=== PATIENT | female | born 1960 | race Caucasian/White ===

== ENCOUNTER 2017-10-26 15:10 | Emergency (ER) | payer OTHER, BC ==
[~2017-10-26] VITALS: Ht 170.2 cm; Wt 73.0 kg
[~2017-10-26 15:10] MED LIST: ASPI81TA28 PO; B-COTAB18 PO; FLX5 PO; FRCT/ PO; FURO-85 PO; HPRIS5M SQ; HYDR2TAB3 PO; LDDP5 TD; METO25TA56 PO; NTRARSCL PO; NTRGSL/4 UT; OMEGCAP2 PO; OXYC5TAB PO; ZOLP5TAB PO
[2017-10-26 15:13] VITALS: TEMP 36.7; Ht 170.2 cm; Wt 73.0 kg
[2017-10-26] MEDS ORDERED: ASPIRIN 81 MG ECTAB PO STA (15:39)
[2017-10-26] MEDS ORDERED: HYDROmorphone INJ 0.5 MG/0.5 ML SYR IV STA (15:39)
--- NOTE | 2017-10-26 15:42 | EMERGENCY ROOM VISIT NOTE ---
History Report prepared by Mona: Jazmyn Mullins Under the Supervision of: Dr. Emmanuel Swenson M.D. 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 Positive SOB, dizziness, chest pain ( chronic). Negative LOC, cough, chills. She states for the past few days she has been very dizzy and SOB. She reports she was walking into her house after working in her yard when she tripped and fell on her kitchen floor. She states she fell on her left side and thinks she broke her left wrist. She took nitro 6 hours ago and one in the waiting room which alleviated her pain. She is currently taking Plavix and baby aspirin. 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 A total of ten systems were reviewed and were otherwise negative. Past Medical & Surgical Medical Problems: (1) Carotid artery plaque (2) Chest pain (3) Dyslipidemia (4) Endothelial dysfunction of coronary artery (5) GERD (gastroesophageal reflux disease) (6) Myocardial bridge (7) Pericarditis (8) TIA (transient ischemic attack) Surgical Problems: (1) History of appendectomy (2) History of bilateral breast implants (3) History of bilateral hip arthroplasty (4) History of hysterectomy (5) History of pericardiectomy (6) S/P rotator cuff repair Family History Cancer FH: diabetes mellitus FH: seizures FHx: gallbladder disease Heart disease Kidney disease Social History Smoking Status: Never Smoker Alcohol Use: occasionally Drug Use: none Marital Status: Housing Status: lives with family Occupation Status: retired Current/Historical Medications Scheduled Acetamin/Butalbital/Caffeine (Fioricet), 1 TAB PO PRN UD Aspirin (Aspirin Ec), 81 MG PO DAILY Calcium Citrate-Vitamin D (Citracal + D3 Maximum), 1 TAB PO BID Clopidogrel (Plavix), 75 MG PO DAILY Diltiazem Hcl Coated Beads (Cardizem Cd), 240 MG PO DAILY Furosemide (Lasix), 40 MG PO BID Isosorbide Mononitrate Ext Rel (Imdur Ext Rel), 60 MG PO QAM Multiple Vitamins W/ Minerals (Womens One Daily), 1 TAB PO DAILY Scheduled PRN Colchicine (Colchicine), 0.6 MG PO TID PRN for Lidocaine (Lidocaine), 1 PATCH PO DAILY PRN for PT Nitroglycerin (Nitrostat), 0.4 MG UT UD PRN for Chest Pain Ondansetron Hcl (Zofran), 4 MG PO Q8H PRN for Nausea Oxycodone Immediate Rel Tab (Roxicodone Ir), 5 MG PO Q6H PRN for Pain Allergies Coded Allergies: Ivabradine (Verified Allergy, Severe, FACE SWELLS, 10/26/17) Morphine (Verified Allergy, Intermediate, RASH, 10/26/17) Amlodipine (Verified Allergy, Unknown, muscle pain, 10/26/17) Verapamil (Verified Allergy, Unknown, muscle pain, 10/26/17) Promethazine (Verified Adverse Reaction, Intermediate, "JAW LOCKS", ) Physical Exam Vital Signs Date Time Temp Pulse Resp B/P (MAP) Pulse Ox O2 Delivery O2 Flow Rate FiO2 10/26/17 18:12 76 18 128/77 98 10/26/17 16:45 83 19 10/26/17 16:40 84 22 10/26/17 16:35 85 20 10/26/17 16:30 92 29 10/26/17 16:28 88 10/26/17 16:25 88 22 10/26/17 16:20 90 18 10/26/17 16:15 86 25 10/26/17 15:52 98 Room Air 10/26/17 15:13 36.7 104 20 131/80 98 Room Air Physical Exam GENERAL: Awake, alert, well-appearing, NAD. Mild expressive aphasia HENT: Normocephalic, atraumatic. EYES: Normal conjunctiva. Sclera non-icteric. PERRL. No anisocoria. NECK: Supple. No nuchal rigidity. FROM. RESPIRATORY: CTAB, no rhonchi, wheezing, crackles CARDIAC: RRR, no MRG ABDOMEN: Soft, NTND, BS+ MSK: No chest wall TTP, no LE edema. Midline sternotomy scar. Pain to the distal forearm, wrist and hand. NVI distally to MUR nerves. NEURO: GCS 15, CN 2-12 intact, moves all 4s on command SKIN: No rash or jaundice noted. Scattered ecchymosis on her BLE Medical Decision & Procedures ER Provider Diagnostic Interpretation: Radiology results as stated below per my review and radiologist interpretation: L WRIST MIN 3 VIEWS ROUTINE CLINICAL HISTORY: s/p FOOSH L hand, distal forearm, wrist pain COMPARISON: None FINDINGS: Carpal bones are intact. There is cortical irregularity of the lateral metaphysis of the distal left radius. A nondisplaced impacted fracture is suspected. There is moderate arthritis of the left first carpometacarpal joint. There is no distal left ulnar fracture. IMPRESSION: Probable nondisplaced impacted distal left radial fracture. Electronically signed by: Bradley Live M.D. 10/26/2017 4:16 PM CHEST ONE VIEW PORTABLE CLINICAL HISTORY: Chest pain. Fall. COMPARISON STUDY: Chest radiograph March 23, 2016. FINDINGS: There are median sternotomy wires. Cardiomediastinal silhouette is unremarkable. Mediastinal surgical clips are noted. There is no pneumothorax or pleural effusion. Lungs are clear. Pulmonary vascularity is normal. There are suspected bilateral breast implants. IMPRESSION: No acute cardiopulmonary findings. Electronically signed by: Bradley Live M.D. 10/26/2017 4:17 PM Laboratory Results 10/26/17 15:58 Red Blood Count 3.80, Mean Corpuscular Volume 93.4, Mean Corpuscular Hemoglobin 32.9, Mean Corpuscular Hemoglobin Concent 35.2, Mean Platelet Volume 9.3, Neutrophils (%) (Auto) 47.7, Lymphocytes (%) (Auto) 34.8, Monocytes (%) (Auto) 9.6, Eosinophils (%) (Auto) 6.4, Basophils (%) (Auto) 1.3, Neutrophils # (Auto) 2.23, Lymphocytes # (Auto) 1.63, Monocytes # (Auto) 0.45, Eosinophils # (Auto) 0.30, Basophils # (Auto) 0.06 10/26/17 15:58 Test 10/26/17 15:58 10/26/17 16:45 White Blood Count 4.68 K/uL (4.8-10.8) Red Blood Count 3.80 M/uL (4.2-5.4) Hemoglobin 12.5 g/dL (12.0-16.0) Hematocrit 35.5 % (37-47) Mean Corpuscular Volume 93.4 fL (80-100) Mean Corpuscular Hemoglobin 32.9 pg (25-34) Mean Corpuscular Hemoglobin Concent 35.2 g/dl (32-36) Platelet Count 274 K/uL (130-400) Mean Platelet Volume 9.3 fL (7.4-10.4) Neutrophils (%) (Auto) 47.7 % Lymphocytes (%) (Auto) 34.8 % Monocytes (%) (Auto) 9.6 % Eosinophils (%) (Auto) 6.4 % Basophils (%) (Auto) 1.3 % Neutrophils # (Auto) 2.23 K/uL (1.4-6.5) Lymphocytes # (Auto) 1.63 K/uL (1.2-3.4) Monocytes # (Auto) 0.45 K/uL (0.11-0.59) Eosinophils # (Auto) 0.30 K/uL (0-0.5) Basophils # (Auto) 0.06 K/uL (0-0.2) RDW Standard Deviation 43.4 fL (36.4-46.3) RDW Coefficient of Variation 12.7 % (11.5-14.5) Immature Granulocyte % (Auto) 0.2 % Immature Granulocyte # (Auto) 0.01 K/uL (0.00-0.02) Anion Gap 9.0 mmol/L (3-11) Est Creatinine Clear Calc Drug Dose 55.7 ml/min Estimated GFR () 66.3 Estimated GFR (Non- 57.2 BUN/Creatinine Ratio 18.4 (10-20) Calcium Level 8.9 mg/dl (8.5-10.1) Total Bilirubin 0.7 mg/dl (0.2-1) Direct Bilirubin 0.2 mg/dl (0-0.2) Aspartate Amino Transf (AST/SGOT) 33 U/L (15-37) Alanine Aminotransferase (ALT/SGPT) 54 U/L (12-78) Alkaline Phosphatase 60 U/L (45-117) Troponin I < 0.015 ng/ml (0-0.045) Pro-B-Type Natriuretic Peptide 93 pg/ml (0-900) Total Protein 8.0 gm/dl (6.4-8.2) Albumin 4.2 gm/dl (3.4-5.0) Lipase 140 U/L (73-393) Prothrombin Time 10.3 SECONDS (9.0-12.0) Prothromb Time International Ratio 1.0 (0.9-1.1) Activated Partial Thromboplast Time 26.8 SECONDS (21.0-31.0) Partial Thromboplastin Ratio 1.0 Laboratory results reviewed by me Medications Administered Medications (Trade) Dose Ordered Sig/Juve Route Start Time Stop Time Status Last Admin Dose Admin Nitroglycerin (Nitrostat Tab) 0.4 mg Q5M PRN SL 10/26/17 15:45 10/26/17 18:49 DC 10/26/17 15:53 0.4 MG Aspirin (Ecotrin Tab) 243 mg NOW STAT PO 10/26/17 15:39 10/26/17 15:42 DC 10/26/17 15:55 243 MG Hydromorphone HCl (Dilaudid Inj) 0.5 mg NOW STAT IV 10/26/17 15:39 10/26/17 15:42 DC 10/26/17 15:54 0.5 MG Ondansetron HCl (Zofran Inj) 4 mg NOW STAT IV 10/26/17 16:18 10/26/17 16:19 DC 10/26/17 16:33 4 MG Hydromorphone HCl (Dilaudid Inj) 1 mg NOW STAT IV 10/26/17 16:41 10/26/17 16:42 DC 10/26/17 16:49 1 MG Tramadol HCl (Ultram Tab) 50 mg NOW STAT PO 10/26/17 17:11 10/26/17 17:12 DC 10/26/17 17:19 50 MG Oxycodone HCl (Roxicodone Immediate Rel Tab) 5 mg NOW STAT PO 10/26/17 17:11 10/26/17 17:12 DC 10/26/17 17:18 5 MG Acetaminophen (Tylenol Tab) 1,000 mg NOW STAT PO 10/26/17 17:11 5/25/18 17:12 DC 10/26/17 17:18 1,000 MG ECG Per My Interpretation Indication: chest pain, other (fall) Rate (beats per minute): 100 Rhythm: normal sinus Findings: other (normal intervals, normal axis, no acute STS changes or TWI) ED Course 153: The patient was evaluated in room B9. A complete history and physical exam was performed. 1645: I reevaluated the patient at this time. I recommended the patient should stay in the hospital for further evaluation however she stated she wants to leave AMA. 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 Positive SOB, dizziness, chest pain ( chronic). Negative LOC, cough, chills. Nursing notes reviewed. Ancillary studies and prior records reviewed. Differential diagnosis: Etiologies such as cardiac ischemia, aortic dissection, pulmonary embolism, pneumonia, pneumothorax, musculoskeletal, infections, pericarditis, myocarditis , esophageal rupture, gastrointestinal, fracture, dislocation, neurovascular compromise, compartment syndrome, soft tissue injury, as well as others were entertained. Patient was seen and evaluated the bedside. Patient does have a fairly significant cardiac history and the patient was complaining of chest pain. Patient did have a fall today after experience of chest pain while doing housework. Patient denies any LOC. Patient does take aspirin and Plavix. Patient did take her baby aspirin and Plavix today. The patient was given an additional dose of aspirin and nitro as needed for chest pain. Patient did have blood work completed, EKG, troponin, chest x-ray as well as a left wrist film. Patient's chest x-ray was clear. EKG did not show any ischemic change and a negative troponin. Patient's other blood work is fairly unremarkable. Given the patient's concerning past medical history with associated chest pain also sounds as if it could be related to unstable angina as she has chest pains without exertion and has a significant cardiac history. The patient also of note did have a left distal radius fracture. This is fairly well approximated. A splint was applied. The patient was given additional IV and then p.o. pain medications. The patient was told that she should stay in the hospital. The patient did refuse at this time. We did discuss the risks and benefits of staying versus leaving AGAINST MEDICAL ADVICE. The patient is aware of the risks and the patient still wanted to go. The patient did sign paperwork acknowledging such the patient left AGAINST MEDICAL ADVICE. I did have the case aide talk with her prior to leaving in order to obtain follow-up appointments with her primary stage settings painter as well as the orthopedist. Medication Reconcilliation Current Medication List: was personally reviewed by me Blood Pressure Screening Patient's blood pressure: Normal blood pressure Blood pressure disposition: Did not require urgent referral Impression Primary Impression: Chest pain Additional Impressions: Fall Left radial fracture Scribe Attestation The scribe's documentation has been prepared under my direction and personally reviewed by me in its entirety. I confirm that the note above accurately reflects all work, treatment, procedures, and medical decision making performed by me. Departure Information Dispostion Home / Self-Care Prescriptions Ondansetron Hcl (ZOFRAN) 4 Mg Tab 4 MG PO Q8H Y for Nausea, #12 TAB Prov: Emmanuel Swenson M.D. 10/26/17 Oxycodone Immediate Rel Tab (ROXICODONE IR) 5 Mg Tab 5 MG PO Q6H Y for Pain, #15 TAB Prov: Emmanuel Swenson M.D. 10/26/17 Referrals Angelica Mcdowell MD (PCP) Patient Instructions ED Fx Forearm Radius Ulna No Shaychristel Sanchez, My [facility] Additional Instructions Please return to the emergency department if you have worsening or recurrent symptoms not amenable to at-home treatment. Please call for a follow-up appointment with her primary care physician. Please take your medications as prescribed. If you have other concerns and/or complaints please feel free to also call your primary care physician's office or return the ED for further evaluation, management, and treatment. You received narcotic or benzodiazepene medication while in the emergency room today. This is an addictive medication that may cause drowziness as well as constipation. Do not drive, operate heavy machinery, or drink alcohol under the influence of this medication. You may take tylenol 1000 mg every 6 hours as needed for pain/fever unless told by your physician to not take it or have liver problems. Take your medications as prescribed. If you still have discomfort you may take the narcotic medication. Please be advised that these medications are habit forming, can make you sleepy, and can cause breathing issues. Do not use if you require your full attention. Take only as prescribed. Please follow-up with your orthopedist as well as stage settings painter. You have been examined and treated today on an emergency basis only. This is not a substitute for, or an effort to provide, complete comprehensive medical care. It is impossible to recognize and treat all injuries or illnesses in a single emergency department visit. It is therefore important that you follow up closely with [facility], your PCP, and/or your specialist(s). Call as soon as possible for an appointment. Thank you for your time and consideration. I look forward to speaking with you again soon. Please don't hesitate to call us if you have any questions. Problem Qualifiers Primary Impression: Chest pain Chest pain type: unspecified Qualified Codes: R07.9 - Chest pain, unspecified Additional Impressions: Fall Encounter type: initial encounter Qualified Codes: W19.XXXA - Unspecified fall, initial encounter Left radial fracture Encounter type: initial encounter Radius location: distal Fracture type: closed Fracture morphology: unspecified fracture morphology Qualified Codes: S52.502A - Unspecified fracture of the lower end of left radius, initial encounter for closed fracture
[2017-10-26] MEDS ORDERED: NITROGLYCERIN 0.4 MG SL PER TAB CHARGE SL PRN (15:45)
[2017-10-26 15:52] VITALS: O2SAT 98
[2017-10-26 16:12] LABS: BASO % 1.3 %; BASO ABS # 0.06 K/uL (0-0.2); EOS % 6.4 %; HEMATOCRIT 35.5 % (37-47); HEMOGLOBIN 12.5 g/dL (12.0-16.0); IG# 0.01 K/uL (0.00-0.02); LYMPH % 34.8 %; LYMPH ABS # 1.63 K/uL (1.2-3.4); MEAN CELL VOLUME 93.4 fL (80-100); MEAN CORPUSCULAR HEMOGLOBIN 32.9 pg (25-34); MEAN CORPUSCULAR HGB CONC 35.2 g/dl (32-36); MEAN PLATELET VOLUME 9.3 fL (7.4-10.4); MONO % 9.6 %; MONO ABS # 0.45 K/uL (0.11-0.59); NEUT % 47.7 %; NEUT ABS # 2.23 K/uL (1.4-6.5); PLATELET COUNT 274 K/uL (130-400); RED CELL DISTRIBUTION WIDTH CV 12.7 % (11.5-14.5); RED CELL DISTRIBUTION WIDTH SD 43.4 fL (36.4-46.3); WHITE BLOOD COUNT 4.68 K/uL (4.8-10.8)
[2017-10-26] MEDS ORDERED: FRCT/ PO (16:12)
[2017-10-26] MEDS ORDERED: LIDO1PAD2 PO (16:12)
[2017-10-26] MEDS ORDERED: DILT240C57 PO (16:14)
[2017-10-26] MEDS ORDERED: ISOS60TA25 PO (16:14)
[2017-10-26] MEDS ORDERED: CLOP1TAB15 PO (16:14)
--- NOTE | 2017-10-26 16:17 | DIAGNOSTIC IMAGING REPORT ---
L WRIST MIN 3 VIEWS ROUTINE CLINICAL HISTORY: s/p FOOSH L hand, distal forearm, wrist pain COMPARISON: None FINDINGS: Carpal bones are intact. There is cortical irregularity of the lateral metaphysis of the distal left radius. A nondisplaced impacted fracture is suspected. There is moderate arthritis of the left first carpometacarpal joint. There is no distal left ulnar fracture. IMPRESSION: Probable nondisplaced impacted distal left radial fracture. Electronically signed by: Bradley iLve M.D. 10/26/2017 4:16 PM Dictated Date/Time: 10/26/2017 4:13 PM
[2017-10-26] MEDS ORDERED: ONDANSETRON INJ 2 MG/ML 2 ML VIAL IV STA (16:18)
--- NOTE | 2017-10-26 16:18 | DIAGNOSTIC IMAGING REPORT ---
CHEST ONE VIEW PORTABLE CLINICAL HISTORY: Chest pain. Fall. COMPARISON STUDY: Chest radiograph March 23, 2016. FINDINGS: There are median sternotomy wires. Cardiomediastinal silhouette is unremarkable. Mediastinal surgical clips are noted. There is no pneumothorax or pleural effusion. Lungs are clear. Pulmonary vascularity is normal. There are suspected bilateral breast implants. IMPRESSION: No acute cardiopulmonary findings. Electronically signed by: Bradley Live M.D. 10/26/2017 4:17 PM Dictated Date/Time: 10/26/2017 4:16 PM
[2017-10-26] MEDS ORDERED: COLC0.6T54 PO (16:19)
[2017-10-26] MEDS ORDERED: FRS/40 PO (16:21)
[2017-10-26] MEDS ORDERED: CALC1TAB9 PO (16:21)
[2017-10-26 16:36] LABS: ALBUMIN 4.2 gm/dl (3.4-5.0); ALKALINE PHOSPHATASE 60 U/L (45-117); ALT/SGPT 54 U/L (12-78); AST/SGOT 33 U/L (15-37); BLOOD UREA NITROGEN 20 mg/dl (7-18); CALCIUM 8.9 mg/dl (8.5-10.1); CARBON DIOXIDE 26 mmol/L (21-32); CREATININE 1.07 mg/dl (0.60-1.20); GLUCOSE 95 mg/dl (70-99); LIPASE 140 U/L (73-393); POTASSIUM 3.5 mmol/L (3.5-5.1); SODIUM 141 mmol/L (136-145)
[2017-10-26] MEDS ORDERED: HYDROmorphone INJ 1 MG/ML SYR IV STA (16:41)
[2017-10-26 17:07] LABS: PTT PATIENT 26.8 SECONDS (21.0-31.0)
[2017-10-26] MEDS ORDERED: ACETAMINOPHEN 500 MG TAB PO STA (17:11)
[2017-10-26] MEDS ORDERED: OXYCODONE HCL IR 5 MG TAB (IMMEDIATE RELEASE) PO STA (17:11)
[2017-10-26] MEDS ORDERED: TRAMADOL HCL 50 MG TAB PO STA (17:11)
[2017-10-26] MEDS ORDERED: ONDA4TAB46 PO (17:54)
[2017-10-26] MEDS ORDERED: OXYC1TAB3 PO (17:54)
[2017-10-26 18:12] VITALS: BP 128/77; PULSE 76; O2SAT 98
[2017-10-26] MEDS ORDERED: MULT-240 PO (18:31)
== END 2017-10-26 18:18 | disposition left against medical advice (07) ==
LOC: C.EDB 15:12
DX: R07.9 Chest pain, unspecified (principal); S52.502A Unspecified fracture of the lower end of left radius, initial encounter for closed fracture; S80.11XA Contusion of right lower leg, initial encounter; S80.12XA Contusion of left lower leg, initial encounter; W01.0XXA Fall on same level from slipping, tripping and stumbling without subsequent striking against object, initial encounter; Y93.01 Activity, walking, marching and hiking; Y92.000 Kitchen of unspecified non-institutional (private) residence as the place of occurrence of the external cause; R47.01 Aphasia; I25.2 Old myocardial infarction; Z79.82 Long term (current) use of aspirin; Z79.02 Long term (current) use of antithrombotics/antiplatelets; Z86.73 Personal history of transient ischemic attack (TIA), and cerebral infarction without residual deficits; Z88.8 Allergy status to other drugs, medicaments and biological substances; Z88.6 Allergy status to analgesic agent

== ENCOUNTER → 2018-01-22 | Outpatient (CLI) | payer OTHER, BC ==
[~2018-01-22] MED LIST changes: -B-COTAB18 PO; +CALC1TAB9 PO; +CLOP1TAB15 PO; +COLC0.6T54 PO; +DILT240C57 PO; -FLX5 PO; +FRS/40 PO; -FURO-85 PO; -HPRIS5M SQ; -HYDR2TAB3 PO; +ISOS60TA25 PO; -LDDP5 TD; +LIDO1PAD2 PO; -METO25TA56 PO; +MULT-240 PO; -NTRARSCL PO; -OMEGCAP2 PO; +ONDA4TAB46 PO; +OXYC-737 PO; -OXYC5TAB PO; -ZOLP5TAB PO
[2018-01-22 16:17] LABS: BASO % 0.6 %; BASO ABS # 0.04 K/uL (0-0.2); EOS % 3.7 %; EOS ABS # 0.24 K/uL (0-0.5); HEMATOCRIT 38.7 % (37-47); HEMOGLOBIN 13.3 g/dL (12.0-16.0); IG# 0.01 K/uL (0.00-0.02); LYMPH % 24.8 %; MEAN CELL VOLUME 91.7 fL (80-100); MEAN CORPUSCULAR HEMOGLOBIN 31.5 pg (25-34); MEAN CORPUSCULAR HGB CONC 34.4 g/dl (32-36); MEAN PLATELET VOLUME 9.4 fL (7.4-10.4); MONO % 9.6 %; MONO ABS # 0.62 K/uL (0.11-0.59); NEUT % 61.1 %; NEUT ABS # 3.94 K/uL (1.4-6.5); PLATELET COUNT 269 K/uL (130-400); RED CELL DISTRIBUTION WIDTH CV 12.2 % (11.5-14.5); RED CELL DISTRIBUTION WIDTH SD 41.2 fL (36.4-46.3); WHITE BLOOD COUNT 6.45 K/uL (4.8-10.8)
== END | disposition home or self-care (01) ==
LOC: C.LAB1850 15:42
PROVIDERS: ATTEND Allergy & Immunology
DX: I20.1 Angina pectoris with documented spasm (principal); D47.09 Other mast cell neoplasms of uncertain behavior; Z88.6 Allergy status to analgesic agent

== ENCOUNTER 2019-02-09 12:48 | Inpatient (IN) ==
[2019-02-09] MEDS ORDERED: ONDANSETRON INJ 2 MG/ML 2 ML VIAL IV STA (13:12)
[2019-02-09] MEDS ORDERED: NITROGLYCERIN 2% OINTMENT 30GM TUBE EXT STA (13:12)
[2019-02-09] MEDS ORDERED: HYDROmorphone INJ 0.5 MG/0.5 ML SYR IV STA ×3 (13:12→21:44)
[2019-02-09] MEDS ORDERED: DiphenhydrAMINE HCL 50 MG/ML VIAL IV STA (13:12)
[2019-02-09] MEDS ORDERED: SODIUM CHLORIDE 0.9% 500 ML IV SCH (13:15)
[2019-02-09 13:49] LABS: Basophils # (auto) 0.04 K/uL (0-0.2); Basophils % (auto) 0.7 %; Hematocrit (blood only) 40.9 % (37-47); Hemoglobin 14.5 g/dL (12.0-16.0); Immature Granulocytes # (auto) 0.01 K/uL (0.00-0.02); Immature Granulocytes % (auto) 0.2 %; Lymphocytes # (auto) 2.04 K/uL (1.2-3.4); Lymphocytes % (auto) 34.2 %; Mean Corpuscular Hgb Conc 35.5 g/dL (32-36); Mean Corpuscular Volume 92.5 fL (80-100); Mean Platelet Volume 9.4 fL (7.4-10.4); Monocytes # (auto) 0.58 K/uL (0.11-0.59); Monocytes % (auto) 9.7 %; Neutrophils # (auto) 2.99 K/uL (1.4-6.5); Neutrophils % (auto) 50.2 %; Platelet Count 290 K/uL (130-400); RDW Coefficient of Variation 11.8 % (11.5-14.5); Red Blood Count 4.42 M/uL (4.2-5.4); White Blood Count 5.96 K/uL (4.8-10.8)
[2019-02-09 13:50] LABS: Partial Thromboplastin Time 28.2 Seconds (21.0-31.0); Prothrombin Time 10.1 Seconds (9.0-12.0)
--- NOTE | 2019-02-09 13:52 | XRay Report ---
SINGLE VIEW CHEST CLINICAL HISTORY: Atypical chest pain. FINDINGS: An AP, portable, upright chest radiograph is compared to study dated 04/18/2018. The patien t is status post midline sternotomy. The heart is top normal for projection. The pulmonary vasculatur e is noncongested. The lungs and pleural spaces are clear. No pneumothorax is seen. The skeletal stru ctures are osteopenic. The bony thorax is grossly intact. IMPRESSION: No active disease in the chest. Electronically signed by: Daquan Murphy M.D. 02/09/2019 1:51 PM
[2019-02-09 13:54] LABS: Alanine Aminotransferase 26 U/L (12-78); Albumin Level 4.3 gm/dl (3.4-5.0); Aspartate Aminotransferase 20 U/L (15-37); BUN Creatinine Ratio 13.2 (10-20); Blood Urea Nitrogen 13 mg/dl (7-18); Calcium 10.6 mg/dl (8.5-10.1); Carbon Dioxide 27 mmol/L (21-32); Chloride 105 mmol/L (98-107); Creatinine Clr Calc Pharmacy 67.3 ml/min; Est GFR (African American) 72.3; Est GFR (Non-African American) 62.4; Glucose 101 mg/dl (70-99); Magnesium 2.2 mg/dl (1.8-2.4); Sodium 144 mmol/L (136-145)
[2019-02-09 13:58] LABS: Alkaline Phosphatase 72 U/L (45-117); Bilirubin,Total 0.5 mg/dl (0.2-1); Globulin 4.2 gm/dl (2.5-4.0); Total Protein 8.5 gm/dl (6.4-8.2); Troponin I < 0.015 ng/ml (0-0.045)
[2019-02-09] MEDS ORDERED: FAMOTIDINE 20MG/5ML IV PUSH IV STA (14:53)
--- NOTE | 2019-02-09 17:49 | History & Physical Report ---
Date of Service February 09, 2019 Assessment & Plan (1) Precordial chest pain: Admit to PCU on telemetry for observation Vital signs every [address] abdomen pelvis pending Rule out acute ACS, repeat troponin every 6 hours and EKG x3 TTE Consider consulting cardiology since patient have extensive cardiac history if chest pain persists or positive findings on TTE Consider stress test Stool cultures, C. difficile and fecal occult blood Urine analysis Hold DVT prophylaxis since patient reports brown and dark liquid stools until fecal occult results DVT prophylaxis Victoria and TESSA sandoval If C. difficile positive start vancomycin p.o. for 10 days. Patient was exposed recently to antibiotics. Full code Present on Admission?: Yes (2) Diarrhea: As the above Present on Admission?: Yes (3) CAD (coronary artery disease): Continue home medicine aspirin 81 mg p.o. every morning, Plavix 75 mg p.o. every morning, diltiazem 120 mg tablet p.o. every afternoon, diltiazem IR 240 mg / 360 mg p.o., Hold furosemide furosemide 20 mg p.o. every morning while patient has diarrhea and needs a gentle hydration. Lisinopril 2.5 mg tablet p.o. every afternoon, nitroglycerin 400 MCG sprays 1 spray SL q. 5 minutes as needed, Present on Admission?: Yes (4) Hiatal hernia: It was not the issue before but will check CT Present on Admission?: Yes History of Present Illness Chief Complaint: Chest pain Primary Care Provider: Tito Green MD Patient is a 58 years old female with past medical history of hypertension, myocardial infarction, stroke, history of tooth extraction, hiatal hernia, coronary artery disease, myocardial bridge, pericarditis, hyperlipidemia who presents to the emergency room with a complaint of chest pain started this morning after hinduism and did not resolve with 3 nitroglycerin. Patient said that since she had several loose bowel movements and then she had approximately 6 watery diarrhea which were brown dark in color. Patient said the prior to that she had tooth extraction and she was on amoxicillin for 5 days. And this was before she started to have diarrhea and chest pain. Patient said that she is burping a lot and she does not feel good. Patient denies fever chills, but reports hot flashes, chest pain is more epigastric and patient said sometimes goes to her left shoulder. Otherwise she denies nausea vomiting hemoptysis hematuria dysuria melena or hematochezia. Patient is on aspirin and Plavix for her stroke and coronary artery disease. Chest x-rays were done and they showed no active disease in the chest. Her white blood cell count is 5.96 her hemoglobin is 14.5 her hematocrit is 40.9 her platelet is 290. Her PT is 10.1 her INR is 1 her APTT is 28.2. Her sodium is 144, her potassium is 4, her chloride was 105, her anion gap is 12, her BUN is 13 her creatinine is 0.99 her GFR is 62.4 her glucose is 101, her lactate is pending. Her magnesium is 2.2 her ALT today is 26, her AST is 20, her alkaline phosphatase is 72, troponin 0 0.015 negative, her lipase is 102. CT of the abdomen pelvis is pending. Decision was made to admit patient to PCU telemetry to check her stool cultures for diarrhea, to rule out acute ACS. Allergies Allergy/AdvReac Type Severity Reaction Status Date / Time ivabradine Allergy SV FACE SWELLS Verified 02/09/19 13:56 prochlorperazine Allergy Severe LOCK JAW Unverified 02/09/19 13:56 [From Compazine] amlodipine Allergy Intermediate muscle pain Verified 02/09/19 13:56 morphine Allergy Intermediate RASH Verified 02/09/19 13:56 verapamil Allergy Intermediate muscle pain Verified 02/09/19 13:56 ibuprofen Allergy Mild Rash Verified 02/09/19 13:56 promethazine AdvReac Severe Jaw Locks Verified 02/09/19 13:56 Home Medications Home Medications Medication Instructions Recorded Confirmed Type aspirin [Aspir-81] 81 mg PO QAM 04/08/18 02/09/19 History calcium phosphate-vitamin D3 1 tab PO QAM 04/08/18 02/09/19 History [Citracal + D3 (calcium phos)] multivitamin 1 tab PO QAM 04/08/18 02/09/19 History nitroglycerin 1 dose SUBLINGUAL UD PRN 04/08/18 02/09/19 History pantoprazole [Protonix] 40 mg PO QAM 04/08/18 02/09/19 History vitamin [id number] acid 1 tab PO QAM 04/08/18 02/09/19 History fexofenadine [Hortensia Allergy] 180 mg PO BID 04/18/18 02/09/19 History furosemide 20 mg tablet 20 mg PO QAM PRN 06/26/18 02/09/19 History diltiazem 120 mg tablet 120 mg PO QPM tab 08/01/18 02/09/19 History diltiazem ER 240 mg capsule,24 360 mg PO .am cap 08/01/18 02/09/19 History hr,extended release docosahexanoic acid 200 mg capsule 200 mg PO DAILY cap 08/01/18 02/09/19 History isosorbide mononitrate ER 60 mg 120 mg PO BID tab 08/01/18 02/09/19 History tablet,extended release 24 hr lisinopril 2.5 mg tablet 5 mg PO QPM tab 08/01/18 02/09/19 History lactobacillus combination no.4 3 3,000 mmu cells PO DAILY 10/30/18 02/09/19 History billion cell capsule albuterol sulfate HFA 90 1 puffs INH Q6H PRN #8.5 gm 12/30/18 02/09/19 Rx mcg/actuation aerosol inhaler lidocaine 5 % topical patch 1 patch TOP DAILY #1 ea 12/30/18 02/09/19 Rx nitroglycerin 0.1 mg/hr 1 patch TD Q12 PRN #30 ea 12/30/18 02/09/19 Rx transdermal 24 hour patch nitroglycerin 400 mcg/spray 1 sprays SL Q5M PRN #12 gm 12/30/18 02/09/19 Rx translingual aerosol clopidogrel 75 mg tablet 75 mg PO QAM #90 tab 02/06/19 02/09/19 Rx ascorbic acid (vitamin C) [Vitamin 1 g PO DAILY 02/09/19 02/09/19 History C] turmeric 400 mg PO DAILY 02/09/19 02/09/19 History vitamin A 8,000 unit PO DAILY 02/09/19 02/09/19 History Past Med/Surg History Medical History Hypertension (Chronic) Myocardial Infarction (Chronic) X 2 (2015 AND 09/2017) Asymptomatic PVCs (Chronic) Migraine (Chronic) Stroke (Chronic) 02/11/2015 (EMBOLIC CAROTID STROKE) EXPRESSIVE APHASIA/RESIDUAL LEFT SIDE WEAKNESS Anemia (Chronic) Osteoarthritis (Chronic) Fibroid tumor (Resolved) Surgical History History of cardiac cath (Chronic) TOTAL 12? (LAST NOVEMBER 2017 AT [facility]) History of heart artery stent (Chronic) SEPTEMBER 2017>4 STENTS PLACED (WILL BRING CARD TO SURGERY) DRUG ELUTING History of heart surgery (Chronic) 07/2014>UNROOFING MYOCARDIAL BRIDGE OF LAD ([facility]) 3 MONTHS LATER-PERICARDIECTOMY 01/2017 BYPASS OF RCA Hx of LASIK (Chronic) History of tonsillectomy (Chronic) History of tooth extraction (Chronic) History of appendectomy (Chronic) History of colonoscopy (Chronic) History of esophagogastroduodenoscopy (EGD) (Chronic) History of total hip arthroplasty (Chronic) RT/LEFT History of shoulder surgery (Chronic) RT/LEFT History of elbow surgery (Chronic) RT ELBOW History of hysterectomy (Chronic) Family History Mother Family history of diabetes mellitus Coronary heart disease Hypertension Cardiac disorder Father Family history of diabetes mellitus Hypertension Cardiac disorder Kidney disease Myocardial infarction Sister Family history of diabetes mellitus Seizures Brother Family history of diabetes mellitus Hypertension Cardiac disorder Prostate cancer Thyroid cancer Uncle Esophageal cancer Grandmother Breast cancer Cardiac disorder Grandfather Cardiac disorder Aunt Ovarian cancer Social History Preferred Language: Egyptian Communication Ability: Effective Visual Impairment: No Limitations Hearing Ability: Normal Bond Manager Required: No Beliefs That Will Affect Care: None marital status: Current Living Situation: Spouse current occupational status: retired Feels Safe at Home: Yes Smoking Status: Never smoker Second Hand Exposure: Yes ; Hx Alcohol Use: Yes Alcohol type: beer and wine Hx Substance Use: No Review of Systems Review of Systems: All systems reviewed & are unremarkable except as noted in HPI & below Physical Exam Constitutional: WD/WN, vitals as above well developed and + thin Eyes: PERRL, conjunctivae normal, anicteric sclerae ENMT: external ear and nose normal, oropharynx normal Neck: trachea midline, no thyromegaly Respiratory: normal respiratory effort, lungs clear to auscultation Cardiovascular: Heart Sounds: normal S1, normal S2 and + murmur Palpation: + palpable S3 Vessels: + JVD Extremities: + pedal edema Gastrointestinal (Abdomen): Bowel sounds positive in all 4 quadrants, soft, mildly tender to deep palpation which exacerbated chest pain. Appears that chest pain is atypical and caused by and bloating coming from her abdomen. Musculoskeletal: no cyanosis or clubbing, extremities motor strength 5/5 Skin: no rashes, warm and dry Neurologic: patellar DTR's 2+ bilat, sensation intact Psychiatric: A+Ox3, euthymic affect Lymphatic: no cervical or axillary lymphadenopathy Results & Data Vital Signs (Past 12 Hours) Vital Signs Temp Pulse Pulse Resp BP BP Pulse Ox 02/09/19 15:48 58 L 18 125/74 94 02/09/19 14:30 73 17 121/70 94 02/09/19 12:59 37.1 C 75 19 116/78 99 Code Status & VTE Plan Code Status Full code VTE Prophylaxis Plan VTE Prophylaxis will be ordered: No Reason for no VTE drug order: Contraindicated PG Care Time/CCT Total # of Minutes Spent Total Time Spent with Patient: Total time spent is greater than 50% in coordination of care (as documented) at patient's floor/unit and/or counseling patient:
[2019-02-09] MEDS ORDERED: GI COCKTAIL ED USE PO ONE (17:53)
--- NOTE | 2019-02-09 18:14 | Emergency Department Note ---
Entered by Ngoc Kwon acting as a scribe for Daquan Alvarez MD History of Present Illness General Chief complaint: Chest Pain Stated complaint: CHEST PAIN, SOB- STRONG CARDIAC HX Time Seen by Provider: 02/09/19 13:04 Source: patient History of Present Illness Provider complaint: Chest pain Onset (ago): day(s) 3 Location: chest Radiation: other (left chest ) Pain Consistency: + other (worsening ) Maximum Pain Intensity: 9 Quality: + constant and + other (increasing ) Associated symptoms: + chest pain, + shortness of breath and + other (Positive: difficulty breathing, difficulty swalloing, dizziness ) The patient is a 58 year old female with past medical history of anemia, EGD, osteoarthritis, stroke, LASIK, who presents to the ED with complaints of worsening and increasing chest pain that started three days ago. The patient reports her hiatal hernia is worsening as well. She notes in the last hour and a half she has had worsening central chest pain that radiated to the left chest. She reports she has had two major heart attacks, a stroke, angina, expressive aphasia, three open heart surgeries, one bypass, and four cardiac stents. The patient additionally states she has a dissected right coronary artery. She notes she has a history of coronary spasms that caused her to develop a heart attack. She reports she has difficulty swallowing, increased difficulty breathing, and dizziness. Home Medications Home Medications Medication Instructions Recorded Confirmed Type aspirin [Aspir-81] 81 mg PO QAM 04/08/18 02/09/19 History calcium phosphate-vitamin D3 1 tab PO QAM 04/08/18 02/09/19 History [Citracal + D3 (calcium phos)] multivitamin 1 tab PO QAM 04/08/18 02/09/19 History nitroglycerin 1 dose SUBLINGUAL UD PRN 04/08/18 02/09/19 History pantoprazole [Protonix] 40 mg PO QAM 04/08/18 02/09/19 History vitamin [id number] acid 1 tab PO QAM 04/08/18 02/09/19 History fexofenadine [Hortensia Allergy] 180 mg PO BID 04/18/18 02/09/19 History furosemide 20 mg tablet 20 mg PO QAM PRN 06/26/18 02/09/19 History diltiazem 120 mg tablet 120 mg PO QPM tab 08/01/18 02/09/19 History diltiazem ER 240 mg capsule,24 360 mg PO .am cap 08/01/18 02/09/19 History hr,extended release docosahexanoic acid 200 mg capsule 200 mg PO DAILY cap 08/01/18 02/09/19 History isosorbide mononitrate ER 60 mg 120 mg PO BID tab 08/01/18 02/09/19 History tablet,extended release 24 hr lisinopril 2.5 mg tablet 5 mg PO QPM tab 08/01/18 02/09/19 History lactobacillus combination no.4 3 3,000 mmu cells PO DAILY 10/30/18 02/09/19 History billion cell capsule albuterol sulfate HFA 90 1 puffs INH Q6H PRN #8.5 gm 12/30/18 02/09/19 Rx mcg/actuation aerosol inhaler lidocaine 5 % topical patch 1 patch TOP DAILY #1 ea 12/30/18 02/09/19 Rx nitroglycerin 0.1 mg/hr 1 patch TD Q12 PRN #30 ea 12/30/18 02/09/19 Rx transdermal 24 hour patch nitroglycerin 400 mcg/spray 1 sprays SL Q5M PRN #12 gm 12/30/18 02/09/19 Rx translingual aerosol clopidogrel 75 mg tablet 75 mg PO QAM #90 tab 02/06/19 02/09/19 Rx ascorbic acid (vitamin C) [Vitamin 1 g PO DAILY 02/09/19 02/09/19 History C] turmeric 400 mg PO DAILY 02/09/19 02/09/19 History vitamin A 8,000 unit PO DAILY 02/09/19 02/09/19 History Allergies Allergy/AdvReac Type Severity Reaction Status Date / Time ivabradine Allergy SV FACE SWELLS Verified 02/09/19 13:56 prochlorperazine Allergy Severe LOCK JAW Unverified 02/09/19 13:56 [From Compazine] amlodipine Allergy Intermediate muscle pain Verified 02/09/19 13:56 morphine Allergy Intermediate RASH Verified 02/09/19 13:56 verapamil Allergy Intermediate muscle pain Verified 02/09/19 13:56 ibuprofen Allergy Mild Rash Verified 02/09/19 13:56 promethazine AdvReac Severe Jaw Locks Verified 02/09/19 13:56 Past Med/Surg History Medical History Hypertension (Chronic) Myocardial Infarction (Chronic) X 2 (2015 AND 09/2017) Asymptomatic PVCs (Chronic) Migraine (Chronic) Stroke (Chronic) 02/11/2015 (EMBOLIC CAROTID STROKE) EXPRESSIVE APHASIA/RESIDUAL LEFT SIDE WEAKNESS Anemia (Chronic) Osteoarthritis (Chronic) Fibroid tumor (Resolved) Surgical History History of cardiac cath (Chronic) TOTAL 12? (LAST NOVEMBER 2017 AT [facility]) History of heart artery stent (Chronic) SEPTEMBER 2017>4 STENTS PLACED (WILL BRING CARD TO SURGERY) DRUG ELUTING History of heart surgery (Chronic) 07/2014>UNROOFING MYOCARDIAL BRIDGE OF LAD ([facility]) 3 MONTHS LATER-PERICARDIECTOMY 01/2017 BYPASS OF RCA Hx of LASIK (Chronic) History of tonsillectomy (Chronic) History of tooth extraction (Chronic) History of appendectomy (Chronic) History of colonoscopy (Chronic) History of esophagogastroduodenoscopy (EGD) (Chronic) History of total hip arthroplasty (Chronic) RT/LEFT History of shoulder surgery (Chronic) RT/LEFT History of elbow surgery (Chronic) RT ELBOW History of hysterectomy (Chronic) Family History Mother Family history of diabetes mellitus Coronary heart disease Hypertension Cardiac disorder Father Family history of diabetes mellitus Hypertension Cardiac disorder Kidney disease Myocardial infarction Sister Family history of diabetes mellitus Seizures Brother Family history of diabetes mellitus Hypertension Cardiac disorder Prostate cancer Thyroid cancer Uncle Esophageal cancer Grandmother Breast cancer Cardiac disorder Grandfather Cardiac disorder Aunt Ovarian cancer Social History Preferred Language: Togolese Communication Ability: Effective Visual Impairment: No Limitations Hearing Ability: Normal Senior Accounting Associate Required: No Beliefs That Will Affect Care: None marital status: Current Living Situation: Spouse current occupational status: retired Feels Safe at Home: Yes Smoking Status: Never smoker Second Hand Exposure: Yes ; Hx Alcohol Use: Yes Alcohol type: beer and wine Hx Substance Use: No Review of Systems See HPI for pertinent positives & negatives. and A total of 10 systems reviewed and were otherwise negative Physical Exam Vital Signs Vital Signs - 24 hr 02/09/19 12:59 02/09/19 14:30 02/09/19 15:48 Temperature 37.1 C Temperature Source Oral Sepsis Recent Fever Within 48 Hours No Sepsis New/Unexplained Change in Mental Status No Sepsis Action Taken by Nursing No Action Required Pulse Rate 75 Pulse Rate [Apical] 73 58 L Pulse Rhythm Regular Pulse Rhythm [Apical] Regular Respiratory Rate 19 17 18 Respiratory Effort / Characteristics Non-Labored Spontaneous Non-Labored Spontaneous Non-Labored Spontaneous Respiratory Depth Normal Normal Normal Respiratory Pattern Regular Regular Regular Blood Pressure 116/78 Blood Pressure [Right Arm] 121/70 125/74 Blood Pressure Mean 90 Blood Pressure Mean [Right Arm] 87 91 Pulse Oximetry 99 94 94 Oxygen Delivery Method Room Air Room Air Room Air 02/09/19 18:00 Temperature Temperature Source Sepsis Recent Fever Within 48 Hours Sepsis New/Unexplained Change in Mental Status Sepsis Action Taken by Nursing Pulse Rate Pulse Rate [Apical] 75 Pulse Rhythm Pulse Rhythm [Apical] Regular Respiratory Rate 17 Respiratory Effort / Characteristics Non-Labored Spontaneous Respiratory Depth Normal Respiratory Pattern Regular Blood Pressure Blood Pressure [Right Arm] 103/78 Blood Pressure Mean Blood Pressure Mean [Right Arm] 86 Pulse Oximetry 96 Oxygen Delivery Method Room Air GENERAL: Patient is in mild distress and is somewhat anxious HEENT: No acute trauma, normocephalic atraumatic, mucous membranes moist, no nasal congestion, no scleral icterus. NECK: No stridor, no adenopathy, no meningismus, trachea is midline. LUNGS: Clear to auscultation bilaterally, no wheeze, no rhonchi, breath sounds equal. HEART: Without murmurs gallops or rubs, regular rate and rhythm. ABDOMEN: Soft, bowel sounds positive, no hernias, no peritonitis. Mildly tender in the epigastric region. CHEST: Non tender chest wall. EXTREMITIES: No cyanosis or edema, full range of motion of all the joints without pain or difficulty, no signs for acute trauma. NEUROLOGIC: Oriented x 3, no acute motor or sensory deficits, no focal weakness. SKIN: No rash, no jaundice, no diaphoresis. Course 1305: The patient was evaluated in room C6. A complete history and physical exam was performed. 1448: Upon reevaluation, the patient is resting comfortably. I discussed laboratory and radiographic results with her. The patient verbalized agreement of the treatment plan. The patient will be evaluated for further management and care. 1450: I discussed the patient's case with Dr. Virk, [facility] Hospitalist. She will evaluate the patient for further management. Administered Medications Discontinued Medications Al Hydrox/Mg Hydrox/Simethicone () 1 dose PO ONE ONE Stop: 02/09/19 17:54 Last Admin: 02/09/19 18:01 Dose: 1 dose Documented by: [id number] Diphenhydramine HCl (Benadryl) 25 mg IV NOW STA Stop: 02/09/19 13:13 Last Admin: 02/09/19 13:28 Dose: 25 mg Documented by: [id number] Famotidine (Pepcid 20mg Iv Push) 20 mg IV ONE STA Stop: 02/09/19 14:54 Last Admin: 02/09/19 14:58 Dose: 20 mg Documented by: [id number] Hydromorphone HCl (Dilaudid) 0.5 mg IV NOW STA Stop: 02/09/19 13:13 Last Admin: 02/09/19 13:27 Dose: 0.5 mg Documented by: [id number] Hydromorphone HCl (Dilaudid) 0.5 mg IV NOW STA Stop: 02/09/19 17:54 Last Admin: 02/09/19 18:01 Dose: 0.5 mg Documented by: [id number] Sodium Chloride (Nss) 500 mls @ 999 mls/hr IV .Q31M DEMETRIA Stop: 02/09/19 13:45 Last Infusion: 02/09/19 14:01 Dose: 0 mls/hr Documented by: [id number] Admin: 02/09/19 13:28 Dose: 999 mls/hr Documented by: [id number] Nitroglycerin (Nitro-Bid 2%) 1 inch EXT NOW STA Stop: 02/09/19 13:13 Last Admin: 02/09/19 13:28 Dose: 1 inch Documented by: [id number] Ondansetron HCl (Zofran) 4 mg IV NOW STA Stop: 02/09/19 13:13 Last Admin: 02/09/19 13:28 Dose: 4 mg Documented by: [id number] Medical Decision Making Differential Diagnosis Differential Diagnosis: Angina, SC, reflux, pancreatitis, biliary colic, pneumothorax, pneumonia, aortic dissection, musculoskeletal pain. Medical Records Attestation: I reviewed the patient's medical records. Laboratory Data Attestation: I reviewed the patient's lab results. Result diagrams: 02/09/19 13:19 02/09/19 13:19 Lab Results 02/09/19 02/09/19 02/09/19 Range/Units 13:19 13:19 13:19 WBC 5.96 (4.8-10.8) K/uL RBC 4.42 (4.2-5.4) M/uL Hgb 14.5 (12.0-16.0) g/dL Hct 40.9 (37-47) % MCV 92.5 (80-100) fL MCH 32.8 (25-34) pg MCHC 35.5 (32-36) g/dL RDW Std Deviation 40.0 (36.4-46.3) fL RDW Coeff of [place] 11.8 (11.5-14.5) % Plt Count 290 (130-400) K/uL MPV 9.4 (7.4-10.4) fL Immature Gran % (Auto) 0.2 % Neut % (Auto) 50.2 % Lymph % (Auto) 34.2 % [place] % (Auto) 9.7 % Eos % (Auto) 5.0 % Baso % (Auto) 0.7 % Immature Gran # (Auto) 0.01 (0.00-0.02) K/uL Neut # (Auto) 2.99 (1.4-6.5) K/uL Lymph # (Auto) 2.04 (1.2-3.4) K/uL [place] # (Auto) 0.58 (0.11-0.59) K/uL Eos # (Auto) 0.30 (0-0.5) K/uL Baso # (Auto) 0.04 (0-0.2) K/uL PT 10.1 (9.0-12.0) Seconds INR 1.0 (0.9-1.1) APTT 28.2 (21.0-31.0) Seconds PTT Ratio 1.0 Sodium 144 (136-145) mmol/L Potassium 4.0 (3.5-5.1) mmol/L Chloride 105 (98-107) mmol/L Carbon Dioxide 27 (21-32) mmol/L Anion Gap 12.0 H (3-11) BUN 13 (7-18) mg/dl Creatinine 0.99 (0.6-1.2) mg/dl Est Cr Clr Drug Dosing 67.3 ml/min Est GFR ( Amer) 72.3 Est GFR (Non-Af Amer) 62.4 BUN/Creatinine Ratio 13.2 (10-20) Glucose 101 H (70-99) mg/dl Calcium 10.6 H (8.5-10.1) mg/dl Magnesium 2.2 (1.8-2.4) mg/dl Total Bilirubin 0.5 (0.2-1) mg/dl AST 20 (15-37) U/L ALT 26 (12-78) U/L Alkaline Phosphatase 72 (45-117) U/L Troponin I < 0.015 (0-0.045) ng/ml Total Protein 8.5 H (6.4-8.2) gm/dl Albumin 4.3 (3.4-5.0) gm/dl Globulin 4.2 H (2.5-4.0) gm/dl Albumin/Globulin Ratio 1.0 (0.9-2) Lipase 102 (73-393) U/L Imaging Data Radiologist's Impression: Radiology results as stated below per my review and t he radiologist's interpretation: SINGLE VIEW CHEST CLINICAL HISTORY: Atypical chest pain. FINDINGS: An AP, portable, upright chest radiograph is compared to study dated 04/18/2018. The patient is status post midline sternotomy. The heart is top normal for projection. The pulmonary vasculature is noncongested. The lungs and pleural spaces are clear. No pneumothorax is seen. The skeletal structures are osteopenic. The bony thorax is grossly intact. IMPRESSION: No active disease in the chest. Electronically signed by: Daquan Murphy M.D. 02/09/2019 1:51 PM ECG Data Attestation: I personally reviewed and interpreted this ECG as follows: Indication: chest pain Rate (beats per minute): 67 Rhythm: normal sinus Findings: + other (Baseline artifact); no ST elevation and no acute ischemic change Comparison ECG Date: from (04/18/18) Change: no significant change Blood Pressure Blood Pressure Findings: Normal blood pressure Blood Pressure Disposition: did not require urgent referral MDM Narrative There is no leukocytosis or concerning anemia. No coagulopathy. No significant electrolyte abnormality or kidney failure. No evidence for hepatitis. No evidence for pancreatitis. EKG shows a sinus rhythm, no acute ischemia. Cardiac enzyme testing x1 is not consistent with acute cardiac injury. Chest film does not show mediastinal widening or pneumonia. There was no CHF. On exam, the patient did appear to be somewhat anxious and seemed in pain. The good n across the chest was not reproducible on palpation. The patient received IV saline, nitroglycerin paste, IV Dilaudid, IV Zofran and IV Benadryl. She eventually received a GI cocktail, IV Pepcid and a second dose of IV Dilaudid. The patient does seem to be feeling better. She still has some pain though. I do think further cardiac work-up is warranted. I am not sure if this is her hiatal hernia, if this is musculoskeletal or if the pain is cardiac in etiology. Further work-up is required. I spoke to the patient and case management. The on-call hospitalist was consulted. Impression & Plan Precordial chest pain, History of coronary artery disease, Shortness of breath Discharge Plan Visit Data *Final* Discharge Date/Time: 02/09/19 18:53 Chief Complaint: Chest Pain Stated Complaint: CHEST PAIN, SOB- STRONG CARDIAC HX ED Provider: Daquan Alvarez Discharge Problem: Precordial chest pain, History of coronary artery disease, Shortness of breath Patient Disposition: Admitted As Inpatient Discharge Instructions Interventions: ED Discharge Assessment Last Done: 02/09/19 18:53 The scribe's documentation has been prepared under my direction and personally reviewed by me in its entirety. I confirm that the note above accurately reflects all work, treatment, procedures, and medical decision making performed by me.
[2019-02-09] MEDS ORDERED: NITROGLYCERIN SL SPR 4.9 GM BTL SL PRN (19:09)
[2019-02-09] MEDS ORDERED: ALBUTEROL HFA 8 GM INHALER INH PRN (19:09)
[2019-02-09] MEDS ORDERED: NITROGLYCERIN 0.1 MG/HR PATCH TD PRN (19:09)
[2019-02-09] MEDS ORDERED: SODIUM CHLORIDE 0.9% 1000ML 1,000 ML IV SCH (19:09)
[2019-02-09] MEDS: dilTIAZem HCL 120 MG CAPCR PO SCH (20:48)
[2019-02-09 20:49] LABS: NT Pro B Type Natriuretic Pept 104 pg/ml (0-900); Troponin I < 0.015 ng/ml (0-0.045)
[2019-02-09] MEDS: LISINOPRIL 5 MG TAB PO SCH (20:49)
[2019-02-09] MEDS: FEXOFENADINE HCL 180 MG TAB PO SCH (20:49)
[2019-02-09] MEDS: ISOSORBIDE MONO EXTENDED REL 60 MG TABCR PO SCH (20:49)
[2019-02-09] MEDS: NITROGLYCERIN SL 0.4 MG/TAB TAB SL PRN (20:58)
[2019-02-09] MEDS ORDERED: ALUMINUM/MAGNESIUM SUSP 72 ML, LIDOCAINE HCL VISCOUS 2% 24 ML, BARCODE IDENTIFIER 1 EA PO PRN (21:11)
[2019-02-09] MEDS ORDERED: LAVAGE SOLN 240ML BOTTLE PO STA ×2 (21:17→21:55)
[2019-02-09] MEDS ORDERED: HYDROmorphone INJ 0.5 MG/0.5 ML SYR ONE (21:49)
[2019-02-09] MEDS: FAMOTIDINE 20 MG in SYRINGE 3 ML IV SCH (21:54)
--- NOTE | 2019-02-09 22:40 | CT Scan Report ---
CT SCAN OF THE CHEST WITHOUT IV CONTRAST CLINICAL HISTORY: Atypical chest pain. COMPARISON STUDY: Chest x-ray dated 02/09/2019. Chest CT scan dated 11/01/2017. TECHNIQUE: CT scan of the thorax was performed from the thoracic inlet to the upper abdomen. Images are reviewed in the axial, sagittal, and coronal planes. IV contrast was not administered for this ex amination as per the referring clinician. A dose lowering technique was utilized adhering to the kentrell moralez of FLA[place]. CT DOSE: 275.50 mGy.cm FINDINGS: Thyroid: Imaged portions of the thyroid gland are normal in size and attenuation. Thoracic aorta: The thoracic aorta is normal in caliber and demonstrates 4-vessel variant arch anatom y. An aberrant right subclavian artery arises as the fourth branch and courses posterior to the esoph donna. Heart: The patient is status post midline sternotomy. The heart is normal in size and without pericar dial effusion. A right coronary artery stent is in place. Lungs and pleural spaces: There is no airspace consolidation or pleural effusion. Scarring/atelectasi s is present at the lung bases. The trachea and central airways are clear. Mediastinum: There is no mediastinal lymphadenopathy. Maribel: Not well assessed without IV contrast. Axillae: There is no axillary lymphadenopathy. Upper abdomen: Partially visualized upper abdominal viscera is within normal limits. Skeletal structures: The skeletal structures are osteopenic. A compression deformity of L2 is partial ly visualized. No lytic or blastic bony lesions are seen. Soft tissues: Bilateral breast implants are in place. IMPRESSION: No active disease in the chest. Electronically signed by: Daquan Murphy M.D. 02/09/2019 10:39 PM
[2019-02-09] MEDS: ONDANSETRON INJ 2 MG/ML 2 ML VIAL IV PRN (23:24)
[2019-02-10] MEDS: ACETAMINOPHEN 325 MG TAB PO PRN (01:02)
[2019-02-10] MEDS: HYDROmorphone INJ 0.5 MG/0.5 ML SYR IM PRN ×2 (01:04→04:21)
[2019-02-10 06:46] LABS: INR 1.1 (0.9-1.1); Prothrombin Time 10.9 Seconds (9.0-12.0)
[2019-02-10 07:17] LABS: Alanine Aminotransferase 20 U/L (12-78); Albumin Level 3.2 gm/dl (3.4-5.0); Alkaline Phosphatase 51 U/L (45-117); Aspartate Aminotransferase 14 U/L (15-37); BUN Creatinine Ratio 12.5 (10-20); Bilirubin,Total 0.4 mg/dl (0.2-1); Blood Urea Nitrogen 11 mg/dl (7-18); Calcium 7.9 mg/dl (8.5-10.1); Carbon Dioxide 26 mmol/L (21-32); Chloride 108 mmol/L (98-107); Creatinine Clr Calc Pharmacy 72.4 ml/min; Est GFR (African American) 81.1; Globulin 3.1 gm/dl (2.5-4.0); Glucose 104 mg/dl (70-99); Sodium 142 mmol/L (136-145); Total Protein 6.3 gm/dl (6.4-8.2); Troponin I < 0.015 ng/ml (0-0.045)
[2019-02-10 07:23] LABS: Basophils # (auto) 0.02 K/uL (0-0.2); Basophils % (auto) 0.4 %; Eosinophils # (auto) 0.28 K/uL (0-0.5); Eosinophils % (auto) 5.8 %; Hematocrit (blood only) 32.5 % (37-47); Hemoglobin 11.3 g/dL (12.0-16.0); Lymphocytes # (auto) 1.63 K/uL (1.2-3.4); Lymphocytes % (auto) 33.6 %; Mean Corpuscular Hgb Conc 34.8 g/dL (32-36); Mean Corpuscular Volume 93.7 fL (80-100); Mean Platelet Volume 8.9 fL (7.4-10.4); Monocytes # (auto) 0.57 K/uL (0.11-0.59); Monocytes % (auto) 11.8 %; Neutrophils # (auto) 2.35 K/uL (1.4-6.5); Neutrophils % (auto) 48.4 %; Platelet Count 226 K/uL (130-400); RDW Coefficient of Variation 11.9 % (11.5-14.5); RDW Standard Deviation 40.2 fL (36.4-46.3); Red Blood Count 3.47 M/uL (4.2-5.4); White Blood Count 4.85 K/uL (4.8-10.8)
[2019-02-10] MEDS: NITROGLYCERIN SL 0.4 MG/TAB TAB SL PRN (07:50)
[2019-02-10] MEDS ORDERED: NITROGLYCERIN 2% OINTMENT 30GM TUBE ONE (08:26)
[2019-02-10] MEDS ORDERED: NON-FORMULARY MEDICATION (Turmeric 400 MG) PO SCH (09:00)
[2019-02-10] MEDS: FAMOTIDINE 20 MG in SYRINGE 3 ML IV SCH ×2 (09:00→21:52)
[2019-02-10] MEDS: NITROGLYCERIN 2% OINTMENT 30GM TUBE EXT SCH ×4 (09:26→21:44)
--- NOTE | 2019-02-10 09:43 | Gastrointestinal Consultation ---
Date of Consultation February 10, 2019 Assessment & Plan (1) Diarrhea: Resolved at present. Patient with recent antibiotic use. -If it returns, obtain stool culture, gram stain stool, & C diff study. -If patient develops abdominal pain, consider abdominal imaging study--perhaps CT abdomen/pelvis w/ po & IV contrast. Present on Admission?: Yes (2) Precordial chest pain: -Cardiology is following patient given extensive cardiac history; continue per their plan. -Continue IV Pepcid 20 mg BID. -Add IV Protonix 40 mg BID. Discussed order with pharmacy due to backorder of IV PPI therapy. -No acute GI intervention at present. Thank you for allowing us to participate in the care of this patient. If you should have any further questions, please call extension [phone] or [phone]. Present on Admission?: Yes Supervising Physician Co-Signing Physician Notes Agree with MERCY Muller as above Abd: Soft, tender midepigastric area, ND Diarrhea has resolved Check Barium swallow in AM Continue twice daily IV protonix Continue Famotidine Check CMP, Amylase and lipase with next blood draw History of Present Illness Reason for Consultation: diarrhea Attending Physician: Mahsa Bowden MD History of Present Illness Patient is a 58 yo female with a PMH of hiatal hernia, CAD with multiple stent placements and open heart surgery, HTN, migraine, anemia, Prinzmetal angina, Pericarditis, TIA, HLD, and GERD who is currently hospitalized with chest pain. GI has been consulted as the patient reported diarrhea, however she reports that this has resolved at present. In fact, no stool studies were able to be obtained as patient is not moving her bowels at present. She reports the diarrhea began on Sunday02/08/2019 and was associated with abdominal pain. Shortly after, she developed epigastric pain and chest discomfort. She has a significant cardiac history. Her H/H is 11.3/32.5. Cardiology is following the patient. She reports no family history of IBD or GI malignancy. She denies significant NSAID use. She denies contacts who have been ill with viral illnesses. She offers no further complaints. At present she has no leukocytosis or LFT abnormalities. Allergies Allergy/AdvReac Type Severity Reaction Status Date / Time ivabradine Allergy SV FACE SWELLS Verified 02/09/19 13:56 prochlorperazine Allergy Severe LOCK JAW Unverified 02/09/19 13:56 [From Compazine] amlodipine Allergy Intermediate muscle pain Verified 02/09/19 13:56 morphine Allergy Intermediate RASH Verified 02/09/19 13:56 verapamil Allergy Intermediate muscle pain Verified 02/09/19 13:56 ibuprofen Allergy Mild Rash Verified 02/09/19 13:56 promethazine AdvReac Severe Jaw Locks Verified 02/09/19 13:56 Home Medications Home Medications Medication Instructions Recorded Confirmed Type aspirin [Aspir-81] 81 mg PO QAM 04/08/18 02/09/19 History calcium phosphate-vitamin D3 1 tab PO QAM 04/08/18 02/09/19 History [Citracal + D3 (calcium phos)] multivitamin 1 tab PO QAM 04/08/18 02/09/19 History nitroglycerin 1 dose SUBLINGUAL UD PRN 04/08/18 02/09/19 History pantoprazole [Protonix] 40 mg PO QAM 04/08/18 02/09/19 History vitamin G55-xbctn acid 1 tab PO QAM 04/08/18 02/09/19 History fexofenadine [Hortensia Allergy] 180 mg PO BID 04/18/18 02/09/19 History furosemide 20 mg tablet 20 mg PO QAM PRN 06/26/18 02/09/19 History diltiazem 120 mg tablet 120 mg PO QPM tab 08/01/18 02/09/19 History diltiazem ER 240 mg capsule,24 360 mg PO .am cap 08/01/18 02/09/19 History hr,extended release docosahexanoic acid 200 mg capsule 200 mg PO DAILY cap 08/01/18 02/09/19 History isosorbide mononitrate ER 60 mg 120 mg PO BID tab 08/01/18 02/09/19 History tablet,extended release 24 hr lisinopril 2.5 mg tablet 5 mg PO QPM tab 08/01/18 02/09/19 History lactobacillus combination no.4 3 3,000 mmu cells PO DAILY 10/30/18 02/09/19 History billion cell capsule albuterol sulfate HFA 90 1 puffs INH Q6H PRN #8.5 gm 12/30/18 02/09/19 Rx mcg/actuation aerosol inhaler lidocaine 5 % topical patch 1 patch TOP DAILY #1 ea 12/30/18 02/09/19 Rx nitroglycerin 0.1 mg/hr 1 patch TD Q12 PRN #30 ea 12/30/18 02/09/19 Rx transdermal 24 hour patch nitroglycerin 400 mcg/spray 1 sprays SL Q5M PRN #12 gm 12/30/18 02/09/19 Rx translingual aerosol clopidogrel 75 mg tablet 75 mg PO QAM #90 tab 02/06/19 02/09/19 Rx ascorbic acid (vitamin C) [Vitamin 1 g PO DAILY 02/09/19 02/09/19 History C] turmeric 400 mg PO DAILY 02/09/19 02/09/19 History vitamin A 8,000 unit PO DAILY 02/09/19 02/09/19 History Patient History Medical History Hypertension (Chronic) Myocardial Infarction (Chronic) X 2 (2015 AND 09/2017) Asymptomatic PVCs (Chronic) Migraine (Chronic) Stroke (Chronic) 02/11/2015 (EMBOLIC CAROTID STROKE) EXPRESSIVE APHASIA/RESIDUAL LEFT SIDE WEAKNESS Anemia (Chronic) Osteoarthritis (Chronic) Fibroid tumor (Resolved) Surgical History History of cardiac cath (Chronic) TOTAL 12? (LAST NOVEMBER 2017 AT [facility]) History of heart artery stent (Chronic) SEPTEMBER 2017>4 STENTS PLACED (WILL BRING CARD TO SURGERY) DRUG ELUTING History of heart surgery (Chronic) 07/2014>UNROOFING MYOCARDIAL BRIDGE [facility] LAD ([facility]) 3 MONTHS LATER-PERICARDIECTOMY 01/2017 BYPASS OF RCA Hx of LASIK (Chronic) History of tonsillectomy (Chronic) History of tooth extraction (Chronic) History of appendectomy (Chronic) History of colonoscopy (Chronic) History of esophagogastroduodenoscopy (EGD) (Chronic) History of total hip arthroplasty (Chronic) RT/LEFT History of shoulder surgery (Chronic) RT/LEFT History of elbow surgery (Chronic) RT ELBOW History of hysterectomy (Chronic) Family History Mother Family history of diabetes mellitus Coronary heart disease Hypertension Cardiac disorder Father Family history of diabetes mellitus Hypertension Cardiac disorder Kidney disease Myocardial infarction Sister Family history of diabetes mellitus Seizures Brother Family history of diabetes mellitus Hypertension Cardiac disorder Prostate cancer Thyroid cancer Uncle Esophageal cancer Grandmother Breast cancer Cardiac disorder Grandfather Cardiac disorder Aunt Ovarian cancer Social History Preferred Language: Argentine Communication Ability: Effective Visual Impairment: No Limitations Hearing Ability: Normal Insulation Professional Required: No Beliefs That Will Affect Care: None marital status: Current Living Situation: Spouse current occupational status: retired Other Information That Helps Us Care for You: No Feels Safe at Home: Yes Safety Concerns: Feels Safe At This Time Smoking Status: Never smoker Second Hand Exposure: Yes ; Hx Alcohol Use: Yes Alcohol type: wine Hx Substance Use: No Review of Systems Constitutional: no fever and no chills Eyes: no acute complaints Ear, Nose, Mouth, Throat: + ear pain and + ear trauma no acute complaints Respiratory: + pain on inspiration Cardiovascular: + chest pain Gastrointestinal: + abdominal pain (epigastric abdominal pain); no heartburn, no vomiting, no coffee ground emesis, no dysphagia and no diarrhea/loose stools decreased appetite Musculoskeletal: no acute issues Integumentary: no rash Neurologic: Reports word finding issues since her reported stroke Psychiatric: no acute complaints Physical Exam Constitutional: WD/WN, vitals as above Eyes: PERRL, conjunctivae normal, anicteric sclerae ENMT: external ear and nose normal, oropharynx normal Neck: normal visual inspection Respiratory: normal respiratory effort, lungs clear to auscultation normal respiratory effort Cardiovascular: RRR, no murmur, no edema Gastrointestinal (Abdomen): normal bowel sounds, soft, nontender, no hepatosplenomegaly Musculoskeletal: no cyanosis or clubbing Skin: no rashes, warm and dry Neurologic: Motor/Sensory: no tremor Psychiatric: Orientation: alert and oriented x 3 Results & Data Vital Signs (Past 12 Hours) Vital Signs Temp Pulse Resp BP Pulse Ox 02/10/19 08:03 37.0 C 70 18 105/61 95 02/10/19 04:53 36.5 C 61 22 98/54 L 94 02/10/19 00:39 36.6 C 57 L 18 99/51 L 93 PG Care Time/CCT Total # of Minutes Spent Total Time Spent with Patient: Total time spent is greater than 50% in coordination of care (as documented) at patient's floor/unit and/or counseling patient: (1) Diarrhea Diarrhea type: unspecified type Qualified Code(s): R19.7 - Diarrhea, unspecified
[2019-02-10] MEDS: HYDROmorphone INJ 0.5 MG/0.5 ML SYR IV PRN ×4 (09:45→21:43)
[2019-02-10] MEDS: LIDOCAINE 5% 1 PATCH TD SCH (10:00)
[2019-02-10] MEDS: PANTOprazole 40 MG in SYRINGE 0 ML IV SCH ×2 (10:03→21:46)
[2019-02-10] MEDS: ASPIRIN 81 MG ECTAB PO SCH (11:51)
[2019-02-10] MEDS: CLOPIDOGREL BISULFATE 75 MG TAB PO SCH (11:51)
[2019-02-10] MEDS: ISOSORBIDE MONO EXTENDED REL 60 MG TABCR PO SCH ×2 (11:51→21:46)
[2019-02-10] MEDS: FEXOFENADINE HCL 180 MG TAB PO SCH ×2 (11:51→21:45)
[2019-02-10] MEDS: dilTIAZem HCL 180 MG CAPCR PO SCH (11:51)
[2019-02-10] MEDS: ASCORBIC ACID 500 MG TAB PO SCH (11:54)
[2019-02-10] MEDS: CALCIUM CITRATE 950 MG TAB PO SCH (12:01)
[2019-02-10] MEDS: LACTOBACILLUS ACIDOPHILUS (FLORANEX) TAB PO SCH (12:01)
[2019-02-10] MEDS: CYANOCOBALAMIN 500 MCG TABLET (VITAMIN B-12) PO SCH (12:02)
[2019-02-10] MEDS: MULTIVITAMIN TAB PO SCH (12:02)
[2019-02-10] MEDS: FOLIC ACID 400 MCG TAB PO SCH (12:02)
[2019-02-10] MEDS: ONDANSETRON INJ 2 MG/ML 2 ML VIAL IV PRN ×2 (13:43→19:40)
--- NOTE | 2019-02-10 15:16 | Cardiology Consultation ---
Date of Consultation February 10, 2019 Assessment & Plan (1) Precordial chest pain: The patient describes 2 different types of chest discomfort. Fortunately, 3 troponin I levels have been undetectable. EKGs with complaints of chest discomfort discomfort are normal. Her echocardiogram performed during complaints of chest discomfort notes normal left ventricular systolic function without wall motion abnormalities. Do not feel that a cardiac catheterization is indicated at this time. Will consider stress testing depending on her clinical course. (2) CAD (coronary artery disease): The patient does have an extensive history of coronary artery disease and numerous potential etiologies for chest discomfort (Prinzmetal's angina, cardiac syndrome X, chronic pericarditis, and her Kounis syndrome). (3) Hypertension: Adequate control on current medical regimen. (4) Dyslipidemia: The patient refuses statins. History of Present Illness Attending Physician: Mahsa Bowden MD History of Present Illness Mrs. Gay is a 58-year-old female admitted yesterday with a chest pain syndrome. This consultation is order to assist in her cardiac management. Of note, patient is well known to me from the outpatient setting. Patient claims she is in usual state of health until last when she began to notice pain from her hiatal hernia. She noted tenderness in the midepigastrium and noted a burning type sensation which has moved cephalad and now involves her throat. She claims it is difficult for her to swallow any water, food, or medications. However, yesterday following jew, the patient noticed an increase in her angina pectoris. She notes substernal chest discomfort which radiated to her left neck and left shoulder. She took 3 sublingual nitroglycerin tablets with little relief. There were no other associated symptoms such as nausea, vomiting, diaphoresis, or dyspnea. The patient becomes tearful during her description. She explains that the only medication which helps her chest discomfort as described above is intravenous Dilaudid. Several EKGs have been obtained during her complaints of chest discomfort. Fortunately, these are all normal without ST or T-wave changes. Currently, patient is resting in bed complaining of chest discomfort as described above. We have discussed the fact that she has had 3 undetectable troponin levels and completely normal EKGs. Past medical and surgical history 1. LAD unroofing for a myocardial bridge-July [address] elevation [place] - September 2017 RCA SHAMA x4, RCA dissection Normal LM 100% distal LAD with poor collateralization Normal LCx LVEF 65% 3. Complete pericardectomy-January 2015-chronic pericarditis 4. Prinzmetal's angina 5. Cardiac syndrome X 6. Chronic stable exertional angina pectoris 7. Dobutamine induced LVOT gradient (96 mmHg)-July 2014 8. Normal LV function without wall motion abnormality-September 2017 9. Chronic exertional dyspnea 10. Cerebral vascular disease 11. 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 Bilateral THR 15. Appendectomy 16. 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 Allergies Allergy/AdvReac Type Severity Reaction Status Date / Time ivabradine Allergy SV FACE SWELLS Verified 02/09/19 13:56 prochlorperazine Allergy Severe LOCK JAW Unverified 02/09/19 13:56 [From Compazine] amlodipine Allergy Intermediate muscle pain Verified 02/09/19 13:56 morphine Allergy Intermediate RASH Verified 02/09/19 13:56 verapamil Allergy Intermediate muscle pain Verified 02/09/19 13:56 ibuprofen Allergy Mild Rash Verified 02/09/19 13:56 promethazine AdvReac Severe Jaw Locks Verified 02/09/19 13:56 Home Medications Home Medications Medication Instructions Recorded Confirmed Type aspirin [Aspir-81] 81 mg PO QAM 04/08/18 02/09/19 History calcium phosphate-vitamin D3 1 tab PO QAM 04/08/18 02/09/19 History [Citracal + D3 (calcium phos)] multivitamin 1 tab PO QAM 04/08/18 02/09/19 History nitroglycerin 1 dose SUBLINGUAL UD PRN 04/08/18 02/09/19 History pantoprazole [Protonix] 40 mg PO QAM 04/08/18 02/09/19 History vitamin Q40-mwrga acid 1 tab PO QAM 04/08/18 02/09/19 History fexofenadine [Hortensia Allergy] 180 mg PO BID 04/18/18 02/09/19 History furosemide 20 mg tablet 20 mg PO QAM PRN 06/26/18 02/09/19 History diltiazem 120 mg tablet 120 mg PO QPM tab 08/01/18 02/09/19 History diltiazem ER 240 mg capsule,24 360 mg PO .am cap 08/01/18 02/09/19 History hr,extended release docosahexanoic acid 200 mg capsule 200 mg PO DAILY cap 08/01/18 02/09/19 History isosorbide mononitrate ER 60 mg 120 mg PO BID tab 08/01/18 02/09/19 History tablet,extended release 24 hr lisinopril 2.5 mg tablet 5 mg PO QPM tab 08/01/18 02/09/19 History lactobacillus combination no.4 3 3,000 mmu cells PO DAILY 10/30/18 02/09/19 History billion cell capsule albuterol sulfate HFA 90 1 puffs INH Q6H PRN #8.5 gm 12/30/18 02/09/19 Rx mcg/actuation aerosol inhaler lidocaine 5 % topical patch 1 patch TOP DAILY #1 ea 12/30/18 02/09/19 Rx nitroglycerin 0.1 mg/hr 1 patch TD Q12 PRN #30 ea 12/30/18 02/09/19 Rx transdermal 24 hour patch nitroglycerin 400 mcg/spray 1 sprays SL Q5M PRN #12 gm 12/30/18 02/09/19 Rx translingual aerosol clopidogrel 75 mg tablet 75 mg PO QAM #90 tab 02/06/19 02/09/19 Rx ascorbic acid (vitamin C) [Vitamin 1 g PO DAILY 02/09/19 02/09/19 History C] turmeric 400 mg PO DAILY 02/09/19 02/09/19 History vitamin A 8,000 unit PO DAILY 02/09/19 02/09/19 History Patient History Medical History Hypertension (Chronic) Myocardial Infarction (Chronic) X 2 (2015 AND 09/2017) Asymptomatic PVCs (Chronic) Migraine (Chronic) Stroke (Chronic) 02/11/2015 (EMBOLIC CAROTID STROKE) EXPRESSIVE APHASIA/RESIDUAL LEFT SIDE WEAKNESS Anemia (Chronic) Osteoarthritis (Chronic) Fibroid tumor (Resolved) Surgical History History of cardiac cath (Chronic) TOTAL 12? (LAST NOVEMBER 2017 AT [facility]) History of heart artery stent (Chronic) SEPTEMBER 2017>4 STENTS PLACED (WILL BRING CARD TO SURGERY) DRUG ELUTING History of heart surgery (Chronic) 07/2014>UNROOFING MYOCARDIAL BRIDGE OF LAD ([facility]) 3 MONTHS LATER-PERICARDIECTOMY 01/2017 BYPASS OF RCA Hx of LASIK (Chronic) History of tonsillectomy (Chronic) History of tooth extraction (Chronic) History of appendectomy (Chronic) History of colonoscopy (Chronic) History of esophagogastroduodenoscopy (EGD) (Chronic) History of total hip arthroplasty (Chronic) RT/LEFT History of shoulder surgery (Chronic) RT/LEFT History of elbow surgery (Chronic) RT ELBOW History of hysterectomy (Chronic) Family History Mother Family history of diabetes mellitus Coronary heart disease Hypertension Cardiac disorder Father Family history of diabetes mellitus Hypertension Cardiac disorder Kidney disease Myocardial infarction Sister Family history of diabetes mellitus Seizures Brother Family history of diabetes mellitus Hypertension Cardiac disorder Prostate cancer Thyroid cancer Uncle Esophageal cancer Grandmother Breast cancer Cardiac disorder Grandfather Cardiac disorder Aunt Ovarian cancer Social History Preferred Language: Irish Communication Ability: Effective Visual Impairment: No Limitations Hearing Ability: Normal Marketing Lead Required: No Beliefs That Will Affect Care: None marital status: Current Living Situation: Spouse current occupational status: retired Other Information That Helps Us Care for You: No Feels Safe at Home: Yes Safety Concerns: Feels Safe At This Time Smoking Status: Never smoker Second Hand Exposure: Yes ; Hx Alcohol Use: Yes Alcohol type: wine Hx Substance Use: No Physical Exam Physical Exam: In general this is a well-developed well-nourished chief white female in no acute distress. HEENT exam is negative. Neck is supple with full carotid upstrokes. There are no carotid bruits. No jugular venous distension. There is no thyromegaly. Cardiovascular exam reveals a regular rhythm with a 1/6 basal systolic ejection murmur. S1 and S2 are normal. No S3 or S4. Lungs are clear without rales, rhonchi, or wheezes. Abdomen is soft and nontender without bruits. Extremities reveal intact radial artery and posterior tibial pulses bilaterally. There is no peripheral edema. Results & Data Vital Signs (Past 12 Hours) Vital Signs Temp Pulse Pulse Resp BP Pulse Ox 02/10/19 11:34 36.9 C 60 18 108/58 L 94 02/10/19 09:00 94 H 02/10/19 08:15 76 20 105/58 L 98 02/10/19 08:03 37.0 C 70 18 105/61 95 02/10/19 08:00 72 18 123/58 L 96 02/10/19 07:50 79 18 119/70 97 02/10/19 04:53 36.5 C 61 22 98/54 L 94 Laboratory Results Three troponin I levels were undetectable less than 0.015. Diagnostic Findings EKGs note sinus rhythm without abnormalities. PG Care Time/CCT Total # of Minutes Spent Total Time Spent with Patient: Total time spent is greater than 50% in coordination of care (as documented) at patient's floor/unit and/or counseling patient:
[2019-02-10 18:12] LABS: Albumin Level 3.5 gm/dl (3.4-5.0); BUN Creatinine Ratio 10.4 (10-20); Calcium 8.6 mg/dl (8.5-10.1); Creatinine Clr Calc Pharmacy 66.5 ml/min; Est GFR (African American) 73.2; Est GFR (Non-African American) 63.1; Potassium 3.6 mmol/L (3.5-5.1)
[2019-02-10 18:14] LABS: Bilirubin,Total 0.4 mg/dl (0.2-1); Globulin 3.7 gm/dl (2.5-4.0); Total Protein 7.2 gm/dl (6.4-8.2)
--- NOTE | 2019-02-10 20:07 | Hospitalist Progress Note ---
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 She typically suffers from chronic daily angina. She was admitted with increasing severity and frequency of her typical angina. Troponins have been negative here on multiple occasions serially. There are no changes in her EKG. 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 Seen by cardiology and no further evaluation needed at this time -Continue current home medications to include diltiazem, isosorbide, aspirin, Plavix, lisinopril -Patient reports she cannot have beta-blockers due to her Kounis syndrome -Continue monitoring on telemetry-no events that are abnormal thus far (2) Epigastric pain: Presents also with 4 days of constant epigastric pain and odynophagia Has a mild anemia today which is likely hemo-dilutional from receiving copious IV fluids upon admission, is not microcytic and does not have evidence of acute GI bleeding either -She is on aspirin and Plavix but does not use NSAIDs No reports of melena or bright red blood per rectum or hematemesis -Started on IV Pepcid upon admission and seen by GI in consultation today- recommended starting IV Protonix twice daily -Plan for barium swallow tomorrow -May need EGD this admission if cardiac issues improve and is stable to undergo anesthesia (3) Diarrhea: Had 12 bouts of liquid dark brown stool Sunday prior to admission which is now resolved -No further work-up necessary (4) CAD (coronary artery disease): With complex history as above -Continue home medicine aspirin 81 mg p.o. every morning, Plavix 75 mg p.o. every morning, diltiazem 480 mg daily -Will hold furosemide 20 mg p.o. every morning as she may have been dehydrated from recent diarrhea -Continue lisinopril -She is statin intolerant (5) Hiatal hernia: Diagnosed as per patient report based on previous EGD-reports not available No large hiatal hernia seen on chest CT -Plan outlined as above (6) Hypertension: Blood pressures stable, a bit lower with Nitropaste -Follow blood pressures (7) History of stroke: As per patient report, with residual "expressive aphasia" I have no documentation or imaging of the brain for more details on this (8) DVT prophylaxis: SCDs, teds Disposition-remain on telemetry for continued chest pain and epigastric pain and further work-up Subjective Patient reports 2 different types of pain that she is having. The first pain is in the epigastric region and has been constant for the last 4 days. This pain is radiating up into her throat and is causing her pain with swallowing. She reports having dark brown watery stools 12 times this past Sunday along with crampy abdominal pain that is now resolved. She refers to this pain as her "hiatal hernia pain." She also refers to her "typical angina pain" as substernal chest pain that radiates to the left side of her neck and into her left shoulder. She states that she has this angina daily with rest and with exertion, and frequently takes nitroglycerin for it. She reports that in the last 24 hours, her angina is more intense in severity and coming more frequently which is also what brought her to the hospital. She was given 3 sublingual nitroglycerin this morning with temporary relief of the pain. Nitropaste was then placed and within less than a minute, she reported the pain was completely gone. She also reports that she has "expressive aphasia" at times and demonstrates this by stuttering with word finding in the middle of a fluent sentence. I discussed her case at length with both cardiology and gastroenterology. Telemetry shows a normal sinus rhythm with rates in the 50s to 70s, no ectopy or arrhythmias. Review of Systems Review of Systems: All systems reviewed & are unremarkable except as noted in HPI & below Physical Exam Constitutional: WD/WN, vitals as above Eyes: + anicteric sclerae ENMT: Ears: no hearing impairment and no external ear abnormality Neck: trachea midline, no thyromegaly Respiratory: normal respiratory effort, lungs clear to auscultation Cardiovascular: RRR, no murmur, no edema Gastrointestinal (Abdomen): Inspection/Auscultation: abdomen normal to inspection and normal bowel sounds; abdomen not distended Percussion/Palpation: + abdomen tender (In the epigastric region without guarding or rebound) and abdomen soft; no hepatosplenomegaly, no hernia, no abdominal mass and no pulsatile mass Musculoskeletal: Extremities: extremities normal to inspection; no cyanosis and no clubbing Skin: no rashes, warm and dry Neurologic: moves all extremities and awake; no focal motor deficits Psychiatric: Orientation: alert and oriented x 3 Eye Contact: good eye contact Affect: + anxious affect Mood: + anxious mood Results & Data Vital Signs (Past 12 Hours) Vital Signs Temp Pulse Pulse Resp BP Pulse Ox 02/10/19 19:58 36.9 C 80 18 120/69 95 02/10/19 15:36 63 02/10/19 15:35 37.1 C 63 18 99/53 L 94 02/10/19 11:34 36.9 C 60 18 108/58 L 94 02/10/19 09:00 94 H 02/10/19 08:15 76 20 105/58 L 98 Laboratory Results 02/10/19 02/10/19 02/10/19 Range/Units 17:14 13:05 06:16 WBC (4.8-10.8) K/uL RBC (4.2-5.4) M/uL Hgb (12.0-16.0) g/dL Hct (37-47) % MCV (80-100) fL MCH (25-34) pg MCHC (32-36) g/dL RDW Std Deviation (36.4-46.3) fL RDW Coeff of Shelby (11.5-14.5) % Plt Count (130-400) K/uL MPV (7.4-10.4) fL Immature Gran % (Auto) % Neut % (Auto) % Lymph % (Auto) % Scott % (Auto) % Eos % (Auto) % Baso % (Auto) % Immature Gran # (Auto) (0.00-0.02) K/uL Neut # (Auto) (1.4-6.5) K/uL Lymph # (Auto) (1.2-3.4) K/uL Scott # (Auto) (0.11-0.59) K/uL Eos # (Auto) (0-0.5) K/uL Baso # (Auto) (0-0.2) K/uL PT (9.0-12.0) Seconds INR (0.9-1.1) Sodium 142 142 (136-145) mmol/L Potassium 3.6 4.0 (3.5-5.1) mmol/L Chloride 106 108 H (98-107) mmol/L Carbon Dioxide 27 26 (21-32) mmol/L Anion Gap 9.0 8.0 (3-11) BUN 10 11 (7-18) mg/dl Creatinine 0.98 0.90 (0.6-1.2) mg/dl Est Cr Clr Drug Dosing 66.5 72.4 ml/min Est GFR ( Amer) 73.2 81.1 Est GFR (Non-Af Amer) 63.1 70.0 BUN/Creatinine Ratio 10.4 12.5 (10-20) Glucose 87 104 H (70-99) mg/dl Lactate (0.4-2.0) mmol/L Calcium 8.6 7.9 L D (8.5-10.1) mg/dl Total Bilirubin 0.4 0.4 (0.2-1) mg/dl AST 16 14 L (15-37) U/L ALT 20 20 (12-78) U/L Alkaline Phosphatase 59 51 (45-117) U/L Troponin I < 0.015 < 0.015 (0-0.045) ng/ml NT-Pro-B Natriuret Pep (0-900) pg/ml Total Protein 7.2 6.3 L D (6.4-8.2) gm/dl Albumin 3.5 3.2 L (3.4-5.0) gm/dl Globulin 3.7 3.1 (2.5-4.0) gm/dl Albumin/Globulin Ratio 1.0 1.0 (0.9-2) Amylase 55 (25-115) U/L Lipase 86 (73-393) U/L 02/10/19 02/10/19 02/09/19 Range/Units 06:16 06:16 20:10 WBC 4.85 (4.8-10.8) K/uL RBC 3.47 L (4.2-5.4) M/uL Hgb 11.3 L D (12.0-16.0) g/dL Hct 32.5 L (37-47) % MCV 93.7 (80-100) fL MCH 32.6 (25-34) pg MCHC 34.8 (32-36) g/dL RDW Std Deviation 40.2 (36.4-46.3) fL RDW Coeff of Shelby 11.9 (11.5-14.5) % Plt Count 226 (130-400) K/uL MPV 8.9 (7.4-10.4) fL Immature Gran % (Auto) 0.0 % Neut % (Auto) 48.4 % Lymph % (Auto) 33.6 % Scott % (Auto) 11.8 % Eos % (Auto) 5.8 % Baso % (Auto) 0.4 % Immature Gran # (Auto) 0.00 (0.00-0.02) K/uL Neut # (Auto) 2.35 (1.4-6.5) K/uL Lymph # (Auto) 1.63 (1.2-3.4) K/uL Scott # (Auto) 0.57 (0.11-0.59) K/uL Eos # (Auto) 0.28 (0-0.5) K/uL Baso # (Auto) 0.02 (0-0.2) K/uL PT 10.9 (9.0-12.0) Seconds INR 1.1 (0.9-1.1) Sodium (136-145) mmol/L Potassium (3.5-5.1) mmol/L Chloride (98-107) mmol/L Carbon Dioxide (21-32) mmol/L Anion Gap (3-11) BUN (7-18) mg/dl Creatinine (0.6-1.2) mg/dl Est Cr Clr Drug Dosing ml/min Est GFR ( Amer) Est GFR (Non-Af Amer) BUN/Creatinine Ratio (10-20) Glucose (70-99) mg/dl Lactate (0.4-2.0) mmol/L Calcium (8.5-10.1) mg/dl Total Bilirubin (0.2-1) mg/dl AST (15-37) U/L ALT (12-78) U/L Alkaline Phosphatase (45-117) U/L Troponin I < 0.015 (0-0.045) ng/ml NT-Pro-B Natriuret Pep 104 (0-900) pg/ml Total Protein (6.4-8.2) gm/dl Albumin (3.4-5.0) gm/dl Globulin (2.5-4.0) gm/dl Albumin/Globulin Ratio (0.9-2) Amylase (25-115) U/L Lipase (73-393) U/L 02/09/19 Range/Units 20:02 WBC (4.8-10.8) K/uL RBC (4.2-5.4) M/uL Hgb (12.0-16.0) g/dL Hct (37-47) % MCV (80-100) fL MCH (25-34) pg MCHC (32-36) g/dL RDW Std Deviation (36.4-46.3) fL RDW Coeff of Shelby (11.5-14.5) % Plt Count (130-400) K/uL MPV (7.4-10.4) fL Immature Gran % (Auto) % Neut % (Auto) % Lymph % (Auto) % Scott % (Auto) % Eos % (Auto) % Baso % (Auto) % Immature Gran # (Auto) (0.00-0.02) K/uL Neut # (Auto) (1.4-6.5) K/uL Lymph # (Auto) (1.2-3.4) K/uL Scott # (Auto) (0.11-0.59) K/uL Eos # (Auto) (0-0.5) K/uL Baso # (Auto) (0-0.2) K/uL PT (9.0-12.0) Seconds INR (0.9-1.1) Sodium (136-145) mmol/L Potassium (3.5-5.1) mmol/L Chloride (98-107) mmol/L Carbon Dioxide (21-32) mmol/L Anion Gap (3-11) BUN (7-18) mg/dl Creatinine (0.6-1.2) mg/dl Est Cr Clr Drug Dosing ml/min Est GFR ( Amer) Est GFR (Non-Af Amer) BUN/Creatinine Ratio (10-20) Glucose (70-99) mg/dl Lactate 0.7 (0.4-2.0) mmol/L Calcium (8.5-10.1) mg/dl Total Bilirubin (0.2-1) mg/dl AST (15-37) U/L ALT (12-78) U/L Alkaline Phosphatase (45-117) U/L Troponin I (0-0.045) ng/ml NT-Pro-B Natriuret Pep (0-900) pg/ml Total Protein (6.4-8.2) gm/dl Albumin (3.4-5.0) gm/dl Globulin (2.5-4.0) gm/dl Albumin/Globulin Ratio (0.9-2) Amylase (25-115) U/L Lipase (73-393) U/L PG Care Time/CCT Total # of Minutes Spent Total Time Spent with Patient: Total time spent is greater than 50% in coordination of care (as documented) at patient's floor/unit and/or counseling patient: (1) Diarrhea Diarrhea type: unspecified type Qualified Code(s): R19.7 - Diarrhea, unspecified
[2019-02-10] MEDS ORDERED: ZOLPIDEM TARTRATE 5 MG TAB PO PRN (21:00)
[2019-02-10] MEDS: dilTIAZem HCL 120 MG CAPCR PO SCH (21:45)
[2019-02-10] MEDS: LISINOPRIL 5 MG TAB PO SCH (21:49)
[2019-02-10] MEDS: ZOLPIDEM TARTRATE 5 MG TAB PO PRN (22:50)
[2019-02-11] MEDS: NITROGLYCERIN 2% OINTMENT 30GM TUBE EXT SCH ×2 (02:08→08:05)
[2019-02-11 06:01] LABS: Basophils # (auto) 0.03 K/uL (0-0.2); Basophils % (auto) 0.6 %; Eosinophils # (auto) 0.34 K/uL (0-0.5); Eosinophils % (auto) 6.2 %; Hematocrit (blood only) 32.8 % (37-47); Hemoglobin 11.3 g/dL (12.0-16.0); Immature Granulocytes # (auto) 0.01 K/uL (0.00-0.02); Immature Granulocytes % (auto) 0.2 %; Lymphocytes % (auto) 29.4 %; Mean Corpuscular Hgb Conc 34.5 g/dL (32-36); Mean Corpuscular Volume 93.7 fL (80-100); Monocytes # (auto) 0.58 K/uL (0.11-0.59); Monocytes % (auto) 10.6 %; Neutrophils # (auto) 2.89 K/uL (1.4-6.5); Platelet Count 232 K/uL (130-400); RDW Coefficient of Variation 11.5 % (11.5-14.5); White Blood Count 5.45 K/uL (4.8-10.8)
[2019-02-11 06:46] LABS: Albumin Globulin Ratio 1.1 (0.9-2); Albumin Level 3.2 gm/dl (3.4-5.0); BUN Creatinine Ratio 10.4 (10-20); Bilirubin,Total 0.6 mg/dl (0.2-1); Calcium 7.9 mg/dl (8.5-10.1); Creatinine Clr Calc Pharmacy 70.2 ml/min; Est GFR (Non-African American) 66.4; Potassium 4.3 mmol/L (3.5-5.1); Total Protein 6.2 gm/dl (6.4-8.2)
[2019-02-11] MEDS: LIDOCAINE 5% 1 PATCH TD SCH (08:05)
[2019-02-11] MEDS: PANTOprazole 40 MG in SYRINGE 0 ML IV SCH (08:06)
[2019-02-11] MEDS: HYDROmorphone INJ 0.5 MG/0.5 ML SYR IV PRN ×3 (08:13→23:06)
[2019-02-11] MEDS: ONDANSETRON INJ 2 MG/ML 2 ML VIAL IV PRN ×3 (08:13→22:39)
--- NOTE | 2019-02-11 09:33 | Gastroenterology Progress Note ---
Date of Service February 11, 2019 Assessment & Plan (1) Epigastric pain: Patient is a 58 yo female with epigastric pain, vomiting, & unremarkable pancreatic & liver enzymes. -Proceed with barium swallow at 11 AM today. Remain NPO. -Continue Pepcid IV 20 mg BID -Continue Protonix IV 40 mg BID -Further recommendations pending results of barium swallow. Consider biliary work-up if no findings otherwise. Thank you for allowing us to participate in the care of this patient. If you should have any further questions or concerns, do not hesitate to contact us. Present on Admission?: Yes Supervising Physician Co-Signing Physician Notes Agree with MERCY Muller as above Abd: Soft, tender midepigastric area, ND Reviewed Barium swallow Continue current therapy Consider EGD as outpatient Subjective Patient is a 58 yo female hospitalized with epigastric pain. Since yesterday morning, she has had worsening symptoms of epigastric pain that she describes as a sharp crushing. She is now experiencing bilious vomiting. She reports a distant history of an EGD that indicated a hiatal hernia. She denies interval changes otherwise from yesterday. An amylase, lipase, & repeat liver panel were unremarkable. She felt no improvement from the addition of IV Protonix 40 mg BID yesterday. She is scheduled for a barium swallow at 11 AM. She has been NPO. Review of Systems Constitutional: no fever and no chills Eyes: no acute issues Respiratory: no cough and no dyspnea Cardiovascular: no chest pain Gastrointestinal: + abdominal pain and + vomiting; no nausea Physical Exam Constitutional: WD/WN, vitals as above Respiratory: normal respiratory effort, lungs clear to auscultation normal respiratory effort Cardiovascular: RRR, no murmur, no edema Gastrointestinal (Abdomen): Inspection/Auscultation: normal bowel sounds Percussion/Palpation: + abdomen tender and abdomen soft Results & Data Vital Signs (Past 12 Hours) Vital Signs Temp Pulse Resp BP Pulse Ox 02/11/19 07:56 37.0 C 64 16 105/53 L 93 02/11/19 03:16 36.8 C 60 16 91/53 L 93 02/10/19 22:53 36.9 C 66 16 113/68 95 PG Care Time/CCT Total # of Minutes Spent Total Time Spent with Patient: Total time spent is greater than 50% in coordination of care (as documented) at patient's floor/unit and/or counseling patient:
--- NOTE | 2019-02-11 09:38 | Cardiology Progress Note ---
Date of Service February 11, 2019 Assessment & Plan (1) Precordial chest pain: The patient has been experiencing mid epigastric discomfort making eating and drinking difficult. She is scheduled for a barium swallow later today. Doubt a cardiac etiology as for troponins have been undetectable less than 0.015. Furthermore, an echocardiogram performed during pain yesterday was normal. EKGs have showed no acute findings. (2) CAD (coronary artery disease): The patient does have an extensive history of coronary artery disease, Prinzmetal's angina, cardiac syndrome X, chronic pericarditis, and her Kounis syndrome. (3) Hypertension: Adequate control on current medical regimen. (4) Dyslipidemia: The patient refuses statins. Subjective The patient is resting in bed complaining of epigastric discomfort radiating toward her throat. Still has difficulty eating and taking her medications. He is scheduled for a barium swallow later today. She explains that her angina pain is back to its usual baseline. Physical Exam Physical Exam: In general this is a well-developed well-nourished chief white female in no acute distress. HEENT exam is negative. Neck is supple with full carotid upstrokes. There are no carotid bruits. No JVD. There is no thyromegaly. Cardiovascular exam reveals a regular rhythm with a 1/6 basal systolic ejection murmur. S1 and S2 are normal. No S3 or S4. Lungs are clear without rales, rhonchi, or wheezes. Abdomen is soft and nontender without bruits. Extremities reveal intact radial artery and posterior tibial pulses bilaterally. There is no peripheral edema. Results & Data Vital Signs (Past 12 Hours) Vital Signs Temp Pulse Resp BP Pulse Ox 02/11/19 07:56 37.0 C 64 16 105/53 L 93 02/11/19 03:16 36.8 C 60 16 91/53 L 93 02/10/19 22:53 36.9 C 66 16 113/68 95 Laboratory Results Troponin I level this morning remains undetectable at less than 0.015. Diagnostic Findings manager labor relations is benign. PG Care Time/CCT Total # of Minutes Spent Total Time Spent with Patient: Total time spent is greater than 50% in coordination of care (as documented) at patient's floor/unit and/or counseling patient:
--- NOTE | 2019-02-11 11:24 | Fluoroscopy Report ---
FL barium swallow CLINICAL HISTORY: 58 years-old Female presenting with Chest pain. TECHNIQUE: A routine air-contrast (double contrast) barium esophagram was performed. Multiple spot im ages of the esophagus were acquired both upright and prone. COMPARISON: None. FINDINGS: The patient was able to ingest barium without difficulty. Normal esophageal mucosal pattern. No evide nce of intrinsic or extrinsic mass lesion. No aspiration observed. Limited tertiary contractions coul d suggest minimal esophageal motility. The gastroesophageal junction distended normally. Trace if any sliding-type hiatal hernia may be present. Limited gastroesophageal reflux elicited despite provocat rodney maneuvers. Fluoroscopy dosage (mGy): Not available. Fluoroscopy time: 1 minute. Number or time of high level fluoroscopy (HLF), digital spot, or digital subtraction images: 24. IMPRESSION: 1. Possible trace sliding type hiatal hernia and minimal esophageal dysmotility. 2. Gastroesophageal reflux. Electronically signed by: Fadi Allred M.D. 02/11/2019 11:23 AM
[2019-02-11] MEDS: FEXOFENADINE HCL 180 MG TAB PO SCH ×2 (11:54→22:27)
[2019-02-11] MEDS: ISOSORBIDE MONO EXTENDED REL 60 MG TABCR PO SCH ×2 (11:54→22:28)
[2019-02-11] MEDS: CLOPIDOGREL BISULFATE 75 MG TAB PO SCH (11:54)
[2019-02-11] MEDS: dilTIAZem HCL 180 MG CAPCR PO SCH (11:54)
[2019-02-11] MEDS: ASPIRIN 81 MG ECTAB PO SCH (11:54)
[2019-02-11] MEDS: LACTOBACILLUS ACIDOPHILUS (FLORANEX) TAB PO SCH (12:14)
[2019-02-11] MEDS: MULTIVITAMIN TAB PO SCH (12:14)
[2019-02-11] MEDS: FOLIC ACID 400 MCG TAB PO SCH (12:14)
[2019-02-11] MEDS: CALCIUM CITRATE 950 MG TAB PO SCH (12:14)
[2019-02-11] MEDS: ASCORBIC ACID 500 MG TAB PO SCH (12:15)
[2019-02-11] MEDS: CYANOCOBALAMIN 500 MCG TABLET (VITAMIN B-12) PO SCH (12:15)
[2019-02-11] MEDS: FAMOTIDINE 20 MG in SYRINGE 3 ML IV SCH ×2 (15:20→22:31)
[2019-02-11] MEDS ORDERED: IOVERSOL 100ml IV PRN (22:08)
[2019-02-11] MEDS: dilTIAZem HCL 120 MG CAPCR PO SCH (22:27)
--- NOTE | 2019-02-11 22:27 | CT Scan Report ---
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 COMPARISON STUDY: 04/18/2018 FINDINGS: There is dense barium present within the right colon from a barium swallow which performed earlier in the day. This would preclude an optimal CT scan. As the examination is not emergent, the s tudy was not performed at this time. The patient should be scanned following evacuation of the coloni c barium. IMPRESSION: There is dense barium contrast within the right colon secondary to a barium swallow perf ormed earlier in the day. This would preclude an optimal CT scan. The CT scan should be performed fol lowing evacuation of the colonic barium Electronically signed by: Nahun Keen M.D. 02/11/2019 10:26 PM
[2019-02-11] MEDS: LISINOPRIL 5 MG TAB PO SCH (22:32)
[2019-02-11] MEDS: PANTOprazole 40 MG TAB PO SCH (22:33)
[2019-02-11] MEDS ORDERED: PANTOprazole 40 MG TAB PO ONE (22:58)
[2019-02-12] MEDS: ZOLPIDEM TARTRATE 5 MG TAB PO PRN ×2 (00:02→22:43)
[2019-02-12] MEDS: HYDROmorphone INJ 0.5 MG/0.5 ML SYR IV PRN ×7 (02:24→21:32)
[2019-02-12] MEDS: ONDANSETRON INJ 2 MG/ML 2 ML VIAL IV PRN (04:34)
[2019-02-12] MEDS ORDERED: LACTATED RINGER'S 1,000 ML IV SCH (05:00)
--- NOTE | 2019-02-12 06:21 | Hospitalist Progress Note ---
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 She typically suffers from chronic daily angina. She was admitted with increasing severity and frequency of her typical angina and epigastric pain. Troponins have been negative here on multiple occasions serially. There are no changes in her EKG. Echocardiogram here without any wall motion abnormalities and with preserved EF Chest x-ray and chest CT without evidence of cause of chest pain Pain was finally relieved with the addition of Nitropaste 1 inch every 6 hours- pt then began declining thi smedication and it is now cd Reports her angina is back to its baseline severity and frequency. 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 Seen by cardiology and no further evaluation needed at this time -Continue current home medications to include diltiazem, isosorbide, aspirin, Plavix, lisinopril -Patient reports she cannot have beta-blockers due to her Kounis syndrome -Continue monitoring on telemetry-no events that are abnormal thus far (2) Epigastric pain: Presents also with 4 days of constant epigastric pain and odynophagia-this is ongoing Has a mild anemia today which is likely hemo-dilutional from receiving copious IV fluids upon admission, is not microcytic and does not have evidence of acute GI bleeding either -She is on aspirin and Plavix but does not use NSAIDs No reports of melena or bright red blood per rectum or hematemesis Has had some wretching here with bilious fluid coming up, continued mild nausea, continued epigastric pain Not relieved with GI cocktail, pepcid IV or PPI IV x 2 days now Barium swallow with small sliding HH, mild esophageal dysmotility, would not explain her symptoms -May need EGD this admission if cardiac issues improve and is stable to undergo anesthesia--> will discuss with GI but they have recommended outpt EGD -check CT abd/pel with IV and po contrast -continue IV dilaudid prn -continue IV Pepcid nad can convert PPI to po bid Appreciate GI consultation (3) Diarrhea: Had 12 bouts of liquid dark brown stool Sunday prior to admission which is now resolved -No further work-up necessary (4) CAD (coronary artery disease): With complex history as above -Continue home medicine aspirin 81 mg p.o. every morning, Plavix 75 mg p.o. every morning, diltiazem 480 mg daily -Will hold furosemide 20 mg p.o. every morning as she may have been dehydrated from recent diarrhea -Continue lisinopril -She is statin intolerant (5) Hiatal hernia: Diagnosed as per patient report based on previous EGD-reports not available No large hiatal hernia seen on chest CT -Plan outlined as above (6) Hypertension: Blood pressures stable -Follow blood pressures -continue diltiazem (7) History of stroke: As per patient report, with residual "expressive aphasia" I have no documentation or imaging of the brain for more details on this -continues on ASA, Plavix, and is statin intolerant (8) DVT prophylaxis: SCDs, teds Disposition-remain on telemetry for continued chest pain and epigastric pain and further work-up Subjective Continues to c/o constant epigastric pain. States her angina pain is back to her usual severity and frequency daily. Still with painful swallowing. Some nausea, bringing up bile, no hematemesis, no melena or BRBPR. Advised she is having barium swallow today. Is passing gas, no BM since her diarrhea on Sunday prior to admission. States she has eaten "nothing." RN reports pt ate broth today. Otherwise states "I think I'm headed in the right direction." Later in the evening, I spoke with pt on the phone after GI saw her and told her her barium swallow showed no evidence of a cause of her pain. She then told me she wanted to know what was next and that "something was very wrong." Stated that the GI cocktail did not help, stated that pepcid and protonix did not help except perhaps slightly and did not want me to discontinue them. Said she coulld not be discharged as she was still having pain requiring dilaudid. Advised I would order a CT scan of her abdomen/pelvis and then discuss with GI about possibility of doing an EGD. Tele with NSR, rates 50-60s Review of Systems Review of Systems: All systems reviewed & are unremarkable except as noted in HPI & below Physical Exam Constitutional: WD/WN, vitals as above Eyes: + anicteric sclerae ENMT: external ear and nose normal, oropharynx normal Ears: no hearing impairment Neck: trachea midline, no thyromegaly Respiratory: normal respiratory effort, lungs clear to auscultation Cardiovascular: RRR, no murmur, no edema Gastrointestinal (Abdomen): Inspection/Auscultation: abdomen normal to inspection and normal bowel sounds; abdomen not distended Percussion/Palpation: + abdomen tender (In the epigastric region without guarding or rebound) and abdomen soft; no hepatosplenomegaly, no hernia, no abdominal mass and no pulsatile mass Musculoskeletal: Extremities: extremities normal to inspection; no cyanosis and no clubbing Skin: no rashes, warm and dry Neurologic: moves all extremities and awake; no focal motor deficits Psychiatric: Orientation: alert and oriented x 3 Eye Contact: good eye contact Affect: + anxious affect Mood: + anxious mood Results & Data Vital Signs (Past 12 Hours) Vital Signs Temp Pulse Resp BP BP Pulse Ox Pulse Ox 02/12/19 04:00 36.9 C 63 16 115/56 L 96 02/11/19 23:24 36.7 C 76 18 124/78 95 02/11/19 20:00 96 02/11/19 19:27 36.9 C 102 H 18 166/111 H 154/110 H 96 Laboratory Results 02/11/19 02/11/19 Range/Units 08:26 05:51 Sodium 141 (136-145) mmol/L Potassium 4.3 D (3.5-5.1) mmol/L Chloride 107 (98-107) mmol/L Carbon Dioxide 28 (21-32) mmol/L Anion Gap 6.0 (3-11) BUN 10 (7-18) mg/dl Creatinine 0.94 (0.6-1.2) mg/dl Est Cr Clr Drug Dosing 70.2 ml/min Est GFR ( Amer) 77.0 Est GFR (Non-Af Amer) 66.4 BUN/Creatinine Ratio 10.4 (10-20) Glucose 93 (70-99) mg/dl Calcium 7.9 L (8.5-10.1) mg/dl Magnesium 2.0 (1.8-2.4) mg/dl Total Bilirubin 0.6 (0.2-1) mg/dl AST 8 L (15-37) U/L ALT 19 (12-78) U/L Alkaline Phosphatase 48 (45-117) U/L Troponin I < 0.015 (0-0.045) ng/ml Total Protein 6.2 L (6.4-8.2) gm/dl Albumin 3.2 L (3.4-5.0) gm/dl Globulin 3.0 (2.5-4.0) gm/dl Albumin/Globulin Ratio 1.1 (0.9-2) PG Care Time/CCT Total # of Minutes Spent Total Time Spent with Patient: Total time spent is greater than 50% in coordination of care (as documented) at patient's floor/unit and/or counseling patient: (1) Diarrhea Diarrhea type: unspecified type Qualified Code(s): R19.7 - Diarrhea, unspecified
[2019-02-12 07:11] LABS: Basophils # (auto) 0.03 K/uL (0-0.2); Basophils % (auto) 0.5 %; Eosinophils % (auto) 4.5 %; Hemoglobin 11.5 g/dL (12.0-16.0); Immature Granulocytes # (auto) 0.01 K/uL (0.00-0.02); Immature Granulocytes % (auto) 0.2 %; Lymphocytes # (auto) 1.31 K/uL (1.2-3.4); Lymphocytes % (auto) 19.8 %; Mean Corpuscular Hgb Conc 34.8 g/dL (32-36); Mean Corpuscular Volume 92.4 fL (80-100); Monocytes # (auto) 0.51 K/uL (0.11-0.59); Monocytes % (auto) 7.7 %; Neutrophils # (auto) 4.44 K/uL (1.4-6.5); Neutrophils % (auto) 67.3 %; Platelet Count 241 K/uL (130-400); RDW Coefficient of Variation 11.3 % (11.5-14.5); RDW Standard Deviation 38.3 fL (36.4-46.3); Red Blood Count 3.57 M/uL (4.2-5.4)
--- NOTE | 2019-02-12 07:16 | Family Medicine Progress Note ---
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 Plan for EGD today. Will order US RUQ to look at gallbladder since positive murphys sign and havent had this study performed with current hospital workup; epigastric pain could be referred gallbladder pain. - Her U/S returned showing 4mm gallbladder wall thickening; - Mild prominence of the common bile duct at 7.5 mm; dilation of the common bile duct; possible chronic acalculous cholecystitis; with recs for MRCP, which was ordered. Right now, differential is gallbladder pathology vs. and/or biliary tree pathology such as stone in duct vs. esophageal spasm vs. esophageal stricture vs. esophageal neoplastic process vs. stomach neoplastic process vs. esophageal ulceration from HSV or candidia. Treatment for symptomatology includes analgesic IV Dilaudid PRN. Previously tried GI cocktail, Famotidine IV (2) History of stroke: She does endorse expressive aphasia and does have some trouble with word finding. c/w ASA 81mg PO (3) Hiatal hernia: no large hiatal hernia seen on Chest CT (4) Precordial chest pain: No cardiac etiology after work up with cardiology consult. Pain was initially relieved with NTG paste 1' q6h, but patient declines further as is causing headache, this has been discontinued. Continue with home meds diltiazem, isosorbide, aspirin, lisinopril (5) Diarrhea: resolved (6) History of coronary artery disease: continue with home meds, ASA, Diltiazem 480mg, Lisinopril intolerance to statins (7) Hypertension: currently stable with home anti-HTNs (8) DVT prophylaxis: SCDs, TEDs Supervising Physician Co-Signing Physician Notes Attending attestation Pt seen and examined in concert with Dr. Ho. In agreement with the documented findings as noted in the resident documentation with any exceptions or additions as noted here. Stable complaints of aching right upper quardant abdominal pain and central pressure chest pain which has minimally improved with pH modifying interventions. US of the RUQ reviewed with patient, now awaiting MRCP for further evaluation of biliary tree anatomy. On examination, RUQ and epigastric TTP to even mild pressure with good bowel sound throughout. S1/S2 nl RRR. CTAB Epigastric/RUQ pain - concerning for underlying gallbladder disease - GI consultation - will follow up EGD as well, but based on US would agree w/ need for MRCP for further evaluation. Continue famotidine, pantoprazole, ondansetron Else see resident documentation as noted. Subjective Sherron notes that she has pain in her sternal notch area with talking which is new for her. She continues to have epigastric pain that is always present but crescendo and decrescendo pain intermittently without identifiable aggravating factors. She notes that pain she has with swallowing food or liquids is located to the center of her chest. She notes belching without identifying aggravating factors. Dilaudid does help her epigastric pain but doesnt completely resolve pain. She notes nausea with mild heaving without vomiting. Sherron endorses that she had a EGD 4 years ago to ensure cardiac pain she was having wasnt related to GI. She notes that she was told she had Barretts esophagus. She also notes history of stomach ulcers many years ago. No recent travel. She notes she did hold her Plavix one week ago, but was given Plavix past two days, she did this because supposed to have nerve block performed on thumb as outpatient. Physical Exam Constitutional: WD/WN, vitals as above Intermittent belching, one episode of heaving without vomiting. She appears in pain with onset of epigastric crescendoing pain that lasted maybe 20 seconds. Eyes: + anicteric sclerae Neck: normal visual inspection and trachea midline Respiratory: normal respiratory effort, lungs clear to auscultation Cardiovascular: Rate/Rhythm: regular rate and regular rhythm Gastrointestinal (Abdomen): Inspection/Auscultation: abdomen normal to ins pection and normal bowel sounds Percussion/Palpation: + abdomen tender (RUQ with +murphys sign; epigastric without rebound), abdomen soft and normal to percussion; no guarding, abdomen not rigid, no hernia and no ascites Musculoskeletal: Head/Neck/Chest: normocephalic and head atraumatic Skin: no rashes, warm and dry Neurologic: moves all extremities and awake Psychiatric: Orientation: alert and oriented x 3 Results & Data Vital Signs (Past 12 Hours) Vital Signs Temp Pulse Resp BP BP Pulse Ox Pulse Ox 02/12/19 04:00 36.9 C 63 16 115/56 L 96 02/11/19 23:24 36.7 C 76 18 124/78 95 02/11/19 20:00 96 02/11/19 19:27 36.9 C 102 H 18 166/111 H 154/110 H 96 PG Care Time/CCT Total # of Minutes Spent Total Time Spent with Patient: Total time spent is greater than 50% in coordination of care (as documented) at patient's floor/unit and/or counseling patient: Resident Activity Tracking Resident Involvement: Resident Care Provided Care Provided: Adult Hospital Medicine (1) Diarrhea Diarrhea type: unspecified type Qualified Code(s): R19.7 - Diarrhea, unspecified
[2019-02-12 07:48] LABS: Albumin Level 3.4 gm/dl (3.4-5.0); BUN Creatinine Ratio 10.1 (10-20); Calcium 8.4 mg/dl (8.5-10.1); Creatinine Clr Calc Pharmacy 80.5 ml/min; Est GFR (African American) 90.8; Est GFR (Non-African American) 78.3; Potassium 3.7 mmol/L (3.5-5.1)
[2019-02-12 07:51] LABS: Bilirubin Direct 0.1 mg/dl (0-0.2); Bilirubin,Total 0.5 mg/dl (0.2-1); Phosphorus 3.4 mg/dl (2.5-4.9); Total Protein 6.6 gm/dl (6.4-8.2)
--- NOTE | 2019-02-12 09:14 | History & Physical Bridge Note ---
Date of Service February 12, 2019 History & Physical Bridge Note I have examined the patient, reviewed the physical exam since yesterday and in the interval since the performance of the physical examl I have noted the following changes of clinical significance: no changes noted. Patient reports persistent epigastric pain. She has not eaten breakfast this AM. Keep NPO for EGD today for further evaluation. Continue Protonix 40 mg BID & Pepcid 20 mg BID. Supervising Physician Co-Signing Physician Notes Agree with MERCY Muller as above Abd: Soft, Tender epigastric area, ND, +BS RUQ US reviewed Proceed with EGD today Continue current therapy
[2019-02-12] MEDS: ISOSORBIDE MONO EXTENDED REL 60 MG TABCR PO SCH ×2 (10:19→20:12)
[2019-02-12] MEDS: dilTIAZem HCL 180 MG CAPCR PO SCH (10:19)
[2019-02-12] MEDS: ACETAMINOPHEN 325 MG TAB PO PRN ×2 (10:22→20:12)
[2019-02-12] MEDS: ASPIRIN 81 MG ECTAB PO SCH (10:38)
[2019-02-12] MEDS: FEXOFENADINE HCL 180 MG TAB PO SCH ×2 (10:38→20:12)
[2019-02-12] MEDS: LACTOBACILLUS ACIDOPHILUS (FLORANEX) TAB PO SCH (10:38)
[2019-02-12] MEDS: FOLIC ACID 400 MCG TAB PO SCH (10:38)
[2019-02-12] MEDS: CALCIUM CITRATE 950 MG TAB PO SCH (10:38)
[2019-02-12] MEDS: CYANOCOBALAMIN 500 MCG TABLET (VITAMIN B-12) PO SCH (10:39)
[2019-02-12] MEDS: MULTIVITAMIN TAB PO SCH (10:39)
[2019-02-12] MEDS: PANTOprazole 40 MG TAB PO SCH ×2 (10:39→20:12)
[2019-02-12] MEDS: ASCORBIC ACID 500 MG TAB PO SCH (10:39)
[2019-02-12] MEDS: CLOPIDOGREL BISULFATE 75 MG TAB PO SCH (10:39)
[2019-02-12] MEDS: FAMOTIDINE 20 MG in SYRINGE 3 ML IV SCH ×2 (11:36→20:35)
--- NOTE | 2019-02-12 12:05 | Ultrasound Report ---
US gallbladder HISTORY: Pain. Nausea. +Moreno sign on exam; epigastric pain COMPARISON: None. FINDINGS: Ultrasonic evaluation of the right upper quadrant shows evidence for moderate gallbladder wall thicke jeaneth at 4 mm. No significant pericholecystic edema. Common bile duct is mildly distended at 7.5 mm. The liver is uniform throughout. Pancreas and right kidney are unremarkable. IMPRESSION: 1. Mild gallbladder wall thickening of 4 mm. 2. Mild prominence of the common bile duct at 7.5 mm. 3. Possible chronic acalculous cholecystitis must be a consideration. Dilatation of the common bile d uct is also present. 4. MRCP is suggested as follow-up. The above report was generated using voice recognition software. It may contain grammatical, syntax or spelling errors. Electronically signed by: Kevin Beckett M.D. 02/12/2019 12:04 PM
[2019-02-12] MEDS ORDERED: PROPOFOL IV EMULSION 10 MG/ML 20 ML VIAL IV ONE (15:36)
[2019-02-12] MEDS ORDERED: LIDOCAINE HCL 2% 2 ML VIAL/AMP(20MG/ML) INFIL ONE (15:36)
--- NOTE | 2019-02-12 15:42 | Anesthesiology Consultation ---
Date of Service February 12, 2019 Assessment & Plan (1) Encounter for pre-operative examination: History Surgery Operation Date: 02/12/19 09:30 Proposed Procedures p Esophagogastroduodenoscopy Dr Gama - Joaquin Mckeon Case, DO Height/Weight Height: 5 ft 7 in Weight: 80.1 kg Allergies Allergy/AdvReac Type Severity Reaction Status Date / Time ivabradine Allergy SV FACE SWELLS Verified 02/09/19 13:56 prochlorperazine Allergy Severe LOCK JAW Unverified 02/09/19 13:56 [From Compazine] amlodipine Allergy Intermediate muscle pain Verified 02/09/19 13:56 morphine Allergy Intermediate RASH Verified 02/09/19 13:56 verapamil Allergy Intermediate muscle pain Verified 02/09/19 13:56 ibuprofen Allergy Mild Rash Verified 02/09/19 13:56 promethazine AdvReac Severe Jaw Locks Verified 02/09/19 13:56 Medications Home Medications Medication Instructions Recorded Confirmed Last Taken aspirin [Aspir-81] 81 mg PO QAM 04/08/18 02/09/19 04/18/18 calcium phosphate-vitamin D3 1 tab PO QAM 04/08/18 02/09/19 04/18/18 [Citracal + D3 (calcium phos)] multivitamin 1 tab PO QAM 04/08/18 02/09/19 04/18/18 nitroglycerin 1 dose SUBLINGUAL UD PRN 04/08/18 02/09/19 04/17/18 pantoprazole [Protonix] 40 mg PO QAM 04/08/18 02/09/19 04/18/18 vitamin G04-stapy acid 1 tab PO QAM 04/08/18 02/09/19 04/18/18 fexofenadine [Hortensia Allergy] 180 mg PO BID 04/18/18 02/09/19 04/18/18 furosemide 20 mg tablet 20 mg PO QAM PRN 06/26/18 02/09/19 Unknown diltiazem 120 mg tablet 120 mg PO QPM tab 08/01/18 02/09/19 Unknown diltiazem ER 240 mg capsule,24 360 mg PO .am cap 08/01/18 02/09/19 Unknown hr,extended release docosahexanoic acid 200 mg capsule 200 mg PO DAILY cap 08/01/18 02/09/19 Unknown isosorbide mononitrate ER 60 mg 120 mg PO BID tab 08/01/18 02/09/19 Unknown tablet,extended release 24 hr lisinopril 2.5 mg tablet 5 mg PO QPM tab 08/01/18 02/09/19 Unknown lactobacillus combination no.4 3 3,000 mmu cells PO DAILY 10/30/18 02/09/19 Unknown billion cell capsule albuterol sulfate HFA 90 1 puffs INH Q6H PRN #8.5 gm 12/30/18 02/09/19 Unknown mcg/actuation aerosol inhaler lidocaine 5 % topical patch 1 patch TOP DAILY #1 ea 12/30/18 02/09/19 Unknown nitroglycerin 0.1 mg/hr 1 patch TD Q12 PRN #30 ea 12/30/18 02/09/19 Unknown transdermal 24 hour patch nitroglycerin 400 mcg/spray 1 sprays SL Q5M PRN #12 gm 12/30/18 02/09/19 Unknown translingual aerosol clopidogrel 75 mg tablet 75 mg PO QAM #90 tab 02/06/19 02/09/19 Unknown ascorbic acid (vitamin C) [Vitamin 1 g PO DAILY 02/09/19 02/09/19 Unknown C] turmeric 400 mg PO DAILY 02/09/19 02/09/19 Unknown vitamin A 8,000 unit PO DAILY 02/09/19 02/09/19 Unknown Active Medications Generic Name Dose Route Start Last Admin Trade Name Freq PRN Reason Stop Dose Admin Acetaminophen 650 mg 02/09/19 19:09 02/12/19 10:22 Tylenol PO 03/11/19 19:08 650 mg Q4H PRN Administration Pain or Fever Ascorbic Acid 1,000 mg 02/10/19 09:00 02/12/19 10:39 Vitamin C PO 03/12/19 08:59 Not Given DAILY DEMETRIA Aspirin 81 mg 02/10/19 09:00 02/12/19 10:38 Ecotrin Ectab PO 03/12/19 08:59 Not Given QAM [facility] Calcium Citrate 1 mg 02/10/19 09:00 02/12/19 10:38 Citracal PO 03/12/19 08:59 Not Given QAM [facility] Clopidogrel Bisulfate 75 mg 02/10/19 09:00 02/12/19 10:39 Plavix PO 03/12/19 08:59 Not Given QAM [facility] Cyanocobalamin 500 mcg 02/10/19 09:00 02/12/19 10:39 Vitamin B-12 PO 03/12/19 08:59 Not Given QAM [facility] Diltiazem HCl 120 mg 02/09/19 21:00 02/11/19 22:27 Cardizem Cd PO 03/11/19 20:59 120 mg QPM DEMETRIA Administration Diltiazem HCl 360 mg 02/10/19 09:00 02/12/19 10:19 Cardizem Cd PO 03/12/19 08:59 360 mg QAM DEMETRIA Administration Fexofenadine HCl 180 mg 02/09/19 21:00 02/12/19 10:38 Hortensia PO 03/11/19 20:59 Not Given BID DEMETRIA Folic Acid 400 mcg 02/10/19 09:00 02/12/19 10:38 Folvite PO 03/12/19 08:59 Not Given QAM [facility] Hydromorphone HCl 0.5 mg 02/10/19 08:40 02/12/19 14:40 Dilaudid IV 02/23/19 21:56 0.5 mg Q3H PRN Administration Pain Famotidine 20 mg/ Syringe 5 mls @ 2.5 mls/min 02/09/19 21:15 02/12/19 11:36 IV 03/11/19 21:14 2.5 mls/min BID DEMETRIA Administration Ioversol 90 ml 02/11/19 22:08 02/11/19 22:08 Optiray 320 100ml IV 02/15/19 22:07 90 ml ONCE PRN Administration Interaction Checking Isosorbide Mononitrate 120 mg 02/09/19 21:00 02/12/19 10:19 Imdur Extended Rel PO 03/11/19 20:59 120 mg BID DEMETRIA Administration Lactobacillus Acidophilus 4 tab 02/10/19 09:00 02/12/19 10:38 Floranex PO 03/12/19 08:59 Not Given DAILY DEMETRIA Lisinopril 5 mg 02/09/19 21:00 02/11/19 22:32 Zestril PO 03/11/19 20:59 5 mg QPM DEMETRIA Administration Miscellaneous 1 ea 02/10/19 00:00 02/12/19 15:20 Order Awaiting Action N/A 03/12/19 00:00 Not Given QS DEMETRIA Miscellaneous 1 ea 02/09/19 21:00 02/11/19 22:29 Remove Nitro-Dur Patch N/A 03/11/19 20:59 Not Given DAILY@2100 DEMETRIA Miscellaneous 1 ea 02/10/19 00:00 02/12/19 15:20 Order Awaiting Action N/A 03/12/19 00:00 Not Given QS DEMETRIA Multivitamins 1 tab 02/10/19 09:00 02/12/19 10:39 Multivitamin Tab PO 03/12/19 08:59 Not Given QAM [facility]ETRIA Nitroglycerin 0.4 mg 02/09/19 19:09 02/10/19 07:50 Nitrostat SL 03/11/19 19:08 0.4 mg UD PRN Administration Chest Pain Ondansetron HCl 4 mg 02/09/19 19:09 02/12/19 04:34 Zofran IV 03/11/19 19:08 4 mg Q6H PRN Administration Nausea Pantoprazole Sodium 40 mg 02/11/19 21:00 02/12/19 10:39 Protonix PO 03/13/19 20:59 Not Given BID DEMETRIA Zolpidem Tartrate 5 mg 02/09/19 19:09 02/12/19 00:02 Ambien PO 03/11/19 19:08 5 mg HS PRN Administration Sleep NPO Date Last Intake of Fluids: 02/11/19 Date Last Intake of Solids: 02/07/19 Past Medical History Medical History Hypertension (Chronic) Myocardial Infarction (Chronic) X 2 (2015 AND 09/2017) Non ST elevation [place] - September 2017 RCA SHAMA x4, RCA dissection Normal LM 100% distal LAD with poor collateralization Normal LCx LVEF 65% Asymptomatic PVCs (Chronic) Migraine (Chronic) Stroke (Chronic) 02/11/2015 (EMBOLIC CAROTID STROKE) EXPRESSIVE APHASIA/RESIDUAL LEFT SIDE WEAKNESS Anemia (Chronic) Osteoarthritis (Chronic) Fibroid tumor (Resolved) Past Family History Family History Mother Family history of diabetes mellitus Coronary heart disease Hypertension Cardiac disorder Father Family history of diabetes mellitus Hypertension Cardiac disorder Kidney disease Myocardial infarction Sister Family history of diabetes mellitus Seizures Brother Family history of diabetes mellitus Hypertension Cardiac disorder Prostate cancer Thyroid cancer Uncle Esophageal cancer Grandmother Breast cancer Cardiac disorder Grandfather Cardiac disorder Aunt Ovarian cancer Past Surgical History Surgical History History of cardiac cath (Chronic) TOTAL 12? (LAST NOVEMBER 2017 AT [facility]) History of heart artery stent (Chronic) SEPTEMBER 2017>4 STENTS PLACED (WILL BRING CARD TO SURGERY) DRUG ELUTING History of heart surgery (Chronic) 07/2014>UNROOFING MYOCARDIAL BRIDGE OF LAD ([facility]) 3 MONTHS LATER-PERICARDIECTOMY 01/2017 BYPASS OF RCA Hx of LASIK (Chronic) History of tonsillectomy (Chronic) History of tooth extraction (Chronic) History of appendectomy (Chronic) History of colonoscopy (Chronic) History of esophagogastroduodenoscopy (EGD) (Chronic) History of total hip arthroplasty (Chronic) RT/LEFT History of shoulder surgery (Chronic) RT/LEFT History of elbow surgery (Chronic) RT ELBOW History of hysterectomy (Chronic) Social History Smoking Status: Never smoker Hx Alcohol Use: Yes Alcohol type: wine alcohol intake frequency: holidays/special occasions only Hx Substance Use: No substance use type: does not use Physical Exam Vital Signs Last Vital Signs Temp 37.2 C 02/12/19 15:28 Pulse 70 02/12/19 15:28 Resp 16 02/12/19 15:28 BP 121/73 02/12/19 15:28 Pulse Ox 94 02/12/19 11:50 Testing Laboratory Results 02/12/19 06:43 02/12/19 06:43 PT 10.9 Seconds (9.0-12.0) 02/10/19 06:16 INR 1.1 (0.9-1.1) 02/10/19 06:16 APTT 28.2 Seconds (21.0-31.0) 02/09/19 13:19 Electrocardiogram Date: 02/10/19 Normal sinus rhythm Poor R wave progression, consider anterior [place] vs. lead placement vs. LVH When compared with ECG of 09-FEB-2019 20:59, No significant change was found Confirmed by Boo Boland ([id number]) on 02/11/2019 2:03:20 PM Echocardiogram Date: 02/10/19 EF: 60-65% LV Function: normal
--- NOTE | 2019-02-12 16:15 | GI REPORT ---
Patient Name: Sherron Gay Procedure Date: 02/12/2019 3:40 PM Date of : 1960 Admit Type: Inpatient Age: 58 Gender: Female Attending MD: Joaquin Gama DO Procedure: Upper GI endoscopy Providers: Joaquin Gama DO Referring MD: Boo Fernandez Indications: Chest pain (non cardiac) Medicines: Monitored Anesthesia Care Complications: No immediate complications. Estimated Blood Loss: Estimated blood loss: none. Procedure: Pre-Anesthesia Assessment: - Prior to the procedure, a History and Physical was performed, and patient medications and allergies were reviewed. The patient's tolerance of previous anesthesia was also reviewed. The risks and benefits of the procedure and the sedation options and risks were discussed with the patient. All questions were answered, and informed consent was obtained. Prior Anticoagulants: The patient has taken no previous anticoagulant or antiplatelet agents. ASA Grade Assessment: IV - A patient with severe systemic disease that is a constant threat to life. After reviewing the risks and benefits, the patient was deemed in satisfactory condition to undergo the procedure. After obtaining informed consent, the endoscope was passed under direct vision. Throughout the procedure, the patient's blood pressure, pulse, and oxygen saturations were monitored continuously. The Endoscope was introduced through the mouth, and advanced to the second part of duodenum. The upper GI endoscopy was accomplished without difficulty. The patient tolerated the procedure well. Findings: The examined esophagus was normal. A medium-sized hiatal hernia was present. Localized mild inflammation characterized by erythema was found in the gastric antrum. Biopsies were taken with a cold forceps for histology. The examined duodenum was normal. Impression: - Normal esophagus. - Medium-sized hiatal hernia. - Gastritis. Biopsied. - Normal examined duodenum. Recommendation: - Return patient to hospital [facility] for ongoing care. - Clear liquid diet. - Continue present medications. - Await pathology results. Joaquin Gama DO 02/12/2019 4:14:58 PM This report has been signed electronically. Note Initiated On: 02/12/2019 3:40 PM Number of Addenda: 0 I attest to the content of the Intraoperative Record and orders documented therein, exceptions below {[id number]}
--- NOTE | 2019-02-12 16:54 | Anesthesiology Progress Note ---
Date of Service February 12, 2019 Anesthesia Post Procedure Vital Signs Vital Signs: Temp Pulse Pulse Resp BP BP Pulse Ox 02/12/19 16:45 67 18 117/64 97 02/12/19 16:30 71 18 112/60 96 02/12/19 16:15 37.0 C 72 16 114/57 L 94 02/12/19 15:28 37.2 C 70 16 121/73 02/12/19 14:19 72 02/12/19 11:50 37.4 C 66 16 116/59 L 94 02/12/19 08:00 68 02/12/19 07:33 37.1 C 68 16 117/59 L 95 02/12/19 04:00 36.9 C 63 16 115/56 L 96 02/11/19 23:24 36.7 C 76 18 124/78 95 02/11/19 20:00 02/11/19 19:27 36.9 C 102 H 18 166/111 H 154/110 H 96 Pulse Ox 02/12/19 16:45 02/12/19 16:30 02/12/19 16:15 02/12/19 15:28 02/12/19 14:19 02/12/19 11:50 02/12/19 08:00 02/12/19 07:33 02/12/19 04:00 02/11/19 23:24 02/11/19 20:00 96 02/11/19 19:27 Pain Intensity Chest: Pain Intensity: 8 Transfer of Care Handoff Completed per policy Notes Mental Status: alert / awake / arousable and participated in evaluation Patient Amnestic to Procedure: Yes Nausea / Vomiting: adequately controlled Pain: adequately controlled Airway Patency, RR, SpO2: stable & adequate BP & HR: stable & adequate Hydration State: stable & adequate Anesthetic Complications: no major complications apparent and Pt Satisfied with anesthetic care
[2019-02-12] MEDS: LACTATED RINGER'S 1,000 ML IV SCH ×2 (17:29→21:14)
--- NOTE | 2019-02-12 19:55 | Magnetic Resonance Report ---
MR MRCP CLINICAL HISTORY: 58 years-old Female presenting with Possible chronic acalculous cholecystitis. TECHNIQUE: Multisequence, multiplanar MR imaging of the abdomen was performed without the use of intr avenous contrast. Dedicated MRCP protocol was utilized. 3-D volumetric and/or maximum intensity proje ction (MIP) images were subsequently reconstructed for review. IV contrast: None. COMPARISON: Ultrasound performed earlier the same day and CT from 04/18/2018. FINDINGS: Localizer images: Unremarkable. Lung bases: Normal heart size. No pericardial or pleural effusion. Lung base clear. Liver: Normal morphology. Cysts suspected in the right hepatic dome. Biliary: Intrahepatic biliary trifurcation suspected. Common bile duct top normal in diameter, measur ing 6 mm. No choledocholithiasis. No intrahepatic biliary ductal dilatation. The gallbladder is physi ologically distended. No gallstones. No gallbladder wall thickening or pericholecystic fluid or infla mmatory change. Pancreas: Normal noncontrast appearance. Spleen: Normal noncontrast appearance. Adrenal glands: Normal noncontrast appearance. Kidneys and ureters: Normal noncontrast appearance. No hydronephrosis. Normal ureters. Bowel: Normal noncontrast appearance. No bowel obstruction. Peritoneal cavity: No free fluid. Lymph nodes: No gross lymphadenopathy allowing for noncontrast technique. Vasculature: Normal noncontrast appearance. Abdominal wall: Bilateral breast implants noted. Musculoskeletal: Normal. IMPRESSION: 1. No cholelithiasis or choledocholithiasis. 2. Top normal common bile duct diameter for patient age. No intrahepatic biliary dilatation. 3. No convincing evidence of cholecystitis. Electronically signed by: Fadi Allred M.D. 02/12/2019 7:54 PM
[2019-02-12] MEDS: dilTIAZem HCL 120 MG CAPCR PO SCH (20:12)
[2019-02-12] MEDS: LISINOPRIL 5 MG TAB PO SCH (20:12)
[2019-02-13] MEDS: HYDROmorphone INJ 0.5 MG/0.5 ML SYR IV PRN ×5 (00:31→12:22)
[2019-02-13] MEDS: LACTATED RINGER'S 1,000 ML IV SCH ×2 (03:35→16:59)
[2019-02-13] MEDS: FAMOTIDINE 20 MG in SYRINGE 3 ML IV SCH ×2 (09:19→20:22)
[2019-02-13] MEDS: PANTOprazole 40 MG TAB PO SCH ×2 (09:22→20:18)
[2019-02-13] MEDS: dilTIAZem HCL 180 MG CAPCR PO SCH (09:22)
[2019-02-13] MEDS: ISOSORBIDE MONO EXTENDED REL 60 MG TABCR PO SCH ×2 (09:23→20:18)
[2019-02-13] MEDS: ASPIRIN 81 MG ECTAB PO SCH (09:29)
[2019-02-13] MEDS: CYANOCOBALAMIN 500 MCG TABLET (VITAMIN B-12) PO SCH (09:29)
[2019-02-13] MEDS: FEXOFENADINE HCL 180 MG TAB PO SCH ×2 (09:29→20:18)
[2019-02-13] MEDS: LACTOBACILLUS ACIDOPHILUS (FLORANEX) TAB PO SCH (09:29)
[2019-02-13] MEDS: FOLIC ACID 400 MCG TAB PO SCH (09:29)
[2019-02-13] MEDS: CALCIUM CITRATE 950 MG TAB PO SCH (09:29)
[2019-02-13] MEDS: MULTIVITAMIN TAB PO SCH (09:29)
[2019-02-13] MEDS: ASCORBIC ACID 500 MG TAB PO SCH (09:30)
--- NOTE | 2019-02-13 10:06 | Family Medicine Progress Note ---
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 Plan for EGD today. Will order US RUQ to look at gallbladder since positive murphys sign and havent had this study performed with current hospital workup; epigastric pain could be referred gallbladder pain. - Her U/S returned showing 4mm gallbladder wall thickening; - Mild prominence of the common bile duct at 7.5 mm; dilation of the common bile duct; possible chronic acalculous cholecystitis; with recs for MRCP, which was ordered. Right now, differential is gallbladder pathology vs. and/or biliary tree pathology such as stone in duct vs. esophageal spasm vs. esophageal stricture vs. esophageal neoplastic process vs. stomach neoplastic process vs. esophageal ulceration from HSV or candidia. Treatment for symptomatology includes analgesic IV Dilaudid PRN. Previously tried GI cocktail, Famotidine IV (2) History of stroke: She does endorse expressive aphasia and does have some trouble with word finding. c/w ASA 81mg PO (3) Hiatal hernia: no large hiatal hernia seen on Chest CT (4) Precordial chest pain: No cardiac etiology after work up with cardiology consult. Pain was initially relieved with NTG paste 1' q6h, but patient declines further as is causing headache, this has been discontinued. Continue with home meds diltiazem, isosorbide, aspirin, lisinopril (5) Diarrhea: resolved (6) History of coronary artery disease: continue with home meds, ASA, Diltiazem 480mg, Lisinopril intolerance to statins (7) Hypertension: currently stable with home anti-HTNs (8) DVT prophylaxis: SCDs, TEDs Results & Data Vital Signs (Past 12 Hours) Vital Signs Temp Pulse Pulse Resp BP Pulse Ox 02/13/19 07:39 36.9 C 63 17 131/71 95 02/13/19 06:34 57 L 02/13/19 04:18 36.9 C 66 16 119/68 95 02/12/19 23:03 37 C 66 18 105/56 L 96 PG Care Time/CCT Total # of Minutes Spent Total Time Spent with Patient: Total time spent is greater than 50% in coordination of care (as documented) at patient's floor/unit and/or counseling patient: (1) Diarrhea Diarrhea type: unspecified type Qualified Code(s): R19.7 - Diarrhea, unspecified
--- NOTE | 2019-02-13 10:15 | Surgery Consultation ---
Date of Consultation February 13, 2019 Assessment & Plan (1) Abdominal pain: Ultrasound with 4mm GB wall, 7 mm CBD. Follow-up MRCP was normal. Ordered HIDA but cannot be obtained until tomorrow and patient is also requiring narcotics every few hours. Will discuss with Dr. Trevino. Supervising Physician Co-Signing Physician Notes Patient seen and examined, labs and imaging reviewed, agree with above. 58-year-old female with significant cardiac history admitted with abdominal pain. She has been seen by cardiology and this is deemed not to be related to her angina. She had an upper endoscopy which showed some mild gastritis and a small hiatal hernia but is otherwise negative. She had a right upper quadrant ultrasound that showed no stones and some possible gallbladder wall thickening at 4 mm, and was tender to palpation in the area. She had a CT scan which was otherwise fairly unremarkable. Her labs are essentially normal. We are consulted for possible cholecystitis. The patient states she has a long family history of gallbladder disease within her family. She denies any postprandial pain, but with this recent episode she states that she has been having increased pain after she eats. Pain is mostly in the epigastrium and right upper quadrant. On exam she is afebrile and in no distress. She is tender to palpation in the right upper quadrant. We discussed that this may represent cholecystitis, however we would normally recommend HIDA scan for further evaluation. However we are unable to do this until tomorrow and the patient has been in significant pain is not been able to go more than 1 hour or 2 without narcotics. After discussion with the care team and with the patient and her , they have elected to proceed with surgery. I did inform them that despite cholecystectomy this may not treat her symptoms. They are willing to accept the risk of surgery and proceed. Plan for laparoscopic cholecystectomy with possible cholangiogram The risk the procedure were discussed to include but not limited to bleeding, infection, retained stone, bile leak, damage surrounding structures, need for future or more extensive surgery, failure to treat symptoms, conversion open, an d the risk of anesthesia. Preop antibiotics Plan of care discussed the patient, all questions were answered, the patient expressed understanding agrees the plan of care as stated History of Present Illness Attending Physician: Vladimir Fernandez MD History of Present Illness 58 y/o female with epigastric pain pain for 7 days, not able to keep "anything down" since Sunday. Has cardiac history, has been seen by Dr. Whitney. She indicates an extensive family history of biliary disease and desire to have her gallbladder removed. Allergies Allergy/AdvReac Type Severity Reaction Status Date / Time ivabradine Allergy SV FACE SWELLS Verified 02/09/19 13:56 prochlorperazine Allergy Severe LOCK JAW Unverified 02/09/19 13:56 [From Compazine] amlodipine Allergy Intermediate muscle pain Verified 02/09/19 13:56 morphine Allergy Intermediate RASH Verified 02/09/19 13:56 verapamil Allergy Intermediate muscle pain Verified 02/09/19 13:56 ibuprofen Allergy Mild Rash Verified 02/09/19 13:56 promethazine AdvReac Severe Jaw Locks Verified 02/09/19 13:56 Home Medications Home Medications Medication Instructions Recorded Confirmed Type aspirin [Aspir-81] 81 mg PO QAM 04/08/18 02/09/19 History calcium phosphate-vitamin D3 1 tab PO QAM 04/08/18 02/09/19 History [Citracal + D3 (calcium phos)] multivitamin 1 tab PO QAM 04/08/18 02/09/19 History nitroglycerin 1 dose SUBLINGUAL UD PRN 04/08/18 02/09/19 History pantoprazole [Protonix] 40 mg PO QAM 04/08/18 02/09/19 History vitamin Z52-[id number] acid 1 tab PO QAM 04/08/18 02/09/19 History fexofenadine [Hortensia Allergy] 180 mg PO BID 04/18/18 02/09/19 History furosemide 20 mg tablet 20 mg PO QAM PRN 06/26/18 02/09/19 History diltiazem 120 mg tablet 120 mg PO QPM tab 08/01/18 02/09/19 History diltiazem ER 240 mg capsule,24 360 mg PO .am cap 08/01/18 02/09/19 History hr,extended release docosahexanoic acid 200 mg capsule 200 mg PO DAILY cap 08/01/18 02/09/19 History isosorbide mononitrate ER 60 mg 120 mg PO BID tab 08/01/18 02/09/19 History tablet,extended release 24 hr lisinopril 2.5 mg tablet 5 mg PO QPM tab 08/01/18 02/09/19 History lactobacillus combination no.4 3 3,000 mmu cells PO DAILY 10/30/18 02/09/19 History billion cell capsule albuterol sulfate HFA 90 1 puffs INH Q6H PRN #8.5 gm 12/30/18 02/09/19 Rx mcg/actuation aerosol inhaler lidocaine 5 % topical patch 1 patch TOP DAILY #1 ea 12/30/18 02/09/19 Rx nitroglycerin 0.1 mg/hr 1 patch TD Q12 PRN #30 ea 12/30/18 02/09/19 Rx transdermal 24 hour patch nitroglycerin 400 mcg/spray 1 sprays SL Q5M PRN #12 gm 12/30/18 02/09/19 Rx translingual aerosol clopidogrel 75 mg tablet 75 mg PO QAM #90 tab 02/06/19 02/09/19 Rx ascorbic acid (vitamin C) [Vitamin 1 g PO DAILY 02/09/19 02/09/19 History C] turmeric 400 mg PO DAILY 02/09/19 02/09/19 History vitamin A 8,000 unit PO DAILY 02/09/19 02/09/19 History Patient History Medical History Hypertension (Chronic) Myocardial Infarction (Chronic) X 2 (2015 AND 09/2017) Non ST elevation [place] - September 2017 RCA SHAMA x4, RCA dissection Normal LM 100% distal LAD with poor collateralization Normal LCx LVEF 65% Asymptomatic PVCs (Chronic) Migraine (Chronic) Stroke (Chronic) 02/11/2015 (EMBOLIC CAROTID STROKE) EXPRESSIVE APHASIA/RESIDUAL LEFT SIDE WEAKNESS Anemia (Chronic) Osteoarthritis (Chronic) Fibroid tumor (Resolved) Surgical History History of cardiac cath (Chronic) TOTAL 12? (LAST NOVEMBER 2017 AT [facility]) History of heart artery stent (Chronic) SEPTEMBER 2017>4 STENTS PLACED (WILL BRING CARD TO SURGERY) DRUG ELUTING History of heart surgery (Chronic) 07/2014>UNROOFING MYOCARDIAL BRIDGE OF LAD ([facility]) 3 MONTHS LATER-PERICARDIECTOMY 01/2017 BYPASS OF RCA Hx of LASIK (Chronic) History of tonsillectomy (Chronic) History of tooth extraction (Chronic) History of appendectomy (Chronic) History of colonoscopy (Chronic) History of esophagogastroduodenoscopy (EGD) (Chronic) History of total hip arthroplasty (Chronic) RT/LEFT History of shoulder surgery (Chronic) RT/LEFT History of elbow surgery (Chronic) RT ELBOW History of hysterectomy (Chronic) Family History Mother Family history of diabetes mellitus Coronary heart disease Hypertension Cardiac disorder Father Family history of diabetes mellitus Hypertension Cardiac disorder Kidney disease Myocardial infarction Sister Family history of diabetes mellitus Seizures Brother Family history of diabetes mellitus Hypertension Cardiac disorder Prostate cancer Thyroid cancer Uncle Esophageal cancer Grandmother Breast cancer Cardiac disorder Grandfather Cardiac disorder Aunt Ovarian cancer Social History Preferred Language: Tajik Communication Ability: Effective Visual Impairment: No Limitations Hearing Ability: Normal Jet Handler Required: No Beliefs That Will Affect Care: None marital status: Current Living Situation: Spouse current occupational status: retired Other Information That Helps Us Care for You: No Feels Safe at Home: Yes Safety Concerns: Feels Safe At This Time Smoking Status: Never smoker Second Hand Exposure: Yes ; Hx Alcohol Use: Yes Alcohol type: wine Hx Substance Use: No Review of Systems Constitutional: + anorexia; no fever and no chills Gastrointestinal: + abdominal pain, + nausea and + vomiting Physical Exam Constitutional: WD/WN, vitals as above Respiratory: normal respiratory effort and + respiratory distress Cardiovascular: Rate/Rhythm: regular rate and regular rhythm Gastrointestinal (Abdomen): Inspection/Auscultation: abdomen not distended Percussion/Palpation: + abdomen tender (to light palpation RUQ) and abdomen soft Results & Data Vital Signs (Past 12 Hours) Vital Signs Temp Pulse Pulse Resp BP Pulse Ox 02/13/19 07:39 36.9 C 63 17 131/71 95 02/13/19 06:34 57 L 02/13/19 04:18 36.9 C 66 16 119/68 95 02/12/19 23:03 37 C 66 18 105/56 L 96 Diagnostic Findings MR MRCP CLINICAL HISTORY: 58 years-old Female presenting with Possible chronic acalculous cholecystitis. TECHNIQUE: Multisequence, multiplanar MR imaging of the abdomen was performed without the use of intravenous contrast. Dedicated MRCP protocol was utilized. 3-D volumetric and/or maximum intensity projection (MIP) images were subsequently reconstructed for review. IV contrast: None. COMPARISON: Ultrasound performed earlier the same day and CT from 04/18/2018. FINDINGS: Localizer images: Unremarkable. Lung bases: Normal heart size. No pericardial or pleural effusion. Lung base clear. Liver: Normal morphology. Cysts suspected in the right hepatic dome. Biliary: Intrahepatic biliary trifurcation suspected. Common bile duct top normal in diameter, measuring 6 mm. No choledocholithiasis. No intrahepatic biliary ductal dilatation. The gallbladder is physiologically distended. No gallstones. No gallbladder wall thickening or pericholecystic fluid or inflammatory change. Pancreas: Normal noncontrast appearance. Spleen: Normal noncontrast appearance. Adrenal glands: Normal noncontrast appearance. Kidneys and ureters: Normal noncontrast appearance. No hydronephrosis. Normal ureters. Bowel: Normal noncontrast appearance. No bowel obstruction. Peritoneal cavity: No free fluid. Lymph nodes: No gross lymphadenopathy allowing for noncontrast technique. Vasculature: Normal noncontrast appearance. Abdominal wall: Bilateral breast implants noted. Musculoskeletal: Normal. IMPRESSION: 1. No cholelithiasis or choledocholithiasis. 2. Top normal common bile duct diameter for patient age. No intrahepatic biliary dilatation. 3. No convincing evidence of cholecystitis. PG Care Time/CCT Total # of Minutes Spent Total Time Spent with Patient: Total time spent is greater than 50% in coordination of care (as documented) at patient's floor/unit and/or counseling patient:
--- NOTE | 2019-02-13 12:25 | Family Medicine Progress Note ---
Date of Service February 13, 2019 Assessment & Plan (1) RUQ pain: 58-year-old female here with worsening, severe persistent right upper quadrant pain. Associated with nausea and vomiting. Initially with loose stools, which is since resolved. RUQ pain -Ultrasound of the gallbladder suggestive of cholecystitis, MRCP reveals somewhat abnormal anatomy but does not suggest acute pathology. -EGD done during this stay showed gastritis. Patient does have history of hiatal hernia. -Unable to tolerate p.o., requiring increasing doses of Dilaudid, change to 1 mg every 3 hours today with some benefit. -Consult general surgery to evaluate for cholecystectomy, appreciate recommendations. -Seen by cardiology here, cardiac comorbidities otherwise stable and medically optimized. Hiatal hernia, gastritis -Continue Protonix p.o. 40 mg twice daily -Continue Pepcid 20 mg IV twice daily FEN/GI: npo, LR at 125ml/hr DVT ppx: SCDs CODE STATUS: FULL DISPO: tele Other ongoing but stable medical problems: CAD/HTN/Kounis syndr - cont asa 81, diltiazem, lisinopril -- hold plavix perioperatively Asthma - cont PRN albuterol (2) History of coronary artery disease: (3) Hiatal hernia: (4) History of stroke: Supervising Physician Co-Signing Physician Notes Attending attestation Pt seen and examined in concert with Dr. Carr. In agreement with the documented findings as noted in the resident documentation with any exceptions or additions as noted here. Pain remains poorly controlled on previous regimen but did improve w/ 1mg dilaudid q3h. Reviewed imaging with patient - atypical US with nl MRCP with atypical anatomy not suggestive of GB disease. Pt reports FHx of GB disease, ongoing sx of GB disease including food related nausea and episodic chalky stools and would like to proceed with surgery. Dr. Trevino willing and scheduled. On examination, S1/S2 nl RRR no MCG. CTAB. Abd ND BS+ve TTP on overt palpation in epigastrium and RUQ RUQ pain - concern for GB disease clinically though not supported by imaging. Pt refuses HIDA 2/2 requirement of no pain meds x [address] Trevino for surgical intervention. Gastroenterology consultation. Gastritis w/ hiatal hernia - continue PPI and H2 therapy, carafate may be helpful as well if tolerated. h/o CAD w/ Kounis syndrome - cardiology consultation appreciated, no acute intervention or concern. Holding plavix. Continue ASA, dilt, lisinopril Else see resident documentation as noted. Subjective Patient in significant pain as of my exam this morning. Tearful at times, reiterating desire for surgical treatment of her abdominal pain which she believes is due to her gallbladder disease. Did try liquid diet overnight, did vomit afterwards. Says the pain is in her right upper quadrant. Still with no stools. Is urinating normally and without issue. Remains afebrile. Agrees to proceed with a surgical consult. Review of Systems Review of Systems: All systems reviewed & are unremarkable except as noted in HPI & below Physical Exam Physical Exam: Vitals noted and reviewed, as above GENERAL: mild distress, tearful at times. HEAD: normocephalic atraumatic ENT: sclerae normal, trachea midline RESP: normal work of breathing CV: regular rate and rhythm ABDOMEN: nondistended SKIN: no rashes or jaundice PSYCH: appropriate mood and affect Results & Data Vital Signs (Past 12 Hours) Vital Signs Temp Pulse Pulse Resp BP Pulse Ox 02/13/19 12:01 37.2 C 70 15 131/65 93 02/13/19 07:39 36.9 C 63 17 131/71 95 02/13/19 06:34 57 L 02/13/19 04:18 36.9 C 66 16 119/68 95 Medications Administered Current Inpatient Medications Acetaminophen (Tylenol) 650 mg PO Q4H PRN PRN Reason: Pain or Fever Stop: 03/11/19 19:08 Last Admin: 02/12/19 20:12 Dose: 650 mg Documented by: Albuterol (Ventolin Hfa) 1 puffs INH Q6H PRN PRN Reason: shortness of breath or wheezin Stop: 03/11/19 19:08 Ascorbic Acid (Vitamin C) 1,000 mg PO DAILY [facility] Stop: 03/12/19 08:59 Last Admin: 02/13/19 09:30 Dose: Not Given Documented by: Aspirin (Ecotrin Ectab) 81 mg PO QAM [facility] Stop: 03/12/19 08:59 Last Admin: 02/13/19 09:29 Dose: Not Given Documented by: Calcium Citrate (Citracal) 1 mg PO QAM [facility] Stop: 03/12/19 08:59 Last Admin: 02/13/19 09:29 Dose: Not Given Documented by: Clopidogrel Bisulfate (Plavix) 75 mg PO QAM [facility] Stop: 03/12/19 08:59 Last Admin: 02/12/19 10:39 Dose: Not Given Documented by: Al Hydrox/Mg Hydrox/Simethicone 72 ml/ Lidocaine HCl 24 ml/ BARCODE IDENTIFIER 1 ea 0 ml PO Q8H PRN PRN Reason: Dyspepsia Stop: 03/11/19 21:10 Cyanocobalamin (Vitamin B-12) 500 mcg PO QAM [facility] Stop: 03/12/19 08:59 Last Admin: 02/13/19 09:29 Dose: Not Given Documented by: Diltiazem HCl (Cardizem Cd) 120 mg PO QPM [facility] Stop: 03/11/19 20:59 Last Admin: 02/12/19 20:12 Dose: 120 mg Documented by: Diltiazem HCl (Cardizem Cd) 360 mg PO QAM [facility] Stop: 03/12/19 08:59 Last Admin: 02/13/19 09:22 Dose: 360 mg Documented by: Fexofenadine HCl (Hortensia) 180 mg PO BID [facility] Stop: 03/11/19 20:59 Last Admin: 02/13/19 09:29 Dose: Not Given Documented by: Folic Acid (Folvite) 400 mcg PO QAM [facility] Stop: 03/12/19 08:59 Last Admin: 02/13/19 09:29 Dose: Not Given Documented by: Hydromorphone HCl (Dilaudid) 1 mg IV Q3H PRN PRN Reason: Pain Stop: 02/23/19 21:56 Last Admin: 02/13/19 09:19 Dose: 1 mg Documented by: Famotidine 20 mg/ Syringe 5 mls @ 2.5 mls/min IV BID [facility] Stop: 03/11/19 21:14 Last Admin: 02/13/19 09:19 Dose: 2.5 mls/min Documented by: Lactated Ringer's (Lr) 1,000 mls @ 125 mls/hr IV .Q8H DEMETRIA Stop: 02/14/19 14:44 Last Infusion: 02/13/19 07:30 Dose: Infused Documented by: Ioversol (Optiray 320 100ml) 90 ml IV ONCE PRN PRN Reason: Interaction Checking Stop: 02/15/19 22:07 Last Admin: 02/11/19 22:08 Dose: 90 ml Documented by: Isosorbide Mononitrate (Imdur Extended Rel) 120 mg PO BID [facility] Stop: 03/11/19 20:59 Last Admin: 02/13/19 09:23 Dose: 120 mg Documented by: Lactobacillus Acidophilus (Floranex) 4 tab PO DAILY [facility] Stop: 03/12/19 08:59 Last Admin: 02/13/19 09:29 Dose: Not Given Documented by: Lisinopril (Zestril) 5 mg PO QPM [facility] Stop: 03/11/19 20:59 Last Admin: 02/12/19 20:12 Dose: 5 mg Documented by: Miscellaneous (Order Awaiting Action) 1 ea N/A QS [facility] Stop: 03/12/19 00:00 Last Admin: 02/13/19 07:11 Dose: Not Given Documented by: Miscellaneous (Remove Nitro-Dur Patch) 1 ea N/A DAILY@2100 [facility] Stop: 03/11/19 20:59 Last Admin: 02/12/19 20:06 Dose: Not Given Documented by: Miscellaneous (Order Awaiting Action) 1 ea N/A QS [facility] Stop: 03/12/19 00:00 Last Admin: 02/13/19 07:11 Dose: Not Given Documented by: Multivitamins (Multivitamin Tab) 1 tab PO QAM [facility] Stop: 03/12/19 08:59 Last Admin: 02/13/19 09:29 Dose: Not Given Documented by: Nitroglycerin (Nitro-Dur 0.1mg/Hr) 1 patch TD DAILY PRN PRN Reason: CAD Stop: 03/11/19 19:08 Nitroglycerin (Nitrostat) 0.4 mg SL UD PRN PRN Reason: Chest Pain Stop: 03/11/19 19:08 Last Admin: 02/10/19 07:50 Dose: 0.4 mg Documented by: Ondansetron HCl (Zofran) 4 mg IV Q6H PRN PRN Reason: Nausea Stop: 03/11/19 19:08 Last Admin: 02/12/19 04:34 Dose: 4 mg Documented by: Pantoprazole Sodium (Protonix) 40 mg PO BID [facility] Stop: 03/13/19 20:59 Last Admin: 02/13/19 09:22 Dose: 40 mg Documented by: Zolpidem Tartrate (Ambien) 5 mg PO HS PRN PRN Reason: Sleep Stop: 03/11/19 19:08 Last Admin: 02/12/19 22:43 Dose: 5 mg Documented by: PG Care Time/CCT Total # of Minutes Spent Total Time Spent with Patient: Total time spent is greater than 50% in coordination of care (as documented) at patient's floor/unit and/or counseling patient: Resident Activity Tracking Resident Involvement: Resident Care Provided Care Provided: Adult Hospital Medicine
[2019-02-13] MEDS ORDERED: PROPOFOL IV EMULSION 10 MG/ML 20 ML VIAL IV ONE (13:43)
[2019-02-13] MEDS ORDERED: ROCURONIUM BROMIDE 10 MG/ML 5 ML VIAL ONE (13:43)
[2019-02-13] MEDS ORDERED: LIDOCAINE HCL 2% 2 ML VIAL/AMP(20MG/ML) INFIL ONE (13:43)
[2019-02-13] MEDS ORDERED: MIDAZOLAM HCL 1 MG/ML 2ML VIAL ONE (13:43)
[2019-02-13] MEDS ORDERED: fentaNYL citrate 100 MCG/2 ML VIAL ONE (13:44)
[2019-02-13] MEDS ORDERED: BUPIVACAINE 0.5 % 5 MG/1 ML MPF 30ML VIAL ONE (14:25)
[2019-02-13] MEDS ORDERED: cefOXitin 2,000 MG in DEXTROSE 5% 50 ML IV STA (14:28)
[2019-02-13] MEDS ORDERED: ONDANSETRON INJ 2 MG/ML 2 ML VIAL IV PRN (15:14)
[2019-02-13] MEDS ORDERED: ATROPINE SULFATE 0.1 MG/ML 10ML SYR IV PRN (15:14)
[2019-02-13] MEDS ORDERED: MEPERIDINE HCL 25 MG/ML CARP IV PRN (15:14)
[2019-02-13] MEDS ORDERED: LABETALOL HCL IV 5 MG/ML 20ML IV PRN (15:14)
[2019-02-13] MEDS ORDERED: PHENYLEPHRINE 100MCG/ML 5ML SYR IV PRN (15:14)
[2019-02-13] MEDS ORDERED: ePHEDrine sulfate 50 MG/ML AMP IV PRN (15:14)
[2019-02-13] MEDS ORDERED: ONDANSETRON INJ 2 MG/ML 2 ML VIAL ONE (15:17)
[2019-02-13] MEDS ORDERED: GLYCOPYRROLATE 0.2 MG/ML VIAL ONE (15:17)
[2019-02-13] MEDS ORDERED: SUCCINYLCHOLINE CHLORIDE 20 MG/ML 10 ML VIAL ONE (15:17)
[2019-02-13] MEDS ORDERED: NEOSTIGMINE METHYLSULFATE 5 MG/5 ML SYR ONE (15:17)
[2019-02-13] MEDS ORDERED: DEXAMETHASONE SOD INJ 4 MG/ML VIAL ONE (15:17)
[2019-02-13] MEDS ORDERED: ePHEDrine sulfate 50 MG/ML SYR ONE (15:17)
--- NOTE | 2019-02-13 15:42 | Operative Report ---
Post Operative Report Pre & Post Diagnosis Operation Date: 02/13/19 08:35 Pre-Op Diagnosis: Cholecystitis Post-Op Diagnosis: Chronic cholecystitis Procedure Operation Date: 02/13/19 08:35 Actual Procedures p Laparoscopic Cholecystectomy (Not Applicable) - Jose Trevino DO, HECTOR Surgeon Jose Trevino DO, HECTOR Labor Economics Professor Sherrell Monreal Estimated Blood Loss 0 Findings Consistent with Post-Op Diagnosis Mild chronic cholecystitis. Critical view of safety obtained, cystic duct and artery doubly clipped and divided. Specimens Gallbladder Anesthesia Type General Complications none Disposition Accompanied Patient To Recovery: No Disposition: Recovery Room Indications 58-year-old female with significant right upper quadrant pain and ultrasound with no stones but thickened gallbladder wall and sonographic Moreno sign indicating cholecystitis. Plan for laparoscopic cholecystectomy with possible cholangiogram. The risks of the procedure were discussed, all questions were answered, and the patient agreed to proceed with surgery as planned. Description of Procedure The patient was properly identified, consented, and taken to the operating room where she was placed in the supine position. General endotracheal anesthesia was induced. SCDs and a safety belt were placed. Preoperative antibiotics were administered. The patient's abdomen was prepped and draped in the standard sterile fashion. A surgical timeout was performed and all parties were in agreement that this was the correct patient and procedure to be performed and we continued as planned. An incision was made superior and to the left of the umbilicus overlying the rectus muscle and the Veress needle was inserted. Saline drop test confirmed entry into the peritoneum. The abdomen was insufflated with carbon dioxide which the patient tolerated without incident. The abdomen was then entered using the Optiview technique and a 5 mm trocar. The laparoscope was inserted and no damage from initial trocar or Veress needle placement was noted, no gross abnormalities were noted within the 4 quadrants of the abdomen. An 11 mm port was placed in the subxiphoid position and two 5 mm ports were then placed in the right subcostal position. The patient was placed in reverse Trendelenburg position and rotated towards the left. The gallbladder was mildly inflamed and there is some omental adhesions to the gallbladder were taken down with blunt dissection. The dome of the gallbladder was retracted towards the left upper quadrant and the infundibulum was retracted toward the right lower quadrant revealing Calot's triangle. Peritoneal attachments were taken down with electrocautery and blunt dissection. The cystic duct and artery were circumferentially dissected. A window of safety was obtained showing the cystic duct entering the gallbladder with no aberrant structures noted. The cystic duct and artery were doubly clipped and divided. The gallbladder was then lifted off the gallbladder fossa with electrocautery. The gallbladder was placed in an Endo Catch bag and removed through the subxyphoid port site. The right upper quadrant was irrigated and hemostasis was found to be good. 5 mm trochars were removed under direct visualization and the abdomen was allowed to collapse. The subxyphoid port site fascia was closed with 0 Vicryl suture using the Live-Micki closure device. The wound was irrigated, and the skin of all ports was closed with 4-0 Monocryl subcuticular sutures. Dermabond was placed over the wounds. The patient was extubated in the operating room and taken to the PACU where she recovered without apparent incident. All sponge, instrument and needle counts were correct at the conclusion of the procedure. The patient tolerated the procedure well. The physician's assistant manager bilingual was present and scrubbed for the entirety of the case and was essential in positioning the patient, prepping and draping, retraction and exposure, driving the laparoscope, removal of the gallbladder, closure the incisions, and placement of the dressings. I attest to the content of the Intraoperative Record and any orders documented therein. Any exceptions are noted below.
[2019-02-13] MEDS: fentaNYL citrate 100 MCG/2 ML VIAL IV PRN ×2 (16:20→16:25)
--- NOTE | 2019-02-13 16:33 | Anesthesiology Progress Note ---
Date of Service February 13, 2019 Anesthesia Post Procedure Vital Signs Vital Signs: Temp Pulse Pulse Resp BP BP Pulse Ox 02/13/19 16:25 63 13 114/66 96 02/13/19 16:15 59 L 15 98/47 L 97 02/13/19 16:05 66 15 116/63 97 02/13/19 15:57 36.4 C L 75 20 126/62 98 02/13/19 14:12 36.9 C 70 16 123/67 94 02/13/19 12:01 37.2 C 70 15 131/65 93 02/13/19 07:39 36.9 C 63 17 131/71 95 02/13/19 06:34 57 L 02/13/19 04:18 36.9 C 66 16 119/68 95 02/12/19 23:03 37 C 66 18 105/56 L 96 02/12/19 20:08 36.7 C 66 16 129/69 97 02/12/19 17:32 36.6 C 66 18 124/69 95 02/12/19 16:45 67 18 117/64 97 Pain Intensity Chest: Pain Intensity: 3 Transfer of Care Handoff Completed per policy Notes Mental Status: alert / awake / arousable Patient Amnestic to Procedure: Yes Nausea / Vomiting: adequately controlled Pain: adequately controlled Airway Patency, RR, SpO2: stable & adequate BP & HR: stable & adequate Hydration State: stable & adequate Anesthetic Complications: no major complications apparent and Pt Satisfied with anesthetic care Notes: The patient is awake and comfortable. Her vital signs are stable.
[2019-02-13] MEDS ORDERED: HYDROmorphone INJ 1 MG/ML SYRINGE IV PRN (16:59)
[2019-02-13] MEDS: dilTIAZem HCL 120 MG CAPCR PO SCH (20:17)
[2019-02-13] MEDS: LISINOPRIL 5 MG TAB PO SCH (20:18)
[2019-02-13] MEDS: ACETAMINOPHEN 325 MG TAB PO PRN (20:31)
[2019-02-13] MEDS: ZOLPIDEM TARTRATE 5 MG TAB PO PRN (22:27)
[2019-02-14] MEDS: LACTATED RINGER'S 1,000 ML IV SCH ×2 (01:03→08:20)
[2019-02-14] MEDS: ACETAMINOPHEN 325 MG TAB PO PRN (03:25)
[2019-02-14 06:26] LABS: Basophils # (auto) 0.01 K/uL (0-0.2); Basophils % (auto) 0.1 %; Hematocrit (blood only) 29.9 % (37-47); Hemoglobin 10.5 g/dL (12.0-16.0); Immature Granulocytes # (auto) 0.01 K/uL (0.00-0.02); Immature Granulocytes % (auto) 0.1 %; Lymphocytes % (auto) 8.2 %; Mean Corpuscular Hgb Conc 35.1 g/dL (32-36); Mean Corpuscular Volume 90.9 fL (80-100); Monocytes # (auto) 0.26 K/uL (0.11-0.59); Monocytes % (auto) 3.6 %; Neutrophils # (auto) 6.43 K/uL (1.4-6.5); Platelet Count 225 K/uL (130-400); RDW Coefficient of Variation 11.4 % (11.5-14.5); RDW Standard Deviation 37.6 fL (36.4-46.3); Red Blood Count 3.29 M/uL (4.2-5.4); White Blood Count 7.31 K/uL (4.8-10.8)
[2019-02-14 06:52] LABS: BUN Creatinine Ratio 7.4 (10-20); Calcium 8.4 mg/dl (8.5-10.1); Creatinine Clr Calc Pharmacy 85.7 ml/min; Est GFR (Non-African American) 84.5
--- NOTE | 2019-02-14 07:57 | Anesthesiology Progress Note ---
Date of Service February 14, 2019 Anesthesia Post Procedure Vital Signs Vital Signs: Temp Pulse Pulse Resp BP BP Pulse Ox 02/14/19 03:00 36.6 C 84 16 103/59 L 95 02/13/19 23:27 36.9 C 74 18 110/64 92 02/13/19 19:57 37.0 C 67 16 123/69 96 02/13/19 18:18 68 02/13/19 17:36 36.6 C 75 15 132/73 97 02/13/19 16:50 36.4 C L 66 14 116/59 L 97 02/13/19 16:45 36.3 C L 61 16 114/54 L 96 02/13/19 16:35 62 12 119/63 97 02/13/19 16:25 63 13 114/66 96 02/13/19 16:15 59 L 15 98/47 L 97 02/13/19 16:05 66 15 116/63 97 02/13/19 15:57 36.4 C L 75 20 126/62 98 02/13/19 14:12 36.9 C 70 16 123/67 94 02/13/19 12:01 37.2 C 70 15 131/65 93 Pain Intensity Chest: Pain Intensity: 3 Abdomen: Pain Intensity: 4 Notes Mental Status: alert / awake / arousable and participated in evaluation Nausea / Vomiting: adequately controlled Pain: adequately controlled Airway Patency, RR, SpO2: stable & adequate BP & HR: stable & adequate Hydration State: stable & adequate
--- NOTE | 2019-02-14 08:14 | Surgery Progress Note ---
Date of Service February 14, 2019 Assessment & Plan (1) S/P laparoscopic cholecystectomy: POD#1 laparoscopic cholecystectomy Patient progressing well, AM labs unremarkable and VSS Okay to advance diet as tolerates Encourage ambulation and activity Supervising Physician Co-Signing Physician Notes Patient seen and examined, agree with above. POD #1 laparoscopic cholecystectomy. Her symptoms are completely resolved. Minimal pain, tolerating diet, would like to be discharged. DC to home, follow-up in 2 weeks in general surgery clinic, wound care instructions and activity restrictions reviewed, return precautions given, call with questions or concerns. Subjective Patient awake and alert. States she feels so much better than yesterday, "like night and day". Her pain is well controlled and very minimal. She is tolerating a clear liquid diet without nausea. Wishes to get out of bed and ambulate today. Physical Exam Physical Exam: awake/alert Constitutional: well developed and well nourished; no acute distress Respiratory: normal respiratory effort Gastrointestinal (Abdomen): Inspection/Auscultation: + abdominal surgical incision (c/d/i with dermabond overtop. mild sharon-incisional ecchymosis); abdomen not distended Percussion/Palpation: + abdomen tender (very minimally to palpation sharon-incisionally) and abdomen soft Results & Data Vital Signs (Past 12 Hours) Vital Signs Temp Pulse Resp BP Pulse Ox 02/14/19 08:03 36.7 C 79 19 124/72 95 02/14/19 03:00 36.6 C 84 16 103/59 L 95 02/13/19 23:27 36.9 C 74 18 110/64 92 PG Care Time/CCT Total # of Minutes Spent Total Time Spent with Patient: Total time spent is greater than 50% in coordination of care (as documented) at patient's floor/unit and/or counseling patient:
[2019-02-14] MEDS ORDERED: OXYCODONE/ACETAMINOPHEN 5mg/325mg TAB PO PRN ×2 (08:17)
[2019-02-14] MEDS: ASPIRIN 81 MG ECTAB PO SCH (08:22)
[2019-02-14] MEDS: CALCIUM CITRATE 950 MG TAB PO SCH (08:22)
[2019-02-14] MEDS: FOLIC ACID 400 MCG TAB PO SCH (08:22)
[2019-02-14] MEDS: dilTIAZem HCL 180 MG CAPCR PO SCH (08:22)
[2019-02-14] MEDS: CYANOCOBALAMIN 500 MCG TABLET (VITAMIN B-12) PO SCH (08:23)
[2019-02-14] MEDS: ASCORBIC ACID 500 MG TAB PO SCH (08:23)
[2019-02-14] MEDS: PANTOprazole 40 MG TAB PO SCH ×2 (08:23→20:10)
[2019-02-14] MEDS: LACTOBACILLUS ACIDOPHILUS (FLORANEX) TAB PO SCH (08:23)
[2019-02-14] MEDS: ISOSORBIDE MONO EXTENDED REL 60 MG TABCR PO SCH ×2 (08:24→20:09)
[2019-02-14] MEDS: FEXOFENADINE HCL 180 MG TAB PO SCH ×2 (08:24→20:08)
[2019-02-14] MEDS: MULTIVITAMIN TAB PO SCH (08:24)
[2019-02-14] MEDS: FAMOTIDINE 20 MG in SYRINGE 3 ML IV SCH ×2 (08:31→20:06)
--- NOTE | 2019-02-14 14:56 | Family Medicine Progress Note ---
Date of Service February 14, 2019 Assessment & Plan (1) S/P laparoscopic cholecystectomy: 58-year-old female here with worsening, severe persistent right upper quadrant pain. Associated with nausea and vomiting. Initially with loose stools, which has since resolved. Taken for lap raghu / RUQ pain Day 1 post op lap Raghu Recovering well, diet advanced Still having some abdominal pain after diet advanced for lunch does not feel safe to return home. Hiatal hernia, gastritis -Continue Protonix p.o. 40 mg twice daily -Continue Pepcid 20 mg IV twice daily History of CAD Stable, cardiology evaluated patient while inpatient and does not believe any active cardiac disease Negative troponins x3 No current chest pain or dyspnea Will continue to evaluate Continuing ASA 81 HTN Continuing home lisinopril and diltiazem History of CVA May resume home plavix FEN/GI: Full heart healthy IV fluids stopped DVT ppx: SCDs CODE STATUS: FULL DISPO: tele (2) RUQ pain: (3) History of stroke: (4) Hiatal hernia: (5) History of coronary artery disease: (6) Shortness of breath: Supervising Physician Co-Signing Physician Notes I saw the patient with the resident physician and confirmed shukla portion of the history and physical exam. POD #1 laparoscopic cholecystectomy. Earlier this morning, the patient's symptoms were completely resolved. However later in the day with ambulation and advancement of her diet she had increased pain and did not feel ready to return home. Afebrile Vital signs look good Lab work shows a mild anemia; but blood cell count is normal. Anticipate discharge in a.m. Subjective Sherron [place] is continuing to have abdominal pain, she tried to ambulate on her own today but has been having discomfort and is now back to bed. She describes the pain being located in her right upper quadrant and worse with ambulation. Eating well diet progressed to low fiber Review of Systems Review of Systems: All systems reviewed & are unremarkable except as noted in HPI & below Physical Exam Constitutional: well developed and well nourished; no acute distress Eyes: PERRL, conjunctivae normal, anicteric sclerae Respiratory: normal respiratory effort, lungs clear to auscultation Cardiovascular: RRR, no murmur, no edema Chest (Breasts): Additional Comments: Large thoracotomy scar at midline Gastrointestinal (Abdomen): Inspection/Auscultation: abdomen normal to inspection; abdomen not distended Percussion/Palpation: abdomen soft; abdomen nontender Skin: no rashes, warm and dry (lap incision wounds dry and clean) Results & Data Vital Signs (Past 12 Hours) Vital Signs Temp Pulse Pulse Resp BP Pulse Ox 02/14/19 13:29 36.8 C 62 19 100/64 96 02/14/19 11:25 36.8 C 62 19 100/64 96 02/14/19 08:03 36.7 C 79 19 124/72 95 02/14/19 08:00 58 L 02/14/19 03:00 36.6 C 84 16 103/59 L 95 PG Care Time/CCT Total # of Minutes Spent Total Time Spent with Patient: Total time spent is greater than 50% in coordination of care (as documented) at patient's floor/unit and/or counseling patient: Resident Activity Tracking Resident Involvement: Resident Care Provided Care Provided: Adult Hospital Medicine
[2019-02-14] MEDS: dilTIAZem HCL 120 MG CAPCR PO SCH (20:07)
[2019-02-14] MEDS: LISINOPRIL 5 MG TAB PO SCH (20:07)
[2019-02-14] MEDS: ZOLPIDEM TARTRATE 5 MG TAB PO PRN (21:19)
[2019-02-15] MEDS: CALCIUM CITRATE 950 MG TAB PO SCH (08:03)
[2019-02-15] MEDS: FEXOFENADINE HCL 180 MG TAB PO SCH (08:03)
[2019-02-15] MEDS: FOLIC ACID 400 MCG TAB PO SCH (08:03)
[2019-02-15] MEDS: FAMOTIDINE 20 MG in SYRINGE 3 ML IV SCH (08:03)
[2019-02-15] MEDS: ASCORBIC ACID 500 MG TAB PO SCH (08:04)
[2019-02-15] MEDS: ASPIRIN 81 MG ECTAB PO SCH (08:04)
[2019-02-15] MEDS: dilTIAZem HCL 180 MG CAPCR PO SCH (08:04)
[2019-02-15] MEDS: PANTOprazole 40 MG TAB PO SCH (08:04)
[2019-02-15] MEDS: MULTIVITAMIN TAB PO SCH (08:05)
[2019-02-15] MEDS: CYANOCOBALAMIN 500 MCG TABLET (VITAMIN B-12) PO SCH (08:05)
[2019-02-15] MEDS: ISOSORBIDE MONO EXTENDED REL 60 MG TABCR PO SCH (08:05)
[2019-02-15] MEDS: LACTOBACILLUS ACIDOPHILUS (FLORANEX) TAB PO SCH (08:05)
[2019-02-15] MEDS ORDERED: FUROSEMIDE 40 MG TAB PO ONE (08:30)
[2019-02-15] MEDS: CLOPIDOGREL BISULFATE 75 MG TAB PO SCH (09:56)
--- NOTE | 2019-02-15 14:45 | Discharge Summary ---
Date of Service February 15, 2019 Admission HPI Per Admitting Provider Patient is a 58 years old female with past medical history of hypertension, myocardial infarction, stroke, history of tooth extraction, hiatal hernia, coronary artery disease, myocardial bridge, pericarditis, hyperlipidemia who presents to the emergency room with a complaint of chest pain started this morning after jewish and did not resolve with 3 nitroglycerin. Patient said that since she had several loose bowel movements and then she had approximately 6 watery diarrhea which were brown dark in color. Patient said the prior to that she had tooth extraction and she was on amoxicillin for 5 days. And this was before she started to have diarrhea and chest pain. Patient said that she is burping a lot and she does not feel good. Patient denies fever chills, but reports hot flashes, chest pain is more epigastric and patient said sometimes goes to her left shoulder. Otherwise she denies nausea vomiting hemoptysis hematuria dysuria melena or hematochezia. Patient is on aspirin and Plavix for her stroke and coronary artery disease. Chest x-rays were done and they showed no active disease in the chest. Her white blood cell count is 5.96 her hemoglobin is 14.5 her hematocrit is 40.9 her platelet is 290. Her PT is 10.1 her INR is 1 her APTT is 28.2.Her sodium is 144, her potassium is 4, her chloride was 105, her anion gap is 12, her BUN is 13 her creatinine is 0.99 her GFR is 62.4 her glucose is 101, her lactate is pending. Her magnesium is 2.2 her ALT today is 26, her AST is 20, her alkaline phosphatase is 72, troponin 0 0.015 negative, her lipase is 102. CT of the abdomen pelvis is pending. Decision was made to admit patient to PCU telemetry to check her stool cultures for diarrhea, to rule out acute ACS. Admission Exam Per Admitting Provider Constitutional: WD/WN, vitals as above Eyes: + anicteric sclerae ENMT: external ear and nose normal, oropharynx normal Ears: no hearing impairment Neck: trachea midline, no thyromegaly Respiratory: normal respiratory effort, lungs clear to auscultation Cardiovascular: RRR, no murmur, no edema Gastrointestinal (Abdomen): Inspection/Auscultation: abdomen normal to inspection and normal bowel sounds; abdomen not distended Percussion/Palpation: + abdomen tender (In the epigastric region without guarding or rebound) and abdomen soft; no hepatosplenomegaly, no hernia, no abdominal mass and no pulsatile mass Musculoskeletal: Extremities: extremities normal to inspection; no cyanosis and no clubbing Skin: no rashes, warm and dry Neurologic: moves all extremities and awake; no focal motor deficits Psychiatric: Orientation: alert and oriented x 3 Eye Contact: good eye contact Affect: + anxious affect Mood: + anxious mood Results & Data Principal Diagnosis Cholecystitis s/p cholecystectomy Discharge Exam Constitutional WD/WN, vitals as above Eyes PERRL, conjunctivae normal, anicteric sclerae ENMT external ear and nose normal, oropharynx normal Neck trachea midline, no thyromegaly Respiratory normal respiratory effort, lungs clear to auscultation Cardiovascular RRR, no murmur, no edema Gastrointestinal (Abdomen) normal bowel sounds, soft, nontender, no hepatosplenomegaly (lap incision wounds dry and clean) Musculoskeletal no cyanosis or clubbing, extremities motor strength 5/5 Skin no rashes, warm and dry Neurologic PERRL, EOMI, accommodation nl, no face palsy, no dysarthria Psychiatric A+Ox3, euthymic affect Discharge Data Allergies Allergy/AdvReac Type Severity Reaction Status Date / Time ivabradine Allergy SV FACE SWELLS Verified 02/09/19 13:56 prochlorperazine Allergy Severe LOCK JAW Unverified 02/09/19 13:56 [From Compazine] amlodipine Allergy Intermediate muscle pain Verified 02/09/19 13:56 morphine Allergy Intermediate RASH Verified 02/09/19 13:56 verapamil Allergy Intermediate muscle pain Verified 02/09/19 13:56 ibuprofen Allergy Mild Rash Verified 02/09/19 13:56 promethazine AdvReac Severe Jaw Locks Verified 02/09/19 13:56 Consultations 02/09/19 14:53 ED Decision to Admit Stat 02/09/19 21:54 Consult Gastroenterology Routine 02/10/19 07:55 Consult Cardiology Routine 02/13/19 08:53 Consult General Surgery Routine Procedures Performed Operation Date: 02/12/19 09:30 Actual Procedures p EGD Biopsy Cytology(Not Applicable) - Joaquin Gama DO Operation Date: 02/13/19 08:35 Actual Procedures p Laparoscopic Cholecystectomy (Not Applicable) - Jose Trevino DO, FACS Ordered Studies 02/09/19 22:27 CT chest wo con Stat 02/11/19 11:00 FL barium swallow Routine 02/11/19 19:27 CT 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 Routine 02/12/19 09:53 US gallbladder Routine 02/12/19 13:34 MR MRCP Routine [facility] [place] [phone] Ultrasound Report Patient: LILY VELIZ Date: 02/10/19 MR#: [id number]: [id number] Acct ID:[id number]: Date: [address] Zip: [place] [address] Age: 58Location: 2E Sex: F Room/Bed: [facility] Att Phy: Boo Fernandez, MDDiagnosis: CHEST PAIN, DIARRHEA Ana Phy: Tito Green, III, MDService Date: 02/12/19 Fam Phy: Mark Ho DOInterpreting Phy: Kevin Beckett MD Admit Phy: Karen Virk MD Ordering Phy: Mark Ho DO cc: ~ US gallbladder HISTORY: Pain. Nausea. +Moreno sign on exam; epigastric pain COMPARISON: None. FINDINGS: Ultrasonic evaluation of the right upper quadrant shows evidence for moderate gallbladder wall thickening at 4 mm. No significant pericholecystic edema. Common bile duct is mildly distended at 7.5 mm. The liver is uniform throughout. Pancreas and right kidney are unremarkable. IMPRESSION: 1. Mild gallbladder wall thickening of 4 mm. 2. Mild prominence of the common bile duct at 7.5 mm. 3. Possible chronic acalculous cholecystitis must be a consideration. Dilatation of the common bile duct is also present. 4. MRCP is suggested as follow-up. [facility] [place] [phone] Magnetic Resonance Report Patient: LILY VELIZ Date: 02/10/19 MR#: [id number]: [id number] Acct ID:[id number]: Date: [address] Zip: [place] [address] Age: 58Location: 2E Sex: F Room/Bed: [facility] Att Phy: Boo FernandezDanny, MDDiagnosis: CHEST PAIN, DIARRHEA Ana Phy: NormaTito, III, MDService Date: 02/12/19 Fam Phy: Mark Ho DOInterpreting Phy: Fadi Allred MD Admit Phy: Karen Virk MD Ordering Phy: Mark Ho DO cc: ~ MR MRCP CLINICAL HISTORY: 58 years-old Female presenting with Possible chronic acalculous cholecystitis. TECHNIQUE: Multisequence, multiplanar MR imaging of the abdomen was performed without the use of intravenous contrast. Dedicated MRCP protocol was utilized. 3-D volumetric and/or maximum intensity projection (MIP) images were subsequently reconstructed for review. IV contrast: None. COMPARISON: Ultrasound performed earlier the same day and CT from 04/18/2018. FINDINGS: Localizer images: Unremarkable. Lung bases: Normal heart size. No pericardial or pleural effusion. Lung base clear. Liver: Normal morphology. Cysts suspected in the right hepatic dome. Biliary: Intrahepatic biliary trifurcation suspected. Common bile duct top normal in diameter, measuring 6 mm. No choledocholithiasis. No intrahepatic biliary ductal dilatation. The gallbladder is physiologically distended. No gallstones. No gallbladder wall thickening or pericholecystic fluid or infla mmatory change. Pancreas: Normal noncontrast appearance. Spleen: Normal noncontrast appearance. Adrenal glands: Normal noncontrast appearance. Kidneys and ureters: Normal noncontrast appearance. No hydronephrosis. Normal ureters. Bowel: Normal noncontrast appearance. No bowel obstruction. Peritoneal cavity: No free fluid. Lymph nodes: No gross lymphadenopathy allowing for noncontrast technique. Vasculature: Normal noncontrast appearance. Abdominal wall: Bilateral breast implants noted. Musculoskeletal: Normal. IMPRESSION: 1. No cholelithiasis or choledocholithiasis. 2. Top normal common bile duct diameter for patient age. No intrahepatic biliary dilatation. 3. No convincing evidence of cholecystitis. The above report was generated using voice recognition software. It may contain grammatical, syntax or spelling errors. Electronically signed by: Kevin Beckett M.D. 02/12/2019 12:04 PM Dictated: 02/12/19 120 Transcribed: 02/12/19 1202 Hospital Course (1) S/P laparoscopic cholecystectomy: 58-year-old female here with worsening, severe persistent right upper quadrant pain. Associated with nausea and vomiting. Initially with loose stools, which has since resolved. Patient received ultrasound of gallbladder was suggested cholecystitis, but MRCP did not reveal acute pathology. Noneth eless, the patient was evaluated for surgery and decision for cholecystectomy was made. The patient tolerated the procedure well and had resolution of nausea and vomiting following surgery. She had some mild tenderness at the site of the incisions, but the patient says that her right upper quadrant pain had significantly improved. EGD was also completed. It showed gastritis and the patient was continued with a PPI. She was tolerating food at the time of discharge RUQ pain, status post cholecystectomy -Ultrasound of the gallbladder suggestive of cholecystitis, MRCP reveals somewhat abnormal anatomy but does not suggest acute pathology -EGD done during this stay showed gastritis. Patient does have history of hiatal hernia. Hiatal hernia, gastritis -Continue Protonix p.o. 40 mg twice daily History of CAD Stable, cardiology evaluated patient while inpatient and does not believe any active cardiac disease Negative troponins x3 Continuing ASA 81 HTN Continue lisinopril, diltiazem, Lasix History of CVA Continue Plavix (2) RUQ pain: (3) History of stroke: (4) Hiatal hernia: (5) History of coronary artery disease: (6) Shortness of breath: Total Time Total Time Spent Total Time Spent (In Minutes): Greater than 30 minutes Total Time Includes: Examination of the Patient, Discharge Planning, Medication Reconciliation and Communication With Other Providers Discharge Plan Discharge Items Patient Disposition: Home - Self-Care Reason For Visit: CHEST PAIN, DIARRHEA Discharge Diagnosis: laparoscopic cholecystectomy Activity: Per Instructions section Lifting: No more than 10 pounds Bathing Comment: you may shower Exercise/Sports: Wait until after follow-up appointment Exercise Comment: light activity for 3 weeks Driving/Machine Use: do not drive while taking narcotics for pain Non-emergency contact: Primary Care Provider Call non-emergency contact if: you have any medication questions, your symptoms worsen, your pain is not controlled, you have a fever, your temperature is above 101.5, your wound has increased redness, your wound has increased drainage and your wound pain has increased Follow-up/Referrals: Tito Green III, MD [Primary Care Provider] - 02/24/19 1:45 pm (Please, follow up with Dr. Green on SundayFebruary 24 at 1:45 pm. *If you need to change this appointment, call the office at [phone].) Jose Trevino DO, HECTOR [Physician] - 02/24/19 11:30 am (Please, follow up at [facility] General Surgery Office with Dr. Trevino on SundayFebruary 24 at 11:30 pm. *The office is located at [address] [place] [address] in [place]. *If you need to change this appointment, call the office at [phone].) Diet: Low Fat Addtl Attending Provider Instructions: You have had a procedure known as a laparoscopic cholecystectomy. A laparoscopic cholecystectomy is a procedure to remove your gallbladder. People who have this procedure usually recover more quickly and have less pain than with open gallbladder surgery (called open cholecystectomy). We recommend a low-fat diet, avoiding fried food in particular, for the first month after surgery. You can live a full and healthy life without your gallbladder. This includes eating the foods and doing the things you enjoyed before your gallbladder problems started. Home care Recommendations for home care include the following: Ask someone to drive you to your appointments for the next [address] you are no longer taking pain medicine and are able to step on the brake pedal without hesitation. Wash the skin around your incision daily with mild soap and water. It's OK to shower the day after your surgery. Eat your regular diet. It is stevens to stay away from rich, greasy, or spicy food for a few days. Remember, it takes at least 1 week for you to get most of your strength and energy back. Make an office visit to talk to your healthcare provider if the following symptoms dont go away within a week after your surgery: Fatigue Pain around the incision Diarrhea or constipation Loss of appetite When to call your healthcare provider Call your healthcare provider immediately if you have any of the following: Yellowing of your eyes or skin (jaundice) Chills Fever of 100.4F (38.0C) or higher, or as directed by your healthcare provider Redness, swelling, increasing pain, pus, or a foul smell at the incision site Dark or rust-colored urine Stool that is collins-colored or light in color instead of brown Increasing belly pain Rectal bleeding Leg swelling or shortness of breath I recommend making an appointment to see your primary care provider in the next week for routine follow up from your hospital admission. It has been our pleasure to take care of you here at [facility] and we wish you all the best moving forward. Sincerely, Barrett Cerrato MD Pending Studies at Discharge: No Stand-Alone Forms: Call Back Authorization, [facility] Medications and DC Order Prescriptions: New oxycodone-acetaminophen [Percocet] 5-325 mg tablet 1 - 2 tab PO .every 4-6 hours PRN (Reason: pain, for initial therapy) Qty: 15 RF: 0 Continued Algal [place]-3 DHA 200 mg capsule 200 mg PO DAILY RF: 0 diltiazem HCl [Cardizem] 120 mg tablet 120 mg PO QPM RF: 0 Probiotic 3 billion cell capsule 3,000 mmu cells PO DAILY RF: 0 clopidogrel [Plavix] 75 mg tablet 75 mg PO QAM Qty: 90 RF: 1 lidocaine 5 % adhesive patch,medicated 1 patch TOP DAILY Qty: 1 RF: 0 nitroglycerin 0.1 mg/hr patch 24 hour 1 patch TD Q12 PRN (Reason: CAD) Qty: 30 RF: 3 nitroglycerin 400 mcg/spray aerosol,spray 1 sprays SL Q5M PRN (Reason: chest pain) Qty: 12 RF: 0 albuterol sulfate [Proventil HFA] 90 mcg/actuation HFA aerosol inhaler 1 puffs INH Q6H PRN (Reason: shortness of breath or wheezing) Qty: 8.5 RF: 3 fexofenadine [Hortensia Allergy] 180 mg Tablet 180 mg PO BID RF: 0 multivitamin Tablet 1 tab PO QAM RF: 0 aspirin [Aspir-81] 81 mg Tablet,Delayed Release (Dr/Ec) 81 mg PO QAM RF: 0 pantoprazole [Protonix] 40 mg Tablet,Delayed Release (Dr/Ec) 40 mg PO QAM RF: 0 nitroglycerin 0.4 mg Tablet, Sublingual 1 dose Sublingual UD PRN (Reason: Chest Pain) RF: 0 vitamin [id number] acid 500-400 mcg Tablet 1 tab PO QAM RF: 0 calcium phosphate-vitamin D3 [Citracal + D3 (calcium phos)] 250 mg calcium- 500 unit Tablet,Chewable 1 tab PO QAM RF: 0 furosemide [Lasix] 20 mg tablet 20 mg PO QAM PRN (Reason: Edema) RF: 0 diltiazem HCl 240 mg capsule,extended release 24 hr 360 mg PO .am RF: 0 isosorbide mononitrate 60 mg tablet extended release 24 hr 120 mg PO BID RF: 0 lisinopril 2.5 mg tablet 5 mg PO QPM RF: 0 ascorbic acid (vitamin C) [Vitamin C] 1,000 mg Tablet 1 g PO DAILY RF: 0 vitamin A 8,000 unit Capsule 8,000 unit PO DAILY RF: 0 turmeric 400 mg Capsule 400 mg PO DAILY RF: 0 Discharge Orders: Discharge Order (Routine); Ordered 02/15/19 Ordered By: Mayito Carr Admission Data Admit Date/Time: 02/10/19 17:43 Attending Provider: Rai Solares Admit Provider: Karen Virk Primary Care Provider: Tito Green III Other Providers: Karen Virk ; Jose Trevino ; Tevin Whitney ; Joaquin Gama Other Interventions: Discharge Summary Assessment (RN) Last Done: 02/15/19 11:38 DC Date/Time DO NOT enter until pt leaves facility: 02/15/19 12:29 Supervising Physician Co-Signing Physician Notes I saw the patient with the resident physician and confirmed shukla portion of the history and physical exam. POD #2 laparoscopic cholecystectomy. The patient is tolerated a full diet without recurrence of the discomfort she had yesterday. Overall she is pleased in that her upper abdominal pain has completely resolved, when compared to the pain she had upon admission, subsequent to the cholecystectomy. She remains afebrile. Follow up with general surgery as scheduled and primary care provider. Resident Activity Tracking Resident Involvement: Resident Care Provided Care Provided: Adult Hospital Medicine
== END 2019-02-15 12:29 | disposition home or self-care (01) | DRG 418 ==
LOC: 2E 12:48 → ED 12:48 → SUATTDRO 18:12 → 2E 18:53 → SUATTDRO 02-10 17:43
DX: E78.5 Hyperlipidemia, unspecified; I10 Essential (primary) hypertension; I25.10 Atherosclerotic heart disease of native coronary artery without angina pectoris; Z79.02 Long term (current) use of antithrombotics/antiplatelets; G43.909 Migraine, unspecified, not intractable, without status migrainosus; K81.1 Chronic cholecystitis; I25.2 Old myocardial infarction; K44.9 Diaphragmatic hernia without obstruction or gangrene; I69.354 Hemiplegia and hemiparesis following cerebral infarction affecting left non-dominant side; Z95.5 Presence of coronary angioplasty implant and graft; Z82.49 Family history of ischemic heart disease and other diseases of the circulatory system; Z83.3 Family history of diabetes mellitus; Z79.82 Long term (current) use of aspirin; K29.70 Gastritis, unspecified, without bleeding

== ENCOUNTER 2019-12-13 13:56 | Inpatient (IN) ==
[2019-12-13 14:16] LABS: Basophils # (auto) 0.04 K/uL (0-0.2); Basophils % (auto) 0.5 %; Eosinophils # (auto) 0.33 K/uL (0-0.5); Eosinophils % (auto) 4.2 %; Hematocrit (blood only) 39.1 % (37-47); Hemoglobin 13.7 g/dL (12.0-16.0); Immature Granulocytes # (auto) 0.01 K/uL (0.00-0.02); Immature Granulocytes % (auto) 0.1 %; Lymphocytes # (auto) 2.02 K/uL (1.2-3.4); Lymphocytes % (auto) 25.6 %; Mean Corpuscular Hemoglobin 32.5 pg (25-34); Mean Corpuscular Volume 92.7 fL (80-100); Mean Platelet Volume 9.2 fL (7.4-10.4); Monocytes % (auto) 7.6 %; Neutrophils # (auto) 4.88 K/uL (1.4-6.5); Platelet Count 331 K/uL (130-400); RDW Coefficient of Variation 12.2 % (11.5-14.5); RDW Standard Deviation 41.2 fL (36.4-46.3); Red Blood Count 4.22 M/uL (4.2-5.4); White Blood Count 7.88 K/uL (4.8-10.8)
--- NOTE | 2019-12-13 14:19 | Emergency Department Note ---
Impression & Plan Chest pain, CAD (coronary artery disease) ED Provider Note NAME: LILY VELIZ AGE: 59 SEX: F : 1960 ARRIVES VIA: Ambulance INFORMANT: Patient ED PROVIDER(S): Anil Renee DO CHIEF COMPLAINT: Chest pain HPI: Patient is a 59-year-old female who presents the ER for precordial chest pain. She describes it as a heaviness which started last night. Has been off and on but fairly consistent since 12 PM today. Associated with shortness of breath. Left arm pain and left jaw pain present with the pain. Pain is an 8 out of 10. She did take several nitro with improvement of the pain but now the pain has reoccurred. She took full dose aspirin. Denies any nausea vomiting or diarrhea. No dysuria urgency or frequency. History of TIA, pericarditis, CABG x1 along with 4 previous stents, and a chronically occluded distal LAD. ROS: See above HPI for pertinent positives & negatives. A total of 10 systems reviewed and were otherwise negative. PAST MEDICAL HISTORY:See Below PAST SURGICAL HISTORY:See Below FAMILY HISTORY:See Below SOCIAL HISTORY:See Below HOME MEDICATIONS:See Below ALLERGIES:See Below VITALS:See Below PHYSICAL EXAMINATION: GENERAL: Sitting up in bed, alert, moderate distress, slightly ill-appearing EYE EXAM: normal conjunctiva. OROPHARYNX: no exudate, no erythema, lips, buccal mucosa, and tongue normal and mucous membranes are moist NECK: supple, no nuchal rigidity, no adenopathy, non-tender LUNGS: Clear to auscultation. Normal chest wall mechanics HEART: no murmurs, S1 normal and S2 normal ABDOMEN: abdomen soft, non-tender, normo-active bowel sounds, no masses, no rebound or guarding. BACK: Back is symmetrical on inspection and there is no deformity, no midline tenderness, no CVA tenderness. SKIN: no rashes and no bruising UPPER EXTREMITIES: upper extremities are grossly normal. LOWER EXTREMITIES: No pitting edema. Calves are equal bilateral NEURO EXAM: Normal sensorium, cranial nerves II-XII grossly intact, normal speech, no gross weakness of arms, no gross weakness of legs. MEDICAL DECISION MAKING: Patient is a 59-year-old female that presents the ER with extensive past medical history including CABG, pericarditis, and TN with 4 stents who is complaining of chest pain with jaw pain and arm pain and shortness of breath notes that this feels like her previous TN. IV was established blood work was obtained. Labs show no significant leukocytosis or anemia. INR was unremarkable. BMP with mild hypokalemia. LFTs bilirubin and troponin was negative. Lipase was unre markable. She has no abdominal pain. Chest x-ray without any focal infiltrate. She was given aspirin and nitro prior to arrival. Pain waxed and waned while here. She was given nitro with no improvement. Following this she did note that she has had darker stools and has been following up with GI and had a recent scope which showed gastritis. She denies any vomiting blood, bright red blood per rectum, coughing up blood, peeing blood previous brain bleeds, recent trauma, recent surgery. After discussion with Dr. Diggs rectal was performed and was negative. He recommended medical management with nitro and heparin if possible. Discussed with Dr. Day he was agreeable and recommended heparin. Patient was given heparin bolus and I gave a lower dose to make sure that there is no new GI bleed. Patient was also placed on nitro drip. She did have improvement of her symptoms after the fentanyl. Triage Nursing notes reviewed. Prior medical records reviewed Vital Signs: reviewed and remarkable for no significant abnormalities Differential diagnosis: Differential diagnoses includes but is not limited to acute coronary syndrome, myocardial infarction, pericarditis, pulmonary embolus, aortic dissection, pneumonia, pneumothorax, musculoskeletal, shingles, esophageal. ER treatment provided: See below Diagnostics interpreted by me: ECG: Sinus rhythm rate 84 Left axis No PVCs Normal QTC Cardiac Monitoring: An order was placed for continuous cardiac monitoring. The monitor shows a rate of 88 with sinus rhythm. Laboratory studies: As stated above and show below. Imaging studies: Portable AP upright 1 view of the chest was unremarkable. Consultation(s): Discussed with Dr. Manuel Day who is agreeable to admitting. Discussed with Dr. Doug Diggs who recommended medical management ED COURSE: Procedures: none Critical Care: I have personally spent 32 minutes of critical care time in the direct management of this patient. This includes bedside care, interpretation of diagnostic studies, and testing, discussion with consultants, patient, and family members, and other required patient management activities. This 32 minutes is in excess of all separately billable procedures. 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 Beliefs That Will Affect Care: None marital status: Current Living Situation: Spouse current occupational status: retired Feels Safe at Home: Yes Smoking Status: Never smoker Second Hand Exposure: No ; Hx Alcohol Use: Yes Alcohol type: other Hx Substance Use: No Allergies Allergies Allergy/AdvReac Type Severity Reaction Status Date / Time ivabradine Allergy SV FACE SWELLS Verified 12/13/19 14:45 prochlorperazine Allergy Severe LOCK JAW Verified 12/13/19 14:45 [From Compazine] amlodipine Allergy Intermediate muscle pain Verified 12/13/19 14:45 morphine Allergy Intermediate RASH Verified 12/13/19 14:45 verapamil Allergy Intermediate muscle pain Verified 12/13/19 14:45 ibuprofen Allergy Mild Rash Verified 12/13/19 14:45 Home Meds Home Medications Medication Instructions Recorded Confirmed aspirin [Aspir-81] 81 mg PO QAM 04/08/18 12/13/19 calcium phosphate-vitamin D3 1 tab PO QAM 04/08/18 12/13/19 [Citracal-D3 Gummies] multivitamin 1 tab PO QAM 04/08/18 12/13/19 nitroglycerin 1 dose SUBLINGUAL UD PRN 04/08/18 12/13/19 vitamin S58-[id number] acid 1 tab PO QAM 04/08/18 12/13/19 fexofenadine [Hortensia Allergy] 180 mg PO BID 04/18/18 12/13/19 lisinopril 5 mg tablet 5 mg PO HS 02/26/19 12/13/19 furosemide 40 mg tablet 40 mg PO DAILY PRN 02/27/19 12/13/19 isosorbide mononitrate 60 mg 60 mg PO BID tab 02/27/19 12/13/19 tablet,extended release 24 hr diltiazem HCl 240 mg PO QAM 03/27/19 12/13/19 lidocaine 1 patch TOP DAILY PRN 03/27/19 12/13/19 sennosides-docusate sodium [Colace 1 tabcap PO QAM 12/13/19 12/13/19 2-In-1] Previous Rx's Medication Instructions Recorded nitroglycerin 400 mcg/spray 1 sprays SL Q5M PRN #12 gm 12/30/18 translingual aerosol estradiol 10 mcg vaginal tablet 10 mcg PV .COMPLEX 365 Days #8 tab 03/10/19 nitroglycerin 0.2 mg/hr 1 patch TD DAILY PRN #30 ea 04/21/19 transdermal 24 hour patch clopidogrel 75 mg tablet 75 mg PO QAM #90 tab 07/31/19 diltiazem HCl 120 mg 120 mg PO BID #60 cap 11/27/19 capsule,extended release 24 hr famotidine 20 mg tablet 20 mg PO .qhs #30 tab 12/12/19 pantoprazole 40 mg tablet,delayed 40 mg PO BID 30 Days #60 tab 12/12/19 release Results & Data (ED) Vital Signs Vital Signs - 24 hr 12/13/19 14:12 12/13/19 14:20 12/13/19 14:30 Temperature 36.6 C Temperature Source Oral Pulse Rate 85 80 82 Pulse Rate from SpO2 Sensor 79 83 Pulse Rhythm Regular Pulse Strength Normal Respiratory Rate 22 14 23 Respiratory Effort / Characteristics Non-Labored Spontaneous Respiratory Depth Normal Respiratory Pattern Regular Blood Pressure 133/81 128/76 115/79 Blood Pressure Mean 98 92 91 Pulse Oximetry 99 98 97 Oxygen Delivery Method Room Air Room Air Room Air Sepsis Recent Fever Within 48 Hours No Sepsis Action Taken by Nursing No Action Required 12/13/19 14:45 12/13/19 15:00 12/13/19 15:15 Temperature Temperature Source Pulse Rate 73 75 69 Pulse Rate from SpO2 Sensor 74 75 71 Pulse Rhythm Pulse Strength Respiratory Rate 17 16 19 Respiratory Effort / Characteristics Respiratory Depth Respiratory Pattern Blood Pressure 125/81 139/73 129/71 Blood Pressure Mean 99 96 80 Pulse Oximetry 99 99 99 Oxygen Delivery Method Sepsis Recent Fever Within 48 Hours Sepsis Action Taken by Nursing 12/13/19 15:30 12/13/19 15:45 12/13/19 16:00 Temperature Temperature Source Pulse Rate 76 68 69 Pulse Rate from SpO2 Sensor 79 67 68 Pulse Rhythm Pulse Strength Respiratory Rate 22 18 15 Respiratory Effort / Characteristics Respiratory Depth Respiratory Pattern Blood Pressure 128/86 119/69 103/71 Blood Pressure Mean 99 88 78 Pulse Oximetry 99 99 100 Oxygen Delivery Method Sepsis Recent Fever Within 48 Hours Sepsis Action Taken by Nursing 12/13/19 16:15 12/13/19 16:30 12/13/19 16:45 Temperature Temperature Source Pulse Rate 64 62 64 Pulse Rate from SpO2 Sensor 65 62 66 Pulse Rhythm Pulse Strength Respiratory Rate 19 18 18 Respiratory Effort / Characteristics Respiratory Depth Respiratory Pattern Blood Pressure 115/69 128/65 119/70 Blood Pressure Mean 90 89 77 Pulse Oximetry 100 100 99 Oxygen Delivery Method Sepsis Recent Fever Within 48 Hours Sepsis Action Taken by Nursing Laboratory Data Result diagrams: 12/13/19 14:10 12/13/19 14:10 Lab Results 12/13/19 12/13/19 12/13/19 Range/Units 14:10 14:10 14:10 WBC 7.88 (4.8-10.8) K/uL RBC 4.22 (4.2-5.4) M/uL Hgb 13.7 (12.0-16.0) g/dL Hct 39.1 (37-47) % MCV 92.7 (80-100) fL MCH 32.5 (25-34) pg MCHC 35.0 (32-36) g/dL RDW Std Deviation 41.2 (36.4-46.3) fL RDW Coeff of [place] 12.2 (11.5-14.5) % Plt Count 331 (130-400) K/uL MPV 9.2 (7.4-10.4) fL Immature Gran % (Auto) 0.1 % Neut % (Auto) 62.0 % Lymph % (Auto) 25.6 % [place] % (Auto) 7.6 % Eos % (Auto) 4.2 % Baso % (Auto) 0.5 % Neut # (Auto) 4.88 (1.4-6.5) K/uL Lymph # (Auto) 2.02 (1.2-3.4) K/uL [place] # (Auto) 0.60 H (0.11-0.59) K/uL Eos # (Auto) 0.33 (0-0.5) K/uL Baso # (Auto) 0.04 (0-0.2) K/uL Immature Gran # (Auto) 0.01 (0.00-0.02) K/uL PT 9.8 (9.0-12.0) Seconds INR 0.9 (0.9-1.1) APTT 27.5 (21.0-31.0) Seconds PTT Ratio 1.0 Sodium 139 (136-145) mmol/L Potassium 3.4 L (3.5-5.1) mmol/L Chloride 106 (98-107) mmol/L Carbon Dioxide 25 (21-32) mmol/L Anion Gap 8.0 (3-11) BUN 21 H (7-18) mg/dl Creatinine 1.15 (0.6-1.2) mg/dl Est Cr Clr Drug Dosing 59.8 ml/min Est GFR ( Amer) 59.9 Est GFR (Non-Af Amer) 51.7 BUN/Creatinine Ratio 17.8 (10-20) Glucose 96 (70-99) mg/dl Calcium 9.2 (8.5-10.1) mg/dl Total Bilirubin 0.5 (0.2-1) mg/dl AST 20 (15-37) U/L ALT 25 (12-78) U/L Alkaline Phosphatase 72 (45-117) U/L Troponin I < 0.015 (0-0.045) ng/ml Total Protein 8.3 H (6.4-8.2) gm/dl Albumin 4.3 (3.4-5.0) gm/dl Globulin 4.0 (2.5-4.0) gm/dl Albumin/Globulin Ratio 1.1 (0.9-2) Lipase 107 (73-393) U/L Administered Medications Heparin Sodium/Dextrose (Heparin Sodium/Dextrose) 25,000 units in 500 mls @ 17 mls/hr IV .[facility]H [facility]; Protocol Stop: 01/12/20 15:29 Last Admin: 12/13/19 15:53 Dose: 850 units/hr, 17 mls/hr Documented by: [id number] Cosigned by: [id number] Nitroglycerin (Nitrostat) 0.4 mg SL PRN PRN PRN Reason: Allergic Reaction Stop: 01/12/20 14:12 Last Admin: 12/13/19 14:30 Dose: 0.4 mg Documented by: [id number] Admin: 12/13/19 14:20 Dose: 0.4 mg Documented by: [id number] Discontinued Medications Fentanyl Citrate (Fentanyl Citrate) 50 mcg IV NOW STA Stop: 12/13/19 14:48 Last Admin: 12/13/19 15:27 Dose: 50 mcg Documented by: [id number] Heparin Sodium (Porcine) (Heparin Sodium (Porcine)) Confirm Administered Dose 5,000 units .ROUTE .[facility] Stop: 12/13/19 15:51 Last Admin: 12/13/19 15:54 Dose: 2,000 units Documented by: [id number] Cosigned by: [id number] Heparin Sodium/Dextrose () 1 ea IV NOW STA; Protocol Stop: 12/13/19 15:22 Last Admin: 12/13/19 15:54 Dose: Not Given Documented by: [id number] Discharge Plan Visit Data Chief Complaint: Chest Pain Stated Complaint: CP ED Provider: Anil Renee Discharge Problem: Chest pain, CAD (coronary artery disease) Forms Stand Alone Forms: [facility] blinkbox Prescriptions Prescriptions: No Action nitroglycerin 0.2 mg/hr patch 24 hour 1 patch TD DAILY PRN (Reason: Angina) Qty: 30 RF: 11 clopidogrel [Plavix] 75 mg tablet 75 mg PO QAM Qty: 90 RF: 3 nitroglycerin 400 mcg/spray aerosol,spray 1 sprays SL Q5M PRN (Reason: chest pain) Qty: 12 RF: 0 diltiazem HCl 120 mg capsule,extended release 24hr 120 mg PO BID Qty: 60 RF: 2 lisinopril 5 mg tablet 5 mg PO HS RF: 0 estradiol [Yuvafem] 10 mcg tablet 10 mcg PV .COMPLEX 365 Days Qty: 8 RF: 12 famotidine 20 mg tablet 20 mg PO .qhs Qty: 30 RF: 2 pantoprazole [Protonix] 40 mg tablet,delayed release (DR/EC) 40 mg PO BID 30 Days Qty: 60 RF: 2 furosemide 40 mg tablet 40 mg PO DAILY PRN (Reason: Edema) RF: 0 fexofenadine [Hortensia Allergy] 180 mg Tablet 180 mg PO BID RF: 0 sennosides-docusate sodium [Colace 2-In-1] 8.6-50 mg tablet 1 tabcap PO QAM RF: 0 multivitamin Tablet 1 tab PO QAM RF: 0 aspirin [Aspir-81] 81 mg Tablet,Delayed Release (Dr/Ec) 81 mg PO QAM RF: 0 nitroglycerin 0.4 mg Tablet, Sublingual 1 dose Sublingual UD PRN (Reason: Chest Pain) RF: 0 vitamin J35-easgg acid 500-400 mcg Tablet 1 tab PO QAM RF: 0 calcium phosphate-vitamin D3 [Citracal-D3 Gummies] 250 mg calcium- 500 unit Tablet,Chewable 1 tab PO QAM RF: 0 isosorbide mononitrate 60 mg tablet extended release 24 hr 60 mg PO BID RF: 0 diltiazem HCl 240 mg capsule,extended release 24 hr 240 mg PO QAM RF: 0 lidocaine 5 % adhesive patch,medicated 1 patch TOP DAILY PRN (Reason: Pain) RF: 0 Discharge Problem: Chest pain Qualifiers: Chest pain type: unspecified Qualified Code(s): R07.9 - Chest pain, unspecified CAD (coronary artery disease) Qualifiers: Coronary Disease-Associated Artery/Lesion type: unspecified vessel or lesion type [place] vs. transplanted heart: unspecified whether [place] or transplanted heart Associated angina: angina presence unspecified Qualified Code(s): I25.10 - Atherosclerotic heart disease of [place] coronary artery without angina pectoris
[2019-12-13] MEDS: NITROGLYCERIN SL 0.4 MG/TAB TAB SL PRN ×2 (14:20→14:30)
[2019-12-13 14:27] LABS: INR 0.9 (0.9-1.1); Partial Thromboplastin Time 27.5 Seconds (21.0-31.0); Prothrombin Time 9.8 Seconds (9.0-12.0)
[2019-12-13 14:34] LABS: Alanine Aminotransferase 25 U/L (12-78); Albumin Level 4.3 gm/dl (3.4-5.0); Aspartate Aminotransferase 20 U/L (15-37); BUN Creatinine Ratio 17.8 (10-20); Blood Urea Nitrogen 21 mg/dl (7-18); Calcium 9.2 mg/dl (8.5-10.1); Carbon Dioxide 25 mmol/L (21-32); Chloride 106 mmol/L (98-107); Creatinine Clr Calc Pharmacy 59.8 ml/min; Est GFR (African American) 59.9; Est GFR (Non-African American) 51.7; Glucose 96 mg/dl (70-99); Lipase 107 U/L (73-393); Potassium 3.4 mmol/L (3.5-5.1); Sodium 139 mmol/L (136-145)
--- NOTE | 2019-12-13 14:36 | XRay Report ---
SINGLE VIEW CHEST CLINICAL HISTORY: Atypical chest pain. FINDINGS: An AP, portable, upright chest radiograph is compared to chest x-ray and chest CT dated 02/09. The patient is status post midline sternotomy. The cardiomediastinal silhouette is unremarkabl e. The lungs and pleural spaces are clear. No pneumothorax is seen. The skeletal structures are osteo penic. The bony thorax is grossly intact. IMPRESSION: No active disease in the chest. ACT 112: Negative or not required by law. Electronically signed by: Daquan Murphy M.D. 12/13/2019 2:34 PM
[2019-12-13 14:39] LABS: Albumin Globulin Ratio 1.1 (0.9-2); Alkaline Phosphatase 72 U/L (45-117); Bilirubin,Total 0.5 mg/dl (0.2-1); Total Protein 8.3 gm/dl (6.4-8.2); Troponin I < 0.015 ng/ml (0-0.045)
[2019-12-13] MEDS ORDERED: fentaNYL citrate 100 MCG/2 ML VIAL IV STA (14:47)
[2019-12-13] MEDS ORDERED: Heparin IV Low Dose WITH Bolus IV STA (15:21)
[2019-12-13] MEDS ORDERED: STAT IV Infusion **Titration per Protocol STA (15:22)
[2019-12-13] MEDS ORDERED: ICU PROTOCOL FOR HYPERGLYCEMIA PRN (15:46)
[2019-12-13] MEDS ORDERED: HEPARIN SOD 5,000 UNIT/0.5 ML VIAL ONE (15:50)
[2019-12-13] MEDS ORDERED: LIDOCAINE 5% 1 PATCH TD PRN (15:52)
[2019-12-13] MEDS ORDERED: FUROSEMIDE 40 MG TAB PO PRN (15:52)
[2019-12-13] MEDS: HEPARIN SODIUM/DEXTROSE 25,000 UNITS/500 ML BAG IV SCH (15:53)
[2019-12-13] MEDS ORDERED: FAMOTIDINE 20 MG in SYRINGE 3 ML IV SCH (16:00)
[2019-12-13] MEDS ORDERED: ESTRADIOL 10 MCG PV SCH (16:00)
[2019-12-13] MEDS: NITROGLYCERIN/D5W 100MCG/ML 250 ML IV SCH (17:38)
[2019-12-13] MEDS: fentaNYL citrate 100 MCG/2 ML VIAL IV PRN (17:56)
--- NOTE | 2019-12-13 18:40 | History & Physical Report ---
Date of Service December 13, 2019 Assessment & Plan (1) Unstable angina: Unstable angina/CAD/hypertension/history of MT/history of coronary artery dissection/stented coronary arteries x4- Patient will be admitted to the ICU on heparin drip and nitroglycerin drip. Follow serial troponins And monitor for arrhythmias. Order complete echocardiogram. Fentanyl 50 mcg IV every 3 hours PRN moderate pain. Acetaminophen 650 mg p.o. every 6 hours PRN mild pain or temperature. Continue aspirin 81 mg every morning, clopidogrel 70 mg every morning, diltiazem 240 mg every morning and 120 mg p.o. twice daily. Hold isosorbide mononitrate 60 mg p.o. twice daily and nitroglycerin sublingual as needed. Hold Nitroglycerin transdermal 24-hour patch. consults cardiology Dr. Diggs. Consult leaf blender Dr. Austin Present on Admission?: Yes (2) GERD (gastroesophageal reflux disease): continue Protonix 40 mg p.o. twice daily Present on Admission?: Yes (3) CAD (coronary artery disease): See above Present on Admission?: Yes (4) Myocardial Infarction: See above Present on Admission?: Yes (5) Hypertension: See above Present on Admission?: Yes (6) Admitted to intensive care unit: See above Present on Admission?: Yes Admission and Anticipated Discharge Date Admission Date: December 13, 2019 History of Present Illness Chief Complaint: The patient presents to the emergency department with recurrence of precordial chest pain with radiation to left side of neck and left arm, reminiscent of previous heart attacks. Primary Care Provider: Tito Green MD The patient is a 59-year-old female with a past medical history including GERD, status post CABG x1, history of pericardiectomy, CAD, dyslipidemia, myocardial bridge, pericarditis, TIA, endothelial dysfunction of coronary artery, carotid artery plaque, Prinzmetal's angina, mast cell disorder, coronary artery dissection, complex regional pain syndrome, cardiac syndrome X, hypertension and history of MT and stroke. The patient reports that she developed recurrent precordial chest pain, that began as a heaviness last evening, has been on and off since that time but has not gone away completely. She does have some shortness of breath associated, and does note radiation of pain to left arm and left jaw. She reports that this pain is similar to her previous heart attacks. She does has a significant history of having 4 previous coronary artery stents, a chronically occluded distal LAD.. Allergies Allergy/AdvReac Type Severity Reaction Status Date / Time ivabradine Allergy SV FACE SWELLS Verified 12/13/19 14:45 prochlorperazine Allergy Severe LOCK JAW Verified 12/13/19 14:45 [From Compazine] amlodipine Allergy Intermediate muscle pain Verified 12/13/19 14:45 morphine Allergy Intermediate RASH Verified 12/13/19 14:45 verapamil Allergy Intermediate muscle pain Verified 12/13/19 14:45 ibuprofen Allergy Mild Rash Verified 12/13/19 14:45 Home Medications Home Medications Medication Instructions Recorded Confirmed Type aspirin [Aspir-81] 81 mg PO QAM 04/08/18 12/13/19 History calcium phosphate-vitamin D3 1 tab PO QAM 04/08/18 12/13/19 History [Citracal-D3 Gummies] multivitamin 1 tab PO QAM 04/08/18 12/13/19 History nitroglycerin 1 dose SUBLINGUAL UD PRN 04/08/18 12/13/19 History vitamin A36-[id number] acid 1 tab PO QAM 04/08/18 12/13/19 History fexofenadine [Hortensia Allergy] 180 mg PO BID 04/18/18 12/13/19 History nitroglycerin 400 mcg/spray 1 sprays SL Q5M PRN #12 gm 12/30/18 12/13/19 Rx translingual aerosol lisinopril 5 mg tablet 5 mg PO HS 02/26/19 12/13/19 History furosemide 40 mg tablet 40 mg PO DAILY PRN 02/27/19 12/13/19 History isosorbide mononitrate 60 mg 60 mg PO BID tab 02/27/19 12/13/19 History tablet,extended release 24 hr estradiol 10 mcg vaginal tablet 10 mcg PV .COMPLEX 365 Days #8 tab 03/10/19 12/13/19 Rx diltiazem HCl 240 mg PO QAM 03/27/19 12/13/19 History lidocaine 1 patch TOP DAILY PRN 03/27/19 12/13/19 History nitroglycerin 0.2 mg/hr 1 patch TD DAILY PRN #30 ea 04/21/19 12/13/19 Rx transdermal 24 hour patch clopidogrel 75 mg tablet 75 mg PO QAM #90 tab 07/31/19 12/13/19 Rx diltiazem HCl 120 mg 120 mg PO BID #60 cap 11/27/19 12/13/19 Rx capsule,extended release 24 hr famotidine 20 mg tablet 20 mg PO .qhs #30 tab 12/12/19 12/13/19 Rx pantoprazole 40 mg tablet,delayed 40 mg PO BID 30 Days #60 tab 12/12/19 12/13/19 Rx release sennosides-docusate sodium [Colace 1 tabcap PO QAM 12/13/19 12/13/19 History 2-In-1] Past Med/Surg History Social History Preferred Language: Occitan Communication Ability: Effective Visual Impairment: No Limitations Hearing Ability: Normal Supervisor Print Line Required: No Beliefs That Will Affect Care: None marital status: Current Living Situation: Spouse current occupational status: retired Feels Safe at Home: Yes Smoking Status: Never smoker Second Hand Exposure: No ; Hx Alcohol Use: Yes Alcohol type: other Hx Substance Use: No Review of Systems Review of Systems: The patient denies palpitations, cough, lower extremity swelling, sore throat, fevers, chills, sweats, weight change, fatigue, nausea, vomiting, diarrhea , constipation, abdominal pain, pelvic pain, blood in urine or stool, dysuria, urinary frequency or urgency, lightheadedness, dizziness, headache, memory loss, loss of consciousness, rash, abnormal bruising or bleeding, imbalance, focal or generalized weakness, numbness or tingling in legs, generalized arthralgias or myalgias, back or neck pain, or night sweats. The review of systems is otherwise negative other than for that already noted above, and at least 10 systems have been reviewed. Physical Exam Physical Exam: The patient is awake, alert and oriented 3, well developed and well nourished, normocephalic and atraumatic, lying in bed and in moderate acute distress. HEENT--PERRL, EOMI, mucous membranes and oropharynx normal. Neck--supple. No JVD. No bruits. Thyroid normal, trachea midline, no adenopathy. Heart--normal S1 and S2. No murmurs, rubs or gallops. Lungs--clear bilaterally, no respiratory distress, no accessory muscle use. Abdomen--normal bowel sounds and soft. Nontender. Nondistended. Extremities--no cyanosis or clubbing. No edema. Dermatologic--normal skin turgor, normal color, no abnormal lymph nodes, no rash. Neurologic--cranial nerves II through XII grossly intact. Rheumatologic--normal range of motion. Psychiatric--normal affect. Results & Data Results & Data ([facility]) Vital Signs (Past 12 Hours) Vital Signs Temp Pulse Resp BP Pulse Ox 12/13/19 16:45 64 18 119/70 99 12/13/19 16:30 62 18 128/65 100 12/13/19 16:15 64 19 115/69 100 12/13/19 16:00 69 15 103/71 100 12/13/19 15:45 68 18 119/69 99 12/13/19 15:30 76 22 128/86 99 12/13/19 15:15 69 19 129/71 99 12/13/19 15:00 75 16 139/73 99 12/13/19 14:45 73 17 125/81 99 12/13/19 14:30 82 23 115/79 97 12/13/19 14:20 80 14 128/76 98 12/13/19 14:12 97.9 F 85 22 133/81 99 Laboratory Results Laboratory Results WBC 7.88 K/uL (4.8-10.8) 12/13/19 14:10 RBC 4.22 M/uL (4.2-5.4) 12/13/19 14:10 Hgb 13.7 g/dL (12.0-16.0) 12/13/19 14:10 Hct 39.1 % (37-47) 12/13/19 14:10 MCV 92.7 fL (80-100) 12/13/19 14:10 MCH 32.5 pg (25-34) 12/13/19 14:10 MCHC 35.0 g/dL (32-36) 12/13/19 14:10 RDW Std Deviation 41.2 fL (36.4-46.3) 12/13/19 14:10 RDW Coeff of [place] 12.2 % (11.5-14.5) 12/13/19 14:10 Plt Count 331 K/uL (130-400) 12/13/19 14:10 MPV 9.2 fL (7.4-10.4) 12/13/19 14:10 Immature Gran % (Auto) 0.1 % 12/13/19 14:10 Neut % (Auto) 62.0 % 12/13/19 14:10 Lymph % (Auto) 25.6 % 12/13/19 14:10 [place] % (Auto) 7.6 % 12/13/19 14:10 Eos % (Auto) 4.2 % 12/13/19 14:10 Baso % (Auto) 0.5 % 12/13/19 14:10 Neut # (Auto) 4.88 K/uL (1.4-6.5) 12/13/19 14:10 Lymph # (Auto) 2.02 K/uL (1.2-3.4) 12/13/19 14:10 [place] # (Auto) 0.60 K/uL (0.11-0.59) H 12/13/19 14:10 Eos # (Auto) 0.33 K/uL (0-0.5) 12/13/19 14:10 Baso # (Auto) 0.04 K/uL (0-0.2) 12/13/19 14:10 Immature Gran # (Auto) 0.01 K/uL (0.00-0.02) 12/13/19 14:10 PT 9.8 Seconds (9.0-12.0) 12/13/19 14:10 INR 0.9 (0.9-1.1) 12/13/19 14:10 APTT 27.5 Seconds (21.0-31.0) 12/13/19 14:10 PTT Ratio 1.0 12/13/19 14:10 Sodium 139 mmol/L (136-145) 12/13/19 14:10 Potassium 3.4 mmol/L (3.5-5.1) L 12/13/19 14:10 Chloride 106 mmol/L (98-107) 12/13/19 14:10 Carbon Dioxide 25 mmol/L (21-32) 12/13/19 14:10 Anion Gap 8.0 (3-11) 12/13/19 14:10 BUN 21 mg/dl (7-18) H 12/13/19 14:10 Creatinine 1.15 mg/dl (0.6-1.2) 12/13/19 14:10 Est Cr Clr Drug Dosing 59.8 ml/min 12/13/19 14:10 Est GFR ( Amer) 59.9 12/13/19 14:10 Est GFR (Non-Af Amer) 51.7 12/13/19 14:10 BUN/Creatinine Ratio 17.8 (10-20) 12/13/19 14:10 Glucose 96 mg/dl (70-99) 12/13/19 14:10 Calcium 9.2 mg/dl (8.5-10.1) 12/13/19 14:10 Total Bilirubin 0.5 mg/dl (0.2-1) 12/13/19 14:10 AST 20 U/L (15-37) 12/13/19 14:10 ALT 25 U/L (12-78) 12/13/19 14:10 Alkaline Phosphatase 72 U/L (45-117) 12/13/19 14:10 Troponin I < 0.015 ng/ml (0-0.045) 12/13/19 14:10 Total Protein 8.3 gm/dl (6.4-8.2) H 12/13/19 14:10 Albumin 4.3 gm/dl (3.4-5.0) 12/13/19 14:10 Globulin 4.0 gm/dl (2.5-4.0) 12/13/19 14:10 Albumin/Globulin Ratio 1.1 (0.9-2) 12/13/19 14:10 Lipase 107 U/L (73-393) 12/13/19 14:10 Diagnostic Findings [place], [place] [phone] XRay Report Patient: LILY VELIZ Date: 12/13/19 MR#: [id number]: [address] Acct ID:[id number]: Date: 1960[facility] Zip: [place] [address] Age: 59Location: ED Sex: F Room/Bed: Att Phy:Diagnosis: CP Ana Phy: Tito Green, III, MDService Date: 12/13/19 Fam Phy:Interpreting Phy: Daquan Murphy MD Admit Phy: Ordering Phy: Renee, Anil M., DO cc: ~ SINGLE VIEW CHEST CLINICAL HISTORY: Atypical chest pain. FINDINGS: An AP, portable, upright chest radiograph is compared to chest x-ray and chest CT dated 02/09/2019. The patient is status post midline sternotomy. The cardiomediastinal silhouette is unremarkable. The lungs and pleural spaces are clear. No pneumothorax is seen. The skeletal structures are osteopenic. The bony thorax is grossly intact. IMPRESSION: No active disease in the chest. ACT 112: Negative or not required by law. Electronically signed by: Daquan Murphy M.D. 12/13/2019 2:34 PM Dictated: 12/13/19 1434 Transcribed: 12/13/19 1434 Code Status & VTE Plan Code Status Full code VTE Prophylaxis Plan VTE Prophylaxis will be ordered: Yes Critical Care Time Critical Care Time: Yes Total Critical Care Time: 45 Total critical care time was 45 minutes PG Care Time/CCT Total # of Minutes Spent Total Time Spent with Patient: Total time spent is greater than 50% in coordination of care (as documented) at patient's floor/unit and/or counseling patient: Critical Care Time: Yes Total Critical Care Time: 45 Coding Level of Care Code 49284 Initial Inpt Care Lvl 3 Diagnoses Unstable angina I20.0 GERD (gastroesophageal reflux disease) K21.9 CAD (coronary artery disease) I25.10 Associated angina: angina presence unspecified Coronary Disease-Associated Artery/Lesion type: unspecified vessel or lesion type [place] vs. transplanted heart: unspecified whether [place] or transplanted heart Myocardial Infarction I21.9 Hypertension I10 Admitted to intensive care unit Z78.9 Additional Codes Critical Care Time - Critical Care Time: Yes ([id number]) Time Spent (min) 45 (1) CAD (coronary artery disease) Associated angina: angina presence unspecified Coronary Disease-Associated Artery/Lesion type: unspecified vessel or lesion type [place] vs. transplanted heart: unspecified whether [place] or transplanted heart Qualified Code(s): I25.10 - Atherosclerotic heart disease of [place] coronary artery without angina pectoris
[2019-12-13] MEDS ORDERED: FEXOFENADINE HCL 180 MG TAB PO SCH (21:00)
[2019-12-13] MEDS: PANTOprazole 40 MG TAB PO SCH (21:01)
[2019-12-13] MEDS: FAMOTIDINE 20 MG TAB PO SCH (21:02)
[2019-12-13] MEDS: ACETAMINOPHEN 325 MG TAB PO PRN (21:11)
[2019-12-13] MEDS: dilTIAZem HCL 120 MG CAPCR PO SCH (21:13)
--- NOTE | 2019-12-13 21:17 | Critical Care Consultation ---
Date of Consultation December 13, 2019 Assessment & Plan (1) Admitted to intensive care unit: Impression: 59-year-old female with extensive cardiac history presents to the ICU for unstable angina, requiring heparin infusion and titratable nitro drip Neuro - Headacheassociated with nitro drip, patient states is currently tolerable - acetaminophen as needed History of CVApatient with mild residual of expressive aphasia -Neurological exam at baseline, monitor -Continue aspirin Plavix Cardiac - Unstable angina/CADpatient with significant cardiac history as listed in HPI, now presenting with chest pain with radiation to left neck and left arm at rest 8 out of 10 -Echo from February 2019, EF of 60 to 65%; will repeat exam in a.m. -Troponin negative, EKG unremarkable and consistent with prior studies -We will recheck troponin in a.m. -Continue heparin and nitro drips for now -Cardiology consulted, will follow up recommendations -Continue ASA, Plavix, diltiazem -Maximize electrolytes -Strict I's and O's and daily weights -Daily EKGs -Continuous monitor on telemetry Respiratory - Hypoxic respiratory insufficiencycurrently requiring 4 L nasal cannula -Chest x-ray: No active disease in chest -Continue Lasix for diuresis as needed -Monitor on continuous pulse ox GI - Heart healthy diet GERDcontinue PPI RENAL/LYTES - Creatinine stable, monitor with routine BMPs Monitor electrolytes and replete as indicated - Strict I's and O's ENDO - No history diabetes or thyroid disease, currently euglycemic -ICU hyperglycemic protocol HEME - H&H stable, monitor routine CBCs ID - No indication for infectious process at this time LINES/IV ACCESS - Peripheral IVs DVT PROPHYLAXIS - SCDs, heparin drip I have personally spent 40 minutes of critical care time in the direct management of this patient. This is a life/limb threatening event. This includes time spent evaluating patient, direct bedside care, chart review, placing orders, interpretation of diagnostic studies, discussion with consultants, patient, and family members, as well as other required patient management activities. This time is exclusive of all separately billable procedures, and teaching time and separate from and in addition to any other critical care service time. Thank you for allowing us to participate in the care of this patient. Please refer to my attending physician's documentation for any further recommendations. (2) Unstable angina: (3) GERD (gastroesophageal reflux disease): (4) S/P CABG x 1: (5) History of pericardiectomy: (6) CAD (coronary artery disease): (7) Dyslipidemia: (8) History of stroke: Supervising Physician Co-Signing Physician Notes I was advised of this patient via telephone by the hospitalist team. Urgent/nonemergent evaluation by Addie GREWAL acceptable after discussion with hospitalist. History of Present Illness Attending Physician: Manuel Valenzuela MD History of Present Illness 59-year-old female with significant cardiac medical history including multiple MIs, PCI x4 with chronically occluded distal LAD, CABG x1, recurrent pericarditis and history of pericardiectomy, CAD, dyslipidemia, coronary artery dissection, myocardial bridge, Prinzmetal's angina. Other past medical history includes GERD, CVA, mast cell disorder, HTN. She presented to the emergency department earlier today with complaints of precordial chest pain with radiation to the left side of neck and arm. She describes the pain as equivalent to her prior ID. Patient's initial chest pain was 8 out of 10. Her initial troponin was negative and no significant changes on her EKG, however patient states that and prior MIs her troponin levels have not elevated until the next day. Given patient's significant cardiac history, she was started on heparin drip and nitro drip. She was then transferred to the ICU for management of titratable nitro drip. On arrival to the ICU patient states that her chest pain has improved from earlier and now rates as 6 out of 10. She no longer has radiation of pain to the left neck and left arm. She is hemodynamically stable and appears comfortable on exam. She reports a mild headache since the nitro drip started. She denies dizziness, syncope, shortness of breath, palpitations, nausea or vomiting, or abdominal pain. She denies recent weight gain or foot swelling. Denies recent illness, fevers, or respiratory disease. Patient to remain in ICU for further management at this time. Allergies Allergy/AdvReac Type Severity Reaction Status Date / Time ivabradine Allergy SV FACE SWELLS Verified 12/13/19 14:45 prochlorperazine Allergy Severe LOCK JAW Verified 12/13/19 14:45 [From Compazine] amlodipine Allergy Intermediate muscle pain Verified 12/13/19 14:45 morphine Allergy Intermediate RASH Verified 12/13/19 14:45 verapamil Allergy Intermediate muscle pain Verified 12/13/19 14:45 ibuprofen Allergy Mild Rash Verified 12/13/19 14:45 Home Medications Home Medications Medication Instructions Recorded Confirmed Type aspirin [Aspir-81] 81 mg PO QAM 04/08/18 12/13/19 History calcium phosphate-vitamin D3 1 tab PO QAM 04/08/18 12/13/19 History [Citracal-D3 Gummies] multivitamin 1 tab PO QAM 04/08/18 12/13/19 History nitroglycerin 1 dose SUBLINGUAL UD PRN 04/08/18 12/13/19 History vitamin X65-xhiwt acid 1 tab PO QAM 04/08/18 12/13/19 History fexofenadine [Hortensia Allergy] 180 mg PO BID 04/18/18 12/13/19 History nitroglycerin 400 mcg/spray 1 sprays SL Q5M PRN #12 gm 12/30/18 12/13/19 Rx translingual aerosol lisinopril 5 mg tablet 5 mg PO HS 02/26/19 12/13/19 History furosemide 40 mg tablet 40 mg PO DAILY PRN 02/27/19 12/13/19 History isosorbide mononitrate 60 mg 60 mg PO BID tab 02/27/19 12/13/19 History tablet,extended release 24 hr estradiol 10 mcg vaginal tablet 10 mcg PV .COMPLEX 365 Days #8 tab 03/10/19 12/13/19 Rx diltiazem HCl 240 mg PO QAM 03/27/19 12/13/19 History lidocaine 1 patch TOP DAILY PRN 03/27/19 12/13/19 History nitroglycerin 0.2 mg/hr 1 patch TD DAILY PRN #30 ea 04/21/19 12/13/19 Rx transdermal 24 hour patch clopidogrel 75 mg tablet 75 mg PO QAM #90 tab 07/31/19 12/13/19 Rx diltiazem HCl 120 mg 120 mg PO BID #60 cap 11/27/19 12/13/19 Rx capsule,extended release 24 hr famotidine 20 mg tablet 20 mg PO .qhs #30 tab 12/12/19 12/13/19 Rx pantoprazole 40 mg tablet,delayed 40 mg PO BID 30 Days #60 tab 12/12/19 12/13/19 Rx release sennosides-docusate sodium [Colace 1 tabcap PO QAM 12/13/19 12/13/19 History 2-In-1] Patient History Social History Preferred Language: Greenlandic Communication Ability: Effective Visual Impairment: No Limitations Hearing Ability: Normal 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 Beliefs That Will Affect Care: None marital status: Current Living Situation: Spouse current occupational status: retired Other Information That Helps Us Care for You: No Feels Safe at Home: Yes Safety Concerns: Feels Safe At This Time Smoking Status: Never smoker Second Hand Exposure: No ; Hx Alcohol Use: Yes Alcohol type: hard liquor Hx Substance Use: No Review of Systems Review of Systems: All systems reviewed & are unremarkable except as noted in HPI & below Physical Exam Constitutional: cooperative and comfortable Eyes: PERRL, conjunctivae normal, anicteric sclerae ENMT: external ear and nose normal, oropharynx normal Neck: trachea midline, no thyromegaly Respiratory: normal respiratory effort, lungs clear to auscultation Cardiovascular: RRR, no murmur, no edema Heart Sounds: normal S1 and normal S2 Vessels: no JVD Extremities: normal capillary refill Gastrointestinal (Abdomen): normal bowel sounds, soft, nontender, no hepatosplenomegaly Skin: no rashes, warm and dry Neurologic: PERRL, EOMI, accommodation nl, no face palsy, no dysarthria Psychiatric: A+Ox3, euthymic affect Results & Data Results & Data ([facility]) Vital Signs (Past 12 Hours) Vital Signs Temp Pulse Pulse Resp BP BP Pulse Ox 12/13/19 18:44 36.9 C 65 17 93/67 L 96 12/13/19 18:39 62 15 119/69 96 12/13/19 18:34 66 13 88/78 L 97 12/13/19 18:29 65 13 108/67 97 12/13/19 18:24 66 9 L 113/69 97 12/13/19 18:19 67 19 115/76 97 12/13/19 18:14 63 14 116/71 97 12/13/19 18:09 66 25 H 115/79 97 12/13/19 18:04 36.9 C 65 15 114/70 95 12/13/19 17:59 67 13 115/70 96 12/13/19 17:53 65 21 116/70 97 12/13/19 17:49 36.9 C 61 19 121/71 99 12/13/19 17:00 36.9 C 63 18 127/76 98 12/13/19 16:45 64 18 119/70 99 12/13/19 16:30 62 18 128/65 100 12/13/19 16:15 64 19 115/69 100 12/13/19 16:00 69 15 103/71 100 12/13/19 15:45 68 18 119/69 99 12/13/19 15:30 76 22 128/86 99 12/13/19 15:15 69 19 129/71 99 12/13/19 15:00 75 16 139/73 99 12/13/19 14:45 73 17 125/81 99 12/13/19 14:30 82 23 115/79 97 12/13/19 14:20 80 14 128/76 98 12/13/19 14:12 36.6 C 85 22 133/81 99 Coding Level of Care Code Critical Care 1st 30-74 mins Diagnoses Admitted to intensive care unit Z78.9 Unstable angina I20.0 GERD (gastroesophageal reflux disease) K21.9 S/P CABG x 1 Z95.1 History of pericardiectomy Z98.890 CAD (coronary artery disease) I25.10 Associated angina: angina presence unspecified Coronary Disease-Associated Artery/Lesion type: unspecified vessel or lesion type [place] vs. transplanted heart: unspecified whether [place] or transplanted heart Dyslipidemia E78.5 History of stroke Z86.73 (1) CAD (coronary artery disease) Associated angina: angina presence unspecified Coronary Disease-Associated Artery/Lesion type: unspecified vessel or lesion type [place] vs. transplanted heart: unspecified whether [place] or transplanted heart Qualified Code(s): I25.10 - Atherosclerotic heart disease of [place] coronary artery without angina pectoris
[2019-12-13 22:06] LABS: Partial Thromboplastin Ratio 1.6; Partial Thromboplastin Time 43.8 Seconds (21.0-31.0)
[2019-12-13] MEDS ORDERED: HEPARIN IV BOLUS 3,000 UNITS in SYRINGE 0 ML IV ONE (23:15)
[2019-12-14] MEDS: ACETAMINOPHEN 325 MG TAB PO PRN (01:46)
[2019-12-14 04:25] LABS: Basophils # (auto) 0.04 K/uL (0-0.2); Basophils % (auto) 0.6 %; Eosinophils # (auto) 0.29 K/uL (0-0.5); Eosinophils % (auto) 4.5 %; Hematocrit (blood only) 35.7 % (37-47); Hemoglobin 12.2 g/dL (12.0-16.0); Immature Granulocytes # (auto) 0.01 K/uL (0.00-0.02); Immature Granulocytes % (auto) 0.2 %; Lymphocytes # (auto) 2.33 K/uL (1.2-3.4); Lymphocytes % (auto) 35.8 %; Mean Corpuscular Hemoglobin 32.2 pg (25-34); Mean Corpuscular Hgb Conc 34.2 g/dL (32-36); Mean Corpuscular Volume 94.2 fL (80-100); Monocytes # (auto) 0.57 K/uL (0.11-0.59); Monocytes % (auto) 8.8 %; Neutrophils # (auto) 3.27 K/uL (1.4-6.5); Neutrophils % (auto) 50.1 %; Platelet Count 299 K/uL (130-400); RDW Coefficient of Variation 12.1 % (11.5-14.5); RDW Standard Deviation 40.9 fL (36.4-46.3); Red Blood Count 3.79 M/uL (4.2-5.4); White Blood Count 6.51 K/uL (4.8-10.8)
[2019-12-14 04:47] LABS: Alanine Aminotransferase 42 U/L (12-78); Albumin Level 3.2 gm/dl (3.4-5.0); Aspartate Aminotransferase 44 U/L (15-37); BUN Creatinine Ratio 15.6 (10-20); Bilirubin Direct 0.1 mg/dl (0-0.2); Blood Urea Nitrogen 16 mg/dl (7-18); Calcium 8.1 mg/dl (8.5-10.1); Carbon Dioxide 29 mmol/L (21-32); Chloride 108 mmol/L (98-107); Creatinine Clr Calc Pharmacy 64.1 ml/min; Est GFR (African American) 70.9; Est GFR (Non-African American) 61.2; Glucose 102 mg/dl (70-99); Magnesium 2.2 mg/dl (1.8-2.4); Partial Thromboplastin Ratio 2.6; Potassium 3.9 mmol/L (3.5-5.1); Prothrombin Time 10.8 Seconds (9.0-12.0); Sodium 142 mmol/L (136-145)
[2019-12-14 04:54] LABS: Partial Thromboplastin Time 72.6 Seconds (21.0-31.0)
[2019-12-14 04:55] LABS: Alkaline Phosphatase 64 U/L (45-117); Bilirubin,Total 0.7 mg/dl (0.2-1); Total Protein 6.6 gm/dl (6.4-8.2); Troponin I < 0.015 ng/ml (0-0.045)
[2019-12-14] MEDS: fentaNYL citrate 100 MCG/2 ML VIAL IV PRN ×6 (06:02→21:22)
[2019-12-14] MEDS ORDERED: ONDANSETRON INJ 2 MG/ML 2 ML VIAL ONE (06:06)
[2019-12-14] MEDS ORDERED: ONDANSETRON INJ 2 MG/ML 2 ML VIAL IV ONE (06:21)
[2019-12-14] MEDS: POTASSIUM CHLORIDE 20 MEQ TABCR PO ONE ×2 (06:42→06:46)
[2019-12-14] MEDS: FEXOFENADINE HCL 180 MG TAB PO SCH (08:23)
[2019-12-14] MEDS: CALCIUM 600MG + VIT D 400 IU TAB PO SCH (08:23)
[2019-12-14] MEDS: dilTIAZem HCL 120 MG CAPCR PO SCH ×2 (08:27→21:12)
[2019-12-14] MEDS: ASPIRIN 81 MG ECTAB PO SCH (08:28)
[2019-12-14] MEDS: dilTIAZem HCL 240 MG CAPCR PO SCH (08:28)
[2019-12-14] MEDS: MULTIVITAMIN TAB PO SCH (08:28)
[2019-12-14] MEDS: CLOPIDOGREL BISULFATE 75 MG TAB PO SCH (08:28)
[2019-12-14] MEDS: PANTOprazole 40 MG TAB PO SCH ×2 (08:29→21:12)
[2019-12-14] MEDS: DOCUSATE SODIUM/SENNA 50/8.6MG TAB PO SCH (08:29)
[2019-12-14] MEDS: VITAMIN B COMPLEX TAB PO SCH (08:29)
[2019-12-14] MEDS ORDERED: NON-FORMULARY MEDICATION (Diltiazem Hcl 240 MG) PO SCH (09:00)
--- NOTE | 2019-12-14 10:51 | Hospitalist Progress Note ---
Date of Service December 14, 2019 Assessment & Plan (1) Unstable angina: Unstable angina/CAD/hypertension/history of CT/history of coronary artery dissection/stented coronary arteries x4- Patient will be admitted to the ICU on heparin drip and nitroglycerin drip. Trop neg x2 EKG neg for acute x4 ECHO pending CBC, PRP, Mg, phose WNL CXR neg for acute Continue aspirin 81 mg every morning, clopidogrel 70 mg every morning, diltiazem 240 mg every morning and 120 mg p.o. twice daily. Hold isosorbide mononitrate 60 mg p.o. twice daily and nitroglycerin sublingual as needed. Hold Nitroglycerin transdermal 24-hour patch. consults cardiology Dr. Diggs. Consult seafood preparer Dr. Austin Possibly related to PUD vs esophageal spasm? EGD last week as noted in HPI GI cocktail trial with pain (2) GERD (gastroesophageal reflux disease): continue Protonix 40 mg p.o. twice daily (3) CAD (coronary artery disease): See above (4) Myocardial Infarction: See above (5) Hypertension: See above (6) Admitted to intensive care unit: See above Admission and Anticipated Discharge Date Admission Date: December 13, 2019 Subjective Pt states she does not have chest pain at present, but it has continued to come and go "and when it comes, it is killer". She states that it feels similar to when she had her CT. It is not the baseline chest pain she used to have prior to being dx with a beta ti allergy. She gets SOB with this. She has been having difficulty swallowing. Mild nausea, but no emesis. Pt denies fever, abd pain, c/d, LE pain. Pt states she has had a slight amount of LE swelling the last few days and that she has been taking PRN lasix for this with improvement. Better today. Pt tells me that she had an EGD last week. She was dx with esophagitis, silent reflux, a small ulcer, and hiatal hernia. Review of Systems Review of Systems: Pertinent positives and negatives reviewed in HPI--all others negative Physical Exam Constitutional: WD/WN, vitals as above Eyes: normal visual anderson by confrontation and + anicteric sclerae Neck: normal visual inspection and trachea midline Respiratory: normal respiratory effort, lungs clear to auscultation Cardiovascular: Rate/Rhythm: regular rate and regular rhythm Gastrointestinal (Abdomen): Inspection/Auscultation: abdomen not distended Percussion/Palpation: abdomen soft; abdomen nontender Musculoskeletal: Head/Neck/Chest: normocephalic and head atraumatic trace LE edema, peripheral pulses intact Skin: no rashes, warm and dry Neurologic: awake; not confused Speech / Cognition: normal speech Psychiatric: A+Ox3, euthymic affect Results & Data Results & Data ([facility]) Vital Signs (Past 12 Hours) Vital Signs Temp Pulse Resp BP Pulse Ox 12/14/19 08:34 36.7 C 12/14/19 08:30 68 13 93 12/14/19 08:26 74 12 129/69 93 12/14/19 08:11 66 19 122/64 99 12/14/19 07:41 71 14 103/49 L 98 12/14/19 07:26 64 15 118/68 98 12/14/19 07:11 74 19 123/67 97 12/14/19 07:00 59 L 15 98 12/14/19 06:11 61 12 116/72 97 12/14/19 05:56 36.9 C 68 14 137/73 98 12/14/19 05:41 78 19 122/79 97 12/14/19 05:25 59 L 16 117/75 98 12/14/19 05:10 55 L 13 107/64 98 12/14/19 04:55 57 L 14 124/66 98 12/14/19 04:40 52 L 14 111/66 98 12/14/19 04:25 53 L 15 108/70 96 12/14/19 04:10 57 L 15 105/71 12/14/19 03:56 36.8 C 47 L 16 100/67 98 12/14/19 03:40 53 L 14 105/65 96 12/14/19 03:25 53 L 14 106/62 96 12/14/19 03:10 50 L 14 105/66 97 12/14/19 02:55 54 L 12 95/63 L 98 12/14/19 02:40 56 L 14 101/64 97 12/14/19 02:25 59 L 14 110/74 99 12/14/19 02:10 52 L 14 104/61 98 12/14/19 01:55 36.8 C 52 L 15 102/65 98 12/14/19 01:40 54 L 14 95/58 L 98 12/14/19 01:25 60 16 76/53 L 98 12/14/19 01:10 57 L 14 102/59 L 98 12/14/19 00:55 58 L 15 107/63 98 12/14/19 00:40 54 L 14 99/59 L 98 12/14/19 00:25 57 L 15 108/66 97 12/14/19 00:10 63 15 104/64 98 12/13/19 23:55 58 L 16 101/59 L 98 12/13/19 23:40 56 L 15 97/60 L 97 12/13/19 23:25 55 L 15 105/66 97 12/13/19 23:10 54 L 15 103/64 97 12/13/19 22:55 54 L 16 96/61 L 97 PG Care Time/CCT Total # of Minutes Spent Total Time Spent with Patient: Total time spent is greater than 50% in coordination of care (as documented) at patient's floor/unit and/or counseling patient: Coding Level of Care Code 73735 Subseq Hosp Care Lvl 3 Diagnoses Unstable angina I20.0 GERD (gastroesophageal reflux disease) K21.9 CAD (coronary artery disease) I25.10 Associated angina: angina presence unspecified Coronary Disease-Associated Artery/Lesion type: unspecified vessel or lesion type [place] vs. transplanted heart: unspecified whether [place] or transplanted heart Myocardial Infarction I21.9 Hypertension I10 Admitted to intensive care unit Z78.9 (1) CAD (coronary artery disease) Associated angina: angina presence unspecified Coronary Disease-Associated Artery/Lesion type: unspecified vessel or lesion type [place] vs. transplanted heart: unspecified whether [place] or transplanted heart Qualified Code(s): I25.10 - Atherosclerotic heart disease of [place] coronary artery without angina pectoris
[2019-12-14 11:38] LABS: Partial Thromboplastin Ratio 1.8
[2019-12-14 11:39] LABS: Partial Thromboplastin Time 48.9 Seconds (21.0-31.0)
[2019-12-14] MEDS: ALUMINUM/MAGNESIUM SUSP 72 ML, LIDOCAINE HCL VISCOUS 2% 24 ML, BARCODE IDENTIFIER 1 EA PO PRN (11:48)
--- NOTE | 2019-12-14 12:31 | Electrocardiogram Report ---
Test Reason : Blood Pressure : / mmHG Vent. Rate : 084 BPM Atrial Rate : 084 BPM P-R Int : 156 ms QRS Dur : 084 ms QT Int : 394 ms P-R-T Axes : 040 -28 032 degrees QTc Int : 465 ms Normal sinus rhythm Possible Left atrial enlargement Poor R wave progression, consider anterior IL vs. lead placement vs. LVH When compared with ECG of 10-FEB-2019 07:41, No significant change was found Confirmed by Reid Calle ([id number]) on 12/14/2019 12:31:02 PM Referred By: Confirmed By:Reid Calle
--- NOTE | 2019-12-14 12:34 | Electrocardiogram Report ---
Test Reason : Blood Pressure : / mmHG Vent. Rate : 069 BPM Atrial Rate : 069 BPM P-R Int : 168 ms QRS Dur : 080 ms QT Int : 420 ms P-R-T Axes : 023 -24 020 degrees QTc Int : 450 ms Normal sinus rhythm Minimal voltage criteria for LVH, may be normal variant Poor R wave progression, consider anterior HI vs. lead placement vs. LVH When compared with ECG of 13-DEC-2019 14:07, (unconfirmed) No significant change was found Confirmed by Reid Calle ([id number]) on 12/14/2019 12:34:21 PM Referred By: REFERRED SELF Confirmed By:Reid Calle
--- NOTE | 2019-12-14 12:35 | Electrocardiogram Report ---
Test Reason : Blood Pressure : / mmHG Vent. Rate : 075 BPM Atrial Rate : 075 BPM P-R Int : 158 ms QRS Dur : 084 ms QT Int : 414 ms P-R-T Axes : 021 -27 025 degrees QTc Int : 462 ms Normal sinus rhythm Possible Left atrial enlargement Left ventricular hypertrophy Poor R wave progression, consider anterior [place] vs. lead placement vs. LVH Abnormal ECG When compared with ECG of 13-DEC-2019 14:51, (unconfirmed) No significant change was found Confirmed by Reid Calle ([id number]) on 12/14/2019 12:35:39 PM Referred By: REFERRED SELF Confirmed By:Reid Calle
[2019-12-14] MEDS ORDERED: ONDANSETRON INJ 2 MG/ML 2 ML VIAL IV PRN (13:23)
--- NOTE | 2019-12-14 14:49 | Critical Care Progress Note ---
Date of Service December 14, 2019 Assessment & Plan (1) Admitted to intensive care unit: Impression: 59-year-old female with extensive cardiac history presents to the ICU for unstable angina, requiring heparin infusion and titratable nitro drip Neuro - Headacheassociated with nitro drip, patient states is currently tolerable - acetaminophen as needed History of CVApatient with mild residual of expressive aphasia -Neurological exam at baseline, monitor -Continue aspirin Plavix Cardiac - Unstable angina/CADpatient with significant cardiac history as listed in HPI, now presenting with chest pain with radiation to left neck and left arm at rest 8 out of 10 -Echo from February 2019, EF of 60 to 65%; will repeat exam in a.m. -Troponin negative, EKG unremarkable and consistent with prior studies -We will recheck troponin in a.m. -Discontinue nitro drip after 24 hours -Continue heparin -Cardiology consulted, will follow up recommendations -Continue ASA, Plavix, diltiazem -Maximize electrolytes -Strict I's and O's and daily weights -Daily EKGs -Continuous monitor on telemetry Respiratory - Hypoxic respiratory insufficiencycurrently requiring 4 L nasal cannula -Chest x-ray: No active disease in chest -Continue Lasix for diuresis as needed -Monitor on continuous pulse ox GI - Heart healthy diet GERDcontinue PPI RENAL/LYTES - Creatinine stable, monitor with routine BMPs Monitor electrolytes and replete as indicated - Strict I's and O's ENDO - No history diabetes or thyroid disease, currently euglycemic -ICU hyperglycemic protocol HEME - H&H stable, monitor routine CBCs ID - No indication for infectious process at this time LINES/IV ACCESS - Peripheral IVs DVT PROPHYLAXIS - SCDs, heparin drip If patient remains off nitro drip for 2 to 3 hours she would be stable for transfer to telemetry/PCU. (2) Unstable angina: (3) GERD (gastroesophageal reflux disease): (4) S/P CABG x 1: (5) History of pericardiectomy: (6) CAD (coronary artery disease): (7) Dyslipidemia: (8) History of stroke: Admission and Anticipated Discharge Date Admission Date: December 13, 2019 Subjective Patient reports the initial pain occurred on November 19 and has had several episodes most recently 1 yesterday which prompted her to come to the emergency room and 1 at 6 AM today. There has been no elevation in her troponins at this time and her EKG remains unremarkable. She does have a concerning history for cardiac pathology as well as esophageal pathology at this time we will continue the current treatment plan awaiting formal cardiology recommendations. Review of Systems Review of Systems: Chest pain with radiation into the left arm and left neck similar to prior heart attacks, the pain is not characteristics of her anginal pains. Physical Exam Physical Exam: General: Alert. nontoxic. Skin: Warm, dry, Head: Atraumatic Ears, nose, mouth and throat: airway patent Cardiovascular: Normal peripheral perfusion Respiratory: no respiratory distress Gastrointestinal: Non distended Musculoskeletal: No deformity Results & Data Results & Data ([facility]) Vital Signs (Past 12 Hours) Vital Signs Temp Pulse Resp BP Pulse Ox 12/14/19 13:56 63 16 115/71 98 12/14/19 13:41 58 L 16 123/71 99 12/14/19 13:26 56 L 17 114/67 99 12/14/19 13:11 54 L 15 110/66 99 12/14/19 12:56 55 L 15 109/69 99 12/14/19 12:41 36.7 C 60 14 110/69 98 12/14/19 12:30 63 13 98 12/14/19 12:26 71 18 123/79 98 12/14/19 12:11 70 20 120/77 96 12/14/19 12:00 71 20 95 12/14/19 11:56 68 14 114/78 96 12/14/19 11:41 55 L 15 112/68 94 12/14/19 11:30 55 L 15 94 12/14/19 11:26 56 L 14 116/70 94 12/14/19 11:11 67 17 111/73 93 12/14/19 11:00 57 L 15 96 12/14/19 10:56 60 13 107/71 95 12/14/19 10:41 72 15 116/66 97 12/14/19 10:30 56 L 15 93 12/14/19 10:26 64 14 104/68 93 12/14/19 10:11 63 13 106/61 93 12/14/19 10:00 61 13 91 12/14/19 09:56 62 13 102/62 92 12/14/19 09:41 63 14 103/61 91 12/14/19 09:30 63 21 92 12/14/19 09:26 63 14 104/58 L 92 12/14/19 09:11 69 16 108/67 93 12/14/19 09:00 77 16 93 12/14/19 08:56 80 19 118/69 95 12/14/19 08:41 71 14 118/70 93 12/14/19 08:34 36.7 C 12/14/19 08:30 68 13 93 12/14/19 08:26 74 12 129/69 93 12/14/19 08:11 66 19 122/64 99 12/14/19 07:41 71 14 103/49 L 98 12/14/19 07:26 64 15 118/68 98 12/14/19 07:11 74 19 123/67 97 12/14/19 07:00 59 L 15 98 12/14/19 06:11 61 12 116/72 97 12/14/19 05:56 36.9 C 68 14 137/73 98 12/14/19 05:41 78 19 122/79 97 12/14/19 05:25 59 L 16 117/75 98 12/14/19 05:10 55 L 13 107/64 98 12/14/19 04:55 57 L 14 124/66 98 12/14/19 04:40 52 L 14 111/66 98 12/14/19 04:25 53 L 15 108/70 96 12/14/19 04:10 57 L 15 105/71 12/14/19 03:56 36.8 C 47 L 16 100/67 98 12/14/19 03:40 53 L 14 105/65 96 12/14/19 03:25 53 L 14 106/62 96 12/14/19 03:10 50 L 14 105/66 97 12/14/19 02:55 54 L 12 95/63 L 98 Laboratory Results 12/14/19 12/14/19 12/14/19 Range/Units 10:56 04:06 04:06 WBC (4.8-10.8) K/uL RBC (4.2-5.4) M/uL Hgb (12.0-16.0) g/dL Hct (37-47) % MCV (80-100) fL MCH (25-34) pg MCHC (32-36) g/dL RDW Std Deviation (36.4-46.3) fL RDW Coeff of [place] (11.5-14.5) % Plt Count (130-400) K/uL MPV (7.4-10.4) fL Immature Gran % (Auto) % Neut % (Auto) % Lymph % (Auto) % Haines % (Auto) % Eos % (Auto) % Baso % (Auto) % Neut # (Auto) (1.4-6.5) K/uL Lymph # (Auto) (1.2-3.4) K/uL Haines # (Auto) (0.11-0.59) K/uL Eos # (Auto) (0-0.5) K/uL Baso # (Auto) (0-0.2) K/uL Immature Gran # (Auto) (0.00-0.02) K/uL PT (9.0-12.0) Seconds INR (0.9-1.1) APTT 48.9 H* (21.0-31.0) Seconds PTT Ratio 1.8 Sodium 142 (136-145) mmol/L Potassium 3.9 (3.5-5.1) mmol/L Chloride 108 H (98-107) mmol/L Carbon Dioxide 29 (21-32) mmol/L Anion Gap 5.0 (3-11) BUN 16 (7-18) mg/dl Creatinine 1.00 (0.6-1.2) mg/dl Est Cr Clr Drug Dosing 64.1 ml/min Est GFR ( Amer) 70.9 Est GFR (Non-Af Amer) 61.2 BUN/Creatinine Ratio 15.6 (10-20) Glucose 102 H (70-99) mg/dl POC Glucose (70-99) mg/dl Calcium 8.1 L (8.5-10.1) mg/dl Phosphorus 4.0 (2.5-4.9) mg/dl Magnesium 2.2 (1.8-2.4) mg/dl Total Bilirubin 0.7 (0.2-1) mg/dl Direct Bilirubin 0.1 (0-0.2) mg/dl AST 44 H (15-37) U/L ALT 42 (12-78) U/L Alkaline Phosphatase 64 (45-117) U/L Troponin I < 0.015 (0-0.045) ng/ml Total Protein 6.6 D (6.4-8.2) gm/dl Albumin 3.2 L (3.4-5.0) gm/dl Nasal Screen MRSA (PCR) (Negative) Digoxin 0.1 L (0.8-2.0) ng/ml 12/14/19 12/14/19 12/13/19 Range/Units 04:06 04:06 21:49 WBC 6.51 (4.8-10.8) K/uL RBC 3.79 L (4.2-5.4) M/uL Hgb 12.2 (12.0-16.0) g/dL Hct 35.7 L (37-47) % MCV 94.2 (80-100) fL MCH 32.2 (25-34) pg MCHC 34.2 (32-36) g/dL RDW Std Deviation 40.9 (36.4-46.3) fL RDW Coeff of [place] 12.1 (11.5-14.5) % Plt Count 299 (130-400) K/uL MPV 9.0 (7.4-10.4) fL Immature Gran % (Auto) 0.2 % Neut % (Auto) 50.1 % Lymph % (Auto) 35.8 % Haines % (Auto) 8.8 % Eos % (Auto) 4.5 % Baso % (Auto) 0.6 % Neut # (Auto) 3.27 (1.4-6.5) K/uL Lymph # (Auto) 2.33 (1.2-3.4) K/uL Haines # (Auto) 0.57 (0.11-0.59) K/uL Eos # (Auto) 0.29 (0-0.5) K/uL Baso # (Auto) 0.04 (0-0.2) K/uL Immature Gran # (Auto) 0.01 (0.00-0.02) K/uL PT 10.8 (9.0-12.0) Seconds INR 1.0 (0.9-1.1) APTT 72.6 H* 43.8 H (21.0-31.0) Seconds PTT Ratio 2.6 1.6 Sodium (136-145) mmol/L Potassium (3.5-5.1) mmol/L Chloride (98-107) mmol/L Carbon Dioxide (21-32) mmol/L Anion Gap (3-11) BUN (7-18) mg/dl Creatinine (0.6-1.2) mg/dl Est Cr Clr Drug Dosing ml/min Est GFR ( Amer) Est GFR (Non-Af Amer) BUN/Creatinine Ratio (10-20) Glucose (70-99) mg/dl POC Glucose (70-99) mg/dl Calcium (8.5-10.1) mg/dl Phosphorus (2.5-4.9) mg/dl Magnesium (1.8-2.4) mg/dl Total Bilirubin (0.2-1) mg/dl Direct Bilirubin (0-0.2) mg/dl AST (15-37) U/L ALT (12-78) U/L Alkaline Phosphatase (45-117) U/L Troponin I (0-0.045) ng/ml Total Protein (6.4-8.2) gm/dl Albumin (3.4-5.0) gm/dl Nasal Screen MRSA (PCR) (Negative) Digoxin (0.8-2.0) ng/ml 12/13/19 12/13/19 Range/Units 19:01 17:37 WBC (4.8-10.8) K/uL RBC (4.2-5.4) M/uL Hgb (12.0-16.0) g/dL Hct (37-47) % MCV (80-100) fL MCH (25-34) pg MCHC (32-36) g/dL RDW Std Deviation (36.4-46.3) fL RDW Coeff of [place] (11.5-14.5) % Plt Count (130-400) K/uL MPV (7.4-10.4) fL Immature Gran % (Auto) % Neut % (Auto) % Lymph % (Auto) % [place]aines % (Auto) % Eos % (Auto) % Baso % (Auto) % Neut # (Auto) (1.4-6.5) K/uL Lymph # (Auto) (1.2-3.4) K/uL [place]aines # (Auto) (0.11-0.59) K/uL Eos # (Auto) (0-0.5) K/uL Baso # (Auto) (0-0.2) K/uL Immature Gran # (Auto) (0.00-0.02) K/uL PT (9.0-12.0) Seconds INR (0.9-1.1) APTT (21.0-31.0) Seconds PTT Ratio Sodium (136-145) mmol/L Potassium (3.5-5.1) mmol/L Chloride (98-107) mmol/L Carbon Dioxide (21-32) mmol/L Anion Gap (3-11) BUN (7-18) mg/dl Creatinine (0.6-1.2) mg/dl Est Cr Clr Drug Dosing ml/min Est GFR ( Amer) Est GFR (Non-Af Amer) BUN/Creatinine Ratio (10-20) Glucose (70-99) mg/dl POC Glucose 102 H (70-99) mg/dl Calcium (8.5-10.1) mg/dl Phosphorus (2.5-4.9) mg/dl Magnesium (1.8-2.4) mg/dl Total Bilirubin (0.2-1) mg/dl Direct Bilirubin (0-0.2) mg/dl AST (15-37) U/L ALT (12-78) U/L Alkaline Phosphatase (45-117) U/L Troponin I (0-0.045) ng/ml Total Protein (6.4-8.2) gm/dl Albumin (3.4-5.0) gm/dl Nasal Screen MRSA (PCR) Negative (Negative) Digoxin (0.8-2.0) ng/ml Coding Level of Care Code 14014 Subseq Hosp Care Lvl 3 Diagnoses Admitted to intensive care unit Z78.9 Unstable angina I20.0 GERD (gastroesophageal reflux disease) K21.9 S/P CABG x 1 Z95.1 History of pericardiectomy Z98.890 CAD (coronary artery disease) I25.10 Associated angina: angina presence unspecified Coronary Disease-Associated Artery/Lesion type: unspecified vessel or lesion type [place] vs. transplanted heart: unspecified whether [place] or transplanted heart Dyslipidemia E78.5 History of stroke Z86.73 (1) CAD (coronary artery disease) Associated angina: angina presence unspecified Coronary Disease-Associated Artery/Lesion type: unspecified vessel or lesion type [place] vs. transplanted heart: unspecified whether [place] or transplanted heart Qualified Code(s): I25.10 - Atherosclerotic heart disease of [place] coronary artery without angina pectoris
[2019-12-14] MEDS ORDERED: Nursing to Pharmacy Communication SCH (17:45)
[2019-12-14] MEDS: ONDANSETRON INJ 2 MG/ML 2 ML VIAL IV PRN (18:08)
[2019-12-14] MEDS: HEPARIN SODIUM/DEXTROSE 25,000 UNITS/500 ML BAG IV SCH (18:10)
[2019-12-14] MEDS: NITROGLYCERIN/D5W 100MCG/ML 250 ML IV SCH (18:59)
[2019-12-14] MEDS: FAMOTIDINE 20 MG TAB PO SCH (21:12)
[2019-12-15] MEDS: fentaNYL citrate 100 MCG/2 ML VIAL IV PRN ×4 (04:02→13:42)
[2019-12-15 04:42] LABS: Basophils # (auto) 0.03 K/uL (0-0.2); Basophils % (auto) 0.6 %; Eosinophils % (auto) 5.7 %; Hematocrit (blood only) 39.5 % (37-47); Hemoglobin 13.7 g/dL (12.0-16.0); Lymphocytes % (auto) 24.6 %; Mean Corpuscular Hemoglobin 32.7 pg (25-34); Mean Corpuscular Hgb Conc 34.7 g/dL (32-36); Mean Corpuscular Volume 94.3 fL (80-100); Mean Platelet Volume 9.2 fL (7.4-10.4); Monocytes # (auto) 0.53 K/uL (0.11-0.59); Neutrophils # (auto) 3.12 K/uL (1.4-6.5); Neutrophils % (auto) 59.1 %; Platelet Count 267 K/uL (130-400); RDW Coefficient of Variation 11.9 % (11.5-14.5); RDW Standard Deviation 40.6 fL (36.4-46.3); Red Blood Count 4.19 M/uL (4.2-5.4); White Blood Count 5.28 K/uL (4.8-10.8)
[2019-12-15 05:01] LABS: Partial Thromboplastin Ratio 1.7; Prothrombin Time 10.7 Seconds (9.0-12.0)
[2019-12-15 06:03] LABS: Albumin Level 3.4 gm/dl (3.4-5.0); BUN Creatinine Ratio 15.1 (10-20); Bilirubin Direct 0.2 mg/dl (0-0.2); Bilirubin,Total 0.7 mg/dl (0.2-1); Calcium 8.4 mg/dl (8.5-10.1); Creatinine Clr Calc Pharmacy 68.2 ml/min; Est GFR (African American) 76.4; Est GFR (Non-African American) 65.9; Magnesium 2.2 mg/dl (1.8-2.4); Phosphorus 4.1 mg/dl (2.5-4.9); Potassium 4.2 mmol/L (3.5-5.1)
[2019-12-15] MEDS: ONDANSETRON INJ 2 MG/ML 2 ML VIAL IV PRN ×2 (07:20→17:03)
[2019-12-15] MEDS: CALCIUM 600MG + VIT D 400 IU TAB PO SCH (08:34)
[2019-12-15] MEDS: FEXOFENADINE HCL 180 MG TAB PO SCH (08:34)
[2019-12-15] MEDS: dilTIAZem HCL 120 MG CAPCR PO SCH ×2 (08:34→21:57)
[2019-12-15] MEDS: PANTOprazole 40 MG TAB PO SCH ×2 (08:35→22:05)
[2019-12-15] MEDS: CLOPIDOGREL BISULFATE 75 MG TAB PO SCH (08:35)
[2019-12-15] MEDS: DOCUSATE SODIUM/SENNA 50/8.6MG TAB PO SCH ×2 (08:35→17:57)
[2019-12-15] MEDS: VITAMIN B COMPLEX TAB PO SCH (08:35)
[2019-12-15] MEDS: dilTIAZem HCL 240 MG CAPCR PO SCH (08:35)
[2019-12-15] MEDS: ASPIRIN 81 MG ECTAB PO SCH (08:35)
[2019-12-15] MEDS: MULTIVITAMIN TAB PO SCH (08:35)
--- NOTE | 2019-12-15 09:03 | Critical Care Progress Note ---
Date of Service December 15, 2019 Assessment & Plan (1) Admitted to intensive care unit: Impression: 59-year-old female with extensive cardiac history admitted with chest pain which she feels is consistent with pericarditis. She has had this before. Her troponins and echocardiogram were unrevealing. EKG was not assistant controller with pericardial disease. She also has uncontrolled reflux. Nitrogly cerin has been off since yesterday with no change in her current symptoms. Recommendations: 1. Chest pain: Possible pericarditis. We will give her dose of tramadol for decision regarding colchicine to cardiology. The patient can downgrade from the ICU to the telemetry floor at this point time. 2. Esophageal reflux: She is on PPI and H2 ti. We will add Carafate to her regimen to see if a coating agent offers her some clinical benefit. 3. Possible pericarditis: Management per cardiology. Off NTG and heparin. Ok to transfer to telemetry. 4. Abnormal LFT: Continue to trend. Management per gastroenterology. She had previously been seen by GI and had had an MR cholangiogram performed last year demonstrating no evidence of stones but a mildly thickened gallbladder wall. Right upper quadrant ultrasound has been ordered and is currently pending. It is possible that her chest discomfort could be associated to cholestatic disease The patient appears stable to transfer out of the intensive care unit to the floor on telemetry. We will sign off when she leaves the ICU (2) Unstable angina: (3) Chest pain: (4) GERD (gastroesophageal reflux disease): Admission and Anticipated Discharge Date Admission Date: December 13, 2019 Subjective Patient seen and examined. EMR reviewed. Discussed with Dr. Austin. Discussed on multidisciplinary rounds and with ICU staff. The patient reports that she is having continued chest pain. She reports this is exactly like her prior episodes of pericarditis and responded favorably to colchicine in the past. She is also having some esophageal issues. She reports some mild dysphasia. Review of Systems Review of Systems: All systems reviewed & are unremarkable except as noted in HPI & below Physical Exam Constitutional: WD/WN, vitals as above Neck: trachea midline, no thyromegaly Respiratory: normal respiratory effort, lungs clear to auscultation Cardiovascular: RRR, no murmur, no edema Gastrointestinal (Abdomen): normal bowel sounds, soft, nontender, no hepatosplenomegaly Musculoskeletal: Extremities: extremities normal to inspection Skin: no rashes, warm and dry Neurologic: Nonfocal exam Lymphatic: no cervical lymphadenopathy Results & Data Results & Data ([facility]) Vital Signs (Past 12 Hours) Vital Signs Temp Pulse Resp BP Pulse Ox 12/15/19 08:00 52 L 12/15/19 07:15 36.6 C 12/15/19 07:00 57 L 15 115/56 L 99 12/15/19 05:57 36.5 C 52 L 15 113/65 99 12/15/19 04:57 36.5 C 53 L 12 119/66 99 12/15/19 03:57 53 L 14 115/68 99 12/15/19 02:57 36.5 C 48 L 13 123/60 100 12/15/19 01:57 36.5 C 50 L 13 111/60 98 12/15/19 00:57 36.5 C 63 17 111/65 100 12/15/19 00:00 57 L 12/14/19 23:57 36.7 C 61 16 106/61 99 12/14/19 22:57 37 C 53 L 15 107/63 99 12/14/19 21:57 36.7 C 52 L 18 125/64 99 12/14/19 21:22 60 14 138/75 99 Laboratory Results 12/15/19 04:23 12/15/19 04:23 Diagnostic Findings No new imaging Coding Level of Care Code 32551 Subseq Hosp Care Lvl 3 Diagnoses Admitted to intensive care unit Z78.9 Unstable angina I20.0 Chest pain R07.9 Chest pain type: unspecified GERD (gastroesophageal reflux disease) K21.9 (1) Chest pain Chest pain type: unspecified Qualified Code(s): R07.9 - Chest pain, unspecified
--- NOTE | 2019-12-15 10:06 | Gastrointestinal Consultation ---
Date of Consultation December 15, 2019 Assessment & Plan (1) Chest pain: Patient with pericarditis, but feels there is something GI going on. -Obtain upper GI study -Continue PPI BID -US to exclude abnormalities -Proceed with cardiology recs Present on Admission?: Yes (2) GERD (gastroesophageal reflux disease): -Continue BID PPI therapy -Recent EGD was unremarkable with exception of small hiatal hernia & gastritis Present on Admission?: Yes (3) Constipation: -Encourage po hydration--64 oz water daily -Miralax 17 gm BID Present on Admission?: Yes (4) Elevated liver enzymes: -Trend LFTs -Obtain liver/RUQ US Present on Admission?: No Supervising Physician Co-Signing Physician Notes Agree with MERCY Muller as above Abd: Soft, NT, ND, +BS Continue current therapy Add Carafate 1 g PO QID AC and HS for 10 days RUQ US and UGI Series were normal History of Present Illness Reason for Consultation: Epigastric pain Attending Physician: Mahsa Bowden MD History of Present Illness Patient is a 59 yo female admitted with epigastric/chest pain. GI has been consulted for this reason. She was seen in our outpatient clinic for this issue on 12/12/19 after having an EGD on 12/02/19 that was unremarkable with the exception of a small hiatal hernia & gastritis. At her follow-up with Dr. Allen on 12/11, she was advised to seek cardiac opinion due to concerns surrounding her persistent symptoms despite lack of GI findings. The patient has been seen by cardiology today and was diagnosed with a possible pericarditis. She notes that she has had pericarditis before and feels that she has extra symptoms in addition to the pericarditis. She reports esophageal spasming. She is s/p cholecystectomy. She has not had abdominal imaging since being admitted to the hospital. She has findings of elevated liver enzymes with an AST of 695, ALT 647, and alk phos of 148. Bilirubin is within normal limits. She reports constipation. She has tried Fiber senna, and Miralax for a couple days without success. She reports a bowel obstruction earlier in 2019 and notes her bowels have not moved the same since that time. Allergies Allergy/AdvReac Type Severity Reaction Status Date / Time ivabradine Allergy SV FACE SWELLS Verified 12/13/19 14:45 prochlorperazine Allergy Severe LOCK JAW Verified 12/13/19 14:45 [From Compazine] amlodipine Allergy Intermediate muscle pain Verified 12/13/19 14:45 morphine Allergy Intermediate RASH Verified 12/13/19 14:45 verapamil Allergy Intermediate muscle pain Verified 12/13/19 14:45 ibuprofen Allergy Mild Rash Verified 12/13/19 14:45 Home Medications Home Medications Medication Instructions Recorded Confirmed Type aspirin [Aspir-81] 81 mg PO QAM 04/08/18 12/13/19 History calcium phosphate-vitamin D3 1 tab PO QAM 04/08/18 12/13/19 History [Citracal-D3 Gummies] multivitamin 1 tab PO QAM 04/08/18 12/13/19 History nitroglycerin 1 dose SUBLINGUAL UD PRN 04/08/18 12/13/19 History vitamin O90-tyyrf acid 1 tab PO QAM 04/08/18 12/13/19 History fexofenadine [Hortensia Allergy] 180 mg PO BID 04/18/18 12/13/19 History nitroglycerin 400 mcg/spray 1 sprays SL Q5M PRN #12 gm 12/30/18 12/13/19 Rx translingual aerosol lisinopril 5 mg tablet 5 mg PO HS 02/26/19 12/13/19 History furosemide 40 mg tablet 40 mg PO DAILY PRN 02/27/19 12/13/19 History isosorbide mononitrate 60 mg 60 mg PO BID tab 02/27/19 12/13/19 History tablet,extended release 24 hr estradiol 10 mcg vaginal tablet 10 mcg PV .COMPLEX 365 Days #8 tab 03/10/19 12/13/19 Rx diltiazem HCl 240 mg PO QAM 03/27/19 12/13/19 History lidocaine 1 patch TOP DAILY PRN 03/27/19 12/13/19 History nitroglycerin 0.2 mg/hr 1 patch TD DAILY PRN #30 ea 04/21/19 12/13/19 Rx transdermal 24 hour patch clopidogrel 75 mg tablet 75 mg PO QAM #90 tab 07/31/19 12/13/19 Rx diltiazem HCl 120 mg 120 mg PO BID #60 cap 11/27/19 12/13/19 Rx capsule,extended release 24 hr famotidine 20 mg tablet 20 mg PO .qhs #30 tab 12/12/19 12/13/19 Rx pantoprazole 40 mg tablet,delayed 40 mg PO BID 30 Days #60 tab 12/12/19 12/13/19 Rx release sennosides-docusate sodium [Colace 1 tabcap PO QAM 12/13/19 12/13/19 History 2-In-1] Patient History Social History Preferred Language: Swedish Communication Ability: Effective Visual Impairment: No Limitations Hearing Ability: Normal Electro Mechanic Required: No Beliefs That Will Affect Care: None marital status: Current Living Situation: Spouse current occupational status: retired Other Information That Helps Us Care for You: No Feels Safe at Home: Yes Safety Concerns: Feels Safe At This Time Smoking Status: Never smoker Second Hand Exposure: No ; Hx Alcohol Use: Yes Alcohol type: hard liquor Hx Substance Use: No Review of Systems Constitutional: no fever and no chills Eyes: no problem reported Respiratory: + cough; no dyspnea Cardiovascular: + chest pain Gastrointestinal: + abdominal pain and + constipation; no heartburn and no dysphagia Musculoskeletal: no problem reported Integumentary: no rash Psychiatric: no problem reported Physical Exam Constitutional: WD/WN, vitals as above Eyes: PERRL, conjunctivae normal, anicteric sclerae Neck: normal visual inspection Respiratory: normal respiratory effort, lungs clear to auscultation Cardiovascular: RRR, no murmur, no edema Gastrointestinal (Abdomen): Inspection/Auscultation: abdomen normal to inspection and normal bowel sounds Percussion/Palpation: + abdomen tender Musculoskeletal: Head/Neck/Chest: normocephalic Skin: no rashes, warm and dry Neurologic: Speech / Cognition: normal speech Psychiatric: Orientation: alert and oriented x 3 Results & Data ([facility]) Vital Signs (Past 12 Hours) Vital Signs Temp Pulse Resp BP Pulse Ox 12/15/19 09:00 57 L 12 116/51 L 100 12/15/19 08:00 52 L 12/15/19 07:15 36.6 C 12/15/19 07:00 57 L 15 115/56 L 99 12/15/19 05:57 36.5 C 52 L 15 113/65 99 12/15/19 04:57 36.5 C 53 L 12 119/66 99 12/15/19 03:57 53 L 14 115/68 99 12/15/19 02:57 36.5 C 48 L 13 123/60 100 12/15/19 01:57 36.5 C 50 L 13 111/60 98 12/15/19 00:57 36.5 C 63 17 111/65 100 12/15/19 00:00 57 L 12/14/19 23:57 36.7 C 61 16 106/61 99 12/14/19 22:57 37 C 53 L 15 107/63 99 PG Care Time/CCT Total # of Minutes Spent Total Time Spent with Patient: Total time spent is greater than 50% in coordination of care (as documented) at patient's floor/unit and/or counseling patient: Coding Level of Care Code 15792 Inpt Consult Level 4 Diagnoses Chest pain R07.9 Chest pain type: unspecified GERD (gastroesophageal reflux disease) K21.9 Constipation K59.00 Elevated liver enzymes R74.8 (1) Chest pain Chest pain type: unspecified Qualified Code(s): R07.9 - Chest pain, unspecified
[2019-12-15] MEDS ORDERED: NITROGLYCERIN SL 0.4 MG/TAB TAB SL PRN (10:55)
[2019-12-15] MEDS: COLCHICINE 0.6 MG TAB PO SCH ×2 (12:26→22:07)
[2019-12-15] MEDS: ISOSORBIDE MONO EXTENDED REL 60 MG TABCR PO SCH ×2 (12:26→22:01)
[2019-12-15] MEDS: SUCRALFATE 1 GM/10 ML UDC PO SCH ×3 (12:26→21:56)
[2019-12-15] MEDS: POLYETHYLENE (MIRALAX) 17 GM PACK PO SCH ×2 (12:44→22:04)
--- NOTE | 2019-12-15 13:03 | Cardiology Consultation ---
Date of Consultation December 15, 2019 Assessment & Plan (1) Chest pain: -her history is not consistent with ischemic coronary disease. -EKGs, echocardiogram, and troponin I levels unremarkable. -she explains that this is exactly like her prior episodes of pericarditis. -positional nature of her discomfort is noted. -would undertake a trial of colchicine and a nonsteroidal agent. -would discontinue intravenous heparin. (2) CAD (coronary artery disease): -extensive history as described above. -continue diltiazem, clopidogrel, and aspirin. (3) Hypertension: -adequate control on current regimen. (4) Dyslipidemia: -she refuses statin therapy. History of Present Illness Attending Physician: Mahsa Bowden MD History of Present Illness Mrs. Gay is a 59-year-old female admitted on December 12 with a chest pain syndrome. This consultation was ordered to assist in her cardiac management. Of note, the patient is well known to me from the inpatient and outpatient settings. Patient continues in a usual state of health until Sunday at approximately 12:30 p.m.. She noticed a substernal chest discomfort that radiated to her left shoulder and left upper arm. The discomfort was constant and sometimes as high as an 8 to 9/10 on a pain scale. There were no other associated symptoms such as shortness of breath, nausea, vomiting, or diaphoresis. She was admitted to the hospital with the presumptive diagnosis of unstable angina pectoris was placed on intravenous nitroglycerin and heparin. The patient's discomfort has persisted since that time. She now notices a positional nature of her discomfort. It improves if she sits up and leans forward, it becomes worse if she lies supine. She feels that this may represent another bout of pericarditis. The patient does have a complex cardiac history as outlined below. Fortunately, troponin I level has been undetectable. Her echocardiogram notes normal systolic function without wall motion abnormalities. Her EKG is unremarkable. The patient did have an upper endoscopy performed on December 01 which noted a small hiatal hernia, evidence of reflux esophagitis, and evidence of gastritis. Past medical and surgical history 1. LAD unroofing for a myocardial bridge-July [address] elevation NM - September 2017 RCA SHAMA x4, RCA dissection Normal LM 100% distal LAD with poor collateralization Normal LCx LVEF 65% 3. Complete pericardectomy-January 2015-chronic pericarditis 4. Prinzmetal's angina 5. Cardiac syndrome X 6. Chronic stable exertional angina pectoris 7. Dobutamine induced LVOT gradient (96 mmHg)-July 2014 8. Normal LV function without wall motion abnormality-February 2019 9. Chronic exertional dyspnea 10. Cerebral vascular disease 11. 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 Bilateral THR 15. Appendectomy 16. Hysterectomy 17. Hiatal hernia 18. GERD 19. 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 Allergies Allergy/AdvReac Type Severity Reaction Status Date / Time ivabradine Allergy SV FACE SWELLS Verified 12/13/19 14:45 prochlorperazine Allergy Severe LOCK JAW Verified 12/13/19 14:45 [From Compazine] amlodipine Allergy Intermediate muscle pain Verified 12/13/19 14:45 morphine Allergy Intermediate RASH Verified 12/13/19 14:45 verapamil Allergy Intermediate muscle pain Verified 12/13/19 14:45 ibuprofen Allergy Mild Rash Verified 12/13/19 14:45 Home Medications Home Medications Medication Instructions Recorded Confirmed Type aspirin [Aspir-81] 81 mg PO QAM 04/08/18 12/13/19 History calcium phosphate-vitamin D3 1 tab PO QAM 04/08/18 12/13/19 History [Citracal-D3 Gummies] multivitamin 1 tab PO QAM 04/08/18 12/13/19 History nitroglycerin 1 dose SUBLINGUAL UD PRN 04/08/18 12/13/19 History vitamin Q28-hceqq acid 1 tab PO QAM 04/08/18 12/13/19 History fexofenadine [Hortensia Allergy] 180 mg PO BID 04/18/18 12/13/19 History nitroglycerin 400 mcg/spray 1 sprays SL Q5M PRN #12 gm 12/30/18 12/13/19 Rx translingual aerosol lisinopril 5 mg tablet 5 mg PO HS 02/26/19 12/13/19 History furosemide 40 mg tablet 40 mg PO DAILY PRN 02/27/19 12/13/19 History isosorbide mononitrate 60 mg 60 mg PO BID tab 02/27/19 12/13/19 History tablet,extended release 24 hr estradiol 10 mcg vaginal tablet 10 mcg PV .COMPLEX 365 Days #8 tab 03/10/19 12/13/19 Rx diltiazem HCl 240 mg PO QAM 03/27/19 12/13/19 History lidocaine 1 patch TOP DAILY PRN 03/27/19 12/13/19 History nitroglycerin 0.2 mg/hr 1 patch TD DAILY PRN #30 ea 04/21/19 12/13/19 Rx transdermal 24 hour patch clopidogrel 75 mg tablet 75 mg PO QAM #90 tab 07/31/19 12/13/19 Rx diltiazem HCl 120 mg 120 mg PO BID #60 cap 11/27/19 12/13/19 Rx capsule,extended release 24 hr famotidine 20 mg tablet 20 mg PO .qhs #30 tab 12/12/19 12/13/19 Rx pantoprazole 40 mg tablet,delayed 40 mg PO BID 30 Days #60 tab 12/12/19 12/13/19 Rx release sennosides-docusate sodium [Colace 1 tabcap PO QAM 12/13/19 12/13/19 History 2-In-1] Patient History Social History Preferred Language: Pashto Communication Ability: Effective Visual Impairment: No Limitations Hearing Ability: Normal Theatrical Trouper Required: No Beliefs That Will Affect Care: None marital status: Current Living Situation: Spouse current occupational status: retired Other Information That Helps Us Care for You: No Feels Safe at Home: Yes Safety Concerns: Feels Safe At This Time Smoking Status: Never smoker Second Hand Exposure: No ; Hx Alcohol Use: Yes Alcohol type: hard liquor Hx Substance Use: No Physical Exam Physical Exam: In general this is a well-developed well-nourished white female in no acute distress. HEENT exam is negative. Neck is supple with full carotid upstrokes. There are no carotid bruits. No jugular venous distension. There is no thyromegaly. Cardiovascular exam reveals a regular rhythm with a 1/6 basal systolic ejection murmur. S1 and S2 are normal. No S3 or S4. Lungs are clear without rales, rhonchi, or wheezes. Abdomen is soft and nontender without bruits. Extremities reveal intact radial artery and posterior tibial pulses bilaterally. There is no peripheral edema. Results & Data ([facility]) Vital Signs (Past 12 Hours) Vital Signs Temp Pulse Pulse Resp BP BP Pulse Ox 12/15/19 12:03 36.8 C 89 16 139/67 94 12/15/19 09:57 58 L 13 120/62 100 12/15/19 09:00 57 L 12 116/51 L 100 12/15/19 08:00 52 L 12/15/19 07:15 36.6 C 12/15/19 07:00 57 L 15 115/56 L 99 12/15/19 05:57 36.5 C 52 L 15 113/65 99 12/15/19 04:57 36.5 C 53 L 12 119/66 99 12/15/19 03:57 53 L 14 115/68 99 12/15/19 02:57 36.5 C 48 L 13 123/60 100 12/15/19 01:57 36.5 C 50 L 13 111/60 98 12/15/19 00:57 36.5 C 63 17 111/65 100 Laboratory Results [facility] notes hemoglobin 13.7, crit 39.5, white count 5.28, platelet count of [id number]. Electrolytes noticed sodium 142, potassium 4.2, chloride 107, bicarb 31, BUN 14, creatinine 0.94, magnesium of 2.2. Three troponin I levels are undetectable less than 0.015. AST is elevated 695 with an ALT of 647. Diagnostic Findings EKG notes normal sinus rhythm and poor R-wave progression across the anterior precordium. No change compared to prior tracings. lunchroom monitor is benign. Chest x-ray shows no acute disease. Echocardiogram notes normal left ventricular systolic function without wall motion abnormalities. Estimated left ejection fraction 60-65%. There is mild LVH. PG Care Time/CCT Total # of Minutes Spent Total Time Spent with Patient: Total time spent is greater than 50% in coordination of care (as documented) at patient's floor/unit and/or counseling patient: Coding Level of Care Code 99694 Inpt Consult Level 4 Diagnoses Chest pain R07.9 Chest pain type: unspecified CAD (coronary artery disease) I25.10 Associated angina: angina presence unspecified Coronary Disease-Associated Artery/Lesion type: unspecified vessel or lesion type [place] vs. transplanted heart: unspecified whether [place] or transplanted heart Hypertension I10 Dyslipidemia E78.5 (1) Chest pain Chest pain type: unspecified Qualified Code(s): R07.9 - Chest pain, unspecified (2) CAD (coronary artery disease) Associated angina: angina presence unspecified Coronary Disease-Associated Artery/Lesion type: unspecified vessel or lesion type [place] vs. transplanted heart: unspecified whether [place] or transplanted heart Qualified Code(s): I25.10 - Atherosclerotic heart disease of [place] coronary artery without angina pectoris
--- NOTE | 2019-12-15 14:22 | Electrocardiogram Report ---
Test Reason : Blood Pressure : / mmHG Vent. Rate : 065 BPM Atrial Rate : 065 BPM P-R Int : 158 ms QRS Dur : 088 ms QT Int : 428 ms P-R-T Axes : 054 -23 028 degrees QTc Int : 445 ms Normal sinus rhythm Possible Anterior infarct , age undetermined Abnormal ECG When compared with ECG of 14-DEC-2019 05:57, No significant change was found Confirmed by Boo Boland ([id number]) on 12/15/2019 2:21:35 PM Referred By: REFERRED SELF Confirmed By:Deejay Boland
--- NOTE | 2019-12-15 14:57 | Ultrasound Report ---
US liver CLINICAL HISTORY: elevated LFTs,epigastric abdominal pain COMPARISON STUDY: No previous studies for comparison. FINDINGS: Prior cholecystectomy. Common bile duct measuring 9 mm most likely a post operative basis. Liver is uniform. Pancreas and right kidney are unremarkable. IMPRESSION: No acute process post cholecystectomy. ACT 112: Negative or not required by law. The above report was generated using voice recognition software. It may contain grammatical, syntax or spelling errors. Electronically signed by: Kevin Beckett M.D. 12/15/2019 2:56 PM
--- NOTE | 2019-12-15 15:08 | Fluoroscopy Report ---
[place] GI series CLINICAL HISTORY: epigastric pain COMPARISON STUDY: None FLUOROSCOPY TIME: 1.2 minutes. NUMBER OF FLUOROSCOPIC IMAGES: 23 FINDINGS: No esophageal masses are visualized. No gastric masses are visualized. There is no gastric outlet obstruction. There is a tiny hiatal hernia. The duodenal bulb is not optimally demonstrated bu t there are no definite bulb abnormalities. Ligament of Treitz is located in the normal anatomical po sition. IMPRESSION: No significant abnormalities identified. ACT 112: Negative or not required by law. Electronically signed by: Nahun Keen M.D. 12/15/2019 3:06 PM
--- NOTE | 2019-12-15 16:55 | Hospitalist Progress Note ---
Date of Service December 15, 2019 Assessment & Plan (1) Chest pain: Presented with constant CP, improves with sitting up, similar subjectively to previous episodes of pericarditis. ECG without changes, troponin serially negative, ECHO normal, CXR normal Not improved with nitro gtt--> nitro gtt dcd Improved with Fentanyl--> dc Fentanyl and switch to IV Dilaudid at pt's request for longer acting pain relief This is NOT unstable angina--> dc heparin gtt, appreciate Cardiology consultation Could be atypical pericarditis despite h/o pericardectomy GI consult appreciated--> checked UGI and was normal, no repeat EGD needed as just had this 2 weeks ago -start empiric trial of colchicine 0.6mg po bid -cannot tolerate NSAIDs due to recent gastritis and h/o allergy to NSAIDs -continue IV dilaudid prn pain -check ESR -restart home Imdur, continue home diltiazem high dose (480 mg total daily) -observe for improvement (2) Elevated liver enzymes: AST, ALT now in the 600s, Alk pos slightly elevated Liver US ordered today and normal, s/p cholecystectomy Could be shock liver from nitro gtt? Does not seem related to viral infection but possible. No fevers but with fatigue -check Hepatitis panel -follow LFTs in AM (3) Abdominal pain: Epigastric region, with initially normal LFTs and lipase, now with significantly elevated LFTs as above Abdomen is soft, nonsurgical -Liver US normal as above -check lipase, follow LFTs -UGI normal -check KUB -work on constipation with bowel regimen-added Miralax bid, add senna/docusate daily (4) Odynophagia: Ongoing for weeks Had EGD 2 weeks ago without significant esophageal findings UGI normal -could be from acid reflux -Consult GI appreciated -added Carafate qid -continue PPI bid and Pepcid hs -consult Speech (5) Fatigue: -vague, no fevers -check TSH, Lyme, COVID ab Had COVID testing 3 weeks ago that was negative (6) GERD (gastroesophageal reflux disease): continue Protonix 40 mg p.o. twice daily and Pepcid 20 mg p.o. at bedtime (7) CAD (coronary artery disease): With a history of multiple stents and RCA dissection in the past Stable, serial troponins negative -Continue aspirin, Plavix, isosorbide She is intolerant to beta-blockers and statins (8) Hypertension: Blood pressure stable -Continue home diltiazem, Imdur (9) DVT prophylaxis: Heparin drip discontinued Disposition-continued stay but transferred from ICU to PCU today Admission and Anticipated Discharge Date Admission Date: December 13, 2019 Subjective Pt reports having chest pain through to the back that is constant for days and relieved with Fentanyl that is identical to her previous episodes of pericarditis. She also describes epigastric abd pain for several days, coming and going. Also with painful swallowing and profound fatigue for several weeks. No new joint pains.No fevers. She thinks that she had COVID when she was in [place] in August with fevers, bronchitis and felt unwell for 3 weeks. She had negative COVID testing here about 3 weeks ago. She is having significant constipation since a hospitalization for a SBO in [place] in September. SHe has had to use her fingers pushing in her vagina to get her stool to come out in hard balls since that time. SHe tried taking Miralax and senna x 2 days last week with no results. Last BM was around or Sunday. I discussed her case with Cardiology and with GI Review of Systems Review of Systems: All systems reviewed & are unremarkable except as noted in HPI & below Physical Exam Constitutional: WD/WN, vitals as above Eyes: + anicteric sclerae ENMT: external ear and nose normal, oropharynx normal Neck: trachea midline, no thyromegaly Respiratory: normal respiratory effort, lungs clear to auscultation Cardiovascular: RRR, no murmur, no edema Chest (Breasts): Chest: + abnormal inspection of chest (mid-sternal scar) Gastrointestinal (Abdomen): Inspection/Auscultation: normal bowel sounds; + abdomen abnormal to inspection (multiple laparoscopy scars) and abdomen not distended Percussion/Palpation: + abdomen tender (+TTP epigastric region w/o guarding or rebound) and abdomen soft; no guarding and abdomen not rigid Musculoskeletal: Extremities: extremities normal to inspection; no cyanosis and no clubbing Skin: no rashes, warm and dry Neurologic: moves all extremities and awake; no focal motor deficits Psychiatric: A+Ox3, euthymic affect Lymphatic: no lymphedema Results & Data Results & Data ([facility]) Vital Signs (Past 12 Hours) Vital Signs Temp Pulse Pulse Resp BP BP Pulse Ox 07/13/20 15:48 37.4 C 77 18 110/72 94 12/15/19 15:35 90 12/15/19 12:03 36.8 C 89 16 139/67 94 12/15/19 09:57 58 L 13 120/62 100 12/15/19 09:00 57 L 12 116/51 L 100 12/15/19 08:00 52 L 12/15/19 07:15 36.6 C 12/15/19 07:00 57 L 15 115/56 L 99 12/15/19 05:57 36.5 C 52 L 15 113/65 99 12/15/19 04:57 36.5 C 53 L 12 119/66 99 Laboratory Results 12/15/19 12/15/19 12/15/19 Range/Units 16:56 16:56 16:56 WBC (4.8-10.8) K/uL RBC (4.2-5.4) M/uL Hgb (12.0-16.0) g/dL Hct (37-47) % MCV (80-100) fL MCH (25-34) pg MCHC (32-36) g/dL RDW Std Deviation (36.4-46.3) fL RDW Coeff of [place] (11.5-14.5) % Plt Count (130-400) K/uL MPV (7.4-10.4) fL Immature Gran % (Auto) % Neut % (Auto) % Lymph % (Auto) % [place] % (Auto) % Eos % (Auto) % Baso % (Auto) % Neut # (Auto) (1.4-6.5) K/uL Lymph # (Auto) (1.2-3.4) K/uL [place] # (Auto) (0.11-0.59) K/uL Eos # (Auto) (0-0.5) K/uL Baso # (Auto) (0-0.2) K/uL Immature Gran # (Auto) (0.00-0.02) K/uL PT (9.0-12.0) Seconds INR (0.9-1.1) APTT (21.0-31.0) Seconds PTT Ratio Sodium (136-145) mmol/L Potassium (3.5-5.1) mmol/L Chloride (98-107) mmol/L Carbon Dioxide (21-32) mmol/L Anion Gap (3-11) BUN (7-18) mg/dl Creatinine (0.6-1.2) mg/dl Est Cr Clr Drug Dosing ml/min Est GFR ( Amer) Est GFR (Non-Af Amer) BUN/Creatinine Ratio (10-20) Glucose (70-99) mg/dl Calcium (8.5-10.1) mg/dl Phosphorus (2.5-4.9) mg/dl Magnesium (1.8-2.4) mg/dl Total Bilirubin (0.2-1) mg/dl Direct Bilirubin (0-0.2) mg/dl AST (15-37) U/L ALT (12-78) U/L Alkaline Phosphatase (45-117) U/L Troponin I (0-0.045) ng/ml Total Protein (6.4-8.2) gm/dl Albumin (3.4-5.0) gm/dl Lipase TSH Lyme Disease IgG Ab Pending Lyme Disease IgM Ab Pending Hepatitis A IgM Ab Pending Hep Bs Antigen Hep B Core IgM Ab Pending Hepatitis C Antibody SARS Serology Pending 12/15/19 12/15/19 12/15/19 Range/Units 16:56 16:56 04:23 WBC (4.8-10.8) K/uL RBC (4.2-5.4) M/uL Hgb (12.0-16.0) g/dL Hct (37-47) % MCV (80-100) fL MCH (25-34) pg MCHC (32-36) g/dL RDW Std Deviation (36.4-46.3) fL RDW Coeff of [place] (11.5-14.5) % Plt Count (130-400) K/uL MPV (7.4-10.4) fL Immature Gran % (Auto) % Neut % (Auto) % Lymph % (Auto) % [place] % (Auto) % Eos % (Auto) % Baso % (Auto) % Neut # (Auto) (1.4-6.5) K/uL Lymph # (Auto) (1.2-3.4) K/uL [place] # (Auto) (0.11-0.59) K/uL Eos # (Auto) (0-0.5) K/uL Baso # (Auto) (0-0.2) K/uL Immature Gran # (Auto) (0.00-0.02) K/uL PT (9.0-12.0) Seconds INR (0.9-1.1) APTT (21.0-31.0) Seconds PTT Ratio Sodium (136-145) mmol/L Potassium (3.5-5.1) mmol/L Chloride (98-107) mmol/L Carbon Dioxide (21-32) mmol/L Anion Gap (3-11) BUN (7-18) mg/dl Creatinine (0.6-1.2) mg/dl Est Cr Clr Drug Dosing ml/min Est GFR ( Amer) Est GFR (Non-Af Amer) BUN/Creatinine Ratio (10-20) Glucose (70-99) mg/dl Calcium (8.5-10.1) mg/dl Phosphorus (2.5-4.9) mg/dl Magnesium (1.8-2.4) mg/dl Total Bilirubin Pending (0.2-1) mg/dl Direct Bilirubin Pending (0-0.2) mg/dl AST Pending (15-37) U/L ALT Pending (12-78) U/L Alkaline Phosphatase Pending (45-117) U/L Troponin I < 0.015 (0-0.045) ng/ml Total Protein Pending (6.4-8.2) gm/dl Albumin Pending (3.4-5.0) gm/dl Lipase Pending TSH Pending Lyme Disease IgG Ab Lyme Disease IgM Ab Hepatitis A IgM Ab Hep Bs Antigen Pending Hep B Core IgM Ab Hepatitis C Antibody Pending SARS Serology 12/15/19 12/15/19 12/15/19 Range/Units 04:23 04:23 04:23 WBC 5.28 (4.8-10.8) K/uL RBC 4.19 L (4.2-5.4) M/uL Hgb 13.7 (12.0-16.0) g/dL Hct 39.5 (37-47) % MCV 94.3 (80-100) fL MCH 32.7 (25-34) pg MCHC 34.7 (32-36) g/dL RDW Std Deviation 40.6 (36.4-46.3) fL RDW Coeff of [place] 11.9 (11.5-14.5) % Plt Count 267 (130-400) K/uL MPV 9.2 (7.4-10.4) fL Immature Gran % (Auto) 0.0 % Neut % (Auto) 59.1 % Lymph % (Auto) 24.6 % [place] % (Auto) 10.0 % Eos % (Auto) 5.7 % Baso % (Auto) 0.6 % Neut # (Auto) 3.12 (1.4-6.5) K/uL Lymph # (Auto) 1.30 (1.2-3.4) K/uL [place] # (Auto) 0.53 (0.11-0.59) K/uL Eos # (Auto) 0.30 (0-0.5) K/uL Baso # (Auto) 0.03 (0-0.2) K/uL Immature Gran # (Auto) 0.00 (0.00-0.02) K/uL PT 10.7 (9.0-12.0) Seconds INR 1.0 (0.9-1.1) APTT 48.0 H* (21.0-31.0) Seconds PTT Ratio 1.7 Sodium 142 (136-145) mmol/L Potassium 4.2 (3.5-5.1) mmol/L Chloride 107 (98-107) mmol/L Carbon Dioxide 31 (21-32) mmol/L Anion Gap 4.0 (3-11) BUN 14 (7-18) mg/dl Creatinine 0.94 (0.6-1.2) mg/dl Est Cr Clr Drug Dosing 68.2 ml/min Est GFR ( Amer) 76.4 Est GFR (Non-Af Amer) 65.9 BUN/Creatinine Ratio 15.1 (10-20) Glucose 91 (70-99) mg/dl Calcium 8.4 L (8.5-10.1) mg/dl Phosphorus 4.1 (2.5-4.9) mg/dl Magnesium 2.2 (1.8-2.4) mg/dl Total Bilirubin 0.7 (0.2-1) mg/dl Direct Bilirubin 0.2 D (0-0.2) mg/dl AST 695 H (15-37) U/L ALT 647 H (12-78) U/L Alkaline Phosphatase 148 H D (45-117) U/L Troponin I (0-0.045) ng/ml Total Protein 7.0 (6.4-8.2) gm/dl Albumin 3.4 (3.4-5.0) gm/dl Lipase TSH Lyme Disease IgG Ab Lyme Disease IgM Ab Hepatitis A IgM Ab Hep Bs Antigen Hep B Core IgM Ab Hepatitis C Antibody SARS Serology Diagnostic Findings Liver US: FINDINGS: Prior cholecystectomy. Common bile duct measuring 9 mm most likely a post operative basis. Liver is uniform. Pancreas and right kidney are unremarkable. IMPRESSION: No acute process post cholecystectomy. [place] GI series CLINICAL HISTORY: epigastric pain COMPARISON STUDY: None FLUOROSCOPY TIME: 1.2 minutes. NUMBER OF FLUOROSCOPIC IMAGES: 23 FINDINGS: No esophageal masses are visualized. No gastric masses are visualized. There is no gastric outlet obstruction. There is a tiny hiatal hernia. The duodenal bulb is not optimally demonstrated but there are no definite bulb abnormalities. Ligament of [place] is located in the normal anatomical position. IMPRESSION: No significant abnormalities identified. PG Care Time/CCT Total # of Minutes Spent Total Time Spent with Patient: Total time spent is greater than 50% in coordination of care (as documented) at patient's floor/unit and/or counseling patient: Coding Level of Care Code 62258 Subseq Hosp Care Lvl 3 Diagnoses Chest pain R07.9 Chest pain type: unspecified Elevated liver enzymes R74.8 Abdominal pain R10.9 Odynophagia R13.10 Fatigue R53.83 GERD (gastroesophageal reflux disease) K21.9 CAD (coronary artery disease) I25.10 Associated angina: angina presence unspecified Coronary Disease-Associated Artery/Lesion type: unspecified vessel or lesion type [place] vs. transplanted heart: unspecified whether [place] or transplanted heart Hypertension I10 DVT prophylaxis Z29.9 (1) CAD (coronary artery disease) Associated angina: angina presence unspecified Coronary Disease-Associated Artery/Lesion type: unspecified vessel or lesion type [place] vs. transplanted heart: unspecified whether [place] or transplanted heart Qualified Code(s): I25.10 - Atherosclerotic heart disease of [place] coronary artery without angina pectoris (2) Chest pain Chest pain type: unspecified Qualified Code(s): R07.9 - Chest pain, unspecified
[2019-12-15] MEDS ORDERED: SUCRALFATE 1 GM/10 ML UDC PO SCH (17:00)
[2019-12-15] MEDS: HYDROmorphone INJ 0.5 MG/0.5 ML SYR IV PRN ×2 (17:04→21:56)
[2019-12-15 17:53] LABS: Albumin Level 3.6 gm/dl (3.4-5.0); Bilirubin Direct 0.2 mg/dl (0-0.2); Bilirubin,Total 0.7 mg/dl (0.2-1); Thyroid Stimulating Hormone 1.84 uIu/ml (0.300-4.500); Total Protein 7.4 gm/dl (6.4-8.2)
[2019-12-15 18:02] LABS: Hepatitis B Surface Antigen Neg (Neg)
[2019-12-15 18:19] LABS: Lyme Ab IgG w/WB Rflx Negative (Negative); Lyme Ab IgM w/WB Rflx Negative (Negative)
[2019-12-15 18:31] LABS: Hepatitis C IgG 13Yrs+Old_Rflx Neg (Neg)
--- NOTE | 2019-12-15 18:58 | XRay Report ---
KUB CLINICAL HISTORY: Generalized abdominal pain. FINDINGS: 2 AP supine abdominal radiographs are compared to study dated 03/17/2016. 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 Th ere is a nonobstructed abdominal bowel gas pattern. Residual barium is present within the stomach, sm all bowel, end of the colon. No evidence of intraperitoneal free air is seen on the supine images. Th e presence of abdominal calcifications cannot be assessed. A phlebolith is noted in the pelvis. The b [place] structures appear intact. Bilateral hip arthroplasties are in place. IMPRESSION: 1. No bowel obstruction. 2. Residual barium is seen in the stomach, small bowel, and throughout the colon from today's upper G I series. Electronically signed by: Daquan Murphy M.D. 12/15/2019 6:56 PM
[2019-12-15] MEDS: ZOLPIDEM TARTRATE 5 MG TAB PO PRN (21:56)
[2019-12-15] MEDS: FAMOTIDINE 20 MG TAB PO SCH (22:04)
[2019-12-16] MEDS: HYDROmorphone INJ 0.5 MG/0.5 ML SYR IV PRN ×5 (05:43→21:59)
[2019-12-16] MEDS: ONDANSETRON INJ 2 MG/ML 2 ML VIAL IV PRN ×2 (05:59→17:33)
[2019-12-16 06:09] LABS: Basophils # (auto) 0.03 K/uL (0-0.2); Basophils % (auto) 0.5 %; Eosinophils % (auto) 6.7 %; Hematocrit (blood only) 36.1 % (37-47); Hemoglobin 12.3 g/dL (12.0-16.0); Immature Granulocytes # (auto) 0.01 K/uL (0.00-0.02); Immature Granulocytes % (auto) 0.2 %; Lymphocytes # (auto) 1.42 K/uL (1.2-3.4); Lymphocytes % (auto) 23.7 %; Mean Corpuscular Hemoglobin 31.9 pg (25-34); Mean Corpuscular Hgb Conc 34.1 g/dL (32-36); Mean Corpuscular Volume 93.5 fL (80-100); Mean Platelet Volume 9.1 fL (7.4-10.4); Monocytes # (auto) 0.62 K/uL (0.11-0.59); Monocytes % (auto) 10.4 %; Neutrophils # (auto) 3.51 K/uL (1.4-6.5); Neutrophils % (auto) 58.5 %; Platelet Count 280 K/uL (130-400); RDW Coefficient of Variation 11.7 % (11.5-14.5); RDW Standard Deviation 39.5 fL (36.4-46.3); Red Blood Count 3.86 M/uL (4.2-5.4); White Blood Count 5.99 K/uL (4.8-10.8)
[2019-12-16 06:18] LABS: Prothrombin Time 10.9 Seconds (9.0-12.0)
[2019-12-16 06:53] LABS: Albumin Level 3.2 gm/dl (3.4-5.0); BUN Creatinine Ratio 15.5 (10-20); Bilirubin Direct 0.1 mg/dl (0-0.2); Calcium 8.4 mg/dl (8.5-10.1); Creatinine Clr Calc Pharmacy 74.3 ml/min; Est GFR (African American) 83.9; Est GFR (Non-African American) 72.4; Potassium 3.9 mmol/L (3.5-5.1)
[2019-12-16 06:56] LABS: Bilirubin,Total 0.8 mg/dl (0.2-1); Total Protein 6.7 gm/dl (6.4-8.2)
--- NOTE | 2019-12-16 09:56 | Cardiology Progress Note ---
Date of Service December 16, 2019 Assessment & Plan (1) Chest pain: -possible pericarditis. -improving with colchicine. -not currently on a nonsteroidal agent. (2) CAD (coronary artery disease): -extensive history as described. -continue diltiazem, isosorbide mononitrate, clopidogrel, and aspirin. (3) Hypertension: -adequate control on current regimen. (4) Dyslipidemia: -she refuses statin therapy. Admission and Anticipated Discharge Date Admission Date: December 13, 2019 Subjective The patient is resting comfortably in bed. Her left-sided chest discomfort is improving. Still notes a positional nature to her discomfort. Physical Exam Physical Exam: In general this is a well-developed well-nourished white female in no acute distress. HEENT exam is negative. Neck is supple with full carotid upstrokes. There are no carotid bruits. No jugular venous distension. There is no thyromegaly. Cardiovascular exam reveals a regular rhythm with a 1/6 basal systolic ejection murmur. S1 and S2 are normal. No S3 or S4. No rubs. Lungs are clear without rales, rhonchi, or wheezes. Abdomen is soft and nontender without bruits. Extremities reveal intact radial artery and posterior tibial pulses bilaterally. There is no peripheral edema. 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 PG Care Time/CCT Total # of Minutes Spent Total Time Spent with Patient: Total time spent is greater than 50% in coordination of care (as documented) at patient's floor/unit and/or counseling patient: Coding Level of Care Code 35527 Subseq Hosp Care Lvl 3 Diagnoses Chest pain R07.9 Chest pain type: unspecified CAD (coronary artery disease) I25.10 Associated angina: angina presence unspecified Coronary Disease-Associated Artery/Lesion type: unspecified vessel or lesion type [place] vs. transplanted heart: unspecified whether [place] or transplanted heart Hypertension I10 Dyslipidemia E78.5 (1) Chest pain Chest pain type: unspecified Qualified Code(s): R07.9 - Chest pain, unspecified (2) CAD (coronary artery disease) Associated angina: angina presence unspecified Coronary Disease-Associated Artery/Lesion type: unspecified vessel or lesion type [place] vs. transplanted heart: unspecified whether [place] or transplanted heart Qualified Code(s): I25.10 - Atherosclerotic heart disease of [place] coronary artery without angina pectoris
[2019-12-16] MEDS: dilTIAZem HCL 240 MG CAPCR PO SCH (10:27)
[2019-12-16] MEDS: ISOSORBIDE MONO EXTENDED REL 60 MG TABCR PO SCH ×2 (10:27→22:03)
[2019-12-16] MEDS: FEXOFENADINE HCL 180 MG TAB PO SCH (10:27)
[2019-12-16] MEDS: VITAMIN B COMPLEX TAB PO SCH (10:27)
[2019-12-16] MEDS: ASPIRIN 81 MG ECTAB PO SCH (10:28)
[2019-12-16] MEDS: CALCIUM 600MG + VIT D 400 IU TAB PO SCH (10:28)
[2019-12-16] MEDS: FAMOTIDINE 20 MG TAB PO SCH ×2 (10:28→22:04)
[2019-12-16] MEDS: CLOPIDOGREL BISULFATE 75 MG TAB PO SCH (10:28)
[2019-12-16] MEDS: dilTIAZem HCL 120 MG CAPCR PO SCH ×2 (10:28→22:05)
[2019-12-16] MEDS: MULTIVITAMIN TAB PO SCH (10:28)
[2019-12-16] MEDS: DOCUSATE SODIUM/SENNA 50/8.6MG TAB PO SCH ×2 (10:28→10:30)
[2019-12-16] MEDS: SUCRALFATE 1 GM/10 ML UDC PO SCH ×4 (10:29→21:59)
[2019-12-16] MEDS: PANTOprazole 40 MG TAB PO SCH ×2 (10:29→22:03)
[2019-12-16] MEDS: COLCHICINE 0.6 MG TAB PO SCH ×2 (10:29→22:02)
[2019-12-16] MEDS: POLYETHYLENE (MIRALAX) 17 GM PACK PO SCH ×2 (10:30→22:11)
[2019-12-16] MEDS: ALUMINUM/MAGNESIUM SUSP 72 ML, LIDOCAINE HCL VISCOUS 2% 24 ML, BARCODE IDENTIFIER 1 EA PO PRN (10:39)
--- NOTE | 2019-12-16 15:05 | Hospitalist Progress Note ---
Date of Service December 16, 2019 Assessment & Plan (1) Chest pain: Presented with constant CP, improves with sitting up, similar subjectively to previous episodes of pericarditis. ECG without changes, troponin serially negative, ECHO normal, CXR normal, ESR normal at 15 Not improved with nitro gtt--> nitro gtt dcd Improved with IV opioids only including fentanyl and Dilaudid--> she does not want the Dilaudid discontinued at this time despite feeling lightheaded with standing and having soft blood pressures This is NOT unstable angina--> dc heparin gtt, appreciate Cardiology consultation Could be atypical pericarditis despite h/o pericardectomy GI consult appreciated--> checked UGI and was normal, no repeat EGD needed as just had this 2 weeks ago Nonetheless, patient reports the chest pain is improved today. Of note, she has a long history of chronic daily chest pain. -Continue empiric trial of colchicine 0.6mg po bid -cannot tolerate NSAIDs due to recent gastritis and h/o allergy to NSAIDs -continue IV dilaudid prn pain -Continue home Imdur, continue home diltiazem high dose (480 mg total daily) -observe for improvement (2) Elevated liver enzymes: AST, ALT climbed into the 600s, Alk pos slightly elevated on hospital day #2 for unclear reason Liver US normal, s/p cholecystectomy Could be shock liver from nitro gtt? Reaction to a medication? LFTs are now significantly improved with no intervention Acute hepatitis panel checked-hepatitis B and C are negative, hepatitis A is pending -follow LFTs in AM (3) Abdominal pain: Epigastric region, with initially normal LFTs and lipase, now with significantly elevated LFTs as above, but lipase remains normal Abdomen is soft, nonsurgical, and tenderness is out of proportion to exam KUB normal, upper GI normal Very recent EGD with mild gastritis Lactate checked today and was negative CT angiogram of the chest and abdomen was ordered-CT angiogram of the chest for dissection was negative. CT angiogram of the abdomen/pelvis was unable to be completed as she still had barium from her upper GI series visible which would hide the vessels. However, the visualized portions of the abdominal organs appeared normal. -Perhaps could be vasospasm-restart nitroglycerin patch that she uses at home as needed and see if this helps -Continue to work on constipation with bowel regimen-added Miralax bid, add senna/docusate daily Of note, review of my notes from her hospitalization reveals almost identical symptoms in 02/2019-during that hospitalization, she had her gallbladder removed and had complete resolution of her symptoms. She no longer has a gallbladder at this time. Unclear etiology but many things have been ruled out. Observe for improvement (4) Odynophagia: Ongoing for weeks, with similar complaints in the past upon review Had EGD 2 weeks ago without significant esophageal findings UGI normal Not much improvement with PPI, H2 ti, and Magic swizzle or Carafate -could be from acid reflux, versus globus sensation due to anxiety -Consult GI appreciated-signed off -Continue Carafate qid, Magic swizzle as needed -continue PPI bid and Pepcid hs -consult Speech-patient declined evaluation -May be related to anxiety (5) Fatigue: -vague, no fevers TSH, Lyme negative I do not suspect she has an acute COVID infection, but she thinks that she had COVID in 08/2019 in [place]-checking COVID ab Furthermore, had COVID testing 3 weeks ago that was negative Consider depression as a cause of fatigue (6) GERD (gastroesophageal reflux disease): continue Protonix 40 mg p.o. twice daily and Pepcid 20 mg p.o. at bedtime (7) CAD (coronary artery disease): With a history of multiple stents and RCA dissection in the past Stable, serial troponins and ECGs negative -Continue aspirin, Plavix, isosorbide She is intolerant to beta-blockers and statins (8) Hypertension: Blood pressure stable -Continue home diltiazem, Imdur (9) DVT prophylaxis: Heparin drip discontinued Disposition-continued stay for ongoing abdominal pain Admission and Anticipated Discharge Date Admission Date: December 13, 2019 Subjective Patient continues to request Dilaudid for the chest pain, but reports that her "pericarditis pain" is improving. She does insist though that "something is very wrong" and points to the epigastric region where she has been having constant abdominal pain. She is also reporting occasional blurry vision and felt lightheaded when she got up to go the bathroom, but denies that it has anything to do with frequent use of IV Dilaudid. Still has not had a bowel movement. Does not feel like eating and continues to complain of painful swallowing in her throat that is not relieved with the viscous lidocaine/Magic mouthwash or Carafate. She is extremely anxious and her affect, but denies that anxiety is playing any role in her symptoms. She does not want me to discontinue the Dilaudid at this time, and wants to make sure that she has Ambien as needed for sleep. She is also feeling nauseated and requesting something for nausea. Telemetry with normal sinus rhythm with rates in the 60s to 70s. I went back to see her a second time after further testing with CT of the head and chest to review her results that were normal as well as a normal lactate. At that time, she was agreeable to a retrial of her nitroglycerin patch which helps with her vasospasm. Review of Systems Review of Systems: All systems reviewed & are unremarkable except as noted in HPI & below Physical Exam Constitutional: WD/WN, vitals as above Eyes: PERRL, conjunctivae normal, anicteric sclerae + anicteric sclerae and EOM intact bilaterally ENMT: external ear and nose normal, oropharynx normal Neck: trachea midline, no thyromegaly Respiratory: normal respiratory effort, lungs clear to auscultation Cardiovascular: RRR, no murmur, no edema Chest (Breasts): Chest: + abnormal inspection of chest (mid-sternal scar) Gastrointestinal (Abdomen): normal bowel sounds, soft, nontender, no hepatosplenomegaly Inspection/Auscultation: normal bowel sounds; + abdomen abnormal to inspection (multiple laparoscopy scars) and abdomen not distended Percussion/Palpation: + abdomen tender (+TTP epigastric region w/o guarding or rebound, tenderness out of proportion to exam) and abdomen soft; no guarding and abdomen not rigid Musculoskeletal: Extremities: extremities normal to inspection; no cyanosis and no clubbing Skin: no rashes, warm and dry Neurologic: CN's II-XI intact bilaterally (No visual field deficits grossly), moves all extremities and awake; no focal motor deficits Psychiatric: Orientation: alert, oriented x 3 and cooperative Eye Contact: good eye contact Affect: + anxious affect Thought Content: + preoccupation Lymphatic: no lymphedema Results & Data Results & Data ([facility]) Vital Signs (Past 12 Hours) Vital Signs Temp Pulse Pulse Resp BP BP Pulse Ox 12/16/19 13:16 36.8 C 70 18 120/75 95 12/16/19 12:03 37.0 C 68 19 127/81 94 12/16/19 08:00 59 L 12/16/19 07:53 36.6 C 71 16 109/64 94 12/16/19 04:42 36.6 C 72 18 95/60 L 92 Laboratory Results 12/16/19 12/16/19 12/16/19 Range/Units 15:10 05:24 05:24 WBC (4.8-10.8) K/uL RBC (4.2-5.4) M/uL Hgb (12.0-16.0) g/dL Hct (37-47) % MCV (80-100) fL MCH (25-34) pg MCHC (32-36) g/dL RDW Std Deviation (36.4-46.3) fL RDW Coeff of [place] (11.5-14.5) % Plt Count (130-400) K/uL MPV (7.4-10.4) fL Immature Gran % (Auto) % Neut % (Auto) % Lymph % (Auto) % [place] % (Auto) % Eos % (Auto) % Baso % (Auto) % Neut # (Auto) (1.4-6.5) K/uL Lymph # (Auto) (1.2-3.4) K/uL [place] # (Auto) (0.11-0.59) K/uL Eos # (Auto) (0-0.5) K/uL Baso # (Auto) (0-0.2) K/uL Immature Gran # (Auto) (0.00-0.02) K/uL PT 10.9 (9.0-12.0) Seconds INR 1.0 (0.9-1.1) Sodium 141 (136-145) mmol/L Potassium 3.9 (3.5-5.1) mmol/L Chloride 106 (98-107) mmol/L Carbon Dioxide 28 (21-32) mmol/L Anion Gap 7.0 (3-11) BUN 13 (7-18) mg/dl Creatinine 0.87 (0.6-1.2) mg/dl Est Cr Clr Drug Dosing 74.3 ml/min Est GFR ( Amer) 83.9 Est GFR (Non-Af Amer) 72.4 BUN/Creatinine Ratio 15.5 (10-20) Glucose 83 (70-99) mg/dl Lactate 0.6 (0.4-2.0) mmol/L Calcium 8.4 L (8.5-10.1) mg/dl Magnesium 2.0 (1.8-2.4) mg/dl Total Bilirubin 0.8 (0.2-1) mg/dl Direct Bilirubin 0.1 (0-0.2) mg/dl AST 220 H (15-37) U/L ALT 418 H (12-78) U/L Alkaline Phosphatase 134 H (45-117) U/L Total Protein 6.7 (6.4-8.2) gm/dl Albumin 3.2 L (3.4-5.0) gm/dl SARS Serology SARS-CoV-2 IgG & IgM Ab 12/16/19 12/15/19 12/15/19 Range/Units 05:24 16:56 16:56 WBC 5.99 (4.8-10.8) K/uL RBC 3.86 L (4.2-5.4) M/uL Hgb 12.3 (12.0-16.0) g/dL Hct 36.1 L (37-47) % MCV 93.5 (80-100) fL MCH 31.9 (25-34) pg MCHC 34.1 (32-36) g/dL RDW Std Deviation 39.5 (36.4-46.3) fL RDW Coeff of [place] 11.7 (11.5-14.5) % Plt Count 280 (130-400) K/uL MPV 9.1 (7.4-10.4) fL Immature Gran % (Auto) 0.2 % Neut % (Auto) 58.5 % Lymph % (Auto) 23.7 % [place] % (Auto) 10.4 % Eos % (Auto) 6.7 % Baso % (Auto) 0.5 % Neut # (Auto) 3.51 (1.4-6.5) K/uL Lymph # (Auto) 1.42 (1.2-3.4) K/uL [place] # (Auto) 0.62 H (0.11-0.59) K/uL Eos # (Auto) 0.40 (0-0.5) K/uL Baso # (Auto) 0.03 (0-0.2) K/uL Immature Gran # (Auto) 0.01 (0.00-0.02) K/uL PT (9.0-12.0) Seconds INR (0.9-1.1) Sodium (136-145) mmol/L Potassium (3.5-5.1) mmol/L Chloride (98-107) mmol/L Carbon Dioxide (21-32) mmol/L Anion Gap (3-11) BUN (7-18) mg/dl Creatinine (0.6-1.2) mg/dl Est Cr Clr Drug Dosing ml/min Est GFR ( Amer) Est GFR (Non-Af Amer) BUN/Creatinine Ratio (10-20) Glucose (70-99) mg/dl Lactate (0.4-2.0) mmol/L Calcium (8.5-10.1) mg/dl Magnesium (1.8-2.4) mg/dl Total Bilirubin (0.2-1) mg/dl Direct Bilirubin (0-0.2) mg/dl AST (15-37) U/L ALT (12-78) U/L Alkaline Phosphatase (45-117) U/L Total Protein (6.4-8.2) gm/dl Albumin (3.4-5.0) gm/dl SARS Serology Cancelled SARS-CoV-2 IgG & IgM Ab Pending PG Care Time/CCT Total # of Minutes Spent Total Time Spent with Patient: Total time spent is greater than 50% in coordination of care (as documented) at patient's floor/unit and/or counseling patient: Coding Level of Care Code 97571 Subseq Hosp Care Lvl 3 Diagnoses Chest pain R07.9 Chest pain type: unspecified Elevated liver enzymes R74.8 Abdominal pain R10.9 Odynophagia R13.10 Fatigue R53.83 GERD (gastroesophageal reflux disease) K21.9 CAD (coronary artery disease) I25.10 Associated angina: angina presence unspecified Coronary Disease-Associated Artery/Lesion type: unspecified vessel or lesion type [place] vs. transplanted heart: unspecified whether [place] or transplanted heart Hypertension I10 DVT prophylaxis Z29.9 (1) CAD (coronary artery disease) Associated angina: angina presence unspecified Coronary Disease-Associated Artery/Lesion type: unspecified vessel or lesion type [place] vs. transplanted heart: unspecified whether [place] or transplanted heart Qualified Code(s): I25.10 - Atherosclerotic heart disease of [place] coronary artery without angina pectoris (2) Chest pain Chest pain type: unspecified Qualified Code(s): R07.9 - Chest pain, unspecified
[2019-12-16] MEDS ORDERED: OPTIRAY 320 125ml IV PRN (15:53)
--- NOTE | 2019-12-16 16:01 | CT Scan Report ---
CT SCAN OF THE BRAIN WITHOUT IV CONTRAST CLINICAL HISTORY: Blurry vision. COMPARISON STUDY: CT of the brain dated 03/16/2016. TECHNIQUE: Unenhanced axial CT scan of the brain is performed from the vertex to the skull base. A d ose lowering technique was utilized adhering to the principles of ALARA. FINDINGS: Brain parenchyma: The brain parenchyma is normal in appearance. There is no hemorrhage, mass effect, or evidence of acute territorial ischemia by CT criteria. Leyva-white matter differentiation is preser burke. No extra-axial fluid collection is seen. Ventricles, sulci, cisterns: Normal in configuration. Intracranial vasculature: The visualized intracranial vasculature at the skull base is normal in appe arance. Calvarium: Unremarkable. Sinuses and mastoids: The visualized paranasal sinuses are clear. The mastoid air cells are well pneu matized. Orbits: The bony orbits are grossly intact. IMPRESSION: There is no hemorrhage, mass effect, or evidence of acute territorial ischemia by CT isaias mullen. ACT 112: Negative or not required by law. Electronically signed by: Daquan Murphy M.D. 12/16/2019 4:00 PM
--- NOTE | 2019-12-16 16:13 | CT Scan Report ---
CHEST CTA for AORTIC DISSECTION CT DOSE: HISTORY: Atypical chest pain TECHNIQUE: Multiaxial CT images of the chest were performed both before and after the intravenous adm inistration of contrast to evaluate the aorta. Maximal intensity projection images were also obtained . A dose lowering technique was utilized adhering to the principles of ALARA. COMPARISON STUDY: Chest CT 02/09/2019. FINDINGS: Noncontrast imaging through the chest shows no evidence for an intracranial hematoma within the thoracic aorta. The thoracic aorta is normal and course and caliber with no evidence for dissect ion. Incidental note is made of an aberrant right subclavian artery. No fractures within the visualiz ed osseous structures. Poststernotomy changes. No pneumothorax. The central airways are patent. There are few bibasilar linear densities consistent with subsegmental atelectasis. Otherwise, the lungs ar e clear. Dense barium contrast within the colon. Prior cholecystectomy. The visualized liver, spleen, and adrenal glands are unremarkable. Bilateral breast implants are noted. No mediastinal or hilar ly mphadenopathy. The heart is normal in size. Normal caliber esophagus. IMPRESSION: 1. No evidence for an aortic dissection. 2. No acute process within the chest. ACT 112: Negative or not required by law. Electronically signed by: Noé Vargas M.D. 12/16/2019 4:12 PM
[2019-12-16] MEDS: NITROGLYCERIN 0.2 MG/HR PATCH TD SCH (18:27)
[2019-12-16] MEDS: ZOLPIDEM TARTRATE 5 MG TAB PO PRN (22:03)
[2019-12-17] MEDS: HYDROmorphone INJ 0.5 MG/0.5 ML SYR IV PRN ×2 (07:10→12:03)
[2019-12-17] MEDS: ONDANSETRON INJ 2 MG/ML 2 ML VIAL IV PRN (07:17)
[2019-12-17 07:27] LABS: CoV2 Total Antibody Negative (Negative)
[2019-12-17] MEDS: MULTIVITAMIN TAB PO SCH (08:50)
[2019-12-17] MEDS: DOCUSATE SODIUM/SENNA 50/8.6MG TAB PO SCH ×2 (08:50→08:51)
[2019-12-17] MEDS: PANTOprazole 40 MG TAB PO SCH (08:50)
[2019-12-17] MEDS: SUCRALFATE 1 GM/10 ML UDC PO SCH ×2 (08:50→13:38)
[2019-12-17] MEDS: COLCHICINE 0.6 MG TAB PO SCH (08:50)
[2019-12-17] MEDS: CALCIUM 600MG + VIT D 400 IU TAB PO SCH (08:50)
[2019-12-17] MEDS: dilTIAZem HCL 240 MG CAPCR PO SCH (08:50)
[2019-12-17] MEDS: ASPIRIN 81 MG ECTAB PO SCH (08:50)
[2019-12-17] MEDS: dilTIAZem HCL 120 MG CAPCR PO SCH (08:50)
[2019-12-17] MEDS: FEXOFENADINE HCL 180 MG TAB PO SCH (08:50)
[2019-12-17] MEDS: VITAMIN B COMPLEX TAB PO SCH (08:50)
[2019-12-17] MEDS: CLOPIDOGREL BISULFATE 75 MG TAB PO SCH (08:50)
[2019-12-17] MEDS: NITROGLYCERIN 0.2 MG/HR PATCH TD SCH (08:50)
[2019-12-17] MEDS: ISOSORBIDE MONO EXTENDED REL 60 MG TABCR PO SCH (08:50)
[2019-12-17] MEDS: POLYETHYLENE (MIRALAX) 17 GM PACK PO SCH (08:51)
[2019-12-17] MEDS: ALUMINUM/MAGNESIUM SUSP 72 ML, LIDOCAINE HCL VISCOUS 2% 24 ML, BARCODE IDENTIFIER 1 EA PO PRN (08:53)
[2019-12-17 09:40] LABS: Basophils # (auto) 0.02 K/uL (0-0.2); Basophils % (auto) 0.3 %; Eosinophils # (auto) 0.56 K/uL (0-0.5); Eosinophils % (auto) 9.3 %; Hematocrit (blood only) 37.8 % (37-47); Immature Granulocytes # (auto) 0.01 K/uL (0.00-0.02); Immature Granulocytes % (auto) 0.2 %; Lymphocytes % (auto) 23.3 %; Mean Corpuscular Hemoglobin 34.1 pg (25-34); Monocytes # (auto) 0.43 K/uL (0.11-0.59); Monocytes % (auto) 7.1 %; Neutrophils % (auto) 59.8 %; Platelet Count 280 K/uL (130-400); RDW Coefficient of Variation 11.6 % (11.5-14.5); RDW Standard Deviation 39.4 fL (36.4-46.3); Red Blood Count 4.11 M/uL (4.2-5.4); White Blood Count 6.02 K/uL (4.8-10.8)
[2019-12-17 10:30] LABS: Albumin Level 3.8 gm/dl (3.4-5.0); Bilirubin Direct 0.1 mg/dl (0-0.2); Calcium 9.2 mg/dl (8.5-10.1); Creatinine Clr Calc Pharmacy 70.6 ml/min; Est GFR (African American) 79.5; Est GFR (Non-African American) 68.6; Magnesium 2.1 mg/dl (1.8-2.4); Potassium 4.2 mmol/L (3.5-5.1)
[2019-12-17 10:39] LABS: Bilirubin,Total 0.6 mg/dl (0.2-1); Phosphorus 3.5 mg/dl (2.5-4.9); Total Protein 7.5 gm/dl (6.4-8.2)
[2019-12-17 12:04] LABS: Hepatitis A Antibody IgM NON-REACTIVE (NON-REACTIVE); Hepatitis B Core Antibody IgM NON-REACTIVE (NON-REACTIVE)
[2019-12-17] MEDS ORDERED: bisacodyL 10 MG SUPP PR STA (14:37)
[2019-12-17] MEDS ORDERED: SOD PHOSPHATE/SOD BIPHOSPHATE ENEMA 132 ML BTL PR PRN (14:37)
--- NOTE | 2019-12-17 14:41 | Hospitalist Progress Note ---
Date of Service December 17, 2019 Assessment & Plan (1) Chest pain: Presented with constant CP, improves with sitting up, similar subjectively to previous episodes of pericarditis. ECG without changes, troponin serially negative, ECHO normal, CXR normal, ESR normal at 15 Not improved with nitro gtt--> nitro gtt dcd Improved with IV opioids only including fentanyl and Dilaudid--> she does not want the Dilaudid discontinued at this time despite feeling lightheaded with standing and having soft blood pressures This is NOT unstable angina--> dc heparin gtt, appreciate Cardiology consultation Could be atypical pericarditis despite h/o pericardectomy GI consult appreciated--> checked UGI and was normal, no repeat EGD needed as just had this 2 weeks ago Nonetheless, patient reports the chest pain is improved today. Of note, she has a long history of chronic daily chest pain. -Continue empiric trial of colchicine 0.6mg po bid -cannot tolerate NSAIDs due to recent gastritis and h/o allergy to NSAIDs -continue IV dilaudid prn pain -Continue home Imdur, continue home diltiazem high dose (480 mg total daily) -observe for improvement (2) Elevated liver enzymes: AST, ALT climbed into the 600s, Alk pos slightly elevated on hospital day #2 for unclear reason Liver US normal, s/p cholecystectomy Could be shock liver from nitro gtt? Reaction to a medication? LFTs are now significantly improved with no intervention Acute hepatitis panel checked-hepatitis B and C are negative, hepatitis A is pending -follow LFTs in AM (3) Abdominal pain: Epigastric region, with initially normal LFTs and lipase, now with significantly elevated LFTs as above, but lipase remains normal Abdomen is soft, nonsurgical, and tenderness is out of proportion to exam KUB normal, upper GI normal Very recent EGD with mild gastritis Lactate checked today and was negative CT angiogram of the chest and abdomen was ordered-CT angiogram of the chest for dissection was negative. CT angiogram of the abdomen/pelvis was unable to be completed as she still had barium from her upper GI series visible which would hide the vessels. However, the visualized portions of the abdominal organs appeared normal. -Perhaps could be vasospasm-restart nitroglycerin patch that she uses at home as needed and see if this helps -Continue to work on constipation with bowel regimen-added Miralax bid, add senna/docusate daily Of note, review of my notes from her hospitalization reveals almost identical symptoms in 02/2019-during that hospitalization, she had her gallbladder removed and had complete resolution of her symptoms. She no longer has a gallbladder at this time. Unclear etiology but many things have been ruled out. Observe for improvement (4) Odynophagia: Ongoing for weeks, with similar complaints in the past upon review Had EGD 2 weeks ago without significant esophageal findings UGI normal Not much improvement with PPI, H2 ti, and Magic swizzle or Carafate -could be from acid reflux, versus globus sensation due to anxiety -Consult GI appreciated-signed off -Continue Carafate qid, Magic swizzle as needed -continue PPI bid and Pepcid hs -consult Speech-patient declined evaluation -May be related to anxiety (5) Fatigue: -vague, no fevers TSH, Lyme negative I do not suspect she has an acute COVID infection, but she thinks that she had COVID in 08/2019 in [place]-checking COVID ab Furthermore, had COVID testing 3 weeks ago that was negative Consider depression as a cause of fatigue (6) GERD (gastroesophageal reflux disease): continue Protonix 40 mg p.o. twice daily and Pepcid 20 mg p.o. at bedtime (7) CAD (coronary artery disease): With a history of multiple stents and RCA dissection in the past Stable, serial troponins and ECGs negative -Continue aspirin, Plavix, isosorbide She is intolerant to beta-blockers and statins (8) Hypertension: Blood pressure stable -Continue home diltiazem, Imdur (9) DVT prophylaxis: Heparin drip discontinued Disposition-continued stay for ongoing abdominal pain Admission and Anticipated Discharge Date Admission Date: December 13, 2019 Physical Exam Constitutional: WD/WN, vitals as above Eyes: PERRL, conjunctivae normal, anicteric sclerae + anicteric sclerae and EOM intact bilaterally ENMT: external ear and nose normal, oropharynx normal Neck: trachea midline, no thyromegaly Respiratory: normal respiratory effort, lungs clear to auscultation Cardiovascular: RRR, no murmur, no edema Chest (Breasts): Chest: + abnormal inspection of chest (mid-sternal scar) Gastrointestinal (Abdomen): normal bowel sounds, soft, nontender, no hepatosplenomegaly Inspection/Auscultation: normal bowel sounds; + abdomen abnormal to inspection (multiple laparoscopy scars) and abdomen not distended Percussion/Palpation: + abdomen tender (+TTP epigastric region w/o guarding or rebound, tenderness out of proportion to exam) and abdomen soft; no guarding and abdomen not rigid Musculoskeletal: Extremities: extremities normal to inspection; no cyanosis and no clubbing Skin: no rashes, warm and dry Neurologic: CN's II-XI intact bilaterally (No visual field deficits grossly), moves all extremities and awake; no focal motor deficits Psychiatric: A+Ox3, euthymic affect Orientation: alert, oriented x 3 and cooperative Eye Contact: good eye contact Affect: + anxious affect Thought Content: + preoccupation Lymphatic: no lymphedema Results & Data Results & Data ([facility]) Vital Signs (Past 12 Hours) Vital Signs Temp Pulse Pulse Resp BP Pulse Ox 12/17/19 11:47 36.8 C 74 18 114/63 98 12/17/19 08:00 60 12/17/19 07:49 37.0 C 66 18 110/56 L 96 12/17/19 04:00 36.7 C 60 18 105/64 94 PG Care Time/CCT Total # of Minutes Spent Total Time Spent with Patient: Total time spent is greater than 50% in coordination of care (as documented) at patient's floor/unit and/or counseling patient: Coding Diagnoses Chest pain R07.9 Chest pain type: unspecified Elevated liver enzymes R74.8 Abdominal pain R10.9 Odynophagia R13.10 Fatigue R53.83 GERD (gastroesophageal reflux disease) K21.9 CAD (coronary artery disease) I25.10 Associated angina: angina presence unspecified Coronary Disease-Associated Artery/Lesion type: unspecified vessel or lesion type [place] vs. transplanted heart: unspecified whether [place] or transplanted heart Hypertension I10 DVT prophylaxis Z29.9 (1) Chest pain Chest pain type: unspecified Qualified Code(s): R07.9 - Chest pain, unspecified (2) CAD (coronary artery disease) Associated angina: angina presence unspecified Coronary Disease-Associated Artery/Lesion type: unspecified vessel or lesion type [place] vs. transplanted heart: unspecified whether [place] or transplanted heart Qualified Code(s): I25.10 - Atherosclerotic heart disease of [place] coronary artery without angina pectoris
[2019-12-17] MEDS ORDERED: DOCUSATE SODIUM/SENNA 50/8.6MG TAB PO ONE (14:45)
--- NOTE | 2019-12-17 16:00 | Gastroenterology Progress Note ---
Date of Service December 17, 2019 Assessment & Plan (1) Chest pain: (2) GERD (gastroesophageal reflux disease): (3) Odynophagia: (4) Constipation: -Continue Protonix 40 mg by mouth twice daily -Continue Carafate 1g PO QID -Continue Famotidine 20 mg by mouth at bedtime -Consider outpatient ENT evaluation -Consider Psychiatry evaluation, as chest pain may be anxiety -Increase Miralax to 17g in 8 oz glass of water four times daily temporarily, until she has a BM, then decrease to twice daily thereafter -Recommend Metamucil 1 Tablespoonful in 8 oz glass of water daily -Consider Relistor 12 mg SQ x 1 for OIC Discussed case in detail with Dr. Bowden Admission and Anticipated Discharge Date Admission Date: December 13, 2019 Subjective I had the pleasure of seeing Sherron Gay at her bedside today. She had several complaints including odynophagia, chest pain and constipation. She has recently undergone an EGD and had an UGI series on this hospitalization. The EGD performed by Dr. Allen on 12/02/2019 and was noted to have gastritis with shallow ulcerations of the gastric antrum, a small hiatal hernia and biopsies of the esophagus consistent with reflux. She was seen by Dr. Allen in the office on 12/11 at which time he increased her PPI therapy to twice daily and placed her on H2RA therapy at bedtime. Her upper GI series performed within the past few d ays was normal. She also states that she has had worsening constipation since September of this year, and again this was addressed by Dr. Allen at her outpatient appointment. I did inform her that narcotic analgesics, which she has been receiving here, could also be worsening her symptoms. She states that she has failed treatment with Miralax and metamucil in the past. She currently states she is not able to eat at this time due to her pain. She did undergo an CTA of the chest yesterday, without significant findings. She did inquire about ENT, and I informed her that I would discuss this with her hospitalist, Dr. Bowden. She denied any further complaints. Review of Systems Review of Systems: All systems reviewed & are unremarkable except as noted in HPI & below Physical Exam Constitutional: WD/WN, vitals as above Eyes: + anicteric sclerae Respiratory: normal respiratory effort; no respiratory distress and no labored breathing Results & Data Results & Data ([place]) Vital Signs (Past 12 Hours) Vital Signs Temp Pulse Pulse Resp BP Pulse Ox 12/17/19 15:43 70 12/17/19 15:41 36.9 C 63 18 109/66 96 12/17/19 11:47 36.8 C 74 18 114/63 98 12/17/19 08:00 60 12/17/19 07:49 37.0 C 66 18 110/56 L 96 12/17/19 04:00 36.7 C 60 18 105/64 94 PG Care Time/CCT Total # of Minutes Spent Total Time Spent with Patient: Total time spent is greater than 50% in coordination of care (as documented) at patient's floor/unit and/or counseling patient: Coding Level of Care Code 27286 Subseq Hosp Care Lvl 2 Diagnoses Chest pain R07.9 GERD (gastroesophageal reflux disease) K21.9 Odynophagia R13.10 Constipation K59.00
--- NOTE | 2019-12-17 16:22 | Discharge Summary ---
Date of Service December 17, 2019 Admission HPI Per Admitting Provider The patient is a 59-year-old female with a past medical history including GERD, status post CABG x1, history of pericardiectomy, CAD, dyslipidemia, myocardial bridge, pericarditis, TIA, endothelial dysfunction of coronary artery, carotid artery plaque, Prinzmetal's angina, mast cell disorder, coronary artery dissection, complex regional pain syndrome, cardiac syndrome X, hypertension and history of PA and stroke. The patient reports that she developed recurrent precordial chest pain, that began as a heaviness last evening, has been on and off since that time but has not gone away completely. She does have some shortness of breath associated, and does note radiation of pain to left arm and left jaw. She reports that this pain is similar to her previous heart attacks. She does has a significant history of having 4 previous coronary artery stents, a chronically occluded distal LAD.. Principal Diagnosis Chest pain-suspected pericarditis Epigastric abdominal pain Elevated LFTs Discharge Exam Constitutional: WD/WN, vitals as above Eyes: PERRL, conjunctivae normal, anicteric sclerae + anicteric sclerae and EOM intact bilaterally ENMT: external ear and nose normal, oropharynx normal Neck: trachea midline, no thyromegaly Respiratory: normal respiratory effort, lungs clear to auscultation Cardiovascular: RRR, no murmur, no edema Chest (Breasts): Chest: + abnormal inspection of chest (mid-sternal scar) Gastrointestinal (Abdomen): normal bowel sounds, soft, nontender, no hepatosplenomegaly Inspection/Auscultation: normal bowel sounds; + abdomen abnormal to inspection (multiple laparoscopy scars) and abdomen not distended Percussion/Palpation: + abdomen tender (+TTP epigastric region w/o guarding or rebound, tenderness out of proportion to exam) and abdomen soft; no guarding and abdomen not rigid Musculoskeletal: Extremities: extremities normal to inspection; no cyanosis and no clubbing Skin: no rashes, warm and dry Neurologic: moves all extremities and awake; no focal motor deficits Psychiatric: Orientation: alert, oriented x 3 and cooperative Eye Contact: good eye contact Affect: + anxious affect Thought Content: + preoccupation Lymphatic: no lymphedema Discharge Data Allergies Allergy/AdvReac Type Severity Reaction Status Date / Time ivabradine Allergy SV FACE SWELLS Verified 12/13/19 14:45 prochlorperazine Allergy Severe LOCK JAW Verified 12/13/19 14:45 [From Compazine] amlodipine Allergy Intermediate muscle pain Verified 12/13/19 14:45 morphine Allergy Intermediate RASH Verified 12/13/19 14:45 verapamil Allergy Intermediate muscle pain Verified 12/13/19 14:45 ibuprofen Allergy Mild Rash Verified 12/13/19 14:45 Consultations 12/13/19 14:44 ED Decision to Admit Stat 12/13/19 15:46 Consult Case Management - Discharge Planning Routine Consult Landscape Painter Routine 12/14/19 17:46 Consult Cardiology Routine 12/15/19 08:59 Consult Gastroenterology Routine Ordered Studies 12/15/19 09:52 FL GI series Routine 12/15/19 13:30 US liver Urgent 12/16/19 15:04 CT head/brain wo con Stat 12/16/19 15:10 CT angio chest dissec wo/w con Urgent [facility] Hospital Course (1) Chest pain: Presented with constant CP, improves with sitting up, similar subjectively to previous episodes of pericarditis. ECG without changes, troponin serially negative, ECHO normal, CXR normal, ESR normal at 15 Not improved with nitro gtt--> nitro gtt dcd Improved with IV opioids only including fentanyl and Dilaudid--> she was taking the Dilaudid frequently until the day of discharge when I recommended that she stop taking it because of her constipation issues. This is NOT unstable angina--> dc heparin gtt, appreciate Cardiology consultation Could be atypical pericarditis despite h/o pericardectomy GI consult appreciated--> checked UGI and was normal, no repeat EGD needed as just had this [address] angiogram chest for dissection was normal Nonetheless, patient reports the chest pain is improved today. Of note, she has a long history of chronic daily chest pain. -Continue empiric trial of colchicine 0.6mg po bid x2 weeks -cannot tolerate NSAIDs due to recent gastritis and h/o allergy to NSAIDs -Discontinued opioids before discharge -Continue home Imdur, continue home diltiazem high dose (480 mg total daily) (2) Elevated liver enzymes: AST, ALT climbed into the 600s, Alk pos slightly elevated on hospital day #2 for unclear reason Liver US normal, s/p cholecystectomy Could be shock liver from nitro gtt? Reaction to a medication? LFTs are now significantly improved with no intervention. Acute hepatitis panel negative for hepatitis A, B, or C -follow LFTs as an outpatient in 1 week to ensure that they return completely to normal-can be ordered by PCP (3) Abdominal pain: Epigastric region, with initially normal LFTs and lipase, then with significantly elevated LFTs as above, but lipase remains normal Abdomen is soft, nonsurgical, and tenderness is out of proportion to exam KUB normal, upper GI normal Very recent EGD with mild gastritis Lactate normal CT angiogram of the chest and abdomen was ordered-CT angiogram of the chest for dissection was negative. CT angiogram of the abdomen/pelvis was unable to be completed as she still had barium from her upper GI series visible which would hide the vessels. However, the visualized portions of the abdominal organs appeared normal. -Perhaps could be vasospasm-restarted nitroglycerin patch that she uses at home and made no difference -Could be IBS-C with intestinal spasm-consider trial hyoscyamine as an outpatient -Continue to work on constipation with bowel regimen-continue MiraLAX 4 times a day until starts having bowel movements and then reduce to twice daily; continue senna/docusate 2 tablets daily, add fiber to the diet, and can use OTC enemas as needed-stressed importance of getting her bowels moving which might help her epigastric abdominal pain is no other source was found Is likely functional abdominal pain Of note, review of my notes from her hospitalization reveals almost identical symptoms in 02/2019-during that hospitalization, she had her gallbladder removed and had complete resolution of her symptoms. She no longer has a gallbladder at this time. Unclear etiology but many things have been ruled out. Observe for improvement as an outpatient Appreciate GI consultation-has no further inpatient recommendations (4) Odynophagia: Ongoing for weeks, with similar complaints in the past upon review Had EGD 2 weeks prior to admission without significant esophageal findings UGI normal Not much improvement with PPI, H2 ti, and Magic swizzle or Carafate -could be from acid reflux, versus globus sensation due to anxiety -Does not seem to be related to acid reflux as she has had no improvement with twice daily PPI, H2 ti, Carafate, or Magic swizzle -Consult GI appreciated -continue PPI bid and Pepcid hs upon discharge -consult Speech-patient declined evaluation -May be related to anxiety-recommend psychiatric evaluation as an outpatient or can be addressed by PCP (5) Fatigue: -vague, no fevers TSH, Lyme negative I do not suspect she has an acute COVID infection, but she thinks that she had COVID in 08/2019 in [place]-checked COVID ab which was negative Furthermore, had COVID testing 3 weeks ago that was negative Consider depression as a cause of fatigue (6) GERD (gastroesophageal reflux disease): continue Protonix 40 mg p.o. twice daily and Pepcid 20 mg p.o. at bedtime (7) CAD (coronary artery disease): With a history of multiple stents and RCA dissection in the past Stable, serial troponins and ECGs negative -Continue aspirin, Plavix, isosorbide She is intolerant to beta-blockers and statins (8) Hypertension: Blood pressure stable -Continue home diltiazem, Imdur (9) DVT prophylaxis: Heparin drip discontinued after 24 hours Disposition-patient felt well enough to go home, stable for discharge Total Time Total Time Spent Total Time Spent (In Minutes): Greater than 30 minutes Total Time Includes: Examination of the Patient, Discharge Planning, Medication Reconciliation and Communication With Other Providers (GI, cardiology) Discharge Plan Discharge Items Patient Disposition: Home - Self-Care Reason For Visit: UNSTABLE ANGINA Discharge Diagnosis: Pericarditis, Abdominal pain Condition on Discharge: Fair Activity: Resume your previous activity Non-emergency contact: Primary Care Provider and It Communications Manager Call non-emergency contact if: you have any medication questions, your symptoms worsen and your pain is not controlled Follow-up/Referrals: Tito Green III, MD [Primary Care Provider] - (Please follow up within 1-2 weeks. ) Diet: Heart Healthy Addtl Attending Provider Instructions: Please continue to work on your bowel regimen with Miralax, senna/docusate, fiber, and you can also use OTC enemas. Take a 2 week course of colchicine for your pericarditis. Pending Studies at Discharge: No Stand-Alone Forms: [facility] Medications and DC Order Prescriptions: New polyethylene glycol 3350 [Miralax] 17 gram Powder In Packet 17 g PO QID Qty: 30 RF: 0 colchicine [Colcrys] 0.6 mg Tablet 0.6 mg PO BID 11 Days Qty: 22 RF: 0 Continued nitroglycerin 0.2 mg/hr patch 24 hour 1 patch TD DAILY PRN (Reason: Angina) Qty: 30 RF: 11 clopidogrel [Plavix] 75 mg tablet 75 mg PO QAM Qty: 90 RF: 3 nitroglycerin 400 mcg/spray aerosol,spray 1 sprays SL Q5M PRN (Reason: chest pain) Qty: 12 RF: 0 diltiazem HCl 120 mg capsule,extended release 24hr 120 mg PO BID Qty: 60 RF: 2 lisinopril 5 mg tablet 5 mg PO HS RF: 0 estradiol [Yuvafem] 10 mcg tablet 10 mcg PV .COMPLEX 365 Days Qty: 8 RF: 12 famotidine 20 mg tablet 20 mg PO .qhs Qty: 30 RF: 2 pantoprazole [Protonix] 40 mg tablet,delayed release (DR/EC) 40 mg PO BID 30 Days Qty: 60 RF: 2 furosemide 40 mg tablet 40 mg PO DAILY PRN (Reason: Edema) RF: 0 fexofenadine [Hortensia Allergy] 180 mg Tablet 180 mg PO BID RF: 0 multivitamin Tablet 1 tab PO QAM RF: 0 aspirin [Aspir-81] 81 mg Tablet,Delayed Release (Dr/Ec) 81 mg PO QAM RF: 0 nitroglycerin 0.4 mg Tablet, Sublingual 1 dose Sublingual UD PRN (Reason: Chest Pain) RF: 0 vitamin M91-jphqt acid 500-400 mcg Tablet 1 tab PO QAM RF: 0 calcium phosphate-vitamin D3 [Citracal-D3 Gummies] 250 mg calcium- 500 unit Tablet,Chewable 1 tab PO QAM RF: 0 isosorbide mononitrate 60 mg tablet extended release 24 hr 60 mg PO BID RF: 0 diltiazem HCl 240 mg capsule,extended release 24 hr 240 mg PO QAM RF: 0 Changed sennosides-docusate sodium [Colace 2-In-1] 8.6-50 mg tablet 2 tabcap PO QAM Qty: 0 RF: 0 No Action lidocaine 5 % adhesive patch,medicated 1 patch TOP DAILY PRN (Reason: Pain) Qty: 15 RF: 0 Discharge Orders: Discharge Order (Routine); Ordered 12/17/19 Ordered By: Mahsa Bowden Admission Data Admit Date/Time: 12/13/19 15:46 Attending Provider: Mahsa Bowden Admit Provider: Manuel Valenzuela Primary Care Provider: Tito Green III Other Providers: Manuel Valenzuela ; Vish Austin ; Tevin Whitney ; Mookie Allen Other Interventions: Discharge Summary Assessment (RN) Last Done: 12/17/19 16:02 DC Date/Time DO NOT enter until pt leaves facility: 12/17/19 16:33 Coding Level of Care Code D/C Day Management >30 mins Diagnoses Chest pain R07.9 Chest pain type: unspecified Elevated liver enzymes R74.8 Abdominal pain R10.9 Odynophagia R13.10 Fatigue R53.83 GERD (gastroesophageal reflux disease) K21.9 CAD (coronary artery disease) I25.10 Associated angina: angina presence unspecified Coronary Disease-Associated Artery/Lesion type: unspecified vessel or lesion type [place] vs. transplanted heart: unspecified whether [place] or transplanted heart Hypertension I10 DVT prophylaxis Z29.9
--- NOTE | 2019-12-17 16:27 | Cardiology Progress Note ---
Date of Service December 17, 2019 Assessment & Plan (1) Chest pain: -possible pericarditis. -improving with colchicine. (2) CAD (coronary artery disease): -extensive history. -continue diltiazem, isosorbide mononitrate, clopidogrel, and aspirin. (3) Hypertension: -adequate control on current regimen. (4) Dyslipidemia: -she refuses statin therapy. Admission and Anticipated Discharge Date Admission Date: December 13, 2019 Subjective The patient becomes tearful during our interview claiming that something is very wrong. Her chest discomfort is improving. Physical Exam Physical Exam: In general this is a well-developed well-nourished white female in no acute distress. HEENT exam is negative. Neck is supple with full carotid upstrokes. There are no carotid bruits. No jugular venous distension. There is no thyromegaly. Cardiovascular exam reveals a regular rhythm with a 1/6 basal systolic ejection murmur. S1 and S2 are normal. No S3 or S4. No rubs. Lungs are clear without rales, rhonchi, or wheezes. Abdomen is soft and nontender without bruits. Extremities reveal intact radial artery and posterior tibial pulses bilaterally. There is no peripheral edema. Results & Data ([facility]) Vital Signs (Past 12 Hours) Vital Signs Temp Pulse Pulse Pulse Resp BP BP 12/17/19 16:02 36.9 C 52 L 63 18 109/66 95/60 L 12/17/19 15:43 70 12/17/19 15:41 36.9 C 63 18 109/66 12/17/19 11:47 36.8 C 74 18 114/63 12/17/19 08:00 60 12/17/19 07:49 37.0 C 66 18 110/56 L Pulse Ox 12/17/19 16:02 96 12/17/19 15:43 12/17/19 15:41 96 12/17/19 11:47 98 12/17/19 08:00 12/17/19 07:49 96 Diagnostic Findings nuclear monitoring technician is benign. PG Care Time/CCT Total # of Minutes Spent Total Time Spent with Patient: Total time spent is greater than 50% in coordination of care (as documented) at patient's floor/unit and/or counseling patient: Coding Level of Care Code 46349 Subseq Hosp Care Lvl 3 Diagnoses Chest pain R07.9 Chest pain type: unspecified CAD (coronary artery disease) I25.10 Associated angina: angina presence unspecified Coronary Disease-Associated Artery/Lesion type: unspecified vessel or lesion type [place] vs. transplanted heart: unspecified whether [place] or transplanted heart Hypertension I10 Dyslipidemia E78.5 (1) Chest pain Chest pain type: unspecified Qualified Code(s): R07.9 - Chest pain, unspecified (2) CAD (coronary artery disease) Associated angina: angina presence unspecified Coronary Disease-Associated Artery/Lesion type: unspecified vessel or lesion type [place] vs. transplanted heart: unspecified whether [place] or transplanted heart Qualified Code(s): I25.10 - Atherosclerotic heart disease of [place] coronary artery without angina pectoris
[2019-12-17] MEDS ORDERED: POLYETHYLENE (MIRALAX) 17 GM PACK PO SCH (17:00)
[2019-12-18] MEDS ORDERED: DOCUSATE SODIUM/SENNA 50/8.6MG TAB PO SCH (09:00)
== END 2019-12-17 16:33 | disposition home or self-care (01) | DRG 316 ==
LOC: ED 13:56 → SUATTDRO 15:46 → 1E 15:46 → 2S 12-15 10:48

== ENCOUNTER 2022-02-22 12:19 | Inpatient (IN) ==
[2022-02-22 13:20] LABS: Basophils # (auto) 0.07 K/uL (0-0.2); Eosinophils # (auto) 0.23 K/uL (0-0.50); Eosinophils % (auto) 3.3 %; Hematocrit (blood only) 41.9 % (34.1-44.9); Hemoglobin 14.4 g/dl (12.0-16.0); Immature Granulocytes # (auto) 0.01 K/uL (0.00-0.02); Immature Granulocytes % (auto) 0.1 %; Lymphocytes # (auto) 1.87 K/uL (1.2-3.4); Lymphocytes % (auto) 26.5 %; Mean Corpuscular Hemoglobin 31.9 pg (25.0-34.0); Mean Corpuscular Hgb Conc 34.4 g/dL (32.0-36.0); Mean Corpuscular Volume 92.9 fL (80.0-100.0); Mean Platelet Volume 9.4 fL (9.4-12.3); Monocytes % (auto) 7.1 %; Neutrophils # (auto) 4.38 K/uL (1.4-6.5); Platelet Count 343 K/uL (130-400); RDW Coefficient of Variation 12.1 % (11.5-14.5); RDW Standard Deviation 41.3 fL (36.4-46.3); Red Blood Count 4.51 M/uL (3.93-5.22); White Blood Count 7.06 K/ul (4.8-10.8)
[2022-02-22] MEDS ORDERED: PANTOPRAZOLE BOLUS/DRIP 1 EACH IV STA (13:52)
[2022-02-22] MEDS ORDERED: PANTOprazole 80 MG in DEXTROSE 5% 100 ML IV ONE (13:52)
--- NOTE | 2022-02-22 14:17 | Emergency Department Note ---
History of Present Illness General Chief complaint: Abdominal Pain Stated complaint: gi Time Seen by Provider: 02/22/22 13:26 Source: patient Mode of arrival: ambulatory Limitations: no limitations History of Present Illness Provider complaint: Abdominal pain, hematemesis, black stools Maximum Pain Intensity: 6 This is a 62-year-old female presents emergency department due to concern for ab dominal pain, blood when she vomited, and hard black stools. Patient states she has a long history of severe GERD and does take Dexilant. She states she did undergo EGD several years ago and did have an ulcer found at that time. She states she does not use any aspirin however does take Plavix due to history of [place] and stenting. She does not use other anticoagulation. She does not use any NSAIDs. She states her GERD symptoms have been worsening over the last 2 weeks, even making it difficult to try and lay down at night to sleep. She states she developed this pain in her epigastric/lower chest area that has been constant, and also worsens when she attempts to lie flat. She states in the last 2 to 3 days she has been unable to eat or drink due to significant accompanying nausea and worsening pain. She denies fevers or chills. She states when she vomited 2 days ago she did notice some bright red blood in the emesis, and states it was a small amount. She denies noting any clots. She states in recent days her stools have been small pellets that have been black and dry. She denies any other abdominal pain, states she does feel bloated and has frequent eructation. Denies any other recent illness, injury, or change in medications. She states she has recently had increased fatigue and lightheadedness. Home Medications Medication Instructions Recorded Confirmed Type multivitamin 1 tab PO QAM 04/08/18 02/22/22 History nitroglycerin 0.2 mg/hr 1 patch transdermal DAILY PRN 03/12/20 02/22/22 Rx transdermal 24 hour patch Angina #90 ea nitroglycerin 0.4 mg sublingual 0.4 mg sublingual UD PRN Chest 03/12/20 02/22/22 Rx tablet Pain #25 tabs nitroglycerin 400 mcg/spray 1 spray sublingual Q5M PRN chest 03/12/20 02/22/22 Rx translingual aerosol pain #12 grams estradiol 10 mcg vaginal tablet 10 mcg vaginal 2XWK 06/17/21 02/22/22 History (Yuvafem) evolocumab 140 mg/mL subcutaneous 140 mg subcut Q14D 06/17/21 02/22/22 History pen injector (Quang Jain) calcium carbonate 500 mg calcium 500 mg PO BID 07/11/21 02/22/22 History (1,250 mg) tablet phenazopyridine 200 mg tablet 200 mg PO TID PRN pain 3 days #9 07/20/21 02/22/22 Rx tabs bisoprolol fumarate 5 mg tablet 5 mg PO PM #90 tabs 09/23/21 02/22/22 Rx furosemide 40 mg tablet 40 mg PO BID #180 tabs 01/02/22 02/22/22 Rx clopidogrel 75 mg tablet (Plavix) 75 mg PO QAM 01/20/22 02/22/22 History cholecalciferol (vitamin D3) 50 50 mcg PO DAILY 01/23/22 02/22/22 History mcg (2,000 unit) capsule dexlansoprazole 30 mg 30 mg PO QAM 02/22/22 02/22/22 History capsule,biphase delayed release famotidine 40 mg tablet 40 mg PO DAILY #30 tabs 02/22/22 02/22/22 Rx ondansetron 4 mg disintegrating 4 mg PO Q8H PRN nausea and 02/22/22 02/22/22 Rx tablet vomiting #30 tabs Allergies Allergy/AdvReac Type Severity Reaction Status Date / Time ivabradine Allergy SV FACE SWELLS Verified 02/23/22 10:32 prochlorperazine Allergy Severe LOCK JAW Verified 02/23/22 10:32 [From Compazine] amlodipine Allergy Intermediate muscle pain Verified 02/23/22 10:32 verapamil Allergy Intermediate muscle pain Verified 02/23/22 10:32 levofloxacin [From Levaquin] AdvReac Severe Pain in Verified 02/23/22 10:32 Feet(muscles and ligaments) ranolazine AdvReac Mild Verified 02/23/22 10:32 Past Med/Surg History Medical History Asymptomatic PVCs CAD (coronary artery disease) S/p 1 vessel CABG (SVG to RCA) and stents to RCA; most recent cath per cardio note 09/30/18= occluded distal LAD and patent RCA stents (unchanged from 10/2017) Cardiac syndrome X Carotid artery plaque CMC arthritis, thumb, degenerative Dyslipidemia Family history of breast cancer Family history of ovarian cancer Fibroid tumor GERD (gastroesophageal reflux disease) Hiatal hernia History of stroke Hypertension 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 (LAST SEPTEMBER 2018) History of colonoscopy History of elbow surgery RT ELBOW History of esophagogastroduodenoscopy (EGD) History of heart artery stent SEPTEMBER 2017>4 STENTS PLACED (WILL BRING CARD TO SURGERY) DRUG ELUTING History of heart surgery 07/2014>UNROOFING MYOCARDIAL BRIDGE OF LAD ([facility]) 3 MONTHS LATER-PERICARDIECTOMY 01/2017 BYPASS OF RCA History of hysterectomy History of laparoscopic cholecystectomy 02/13/2019 History of pericardiectomy 11/2014 History of shoulder surgery RT/LEFT History of tonsillectomy History of tooth extraction Hx of LASIK S/P CABG x 1 S/P rotator cuff repair "bilat" Family History Mother Family history of diabetes mellitus Coronary heart disease Cardiac disorder Hypertension Father Family history of diabetes mellitus Cardiac disorder Kidney disease Myocardial infarction Hypertension Sister Family history of diabetes mellitus Seizures Brother Prostate cancer Thyroid cancer Family history of diabetes mellitus Cardiac disorder Hypertension Lymphoma Non-Hodgkin's Uncle Esophageal cancer Grandmother Cardiac disorder Breast cancer Grandfather Cardiac disorder Aunt Ovarian cancer Daughter Lymphoma Leyva-zone Other No family history of adverse response to anesthesia Denies family history of Colorectal cancer Social History Smoking Status: Never smoker Second Hand Exposure: No; Hx Alcohol Use: Yes Alcohol type: hard liquor Hx Substance Use: No Preferred Language: Haitian Communication Ability: Effective Visual Impairment: No Limitations Hearing Ability: Normal Commercial Credit Specialist Required: No Beliefs That Will Affect Care: Confucianism marital status: Current Living Situation: Alone Current Living Situation Comment: home with current occupational status: employed Other Information That Helps Us Care for You: No Feels Safe at Home: Yes Safety Concerns: Feels Safe At This Time Childhood Exposure to Second-Hand Smoke: Yes caffeine: Yes Dental Care, Regularly: Yes Physical Activity Frequency: 5-6 Times per Week Seatbelt Use: always Sunscreen Use: Yes Assistive Devices: Walker Review of Systems A total of 10 systems reviewed and were otherwise negative All systems reviewed & are unremarkable except as noted in HPI & below Physical Exam Vital Signs Vital Signs - 24 hr 02/22/22 12:34 02/22/22 16:06 02/22/22 18:21 Temperature 36.8 C Temperature Source Oral Pulse Rate 71 Pulse Rate [Apical] 65 69 Pulse Rhythm [Apical] Regular Regular Respiratory Rate 18 16 18 Respiratory Effort / Characteristics Non-Labored Spontaneous Respiratory Depth Normal Blood Pressure 119/74 Blood Pressure Mean 89 Blood Pressure Position Semi-fowlers Pulse Oximetry 97 99 95 Oxygen Delivery Method Room Air Room Air Sepsis Recent Fever Within 48 Hours No Sepsis New/Unexplained Change in Mental Status No Sepsis Action Taken by Nursing No Action Required GENERAL: alert, uncomfortable appearing, well nourished, no distress, non-toxic EYE EXAM: normal conjunctiva, PERRL and EOM's grossly intact OROPHARYNX: no exudate, no erythema, lips, buccal mucosa, and tongue normal and mucous membranes are moist NECK: supple, no nuchal rigidity, no adenopathy, non-tender LUNGS: Clear to auscultation. Normal chest wall mechanics, no w/r/r HEART: no murmurs, S1 normal and S2 normal ABDOMEN: abdomen soft, non-tender, normo-active bowel sounds, no masses, no rebound or guarding. BACK: Back is symmetrical on inspection and there is no deformity, no midline tenderness, no CVA tenderness. SKIN: no rashes and no bruising UPPER EXTREMITIES: upper extremities are grossly normal. FROM, nml pulses b/l. LOWER EXTREMITIES: No pitting edema. FROM, nml pulses b/l. NEURO EXAM: Normal sensorium, cranial nerves II-XII grossly intact, normal speech, no gross weakness of arms, no gross weakness of legs. Gross sensation intact. Course Course 1749: Patient updated on results at bedside. Patient states she is still having pain and frequent eructation. Rectal exam performed at bedside with Roxy CAO nurse eeo officer. 2 small hemorrhoids noted, no active bleeding, no evidence of thrombosis, no evidence of anal fissure, AMY performed, no stool in vault, mucus trace positive on guaiac testing. Administered Medications Bisoprolol Fumarate (Bisoprolol Fumarate 5 Mg Tab) 5 mg PO PM DEMETRIA Stop: 03/25/22 01:44 Last Admin: 02/23/22 02:57 Dose: Not Given Documented By: [place] Pantoprazole Sodium 40 mg/ (Dextrose) 100 mls @ 20 mls/hr IV Q5H DEMETRIA Stop: 03/24/22 14:14 Last Admin: 02/23/22 08:14 Dose: 8 mg/hr, 20 mls/hr Documented By: [id number] Infusion: 02/23/22 07:57 Dose: 8 mg/hr, 20 mls/hr Documented By: [id number] Admin: 02/23/22 02:57 Dose: 8 mg/hr, 20 mls/hr Documented By: Infusion: 02/23/22 01:40 Dose: 8 mg/hr, 20 mls/hr Documented By: SKILLED NURSING Admin: 02/22/22 20:40 Dose: 8 mg/hr, 20 mls/hr Documented By: Infusion: 02/22/22 19:30 Dose: 8 mg/hr, 20 mls/hr Documented By: Admin: 02/22/22 14:30 Dose: 8 mg/hr, 20 mls/hr Documented By: MARISABEL Famotidine 20 mg/ Syringe 5 mls @ 2.5 mls/min IV QAM DEMETRIA Stop: 03/25/22 08:59 Last Admin: 02/23/22 08:14 Dose: 2.5 mls/min Documented By: [id number] Lactated Ringer's (Lr) 1,000 mls @ 80 mls/hr IV .[id number] DEMETRIA Stop: 03/25/22 09:29 Last Admin: 02/23/22 10:10 Dose: 80 mls/hr Documented By: [id number] Ondansetron HCl (Ondansetron Inj 2 Mg/Ml 2 Ml Vial) 4 mg IV Q4H PRN PRN Reason: Nausea Stop: 03/25/22 01:28 Last Admin: 02/23/22 06:40 Dose: 4 mg Documented By: AZ Discontinued Medications Al Hydrox/Mg Hydrox/Simethicone (Aluminum/Magnesium/Simeth (Maalox Max) 30 Ml Udc) 30 ml PO NOW STA Stop: 02/22/22 20:32 Last Admin: 02/22/22 20:52 Dose: 30 ml Documented By: LEEROY Pantoprazole Sodium (Protonix Bolus/Drip) 0 mls @ 1 mls/hr IV ONE STA Stop: 02/22/22 13:53 Last Admin: 02/22/22 17:50 Dose: Not Given Documented By: LEEROY Pantoprazole Sodium 80 mg/ (Dextrose) 120 mls @ 400 mls/hr IV NOW ONE Stop: 02/22/22 14:09 Last Infusion: 02/22/22 14:51 Dose: 0 mls/hr Documented By: Admin: 02/22/22 14:23 Dose: 400 mls/hr Documented By: MARISABEL Acetaminophen (Ofirmev) 1,000 mg in 100 mls @ 400 mls/hr IV NOW STA Stop: 02/22/22 16:11 Last Infusion: 02/22/22 16:34 Dose: 0 mls/hr Documented By: Admin: 02/22/22 16:05 Dose: 400 mls/hr Documented By: LEEROY Famotidine 20 mg/ Syringe 5 mls @ 2.5 mls/min IV NOW STA Stop: 02/22/22 20:31 Last Admin: 02/22/22 20:52 Dose: 2.5 mls/min Documented By: LEEROY Lactated Ringer's (Lr) 2,000 mls @ 80 mls/hr IV .Q24H DEMETRIA Stop: 03/25/22 01:28 Last Admin: 02/23/22 07:23 Dose: Not Given Documented By: [id number] Potassium Chloride (K Reese / Wtr) 10 meq in 100 mls @ 100 mls/hr IV Q1H DEMETRIA Stop: 02/23/22 03:44 Last Admin: 09/22/22 07:23 Dose: Not Given Documented By: [id number] Infusion: 02/23/22 07:23 Dose: 0 mls/hr Documented By: [id number] Admin: 02/23/22 02:56 Dose: 100 mls/hr Documented By: AZ Lactated Ringer's (Lr) 1,000 mls @ 80 mls/hr IV .[id number] DEMETRIA Stop: 02/24/22 02:59 Last Infusion: 02/23/22 09:34 Dose: 0 mls/hr Documented By: [id number] Admin: 02/23/22 02:56 Dose: 80 mls/hr Documented By: AZ Ioversol (Optiray 300 100ml) 95 ml IV ONCE ONE Stop: 02/22/22 15:58 Last Admin: 02/22/22 15:58 Dose: 95 ml Documented By: YAMIL Ondansetron HCl (Ondansetron Inj 2 Mg/Ml 2 Ml Vial) 4 mg IV NOW STA Stop: 02/22/22 16:10 Last Admin: 02/22/22 16:17 Dose: 4 mg Documented By: LEEROY Critical Care Time Critical Care Time: Yes Total Critical Care Time: 35 Critical care of 35 min performed to assess and manage high likelihood of life- threatening GI bleed, involving labs and imaging performed with assessment to evaluate GI bleed diagnosis with frequent reassessment. This time includes bedside time, treatment discussions with patient/family/consultants, documentat ion time and excludes procedure time. Medical Decision Making Differential Diagnosis Differential diagnosis includes etiologies such as diverticulosis, AVM, coagulopathy, colitis, inflammatory bowel disease, malignancy, Mallika-Olmos tear, esophagitis, peptic ulcer disease, variceal bleed, gastritis, epistaxis, fissure, hemorrhoids, as well as others were entertained. Medical Records Attestation: I reviewed the patient's medical records. Home Medications Current Medication List: was personally reviewed by me Laboratory Data Attestation: I reviewed the patient's lab results. Result diagrams: 02/23/22 08:28 02/23/22 08:28 Lab Results 02/22/22 02/22/22 02/22/22 Range/Units 12:40 12:40 12:40 WBC 7.06 (4.8-10.8) K/ul RBC 4.51 (3.93-5.22) M/uL Hgb 14.4 (12.0-16.0) g/dl Hct 41.9 (34.1-44.9) % MCV 92.9 (80.0-100.0) fL MCH 31.9 (25.0-34.0) pg MCHC 34.4 (32.0-36.0) g/dL RDW Std Deviation 41.3 (36.4-46.3) fL RDW Coeff of [place] 12.1 (11.5-14.5) % Plt Count 343 (130-400) K/uL MPV 9.4 (9.4-12.3) fL Immature Gran % (Auto) 0.1 % Neut % (Auto) 62.0 % Lymph % (Auto) 26.5 % [place] % (Auto) 7.1 % Eos % (Auto) 3.3 % Baso % (Auto) 1.0 % Neut # (Auto) 4.38 (1.4-6.5) K/uL Lymph # (Auto) 1.87 (1.2-3.4) K/uL [place] # (Auto) 0.50 (0.24-0.82) K/uL Eos # (Auto) 0.23 (0-0.50) K/uL Baso # (Auto) 0.07 (0-0.2) K/uL Immature Gran # (Auto) 0.01 (0.00-0.02) K/uL PT INR Sodium Cancelled Potassium Cancelled Chloride Cancelled Carbon Dioxide Cancelled Anion Gap Cancelled BUN Cancelled Creatinine Cancelled Est Cr Clr Drug Dosing Cancelled Est GFR ( Amer) Cancelled Est GFR (Non-Af Amer) Cancelled BUN/Creatinine Ratio Cancelled Glucose Cancelled Lactate (0.4-2.0) mmol/L Calcium Cancelled Magnesium Total Bilirubin Cancelled AST Cancelled ALT Cancelled Alkaline Phosphatase Cancelled Troponin I High Sens Total Protein Cancelled Albumin Cancelled Globulin Cancelled Albumin/Globulin Ratio Cancelled Lipase Cancelled Blood Type Cancelled Antibody Screen Cancelled 02/22/22 02/22/22 02/22/22 Range/Units 12:40 12:40 14:12 WBC (4.8-10.8) K/ul RBC (3.93-5.22) M/uL Hgb (12.0-16.0) g/dl Hct (34.1-44.9) % MCV (80.0-100.0) fL MCH (25.0-34.0) pg MCHC (32.0-36.0) g/dL RDW Std Deviation (36.4-46.3) fL RDW Coeff of [place] (11.5-14.5) % Plt Count (130-400) K/uL MPV (9.4-12.3) fL Immature Gran % (Auto) % Neut % (Auto) % Lymph % (Auto) % [place] % (Auto) % Eos % (Auto) % Baso % (Auto) % Neut # (Auto) (1.4-6.5) K/uL Lymph # (Auto) (1.2-3.4) K/uL [place] # (Auto) (0.24-0.82) K/uL Eos # (Auto) (0-0.50) K/uL Baso # (Auto) (0-0.2) K/uL Immature Gran # (Auto) (0.00-0.02) K/uL PT Cancelled INR Cancelled Sodium Potassium Chloride Carbon Dioxide Anion Gap BUN Creatinine Est Cr Clr Drug Dosing Est GFR ( Amer) Est GFR (Non-Af Amer) BUN/Creatinine Ratio Glucose Lactate 1.0 (0.4-2.0) mmol/L Calcium Magnesium Cancelled Total Bilirubin AST ALT Alkaline Phosphatase Troponin I High Sens Cancelled Total Protein Albumin Globulin Albumin/Globulin Ratio Lipase Blood Type Antibody Screen 02/22/22 02/22/22 02/22/22 Range/Units 14:12 14:12 14:12 WBC (4.8-10.8) K/ul RBC (3.93-5.22) M/uL Hgb (12.0-16.0) g/dl Hct (34.1-44.9) % MCV (80.0-100.0) fL MCH (25.0-34.0) pg MCHC (32.0-36.0) g/dL RDW Std Deviation (36.4-46.3) fL RDW Coeff of [place] (11.5-14.5) % Plt Count (130-400) K/uL MPV (9.4-12.3) fL Immature Gran % (Auto) % Neut % (Auto) % Lymph % (Auto) % [place] % (Auto) % Eos % (Auto) % Baso % (Auto) % Neut # (Auto) (1.4-6.5) K/uL Lymph # (Auto) (1.2-3.4) K/uL [place] # (Auto) (0.24-0.82) K/uL Eos # (Auto) (0-0.50) K/uL Baso # (Auto) (0-0.2) K/uL Immature Gran # (Auto) (0.00-0.02) K/uL PT 10.1 INR 0.9 Sodium 141 Potassium 3.4 L Chloride 101 Carbon Dioxide 27 Anion Gap 13 H BUN 22 Creatinine 0.97 Est Cr Clr Drug Dosing 63.9 Est GFR ( Amer) 72.0 Est GFR (Non-Af Amer) 62.2 BUN/Creatinine Ratio 22.7 H Glucose 96 Lactate (0.4-2.0) mmol/L Calcium 9.8 Magnesium 2.0 Total Bilirubin 0.7 AST 27 ALT 18 Alkaline Phosphatase 73 Troponin I High Sens 3.0 Total Protein 8.4 H Albumin 5.0 Globulin 3.4 Albumin/Globulin Ratio 1.5 Lipase 18 Blood Type O Positive Antibody Screen NEGATIVE Imaging Data Radiologist's Impression: Abdomen/Pelvis CT 02/22/22 13:52 CT abd pelvis IV con only CLINICAL HISTORY: gi bleed, upper abd pain TECHNIQUE: Helical axial images of the abdomen and pelvis were obtained and displayed. Automated dose lowering techniques and/or adjustment according to patient size were utilized for this exam. This exam was performed with intravenous contrast. CT DOSE: 496.13 mGy.cm COMPARISON: Comparison is made to CT abdomen pelvis 07/11/2021 FINDINGS: Lower chest: Partial visualization of an implanted pacemaker. Breast implants are noted. Liver: Unremarkable. No focal lesions are seen. Gallbladder and biliary tree: Patient is status post cholecystectomy. Physiologic prominence of the biliary ducts is noted. Pancreas: Unremarkable, no focal lesions. Spleen: Unremarkable. Adrenals: Unremarkable. Kidneys and ureters: Unremarkable. Bladder: Limited evaluation due to underdistention and streak artifact. Reproductive organs: Unremarkable where visualized, evaluation is limited by streak artifact. Bowel: Patient is status post appendectomy. The stomach wall is mildly prominent likely due to underdistention, similar in appearance to prior exam. Lymph nodes Retroperitoneal: Unremarkable. Pelvic: Unremarkable. Mesenteric: Unremarkable. Peritoneum: Normal. Vessels: Atherosclerotic calcifications are seen. Abdominal wall: Soft tissue stranding is seen in the anterior abdominal soft tissues which may represent contusion. Bones: Degenerative changes in the visualized spine. Compression deformity of the L2 vertebral body is unchanged from prior exam. Bilateral total hip arthropl asties are seen. IMPRESSION: 1. No acute abnormalities to explain GI bleed. 2. Status post cholecystomy with physiologic prominence of the biliary ducts. ACT 112: Negative or not required by law. Electronically signed by: Storm Smith M.D. 02/22/2022 4:09 PM ECG Data Attestation: I personally reviewed and interpreted this ECG as follows: Indication: + abdominal pain Rate (beats per minute): 71 Rhythm: + normal sinus ECG Intervals/blocks: + Normal QRS and + Normal QT ECG [place]: + Normal ECG ST segments: + Nonspecific ST abnormalities MDM Narrative An order was placed for continuous cardiac monitoring. The monitor shows a rate of _72__ with _normal sinus_ rhythm. This is a 62-year-old female who presents with 3 weeks of worsening epigastric pain, hematemesis, as well as melena. Patient does have prior history of PUD and does take Dexilant daily. Patient uncomfortable appearing on physical exam with epigastric pain. She was afebrile and hemodynamically stable. Labs drawn and sent, IV fluids and PPI bolus and drip ordered. Rectal exam performed however no stool in the rectal vault, mucus was trace positive. CT of the abdomen pelvis for additional pathology was unremarkable. Case discussed with hospitalist for additional evaluation and management due to significant history and worsening symptoms despite use of Dexilant as an outpatient. Patient does take Plavix daily, no other antiplatelet or anticoagulation therapy per her report. Impression & Plan Abdominal pain, GI bleed Discharge Plan Visit Data Chief Complaint: Abdominal Pain Stated Complaint: gi ED Provider: Kiki Lopez Discharge Problem: Abdominal pain, GI bleed Patient Disposition: Admitted As Inpatient Discharge Instructions Interventions: ED Discharge Assessment Last Done: 02/22/22 21:30
[2022-02-22] MEDS: PANTOprazole 40 MG in DEXTROSE 5% 100 ML IV SCH ×2 (14:30→20:40)
[2022-02-22 14:34] LABS: INR 0.9 (0.9-1.1); Prothrombin Time 10.1 Seconds (9.0-12.0)
[2022-02-22 14:51] LABS: Albumin Globulin Ratio 1.5 (0.9-2); BUN Creatinine Ratio 22.7 (10-20); Bilirubin,Total 0.7 mg/dl (0.2-1.0); Calcium 9.8 mg/dl (8.5-10.1); Creatinine Clr Calc Pharmacy 63.9 ml/min; Est GFR (Non-African American) 62.2 ml/min; Globulin 3.4 gm/dl (2.5-4.0); Potassium 3.4 mmol/L (3.5-5.1); Total Protein 8.4 gm/dl (6.0-8.3)
[2022-02-22] MEDS ORDERED: OPTIRAY 300 100mL IV ONE (15:57)
[2022-02-22] MEDS ORDERED: ACETAMINOPHEN 1,000 MG/100 ML VIAL IV STA (15:57)
--- NOTE | 2022-02-22 16:04 | Electrocardiogram Report ---
Test Reason : Blood Pressure : / mmHG Vent. Rate : 071 BPM Atrial Rate : 071 BPM P-R Int : 148 ms QRS Dur : 084 ms QT Int : 412 ms P-R-T Axes : 032 -26 036 degrees QTc Int : 447 ms Normal sinus rhythm Possible Left atrial enlargement Cannot rule out Anterior infarct , age undetermined Abnormal ECG When compared with ECG of 17-JUN-2021 11:03, No significant change was found Confirmed by Osiel Webb ([id number]) on 02/22/2022 4:04:07 PM Referred By: REFERRED SELF Confirmed By:Osiel Webb
[2022-02-22] MEDS ORDERED: ONDANSETRON INJ 2 MG/ML 2 ML VIAL IV STA (16:09)
--- NOTE | 2022-02-22 16:10 | CT Scan Report ---
CT abd pelvis IV con only CLINICAL HISTORY: gi bleed, upper abd pain TECHNIQUE: Helical axial images of the abdomen and pelvis were obtained and displayed. Automated dose lowering techniques and/or adjustment according to patient size were utilized for this exam. This e xam was performed with intravenous contrast. CT DOSE: 496.13 mGy.cm COMPARISON: Comparison is made to CT abdomen pelvis 07/11/2021 FINDINGS: Lower chest: Partial visualization of an implanted pacemaker. Breast implants are noted. Liver: Unremarkable. No focal lesions are seen. Gallbladder and biliary tree: Patient is status post cholecystectomy. Physiologic prominence of the b iliary ducts is noted. Pancreas: Unremarkable, no focal lesions. Spleen: Unremarkable. Adrenals: Unremarkable. Kidneys and ureters: Unremarkable. Bladder: Limited evaluation due to underdistention and streak artifact. Reproductive organs: Unremarkable where visualized, evaluation is limited by streak artifact. Bowel: Patient is status post appendectomy. The stomach wall is mildly prominent likely due to underd istention, similar in appearance to prior exam. Lymph nodes Retroperitoneal: Unremarkable. Pelvic: Unremarkable. Mesenteric: Unremarkable. Peritoneum: Normal. Vessels: Atherosclerotic calcifications are seen. Abdominal wall: Soft tissue stranding is seen in the anterior abdominal soft tissues which may repres ent contusion. Bones: Degenerative changes in the visualized spine. Compression deformity of the L2 vertebral body i s unchanged from prior exam. Bilateral total hip arthroplasties are seen. IMPRESSION: 1. No acute abnormalities to explain GI bleed. 2. Status post cholecystomy with physiologic prominence of the biliary ducts. ACT 112: Negative or not required by law. Electronically signed by: Storm Smith M.D. 02/22/2022 4:09 PM
--- NOTE | 2022-02-22 18:25 | History & Physical Report ---
Date of Service February 22, 2022 Assessment & Plan (1) Hematemesis: Plan: Hematemesis in the setting of PUD - history of GERD; most recent EGD 2018 showed shallow gastric ulcers with gastritis and hiatal hernia - home regimen for GERD includes famotidine and dexlansoprazole - Continue Protonix drip, famotidine 20 IV QAM, Maalox prn for heartburn - Clear liquids, NPO after midnight - will start LR at 80mls/hr for a total of 2L - Will consult GI - Tylenol 1000mg IV q8 prn for epigastric pain; pt states that she does not want any opioid mediations Dysphagia - pt states that she was been having trouble swallowing food/pills for the past week - concern for esophageal stricture or worsening of hiatal hernia - Will consult GI GI Bleed - + heme occult in ED - Hemodynamically stable - Continue to trend Nausea and Vomiting - Zofran 4mg IV q4 prn for nausea CAD - On Plavix as home medication after 4 stents; will hold for now prior to procedure - Continue bisoprolol SSS - s/p pacemaker - continue to monitor on telemetry Hypokalemia - K= 3.4, Mg=2 - Will replete with 20meq IV and check again in morning VTE: SCDs Fluids: LR at 80mls/hr Dispo: admit to med tele (2) Abdominal pain: (3) GI bleed: (4) Nausea and vomiting: (5) SSS (sick sinus syndrome): (6) GERD (gastroesophageal reflux disease): (7) CAD (coronary artery disease): (8) Dysphagia: History of Present Illness Chief Complaint: hematemesis, PUD Primary Care Provider: Esperanza Live MD 62 year old female with a past medical history of CAD s/p failed CABG x1 to RCA, BOW MA[employer]ER [employer]ODUCTION PCI x4 with RCA dissection, GERD, Kounis syndrome, stroke, sick sinus syndrome presents with 3 weeks of worsening GERD symptoms. She has had GERD for a number of years, takes Dexilant. Had an EGD a few years ago that showed an ulcer and gastritis. She has been having epigastric pain that has become constant, worse with laying down. She has been sleeping in a recliner. Has also been having belching and has had a persistent dry cough that is worse at night. She has also been having trouble swallowing pills/food for the past week. Over the past 2 weeks she has had 5-6 episodes of emesis. Noticed 1 occasion of hematemesis with streaking of bright red blood. Stools over past couple of days have been small, pellet like and black. Takes Plavix due to history of DC and stenting, no other anticoagulation.Denies NSAID use. ED Course significant for CBC within normal limits, hemoglobin=14.4. CT of abdomen showed no acute abnormalities to explain GI bleed. EKG without any significant changes from prior. + heme occult Allergies Allergy/AdvReac Type Severity Reaction Status Date / Time ivabradine Allergy SV FACE SWELLS Verified 02/22/22 11:00 prochlorperazine Allergy Severe LOCK JAW Verified 02/22/22 11:00 [From Compazine] amlodipine Allergy Intermediate muscle pain Verified 02/22/22 11:00 verapamil Allergy Intermediate muscle pain Verified 02/22/22 11:00 levofloxacin [From Levaquin] AdvReac Severe Pain in Verified 02/22/22 11:00 Feet(muscles and ligaments) ranolazine AdvReac Mild Verified 02/22/22 11:00 Home Medications Medication Instructions Recorded Confirmed Type multivitamin 1 tab PO QAM 04/08/18 02/22/22 History nitroglycerin 0.2 mg/hr 1 patch transdermal DAILY PRN 03/12/20 02/22/22 Rx transdermal 24 hour patch Angina #90 ea nitroglycerin 0.4 mg sublingual 0.4 mg sublingual UD PRN Chest 03/12/20 02/22/22 Rx tablet Pain #25 tabs nitroglycerin 400 mcg/spray 1 spray sublingual Q5M PRN chest 03/12/20 02/22/22 Rx translingual aerosol pain #12 grams estradiol 10 mcg vaginal tablet 10 mcg vaginal 2XWK 06/17/21 02/22/22 History (Yuvafem) evolocumab 140 mg/mL subcutaneous 140 mg subcut Q14D 06/17/21 02/22/22 History pen injector (Quang Jain) calcium carbonate 500 mg calcium 500 mg PO BID 07/11/21 02/22/22 History (1,250 mg) tablet phenazopyridine 200 mg tablet 200 mg PO TID PRN pain 3 days #9 02/16/22 09/21/22 Rx tabs bisoprolol fumarate 5 mg tablet 5 mg PO PM #90 tabs 09/23/21 02/22/22 Rx furosemide 40 mg tablet 40 mg PO BID #180 tabs 01/02/22 02/22/22 Rx clopidogrel 75 mg tablet (Plavix) 75 mg PO QAM 01/20/22 02/22/22 History cholecalciferol (vitamin D3) 50 50 mcg PO DAILY 01/23/22 02/22/22 History mcg (2,000 unit) capsule dexlansoprazole 30 mg 30 mg PO QAM 02/22/22 02/22/22 History capsule,biphase delayed release famotidine 40 mg tablet 40 mg PO DAILY #30 tabs 02/22/22 02/22/22 Rx ondansetron 4 mg disintegrating 4 mg PO Q8H PRN nausea and 02/22/22 02/22/22 Rx tablet vomiting #30 tabs Past Med/Surg History Medical History Asymptomatic PVCs CAD (coronary artery disease) S/p 1 vessel CABG (SVG to RCA) and stents to RCA; most recent cath per cardio note 09/30/18= occluded distal LAD and patent RCA stents (unchanged from 10/2017) Cardiac syndrome X Carotid artery plaque CMC arthritis, thumb, degenerative Dyslipidemia Family history of breast cancer Family history of ovarian cancer Fibroid tumor GERD (gastroesophageal reflux disease) Hiatal hernia History of stroke Hypertension 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 (LAST SEPTEMBER 2018) History of colonoscopy History of elbow surgery RT ELBOW History of esophagogastroduodenoscopy (EGD) History of heart artery stent SEPTEMBER 2017>4 STENTS PLACED (WILL BRING CARD TO SURGERY) DRUG ELUTING History of heart surgery 07/2014>UNROOFING MYOCARDIAL BRIDGE OF LAD ([facility]) 3 MONTHS LATER-PERICARDIECTOMY 01/2017 BYPASS OF RCA History of hysterectomy History of laparoscopic cholecystectomy 02/13/2019 History of pericardiectomy 11/2014 History of shoulder surgery RT/LEFT History of tonsillectomy History of tooth extraction Hx of LASIK S/P CABG x 1 S/P rotator cuff repair "bilat" Family History Mother Family history of diabetes mellitus Coronary heart disease Cardiac disorder Hypertension Father Family history of diabetes mellitus Cardiac disorder Kidney disease Myocardial infarction Hypertension Sister Family history of diabetes mellitus Seizures Brother Prostate cancer Thyroid cancer Family history of diabetes mellitus Cardiac disorder Hypertension Lymphoma Non-Hodgkin's Uncle Esophageal cancer Grandmother Cardiac disorder Breast cancer Grandfather Cardiac disorder Aunt Ovarian cancer Daughter Lymphoma Leyva-zone Other No family history of adverse response to anesthesia Denies family history of Colorectal cancer Social History Smoking Status: Never smoker Second Hand Exposure: No; Hx Alcohol Use: Yes Alcohol type: hard liquor Hx Substance Use: No Preferred Language: Divehi Communication Ability: Effective Visual Impairment: No Limitations Hearing Ability: Normal 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 Beliefs That Will Affect Care: Rastafarian marital status: Current Living Situation: Alone Current Living Situation Comment: home with current occupational status: employed Other Information That Helps Us Care for You: No Feels Safe at Home: Yes Safety Concerns: Feels Safe At This Time Childhood Exposure to Second-Hand Smoke: Yes caffeine: Yes Dental Care, Regularly: Yes Physical Activity Frequency: 5-6 Times per Week Seatbelt Use: always Sunscreen Use: Yes Assistive Devices: Walker Review of Systems Constitutional: + fatigue; no fever and no chills Respiratory: + cough; no dyspnea and no hemoptysis Cardiovascular: no chest pain, no dyspnea at rest and no edema Gastrointestinal: + abdominal pain, + belching, + bloating, + heartburn, + nausea, + vomiting, + hematemesis and + change in stools Neurologic: no dizziness and no headache(s) Physical Exam Physical Exam: Constitutional: well-appearing, no acute distress HEENT: NCAT, no conjunctival injection CV: regular rhythm, no murmur appreciated, extremities well-perfused, no LE edema Resp: CTABL, no wheezes/rales/rhonchi appreciated, no increased work of breathing GI: soft, nondistended, BS normoactive, epigastric tenderness without rebound or guarding MSK: no gross deformities appreciated Skin: warm, dry, no rash appreciated Neuro: alert, oriented, no focal neurologic deficit appreciated Results & Data Results & Data ([facility]) Vital Signs (Past 12 Hours) Vital Signs Temp Pulse Pulse Resp BP Pulse Ox O2 Del Method 02/22/22 16:06 65 16 99 Room Air 02/22/22 12:34 36.8 C 71 18 119/74 97 Room Air Code Status & VTE Plan Code Status Full Code VTE Prophylaxis Plan VTE Prophylaxis will be ordered: Yes Supervising Physician Co-Signing Physician Notes I personally saw and examined the patient. I verified all shukla points and agree with resident physician Dr Esme Brice with the following exceptions and/or additions: 62 year old female admission for hematemesis, dysphagia and epigastric pain. FOB +ve in ER. Hemoglobin normal but given she is already taking Dexilant and famotidine with worsening symptoms and ability to take oral intake this would warrant observation and an EGD. No significant abnormality on CT A/P. O/E HS1+2, no murmurs, Chest CTAB, Abdo - epigastric pain without guarding or rebound tenderness A/P Gastritis/hematemesis/dysphagia - while on Dexilant and famotidine. Probably induced by recent stress. IV pantoprazole drip, IV famotidine, Maalox now and PRN. NPO after midnight for GI to consider EGD tomorrow. Resident Activity Tracking Resident Involvement: Resident Care Provided Care Provided: Adult Hospital Medicine (1) CAD (coronary artery disease) Associated angina: angina presence unspecified Coronary Disease-Associated Artery/Lesion type: unspecified vessel or lesion type [place] vs. transplanted heart: unspecified whether [place] or transplanted heart Qualified Code(s): I25.10 - Atherosclerotic heart disease of [place] coronary artery without angina pectoris
[2022-02-22] MEDS ORDERED: FAMOTIDINE 20 MG in SYRINGE 3 ML IV STA (20:30)
[2022-02-22] MEDS ORDERED: ALUMINUM/MAGNESIUM/SIMETH (MAALOX MAX) 30 ML UDC PO STA (20:31)
[2022-02-23] MEDS ORDERED: ALUMINUM/MAGNESIUM/SIMETH (MAALOX MAX) 30 ML UDC PO PRN (01:29)
[2022-02-23] MEDS ORDERED: ACETAMINOPHEN 1,000 MG/100 ML VIAL IV PRN (01:29)
[2022-02-23] MEDS ORDERED: LACTATED RINGER'S 2,000 ML IV SCH (01:29)
[2022-02-23] MEDS ORDERED: LACTATED RINGER'S 1,000 ML IV SCH (02:00)
[2022-02-23] MEDS: POTASSIUM CHLORIDE / WTR 10 MEQ/100 ML PLCT IV SCH ×2 (02:56→07:23)
[2022-02-23] MEDS: BISOPROLOL FUMARATE 5 MG TAB PO SCH ×2 (02:57→21:09)
[2022-02-23] MEDS: PANTOprazole 40 MG in DEXTROSE 5% 100 ML IV SCH ×4 (02:57→18:42)
[2022-02-23] MEDS: ONDANSETRON INJ 2 MG/ML 2 ML VIAL IV PRN ×2 (06:40→13:58)
--- NOTE | 2022-02-23 07:05 | Billing Data ---
Date of Service February 22, 2022 Coding Level of Care Code INT OBSERVATION CARE 50M LVL 2
[2022-02-23] MEDS: FAMOTIDINE 20 MG in SYRINGE 3 ML IV SCH (08:14)
[2022-02-23 09:11] LABS: Basophils # (auto) 0.06 K/uL (0-0.2); Eosinophils # (auto) 0.33 K/uL (0-0.50); Eosinophils % (auto) 5.8 %; Hematocrit (blood only) 38.3 % (34.1-44.9); Hemoglobin 13.5 g/dl (12.0-16.0); Lymphocytes # (auto) 1.64 K/uL (1.2-3.4); Lymphocytes % (auto) 28.7 %; Mean Corpuscular Hemoglobin 32.5 pg (25.0-34.0); Mean Corpuscular Hgb Conc 35.2 g/dL (32.0-36.0); Mean Corpuscular Volume 92.3 fL (80.0-100.0); Mean Platelet Volume 9.3 fL (9.4-12.3); Monocytes # (auto) 0.54 K/uL (0.24-0.82); Monocytes % (auto) 9.4 %; Neutrophils # (auto) 3.15 K/uL (1.4-6.5); Neutrophils % (auto) 55.1 %; Platelet Count 292 K/uL (130-400); RDW Standard Deviation 40.7 fL (36.4-46.3); Red Blood Count 4.15 M/uL (3.93-5.22); White Blood Count 5.72 K/ul (4.8-10.8)
--- NOTE | 2022-02-23 09:21 | Gastrointestinal Consultation ---
Date of Consultation February 23, 2022 Assessment & Plan (1) Hematemesis: (2) Abdominal pain: (3) Dysphagia: (4) Constipation: Plan Discussed case with Dr. Allen, who advised on plan. - do not suspect GI bleeding given constipation and normal hgb. - patient would like to have EGD done today to further evaluate her symptoms. will add on for today. - continue protonix drip at this time. - continue pepcid 20mg IV daily. - start miralax 17gm daily for constipation. Supervising Physician Co-Signing Physician Notes I personally evaluated the patient and agree with the findings as documented by Melvin Hernández PAC Exam: Constitutional: WD/WN, vitals as above General: EOM intact bilaterally Neck: normal visual inspection Respiratory: normal respiratory effort, lungs clear to auscultation Cardiovascular: RRR, no murmur, no edema Gastrointestinal: abdomennormal to inspection, nondistended, soft, nontender, no hepatosplenomegaly Musculoskeletal: no cyanosis, head normal to inspection Skin: no rashes, warm and dry Neurologic: moves all extremities Psychiatric: A and O x3, euthymic affect Proceed with EGD. risks/benefits and procedure discussed with patient, who agrees to proceed History of Present Illness Reason for Consultation: Dr. Jahaira Brice Requesting Physician: hematemesis in setting of PUD Attending Physician: Deb Quintana MD History of Present Illness Patient is a 62 year old female with a past medical history of CAD s/p failed CABG x1 to RCA, RETINAL SURGEON PCI x4 with RCA dissection, GERD, Kounis syndrome, stroke, sick sinus syndrome presented to ED with 3 weeks of worsening GERD symptoms. lots of belching and epigastric pain over the past 3 weeks. rated 10/10. feeling reflux symptoms despite dexilant 30mg once daily as outpatient. Also with complaints of worsening dysphagia. sternal in nature. She admits to having had about 5 to 6 episodes of emesis over this time. She did have one episode where she had streaks of bright red blood in the emesis. she admits she has not been able to eat much due to how she feels. denies any nsaid use. she has been NPO. she tells me she has been holding plavix for the past 5 days. She also has been having hard, black stools. admits to skipping 4-5 days between bowel movements. Has been having ongoing constipation issues but has not been eating well. no brbpr. rest of gi ros unremarkable. EGD 11/2019 small hiatal hernia, gastirits with ulcerations. COLO 2019 fair prep, external hemorrhoids, and internal hemorrhoids. Allergies Allergy/AdvReac Type Severity Reaction Status Date / Time ivabradine Allergy SV FACE SWELLS Verified 02/22/22 11:00 prochlorperazine Allergy Severe LOCK JAW Verified 02/22/22 11:00 [From Compazine] amlodipine Allergy Intermediate muscle pain Verified 02/22/22 11:00 verapamil Allergy Intermediate muscle pain Verified 02/22/22 11:00 levofloxacin [From Levaquin] AdvReac Severe Pain in Verified 02/22/22 11:00 Feet(muscles and ligaments) ranolazine AdvReac Mild Verified 02/22/22 11:00 Home Medications Medication Instructions Recorded Confirmed Type multivitamin 1 tab PO QAM 04/08/18 02/22/22 History nitroglycerin 0.2 mg/hr 1 patch transdermal DAILY PRN 03/12/20 02/22/22 Rx transdermal 24 hour patch Angina #90 ea nitroglycerin 0.4 mg sublingual 0.4 mg sublingual UD PRN Chest 03/12/20 02/22/22 Rx tablet Pain #25 tabs nitroglycerin 400 mcg/spray 1 spray sublingual Q5M PRN chest 03/12/20 02/22/22 Rx translingual aerosol pain #12 grams estradiol 10 mcg vaginal tablet 10 mcg vaginal 2XWK 06/17/21 02/22/22 History (Yuvafem) evolocumab 140 mg/mL subcutaneous 140 mg subcut Q14D 06/17/21 02/22/22 History pen injector (Quang Jain) calcium carbonate 500 mg calcium 500 mg PO BID 07/11/21 02/22/22 History (1,250 mg) tablet phenazopyridine 200 mg tablet 200 mg PO TID PRN pain 3 days #9 07/20/21 02/22/22 Rx tabs bisoprolol fumarate 5 mg tablet 5 mg PO PM #90 tabs 09/23/21 02/22/22 Rx furosemide 40 mg tablet 40 mg PO BID #180 tabs 01/02/22 02/22/22 Rx clopidogrel 75 mg tablet (Plavix) 75 mg PO QAM 01/20/22 02/22/22 History cholecalciferol (vitamin D3) 50 50 mcg PO DAILY 01/23/22 02/22/22 History mcg (2,000 unit) capsule dexlansoprazole 30 mg 30 mg PO QAM 02/22/22 02/22/22 History capsule,biphase delayed release famotidine 40 mg tablet 40 mg PO DAILY #30 tabs 02/22/22 02/22/22 Rx ondansetron 4 mg disintegrating 4 mg PO Q8H PRN nausea and 02/22/22 02/22/22 Rx tablet vomiting #30 tabs Patient History Medical History Asymptomatic PVCs CAD (coronary artery disease) S/p 1 vessel CABG (SVG to RCA) and stents to RCA; most recent cath per cardio note 09/30/18= occluded distal LAD and patent RCA stents (unchanged from 10/2017) Cardiac syndrome X Carotid artery plaque CMC arthritis, thumb, degenerative Dyslipidemia Family history of breast cancer Family history of ovarian cancer Fibroid tumor GERD (gastroesophageal reflux disease) Hiatal hernia History of stroke Hypertension 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 (LAST SEPTEMBER 2018) History of colonoscopy History of elbow surgery RT ELBOW History of esophagogastroduodenoscopy (EGD) History of heart artery stent SEPTEMBER 2017>4 STENTS PLACED (WILL BRING CARD TO SURGERY) DRUG ELUTING History of heart surgery 07/2014>UNROOFING MYOCARDIAL BRIDGE OF LAD ([facility]) 3 MONTHS LATER-PERICARDIECTOMY 01/2017 BYPASS OF RCA History of hysterectomy History of laparoscopic cholecystectomy 02/13/2019 History of pericardiectomy 11/2014 History of shoulder surgery RT/LEFT History of tonsillectomy History of tooth extraction Hx of LASIK S/P CABG x 1 S/P rotator cuff repair "bilat" Family History Mother Family history of diabetes mellitus Coronary heart disease Cardiac disorder Hypertension Father Family history of diabetes mellitus Cardiac disorder Kidney disease Myocardial infarction Hypertension Sister Family history of diabetes mellitus Seizures Brother Prostate cancer Thyroid cancer Family history of diabetes mellitus Cardiac disorder Hypertension Lymphoma Non-Hodgkin's Uncle Esophageal cancer Grandmother Cardiac disorder Breast cancer Grandfather Cardiac disorder Aunt Ovarian cancer Daughter Lymphoma Leyva-zone Other No family history of adverse response to anesthesia Denies family history of Colorectal cancer Social History Smoking Status: Never smoker Second Hand Exposure: No; Hx Alcohol Use: Yes Alcohol type: hard liquor Hx Substance Use: No Preferred Language: Japanese Communication Ability: Effective Visual Impairment: No Limitations Hearing Ability: Normal 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 Beliefs That Will Affect Care: Adventism marital status: Current Living Situation: Alone Current Living Situation Comment: home with current occupational status: employed Other Information That Helps Us Care for You: No Feels Safe at Home: Yes Safety Concerns: Feels Safe At This Time Childhood Exposure to Second-Hand Smoke: Yes caffeine: Yes Dental Care, Regularly: Yes Physical Activity Frequency: 5-6 Times per Week Seatbelt Use: always Sunscreen Use: Yes Assistive Devices: Walker Review of Systems Review of Systems: All systems reviewed & are unremarkable except as noted in HPI & below Physical Exam Constitutional: WD/WN, vitals as above Respiratory: normal respiratory effort, lungs clear to auscultation Cardiovascular: RRR, no murmur, no edema Gastrointestinal (Abdomen): normal bowel sounds. soft. moderate epigastric tenderness. no guarding. Skin: no rashes, warm and dry Psychiatric: Orientation: alert and oriented x 3 Affect: euthymic affect Results & Data ([facility]) Vital Signs (Past 12 Hours) Vital Signs Temp Pulse Pulse Resp BP BP Pulse Ox 02/23/22 08:08 36.7 C 70 16 128/84 96 02/23/22 04:06 36.8 C 61 18 118/75 95 02/22/22 22:30 36.4 C L 61 18 113/78 96 O2 Del Method 02/23/22 08:08 Room Air 02/23/22 04:06 Room Air 02/22/22 22:30 Room Air PG Care Time/CCT Total # of Minutes Spent Total Time Spent with Patient: Total time spent is greater than 50% in coordination of care (as documented) at patient's floor/unit and/or counseling patient: Coding Level of Care Code 81536 Inpt Consult Level 4 Diagnoses Hematemesis K92.0 Abdominal pain R10.9 Dysphagia R13.10 Constipation K59.00
[2022-02-23 09:32] LABS: Albumin Globulin Ratio 1.5 (0.9-2); Albumin Level 4.3 gm/dl (3.4-5.0); BUN Creatinine Ratio 17.4 (10-20); Calcium 9.1 mg/dl (8.5-10.1); Creatinine Clr Calc Pharmacy 53.9 ml/min; Est GFR (African American) 58.6 ml/min; Est GFR (Non-African American) 50.6 ml/min; Globulin 2.8 gm/dl (2.5-4.0); Magnesium 2.2 mg/dl (1.7-2.4); Phosphorus 3.9 mg/dl (2.5-4.9); Potassium 3.5 mmol/L (3.5-5.1); Total Protein 7.1 gm/dl (6.0-8.3)
[2022-02-23] MEDS: LACTATED RINGER'S 1,000 ML IV SCH ×2 (10:10→21:10)
--- NOTE | 2022-02-23 10:58 | Anesthesiology Consultation ---
Date of Service February 23, 2022 Assessment & Plan Chart Review Chart Review: Acceptable Risk for Surgery ASA ASA3 Proposed Anesthesia Anesthesia Type: MAC Risk / Benefits Reviewed With: PT / POA / Parent / Guardian, Accepts Plan and Informed Consent Obtained History Surgery Operation Date: 02/23/22 16:15 Proposed Procedures p Esophagogastroduodenoscopy Dr. Tiffany Allen MD Height/Weight Height: 5 ft 7 in Weight: 78.2 kg Allergies Allergy/AdvReac Type Severity Reaction Status Date / Time ivabradine Allergy SV FACE SWELLS Verified 02/23/22 10:32 prochlorperazine Allergy Severe LOCK JAW Verified 02/23/22 10:32 [From Compazine] amlodipine Allergy Intermediate muscle pain Verified 02/23/22 10:32 verapamil Allergy Intermediate muscle pain Verified 02/23/22 10:32 levofloxacin [From Levaquin] AdvReac Severe Pain in Verified 02/23/22 10:32 Feet(muscles and ligaments) ranolazine AdvReac Mild Verified 02/23/22 10:32 Medications Home Medications Medication Instructions Recorded Confirmed Last Taken multivitamin 1 tab PO QAM 04/08/18 02/22/22 07/11/21 nitroglycerin 0.2 mg/hr 1 patch transdermal DAILY PRN 03/12/20 02/22/22 Unknown transdermal 24 hour patch Angina #90 ea nitroglycerin 0.4 mg sublingual 0.4 mg sublingual UD PRN Chest 03/12/20 02/22/22 Unknown tablet Pain #25 tabs nitroglycerin 400 mcg/spray 1 spray sublingual Q5M PRN chest 03/12/20 02/22/22 Unknown translingual aerosol pain #12 grams estradiol 10 mcg vaginal tablet 10 mcg vaginal 2XWK 06/17/21 02/22/22 07/10/21 (Yuvafem) evolocumab 140 mg/mL subcutaneous 140 mg subcut Q14D 06/17/21 02/22/22 07/05/21 pen injector (Quang Jain) calcium carbonate 500 mg calcium 500 mg PO BID 07/11/21 02/22/22 07/11/21 08:00 (1,250 mg) tablet phenazopyridine 200 mg tablet 200 mg PO TID PRN pain 3 days #9 07/20/21 02/22/22 Unknown tabs bisoprolol fumarate 5 mg tablet 5 mg PO PM #90 tabs 09/23/21 02/22/22 Unknown furosemide 40 mg tablet 40 mg PO BID #180 tabs 01/02/22 02/22/22 Unknown clopidogrel 75 mg tablet (Plavix) 75 mg PO QAM 01/20/22 02/22/22 Unknown cholecalciferol (vitamin D3) 50 50 mcg PO DAILY 01/23/22 02/22/22 Unknown mcg (2,000 unit) capsule dexlansoprazole 30 mg 30 mg PO QAM 02/22/22 02/22/22 Unknown capsule,biphase delayed release famotidine 40 mg tablet 40 mg PO DAILY #30 tabs 02/22/22 02/22/22 Unknown ondansetron 4 mg disintegrating 4 mg PO Q8H PRN nausea and 02/22/22 02/22/22 Unknown tablet vomiting #30 tabs Active Medications Generic Name Dose Route Start Last Admin Trade Name Freq PRN Reason Stop Dose Admin Bisoprolol Fumarate 5 mg 02/23/22 01:45 02/23/22 02:57 Bisoprolol Fumarate 5 Mg Tab PO 03/25/22 01:44 Not Given PM DEMETRIA Pantoprazole Sodium 40 mg/ 100 mls @ 20 mls/hr 02/22/22 14:15 02/23/22 08:14 Dextrose IV 03/24/22 14:14 8 mg/hr Q5H DEMETRIA 20 mls/hr Administration 8 MG/HR Famotidine 20 mg/ Syringe 5 mls @ 2.5 mls/min 02/23/22 09:00 02/23/22 08:14 IV 03/25/22 08:59 2.5 mls/min QAM DEMETRIA Administration Lactated Ringer's 1,000 mls @ 80 mls/hr 02/23/22 09:30 02/23/22 10:10 Lr IV 03/25/22 09:29 80 mls/hr .[id number] DEMETRIA Administration Ondansetron HCl 4 mg 02/23/22 01:29 02/23/22 06:40 Ondansetron Inj 2 Mg/Ml 2 Ml Vial IV 03/25/22 01:28 4 mg Q4H PRN Administration Nausea NPO Date Last Intake of Fluids: 02/20/22 Time Last Intake of Fluids: 20:00 Date Last Intake of Solids: 02/20/22 Time Last Intake of Solids: 20:00 Past Medical History Medical History Asymptomatic PVCs CAD (coronary artery disease) S/p 1 vessel CABG (SVG to RCA) and stents to RCA; most recent cath per cardio note 09/30/18= occluded distal LAD and patent RCA stents (unchanged from 10/2017) Cardiac syndrome X Carotid artery plaque CMC arthritis, thumb, degenerative Dyslipidemia Family history of breast cancer Family history of ovarian cancer Fibroid tumor GERD (gastroesophageal reflux disease) Hiatal hernia History of stroke Hypertension 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) "s/p unroofing of LAD 07/2014" Myocardial Infarction (~2015) X 2 (2015 AND 09/2017) Non ST elevation [place] - September 2017 RCA SHAMA x4, RCA dissection Normal LM 100% distal LAD with poor collateralization Normal LCx LVEF 65% Osteoarthritis Pericarditis (~11/2014) "s/p Pericardectomy 11/2014 " Prinzmetal angina SSS (sick sinus syndrome) s/p pacemaker 2020 Vaginal atrophy Exercise / Class Metabolic Activity II 4-5 Yardwork/Stairs/Walk up hill Past Family History Family History Mother Family history of diabetes mellitus Coronary heart disease Cardiac disorder Hypertension Father Family history of diabetes mellitus Cardiac disorder Kidney disease Myocardial infarction Hypertension Sister Family history of diabetes mellitus Seizures Brother Prostate cancer Thyroid cancer Family history of diabetes mellitus Cardiac disorder Hypertension Lymphoma Non-Hodgkin's Uncle Esophageal cancer Grandmother Cardiac disorder Breast cancer Grandfather Cardiac disorder Aunt Ovarian cancer Daughter Lymphoma Leyva-zone Other No family history of adverse response to anesthesia Denies family history of Colorectal cancer Past Surgical History Surgical History History of appendectomy History of bilateral breast implants (2014) History of bilateral hip arthroplasty R completed 05/2012 and L completed 07/2012 History of cardiac cath TOTAL 12? (LAST SEPTEMBER 2018) History of colonoscopy History of elbow surgery RT ELBOW History of esophagogastroduodenoscopy (EGD) History of heart artery stent SEPTEMBER 2017>4 STENTS PLACED (WILL BRING CARD TO SURGERY) DRUG ELUTING History of heart surgery 07/2014>UNROOFING MYOCARDIAL BRIDGE OF LAD ([facility]) 3 MONTHS LATER-PERICARDIECTOMY 01/2017 BYPASS OF RCA History of hysterectomy History of laparoscopic cholecystectomy 02/13/2019 History of pericardiectomy 11/2014 History of shoulder surgery RT/LEFT History of tonsillectomy History of tooth extraction Hx of LASIK S/P CABG x 1 S/P rotator cuff repair "bilat" History of PONV No Hx of PONV and No Hx of Motion Sickness Social History Smoking Status: Never smoker Hx Alcohol Use: Yes Alcohol type: hard liquor alcohol intake frequency: holidays/special occasions only Hx Substance Use: No substance use type: does not use Review of Systems Constitutional: as per Subjective / HPI Eyes: as per Subjective / HPI Ear, Nose, Mouth, Throat: as per Subjective / HPI Respiratory: as per Subjective / HPI Cardiovascular: as per Subjective / HPI Additional Comments: Hx of SSS requiring pacemaker Gastrointestinal: + abdominal pain, + belching and + bloating Genitourinary (Female): as per Subjective / HPI Musculoskeletal: as per Subjective / HPI Integumentary: as per Subjective / HPI Neurologic: as per Subjective / HPI Psychiatric: as per Subjective / HPI Endocrine: as per Subjective / HPI Hematologic / Lymphatic: as per Subjective / HPI Allergy / Immunological: as per Subjective / HPI Physical Exam Vital Signs Last Vital Signs Temp 36.4 C L 02/23/22 10:34 Pulse 80 02/23/22 10:34 Resp 18 02/23/22 10:34 BP 115/77 02/23/22 10:34 Pulse Ox 98 02/23/22 10:34 O2 Del Method 02/23/22 10:34 Constitutional noticeably belching ENMT Mouth: no TMJ abnormality (Had "lockjaw" as an adverse reaction to med) Thyromental Distance: > or= 3.5 Finger Breadths Mallampati Class: II Neck normal visual inspection Respiratory normal respiratory effort Cardiovascular Rate/Rhythm: regular rate and regular rhythm Chest (Breasts) Chest: + pacemaker Musculoskeletal Spine: normal cervical ROM Neurologic moves all extremities Psychiatric Orientation: alert and oriented x 3 Testing Laboratory Results 02/23/22 08:28 02/23/22 08:28 PT 10.1 Seconds (9.0-12.0) 02/22/22 14:12 INR 0.9 (0.9-1.1) 02/22/22 14:12 Blood Type O Positive 02/22/22 14:12 Antibody Screen NEGATIVE 02/22/22 14:12
[2022-02-23] MEDS ORDERED: LIDOCAINE 2% MPF LOCAL 5 ML VIAL INFIL ONE (11:17)
[2022-02-23] MEDS ORDERED: PROPOFOL IV EMULSION 10 MG/ML 20 ML VIAL IV ONE (11:17)
[2022-02-23] MEDS ORDERED: ONDANSETRON INJ 2 MG/ML 2 ML VIAL ONE (11:21)
--- NOTE | 2022-02-23 11:27 | GI REPORT ---
Patient Name: Sherron Gay Procedure Date: 02/23/2022 10:50 AM Date of : 1960 Admit Type: Inpatient Age: 62 Gender: Female Attending MD: Mookie Allen MD Procedure: Upper GI endoscopy Providers: Mookie Allen MD Referring MD: Referred Self Indications: Dysphagia, Hematemesis Medicines: Monitored Anesthesia Care Complications: No immediate complications. Estimated blood loss: None. Estimated Blood Loss: Estimated blood loss: none. Procedure: Pre-Anesthesia Assessment: - Prior Anticoagulants: The patient has taken no previous anticoagulant or antiplatelet agents. - ASA Grade Assessment: II - A patient with mild systemic disease. After obtaining informed consent, the endoscope was passed under direct vision. Throughout the procedure, the patient's blood pressure, pulse, and oxygen saturations were monitored continuously. The Endoscope was introduced through the mouth, and advanced to the second part of duodenum. The upper GI endoscopy was accomplished without difficulty. The patient tolerated the procedure well. Findings: No endoscopic abnormality was evident in the esophagus to explain the patient's complaint of dysphagia. It was decided, however, to proceed with dilation of the entire esophagus. A guidewire was placed and the scope was withdrawn. Dilation was performed with a Savary dilator with no resistance at 48 Fr. The dilation site was examined following endoscope reinsertion and showed no change. Biopsies were taken with a cold forceps for histology. Estimated blood loss: none. Diffuse mild inflammation characterized by erythema was found in the stomach. Biopsies were taken with a cold forceps for Helicobacter pylori testing. Estimated blood loss: none. The duodenal bulb and second portion of the duodenum were normal. no evidence of ulcers, blood, masses throughout entire exam Impression: - No endoscopic esophageal abnormality to explain patient's dysphagia. Esophagus dilated. Dilated. Biopsied. - Gastritis. Biopsied. - Normal duodenal bulb and second portion of the duodenum. Recommendation: - Discharge patient to home (with escort). - Resume previous diet today. - Await pathology results. Mookie Allen MD 02/23/2022 11:26:36 AM This report has been signed electronically. Note Initiated On: 02/23/2022 10:50 AM Number of Addenda: 0 I attest to the content of the Intraoperative Record and orders documented therein, exceptions below {[id number]}
[2022-02-23] MEDS ORDERED: ALUMINUM/MAGNESIUM/SIMETH (MAALOX MAX) 30 ML UDC PO STA (13:34)
[2022-02-23] MEDS ORDERED: SUCRALFATE 1 GM/10 ML UDC PO ONE (15:11)
[2022-02-23] MEDS: SENNA 8.6 MG TAB PO SCH (15:24)
--- NOTE | 2022-02-23 15:44 | Medical Student Progress Note ---
Date of Service February 23, 2022 Assessment & Plan (1) Abdominal pain: Plan: Sherron Gay is a 62 year old female patient with a significant past medical history of GERD s/p cholecystectomy and appendectomy who presented to the ED yesterday for a chief concern of abdominal pain, blood in vomit, and black, dry, pellet stools. Differentials that were considered include peptic ulcer flare, GERD flare, worsening of hiatal hernia, esophageal stricture, esophagitis, gastritis, diverticulosis, IBS, and IBD. EGD scan obtained today assists in confirming a diagnosis of gastritis. Gastritis Continue Protonix drip. Administer GI cocktail q6h. Continue bowel rest. Await H. Pylori results for further management. Nausea Consult pharmacy for a different nausea medication, Zofran 4mg IV prn is not providing the patient any relief. Constipation Start patient on Senna 17.2mg qAM. FEN: NPO Code: Full Code DVT Prophylaxis: SCDs Dispo: PCU for monitoring of symptoms. Admission and Anticipated Discharge Date Admission Date: February 22, 2022 Subjective Sherron Gay is a 62 year old female patient with a significant past medical history of GERD s/p cholecystectomy and appendectomy who presented to the ED yesterday for a chief concern of abdominal pain, blood in vomit, and black, dry, pellet stools. The patient states her GERD has been getting progressively worse over the past 2 weeks. She takes Dexilant and Famotidine for her GERD symptoms. The patient reports the pain is in the center of her abdomen below her sternum. She describes the pain as stabbing and radiates up her esophagus. The patient denies radiating pain to her back or shoulder. The patient reports the pain is worse when laying down. The patient reports having an episode of vomiting on Sunday where she noticed streaks of bright red blood. The patient has not had another episode of vomiting since. She states she has been experiencing intermittent pellet stools that are black and dry intermittently over the last 2 weeks. The patient states she has not passed a bowel movement since arriving to the hospital. The patient also reports difficulty swallowing food or pills which has been getting worse over the last 4 days. The patient has not eaten since Sunday due to nausea and decreased appetite. The patient states she has been more fatigued and is experiencing SOB and dizziness. The patient denies fever, chills, recent illness, injury, or change in medications. The patient denies change in urinary habits. The patient reports she does not take aspirin. The patient takes Plavix for her history of CA and cardiac stents. The patient denies NSAID use. The patient adheres to a vegetarian diet. 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 The patient had an EGD in 2019 which revealed shallow gastric ulcers and gastric hiatal hernia. A positive fecal occult blood test was obtained in the ED yesterday. The patient has a significant family history of esophageal cancer in her Uncle. Today the patient reports her pain has increased from 6 to 9/10. She reports she is belching more and feels as if she has overeaten a large meal despite having not eaten in the last 4 days. Review of Systems Constitutional: No fever, no chills, +fatigue. Respiratory: +SOB, no cough, no wheezing. Cardiovascular: Additional Comments: No chest pain, no palpitations. Gastrointestinal: +abdominal pain, +nausea, no vomiting, +constipation, no diarrhea. Physical Exam Constitutional: Alert and oriented, in visible discomfort. Respiratory: Lungs clear to auscultation. Breath sounds equal on both sides. No rhonchi, rales, or wheezes. Cardiovascular: Regular rate and rhythm. No murmurs, rubs, or gallops. Gastrointestinal (Abdomen): Normal bowel sounds. Abdomen soft and nondistended. Tenderness to palpation in epigastric region. No rebound. No hepatosplenomegaly. Results & Data ([facility]) Vital Signs (Past 12 Hours) Vital Signs Temp Pulse Pulse Resp BP Pulse Ox O2 Del Method 02/23/22 12:24 36.9 C 68 15 121/75 96 Room Air 02/23/22 11:50 75 16 123/79 97 Room Air 02/23/22 11:35 73 16 122/85 96 Room Air 02/23/22 07:30 68 02/23/22 11:20 83 16 120/68 97 Room Air 02/23/22 10:34 36.4 C L 80 18 115/77 98 Room Air 02/23/22 07:30 Room Air 02/23/22 08:08 36.7 C 70 16 128/84 96 Room Air 02/23/22 04:06 36.8 C 61 18 118/75 95 Room Air Laboratory Results Cardiac Enzymes 02/23/22 Range/Units 08:28 AST 23 (13-39) U/L CBC 02/23/22 Range/Units 08:28 WBC 5.72 (4.8-10.8) K/ul RBC 4.15 (3.93-5.22) M/uL Hgb 13.5 (12.0-16.0) g/dl Hct 38.3 (34.1-44.9) % Plt Count 292 (130-400) K/uL Neut # (Auto) 3.15 (1.4-6.5) K/uL Lymph # (Auto) 1.64 (1.2-3.4) K/uL [place] # (Auto) 0.54 (0.24-0.82) K/uL Eos # (Auto) 0.33 (0-0.50) K/uL Baso # (Auto) 0.06 (0-0.2) K/uL Comprehensive Metabolic Panel 02/23/22 Range/Units 08:28 Sodium 140 (136-145) mmol/L Potassium 3.5 (3.5-5.1) mmol/L Chloride 102 (98-107) mmol/L Carbon Dioxide 29 (21-32) mmol/L BUN 20 (6-23) mg/dl Creatinine 1.15 (0.6-1.2) mg/dl Glucose 108 H (70-99(Fasting)) mg/dl Calcium 9.1 (8.5-10.1) mg/dl AST 23 (13-39) U/L ALT 17 (7-52) U/L Alkaline Phosphatase 60 (34-104) U/L Total Protein 7.1 (6.0-8.3) gm/dl Albumin 4.3 (3.4-5.0) gm/dl Intake and Output 02/23/22 02/23/22 02/23/22 06:59 14:59 22:59 Intake Total 100 / 620 830.667 / 830.667 Balance 100 / 620 830.667 / 830.667 Intake: IV 100 / 620 830.667 / 830.667 Lactated Ringer's 1,000 ml @ 80 530.667 / 530.667 mls/hr IV .[id number] [facility] Rx#: [id number] PANTOprazole 40 mg In Dextrose 100 / 200 200 / 200 5% 100 ml @ 8 MG/HR 20 mls/hr IV Q5H [facility] Rx#:[id number] Potassium Chloride / Wtr 10 meq 100 / 100 In 100 ml @ 100 mls/hr IV Q1H DEMETRI[facility] Rx#:[id number] Oral 0 / 0 Other: Other Intake Source NPO Weight 78.2 kg Patient Weight 02/24/22 06:59 Weight 78.2 kg Diagnostic Findings Abdomen/Pelvis CT 02/22/22 13:52 CT abd pelvis IV con only CLINICAL HISTORY: gi bleed, upper abd pain TECHNIQUE: Helical axial images of the abdomen and pelvis were obtained and displayed. Automated dose lowering techniques and/or adjustment according to patient size were utilized for this exam. This exam was performed with intravenous contrast. CT DOSE: 496.13 mGy.cm COMPARISON: Comparison is made to CT abdomen pelvis 07/11/2021 FINDINGS: Lower chest: Partial visualization of an implanted pacemaker. Breast implants are noted. Liver: Unremarkable. No focal lesions are seen. Gallbladder and biliary tree: Patient is status post cholecystectomy. Physiologic prominence of the biliary ducts is noted. Pancreas: Unremarkable, no focal lesions. Spleen: Unremarkable. Adrenals: Unremarkable. Kidneys and ureters: Unremarkable. Bladder: Limited evaluation due to underdistention and streak artifact. Reproductive organs: Unremarkable where visualized, evaluation is limited by streak artifact. Bowel: Patient is status post appendectomy. The stomach wall is mildly prominent likely due to underdistention, similar in appearance to prior exam. Lymph nodes Retroperitoneal: Unremarkable. Pelvic: Unremarkable. Mesenteric: Unremarkable. Peritoneum: Normal. Vessels: Atherosclerotic calcifications are seen. Abdominal wall: Soft tissue stranding is seen in the anterior abdominal soft tissues which may represent contusion. Bones: Degenerative changes in the visualized spine. Compression deformity of the L2 vertebral body is unchanged from prior exam. Bilateral total hip arthropl asties are seen. IMPRESSION: 1. No acute abnormalities to explain GI bleed. 2. Status post cholecystomy with physiologic prominence of the biliary ducts. ACT 112: Negative or not required by law. Electronically signed by: Storm Smith M.D. 02/22/2022 4:09 PM Medications Administered Current Inpatient Medications Bisoprolol Fumarate (Bisoprolol Fumarate 5 Mg Tab) 5 mg PO PM [facility] Stop: 03/25/22 01:44 Last Admin: 02/23/22 02:57 Dose: Not Given Al Hydrox/Mg Hydrox/Simethicone 72 ml/ Lidocaine HCl 24 ml/ BARCODE IDENTIFIER 1 each 0 ml PO Q4H PRN PRN Reason: stomach pain Stop: 03/25/22 14:39 Eszopiclone (Eszopiclone 1 Mg Tab) 2 mg PO HSZ PRN PRN Reason: Insomnia Stop: 03/25/22 15:10 Pantoprazole Sodium 40 mg/ (Dextrose) 100 mls @ 20 mls/hr IV Q5H [facility] Stop: 03/24/22 14:14 Last Admin: 02/23/22 13:58 Dose: 8 mg/hr, 20 mls/hr Acetaminophen (Ofirmev) 1,000 mg in 100 mls @ 400 mls/hr IV Q8H PRN PRN Reason: Pain Stop: 02/26/22 01:28 Famotidine 20 mg/ Syringe 5 mls @ 2.5 mls/min IV QAM [facility] Stop: 03/25/22 08:59 Last Admin: 02/23/22 08:14 Dose: 2.5 mls/min Lactated Ringer's (Lr) 1,000 mls @ 80 mls/hr IV .[id number] [facility] Stop: 03/25/22 09:29 Last Admin: 02/23/22 10:10 Dose: 80 mls/hr Ondansetron HCl (Ondansetron Inj 2 Mg/Ml 2 Ml Vial) 4 mg IV Q4H PRN PRN Reason: Nausea Stop: 03/25/22 01:28 Last Admin: 02/23/22 13:58 Dose: 4 mg Polyethylene Glycol (Polyethylene (Miralax) 17 Gm Pack) 17 gm PO DAILY [facility] Stop: 03/25/22 17:59 Sennosides (Senna 8.6 Mg Tab) 17.2 mg PO QAM [facility]ETRIA Stop: 03/25/22 14:44 Last Admin: 02/23/22 15:24 Dose: 17.2 mg
--- NOTE | 2022-02-23 16:07 | Hospitalist Progress Note ---
Date of Service February 23, 2022 Assessment & Plan (1) Hematemesis: Plan: Hematemesis in the setting of PUD - history of GERD; most recent EGD 2019 showed shallow gastric ulcers with gastritis and hiatal hernia - home regimen for GERD includes dexlansoprazole - Continue Protonix drip, famotidine 20 IV QAM, Maalox prn for heartburn - GI consulted: - EGD w/ no evidence of esophageal abnormality to explain dysphagia, dilation of esophagus performed and biopsies taken. - Gastritis evident, no duodenal abnormalities. Biopsies sent. - Resume diet, await pathology results. - Patient resumed on clear liquid diet, advance as tolerated. - Zofran 4mg q4h PRN, Phenergan 12.5mg q6h PRN for nausea - Tylenol 1000mg IV q8 prn for epigastric pain; - GI cocktail for epigastric pain. Dysphagia - Difficulty swallowing past week. - No endoscopic abnormalities w/in esophagus - Esophagus dilated, monitor for improvement, plan as above. GI Bleed - + heme occult in ED - Hemodynamically stable, less likely active bleed. - Colonoscopy from 2019 with internal and external hemorrhoids. - Continue to trend Nausea and Vomiting - Zofran 4mg IV q4h PRN, Phenergan 12.5mg q6h PRN. - Patient w/ good response from Phenergan in past. CAD - On Plavix as home medication after 4 stents. - Based on endoscopy less likely GI bleed. - Will resume Plavix SSS - s/p pacemaker - continue to monitor on telemetry Hypokalemia - K= 3.4, Mg=2 - Repleted 20meq, monitor AM BMP. VTE: SCDs, resuming Plavix. Code Status: Full Code. Would not want prolonged measures if efforts ongoing for a long time. Fluids: Clear diet, advance as tolerated Dispo: Med/Surg Tele. (2) Abdominal pain: (3) GI bleed: (4) Nausea and vomiting: (5) SSS (sick sinus syndrome): (6) GERD (gastroesophageal reflux disease): (7) CAD (coronary artery disease): (8) Dysphagia: Admission and Anticipated Discharge Date Admission Date: February 23, 2022 Supervising Physician Co-Signing Physician Notes Resident Physician Supervision Note: I independently interviewed and examined the patient and verified the shukla history and physical, reviewed labs and image studies and agree with resident findings and care plan. Subjective Patient seen at the bedside this morning saying that the pain at her epigastric region has gotten worse over the course of her stay here. She says that she has GERD chronically but this instance of epigastric pain feels different and worse than the usual GERD she has. She says she is very concerned if there is anything like in the past where she had gastric ulcers and gastritis. She has nausea and reflux, burping however denies fevers, chills, shortness of breath, says her chest pain does not feel cardiac in nature. Review of Systems Review of Systems: As per HPI. Physical Exam Constitutional: WD/WN, vitals as above Not in any acute distress. Eyes: PERRL, conjunctivae normal, anicteric sclerae Respiratory: normal respiratory effort, lungs clear to auscultation Cardiovascular: RRR, no murmur, no edema Gastrointestinal (Abdomen): BS+, soft, non-distended, tenderness to palpation most prominent at the epigastric and upper abdomen. Psychiatric: A+Ox3, euthymic affect Results & Data Results & Data ([facility]) Vital Signs (Past 12 Hours) Vital Signs Temp Pulse Pulse Resp BP Pulse Ox O2 Del Method 02/23/22 15:09 37.1 C 62 16 107/71 95 Room Air 02/23/22 12:24 36.9 C 68 15 121/75 96 Room Air 02/23/22 11:50 75 16 123/79 97 Room Air 02/23/22 11:35 73 16 122/85 96 Room Air 02/23/22 07:30 68 02/23/22 11:20 83 16 120/68 97 Room Air 02/23/22 10:34 36.4 C L 80 18 115/77 98 Room Air 02/23/22 07:30 Room Air 02/23/22 08:08 36.7 C 70 16 128/84 96 Room Air 02/23/22 04:06 36.8 C 61 18 118/75 95 Room Air Resident Activity Tracking Resident Involvement: Resident Care Provided Care Provided: Adult Hospital Medicine (1) CAD (coronary artery disease) Associated angina: angina presence unspecified Coronary Disease-Associated Artery/Lesion type: unspecified vessel or lesion type [place] vs. transplanted heart: unspecified whether [place] or transplanted heart Qualified Code(s): I25.10 - Atherosclerotic heart disease of [place] coronary artery without angina pectoris
[2022-02-23] MEDS: PROMETHAZINE HCL 12.5 MG in SODIUM CHLORIDE 0.9% 50 ML IV PRN (16:53)
[2022-02-23] MEDS: POLYETHYLENE (MIRALAX) 17 GM PACK PO SCH (18:15)
[2022-02-23] MEDS: ESZOPICLONE 1 MG TAB PO PRN (21:14)
[2022-02-24] MEDS: PANTOprazole 40 MG in DEXTROSE 5% 100 ML IV SCH ×3 (00:31→10:07)
[2022-02-24] MEDS: ONDANSETRON INJ 2 MG/ML 2 ML VIAL IV PRN ×2 (00:33→10:07)
[2022-02-24] MEDS: SENNA 8.6 MG TAB PO SCH (09:39)
[2022-02-24] MEDS: POLYETHYLENE (MIRALAX) 17 GM PACK PO SCH ×4 (09:39→22:28)
[2022-02-24 09:46] LABS: BUN Creatinine Ratio 12.8 (10-20); Calcium 8.7 mg/dl (8.5-10.1); Creatinine Clr Calc Pharmacy 56.9 ml/min; Est GFR (African American) 62.6 ml/min; Potassium 3.8 mmol/L (3.5-5.1)
[2022-02-24 09:51] LABS: Basophils # (auto) 0.07 K/uL (0-0.2); Basophils % (auto) 1.5 %; Eosinophils # (auto) 0.32 K/uL (0-0.50); Eosinophils % (auto) 6.7 %; Hemoglobin 12.5 g/dl (12.0-16.0); Immature Granulocytes # (auto) 0.01 K/uL (0.00-0.02); Immature Granulocytes % (auto) 0.2 %; Lymphocytes # (auto) 1.54 K/uL (1.2-3.4); Lymphocytes % (auto) 32.1 %; Mean Corpuscular Hemoglobin 32.3 pg (25.0-34.0); Mean Corpuscular Hgb Conc 34.7 g/dL (32.0-36.0); Mean Platelet Volume 9.3 fL (9.4-12.3); Monocytes # (auto) 0.43 K/uL (0.24-0.82); Neutrophils # (auto) 2.43 K/uL (1.4-6.5); Neutrophils % (auto) 50.5 %; Platelet Count 273 K/uL (130-400); RDW Coefficient of Variation 11.6 % (11.5-14.5); RDW Standard Deviation 39.4 fL (36.4-46.3); Red Blood Count 3.87 M/uL (3.93-5.22)
[2022-02-24] MEDS: FAMOTIDINE 20 MG in SYRINGE 3 ML IV SCH (10:07)
--- NOTE | 2022-02-24 10:30 | Communication Note ---
Date of Service: February 24, 2022 Patient tells me she feels better today. swallowing has improved with dilation. stomach pain improved. Okay to stop protonix drip and iv pepcid. will transition to oral. she tells me she is feeling well and would like to be discharged home. I feel she can go home from a GI standpoint. - on discharge, continue protonix 40mg bid in place of dexilant. - start pepcid 20mg qhs. - can use miralax 17gm daily for constipation. can titrate as needed up to TID dosing. - follow up in our office in 1-2 weeks.
[2022-02-24] MEDS: ALUMINUM/MAGNESIUM SUSP 72 ML, LIDOCAINE VISCOUS 2% SOLN 24 ML, BARCODE IDENTIFIER 1 EACH PO PRN ×2 (10:40→20:28)
[2022-02-24] MEDS: LACTATED RINGER'S 1,000 ML IV SCH ×3 (10:40→22:27)
[2022-02-24] MEDS: PROMETHAZINE HCL 12.5 MG in SODIUM CHLORIDE 0.9% 50 ML IV PRN ×2 (13:54→20:29)
[2022-02-24] MEDS: CLOPIDOGREL BISULFATE 75 MG TAB PO SCH (13:54)
--- NOTE | 2022-02-24 18:10 | Hospitalist Progress Note ---
Date of Service February 24, 2022 Assessment & Plan (1) Hematemesis: Plan: Hematemesis in the setting of PUD - history of GERD; most recent EGD 2019 showed shallow gastric ulcers with gastritis and hiatal hernia - home regimen for GERD includes dexlansoprazole - GI consulted: - EGD w/ no evidence of esophageal abnormality to explain dysphagia, dilation of esophagus performed and biopsies taken. - Gastritis evident, no duodenal abnormalities. Biopsies sent. - await pathology results. - protonix oral 40mgs bid. famotidine 20mgs bid, prn malox - Patient resumed on clear liquid diet, advance as tolerated. Nausea and belching - sec to gastritis/constipation - aggressive bowel regimen. - PPI for gastritis - Zofran 4mg IV q4h PRN, Phenergan 12.5mg q6h PRN. - continue IVF until able to tolerate well orally Constipation: resolved - Long history of constipation. - continue aggressive bowel regimen on discharge Dysphagia - Difficulty swallowing past week. - No endoscopic abnormalities w/in esophagus - Esophagus dilated, monitor for improvement, plan as above. GI Bleed - + heme occult in ED - Hemodynamically stable, no concern of active bleed - Colonoscopy from 2019 with internal and external hemorrhoids. CAD - On Plavix as home medication after 4 stents. - Based on endoscopy less likely GI bleed. - Will resume Plavix SSS - s/p pacemaker - continue to monitor on telemetry Hypokalemia - K= 3.8, Mg=2 - Monitor AM BMP. VTE: SCDs, resuming Plavix. Code Status: Full Code. Would not want prolonged measures if efforts ongoing for a long time. Fluids: Clear diet, advance as tolerated Dispo: Med/Surg. (2) Abdominal pain: (3) GI bleed: (4) Nausea and vomiting: (5) SSS (sick sinus syndrome): (6) GERD (gastroesophageal reflux disease): (7) CAD (coronary artery disease): (8) Dysphagia: Admission and Anticipated Discharge Date Admission Date: February 23, 2022 Supervising Physician Co-Signing Physician Notes Resident Physician Supervision Note: I independently interviewed and examined the patient and verified the shukla history and physical, reviewed labs and image studies and agree with resident findings and care plan. Subjective Patient seen at the bedside this morning saying she still has some reflux and burping, however is able to get down tea without issue. She says that she still feels tender in the upper abdominal/epigastric area but it's less now than it was yesterday. She has not been able to take down clear fluids yet but will try. Denies fevers, chills, shortness of breath, chest pain that feels cardiac in nature. Review of Systems Review of Systems: As per HPI. Physical Exam Constitutional: WD/WN, vitals as above Eyes: PERRL, conjunctivae normal, anicteric sclerae Respiratory: normal respiratory effort, lungs clear to auscultation Cardiovascular: RRR, no murmur, no edema Gastrointestinal (Abdomen): BS+, tender to palpation epigastric and upper abdominal region, soft, non distended. Psychiatric: A+Ox3, euthymic affect Results & Data Results & Data ([facility]) Vital Signs (Past 12 Hours) Vital Signs Temp Pulse Resp BP BP Pulse Ox O2 Del Method 02/24/22 15:59 37.6 C H 62 16 116/76 97 Room Air 02/24/22 11:13 36.9 C 61 16 118/78 96 Room Air 02/24/22 07:03 36.5 C 68 20 104/70 94 Room Air Resident Activity Tracking Resident Involvement: Resident Care Provided Care Provided: Adult Hospital Medicine (1) CAD (coronary artery disease) Associated angina: angina presence unspecified Coronary Disease-Associated Artery/Lesion type: unspecified vessel or lesion type [place] vs. transplanted heart: unspecified whether [place] or transplanted heart Qualified Code(s): I25.10 - Atherosclerotic heart disease of [place] coronary artery without angina pectoris
[2022-02-24] MEDS: PANTOprazole 40 MG TAB PO SCH (20:30)
[2022-02-24] MEDS: BISOPROLOL FUMARATE 5 MG TAB PO SCH (20:30)
[2022-02-24] MEDS: ESZOPICLONE 1 MG TAB PO PRN (22:12)
[2022-02-25] MEDS: POLYETHYLENE (MIRALAX) 17 GM PACK PO SCH ×4 (03:51→20:53)
[2022-02-25 06:22] LABS: Basophils # (auto) 0.05 K/uL (0-0.2); Basophils % (auto) 0.9 %; Eosinophils # (auto) 0.41 K/uL (0-0.50); Eosinophils % (auto) 7.2 %; Hemoglobin 12.3 g/dl (12.0-16.0); Immature Granulocytes # (auto) 0.01 K/uL (0.00-0.02); Immature Granulocytes % (auto) 0.2 %; Lymphocytes # (auto) 1.93 K/uL (1.2-3.4); Mean Corpuscular Hemoglobin 32.7 pg (25.0-34.0); Mean Corpuscular Hgb Conc 35.1 g/dL (32.0-36.0); Mean Corpuscular Volume 93.1 fL (80.0-100.0); Monocytes # (auto) 0.54 K/uL (0.24-0.82); Monocytes % (auto) 9.5 %; Neutrophils # (auto) 2.73 K/uL (1.4-6.5); Neutrophils % (auto) 48.2 %; Platelet Count 260 K/uL (130-400); RDW Coefficient of Variation 11.5 % (11.5-14.5); RDW Standard Deviation 39.4 fL (36.4-46.3); Red Blood Count 3.76 M/uL (3.93-5.22); White Blood Count 5.67 K/ul (4.8-10.8)
[2022-02-25 07:23] LABS: BUN Creatinine Ratio 11.3 (10-20); Calcium 8.7 mg/dl (8.5-10.1); Creatinine Clr Calc Pharmacy 58.5 ml/min; Est GFR (African American) 64.7 ml/min; Est GFR (Non-African American) 55.8 ml/min; Potassium 3.9 mmol/L (3.5-5.1)
[2022-02-25] MEDS: CLOPIDOGREL BISULFATE 75 MG TAB PO SCH (09:33)
[2022-02-25] MEDS: ONDANSETRON INJ 2 MG/ML 2 ML VIAL IV PRN ×2 (09:33→15:24)
[2022-02-25] MEDS: PANTOprazole 40 MG TAB PO SCH ×2 (09:34→21:02)
[2022-02-25] MEDS: FAMOTIDINE 20 MG TAB PO SCH (09:34)
[2022-02-25] MEDS: SENNA 8.6 MG TAB PO SCH (09:34)
[2022-02-25] MEDS: ALUMINUM/MAGNESIUM SUSP 72 ML, LIDOCAINE VISCOUS 2% SOLN 24 ML, BARCODE IDENTIFIER 1 EACH PO PRN (11:32)
--- NOTE | 2022-02-25 13:03 | Hospitalist Progress Note ---
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 Hematemesis in the setting of PUD, resolved GERD, chronic - most recent EGD 2019 showed shallow gastric ulcers with gastritis and hiatal hernia - home regimen for GERD includes dexlansoprazole - GI consulted: - EGD: gastritis evident, no duodenal abnormalities. No evidence of esophageal abnormality to explain dysphagia, dilation of esophagus performed and biopsies taken. Awaiting pathology results. - Cont. protonix oral 40mg bid. Famotidine 20mg qam, prn Maalox - Nausea with clear liquid diet for breakfast. Will continue same diet for lunch . Advance as tolerated. Nausea and belching, improving - sec to gastritis/constipation - protonix - Zofran 4mg IV q4h PRN, Phenergan 12.5mg q6h PRN. Constipation, resolved - chronic h/o, had several BMs overnight - continue miralax Dysphagia - Difficulty swallowing past week - No endoscopic abnormalities in esophagus - Esophagus dilated, monitor for improvement, plan as above. GI Bleed - +heme occult in ED - Hemodynamically stable, no concern of active bleed - Colonoscopy from 2019 with internal and external hemorrhoids. CAD - cont. home plavix s/p 4 stents. - based on endoscopy less likely GI bleed. Sinus Sick Syndrome - s/p pacemaker - on tele Hypokalemia, resolved DVT ppx: Plavix Code Status: Full Code. Would not want prolonged measures if efforts ongoing for a long time. Diet: clears, advance as tolerated Dispo: Med surg (2) Abdominal pain: (3) GI bleed: (4) Nausea and vomiting: (5) SSS (sick sinus syndrome): (6) GERD (gastroesophageal reflux disease): (7) CAD (coronary artery disease): (8) Dysphagia: Admission and Anticipated Discharge Date Admission Date: February 23, 2022 Supervising Physician Co-Signing Physician Notes Resident Physician Supervision Note: I independently interviewed and examined the patient and verified the shukla history and physical, reviewed labs and image studies and agree with resident findings and care plan. Subjective Patient seen at bedside this morning. Continues to improve by the day. Still has some reflux and burping. Mild epigastric pain. [place] nausea with breakfast this morning, will keep same diet for lunch. Had several BMs overnight. Denies fevers, chills, shortness of breath, chest pain, headaches, blood in stool, vomiting. Review of Systems Review of Systems: All systems reviewed & are unremarkable except as noted in HPI & below Physical Exam Physical Exam: Constitutional: WD/WN, in no acute distress, pleasant. AOx3. Vitals as above. HEENT: No scleral injection. Moist mucous membranes. Neck: Trachea midline. Lungs: CTAB Cardiac: RRR. No murmurs. Abdomen: +BS. Soft. Mildly distended with epigastric tenderness. No guarding or rebound tenderness. Skin: No rashes, warm, dry. Results & Data Results & Data ([facility]) Vital Signs (Past 12 Hours) Vital Signs Temp Pulse Resp BP Pulse Ox O2 Del Method 02/25/22 08:37 36.7 C 61 20 126/73 94 Room Air 02/25/22 02:40 36.3 C L 61 19 128/81 97 Room Air 02/24/22 23:44 36.5 C 65 16 116/77 97 Room Air Laboratory Results 02/25/22 02/25/22 Range/Units 06:08 06:08 WBC 5.67 (4.8-10.8) K/ul RBC 3.76 L (3.93-5.22) M/uL Hgb 12.3 (12.0-16.0) g/dl Hct 35.0 (34.1-44.9) % MCV 93.1 (80.0-100.0) fL MCH 32.7 (25.0-34.0) pg MCHC 35.1 (32.0-36.0) g/dL RDW Std Deviation 39.4 (36.4-46.3) fL RDW Coeff of [place] 11.5 (11.5-14.5) % Plt Count 260 (130-400) K/uL MPV 9.0 L (9.4-12.3) fL Immature Gran % (Auto) 0.2 % Neut % (Auto) 48.2 % Lymph % (Auto) 34.0 % [place] % (Auto) 9.5 % Eos % (Auto) 7.2 % Baso % (Auto) 0.9 % Neut # (Auto) 2.73 (1.4-6.5) K/uL Lymph # (Auto) 1.93 (1.2-3.4) K/uL [place] # (Auto) 0.54 (0.24-0.82) K/uL Eos # (Auto) 0.41 (0-0.50) K/uL Baso # (Auto) 0.05 (0-0.2) K/uL Immature Gran # (Auto) 0.01 (0.00-0.02) K/uL Sodium 141 (136-145) mmol/L Potassium 3.9 (3.5-5.1) mmol/L Chloride 106 (98-107) mmol/L Carbon Dioxide 31 (21-32) mmol/L Anion Gap 4 (3-11) BUN 12 (6-23) mg/dl Creatinine 1.06 (0.6-1.2) mg/dl Est Cr Clr Drug Dosing 58.5 ml/min Est GFR ( Amer) 64.7 ml/min Est GFR (Non-Af Amer) 55.8 ml/min BUN/Creatinine Ratio 11.3 (10-20) Glucose 93 (70-99(Fasting)) mg/dl Calcium 8.7 (8.5-10.1) mg/dl Resident Activity Tracking Resident Involvement: Resident Care Provided Care Provided: Adult Hospital Medicine (1) CAD (coronary artery disease) Associated angina: angina presence unspecified Coronary Disease-Associated Artery/Lesion type: unspecified vessel or lesion type [place] vs. transplanted heart: unspecified whether [place] or transplanted heart Qualified Code(s): I25.10 - Atherosclerotic heart disease of [place] coronary artery without angina pectoris
[2022-02-25] MEDS: PROMETHAZINE HCL 12.5 MG in SODIUM CHLORIDE 0.9% 50 ML IV PRN (16:46)
[2022-02-25] MEDS: GI Cocktail Single dose PO PRN (20:54)
[2022-02-25] MEDS: ESZOPICLONE 1 MG TAB PO PRN (21:01)
[2022-02-25] MEDS: BISOPROLOL FUMARATE 5 MG TAB PO SCH (21:02)
--- NOTE | 2022-02-26 06:59 | Hospitalist Progress Note ---
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 Hematemesis with h/o PUD, resolved GERD, chronic - EGD 2019 showed shallow gastric ulcers with gastritis and hiatal hernia - home regimen for GERD includes dexlansoprazole - GI consulted: - EGD: gastritis evident, no duodenal abnormalities. No evidence of esophageal abnormality to explain dysphagia, dilation of esophagus performed and biopsies taken. Awaiting pathology results. - Cont. protonix oral 40mg bid, Famotidine 20mg qam, prn Maalox. - Still nauseas with clear liquid diet. Will continue for now. Advance as tolerated. - Started carafate qid Intractable Nausea and belching, improving - sec to gastritis/constipation - Not able to tolerate clear liquid diet. discussed limiting tea intake to limit gastric irritation (drinking upto 5 cups through the day while on clear liquid here) - cont. Zofran, Phenergan Constipation, resolved - chronic h/o, has had several BMs - continue miralax TID Dysphagia - Difficulty swallowing past week - No endoscopic abnormalities in esophagus - Esophagus dilated, monitor for improvement, plan as above. GI Bleed - +heme occult in ED - Hemodynamically stable, no concern of active bleed - Colonoscopy from 2019 with internal and external hemorrhoids. CAD - cont. home plavix s/p 4 stents. - based on endoscopy less likely GI bleed. Sinus Sick Syndrome - s/p pacemaker - on tele Hypokalemia, resolved DVT ppx: Plavix Code Status: Full Code. Would not want prolonged measures if efforts ongoing for a long time. Diet: clears, advance as tolerated Dispo: Med surg (2) Abdominal pain: (3) GI bleed: (4) Nausea and vomiting: (5) SSS (sick sinus syndrome): (6) GERD (gastroesophageal reflux disease): (7) CAD (coronary artery disease): (8) Dysphagia: Admission and Anticipated Discharge Date Admission Date: February 23, 2022 Supervising Physician Co-Signing Physician Notes Resident Physician Supervision Note: I independently interviewed and examined the patient and verified the shukla history and physical, reviewed labs and image studies and agree with resident findings and care plan. Subjective Patient seen at bedside this morning. Improving but very slowly. Still has some reflux and burping. Mild epigastric pain. [place] nausea with clears for breakfast/lunch. Denies fevers, chills, shortness of breath, chest pain, headaches, blood in stool, vomiting. Review of Systems Review of Systems: All systems reviewed & are unremarkable except as noted in HPI & below Physical Exam Physical Exam: Constitutional: WD/WN, in no acute distress, pleasant. AOx3. Vitals as above. HEENT: No scleral injection. Moist mucous membranes. Neck: Trachea midline. Lungs: CTAB Cardiac: RRR. No murmurs. Abdomen: +BS. Soft. Mildly distended with epigastric tenderness. No guarding or rebound tenderness. Skin: No rashes, warm, dry. Results & Data Results & Data ([facility]) Vital Signs (Past 12 Hours) Vital Signs Temp Pulse Resp BP BP Pulse Ox O2 Del Method 02/25/22 20:55 62 124/76 02/25/22 19:25 36.8 C 57 L 18 137/80 96 Room Air Resident Activity Tracking Resident Involvement: Resident Care Provided Care Provided: Adult Hospital Medicine (1) CAD (coronary artery disease) Associated angina: angina presence unspecified Coronary Disease-Associated Artery/Lesion type: unspecified vessel or lesion type [place] vs. transplanted heart: unspecified whether [place] or transplanted heart Qualified Code(s): I25.10 - Atherosclerotic heart disease of [place] coronary artery without angina pectoris
[2022-02-26] MEDS: FAMOTIDINE 20 MG TAB PO SCH (08:21)
[2022-02-26] MEDS: CLOPIDOGREL BISULFATE 75 MG TAB PO SCH (08:23)
[2022-02-26] MEDS: PANTOprazole 40 MG TAB PO SCH ×2 (08:23→20:38)
[2022-02-26] MEDS: SENNA 8.6 MG TAB PO SCH (08:24)
[2022-02-26] MEDS: POLYETHYLENE (MIRALAX) 17 GM PACK PO SCH ×3 (08:24→20:35)
[2022-02-26] MEDS: ONDANSETRON INJ 2 MG/ML 2 ML VIAL IV PRN (08:32)
[2022-02-26] MEDS: GI Cocktail Single dose PO PRN ×2 (10:29→22:39)
[2022-02-26] MEDS: PROMETHAZINE HCL 12.5 MG in SODIUM CHLORIDE 0.9% 50 ML IV PRN ×2 (15:41→23:10)
[2022-02-26] MEDS ORDERED: SUCRALFATE 1 GM TAB PO SCH (16:30)
[2022-02-26] MEDS: BISOPROLOL FUMARATE 5 MG TAB PO SCH (20:37)
[2022-02-26] MEDS: SUCRALFATE 1 GM/10 ML UDC PO SCH (20:40)
[2022-02-26] MEDS: ESZOPICLONE 1 MG TAB PO PRN (22:43)
--- NOTE | 2022-02-27 08:15 | Hospitalist Progress Note ---
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 Hematemesis in the setting of PUD, resolved GERD, chronic - most recent EGD 2019 shallow gastric ulcers with gastritis and hiatal hernia - home regimen for GERD includes dexlansoprazole - GI consulted: gastritis evident on EGD, no duodenal abnormalities. No evidence of esophageal abnormality to explain dysphagia, dilation of esophagus performed and biopsies taken. Path results negative for H. pylori, malignancy. - Cont. Protonix oral 40mg bid, Famotidine 20mg qam, prn Maalox. - Still nauseous with clear liquid diet. Will continue for now. Advance as tolerated. * Clear liquid diet; advance as tolerated * Carafate qid * P.o. Protonix 40 mg twice daily, famotidine 20 mg every morning, Maalox as needed Nausea and belching, improving - sec to gastritis/constipation. Plan as above. * Zofran, Phenergan Constipation, resolved - chronic h/o, has had several BMs - continue MiraLAX TID Dysphagia - Difficulty swallowing past week - No endoscopic abnormalities in esophagus - Esophagus dilated, monitor for improvement, plan as above. GI Bleed - +heme occult in ED - Hemodynamically stable, no concern of active bleed - Colonoscopy from 2019 with internal and external hemorrhoids. CAD - cont. home Plavix s/p 4 stents. - based on endoscopy less likely GI bleed. Sinus Sick Syndrome - s/p pacemaker - on tele Hypokalemia, resolved DVT ppx: Plavix Code Status: Full Code. Would not want prolonged measures if efforts ongoing for a long time. Diet: clears, advance as tolerated Dispo: Med Surg (2) Abdominal pain: (3) GI bleed: (4) Nausea and vomiting: (5) SSS (sick sinus syndrome): (6) GERD (gastroesophageal reflux disease): (7) CAD (coronary artery disease): (8) Dysphagia: Admission and Anticipated Discharge Date Admission Date: February 23, 2022 Supervising Physician Co-Signing Physician Notes I personally examined the patient and verified all shukla points of history and exam, discussed case, and agree with decision making with Dr Hernandez ongoing nausea/vomiting. slowly worsening over years maybe - definitely worse all summer vitals noted nad heent nc at mmm abd soft nd severe epigastric tenderness without peritoneal signs questionable trigger points epigastric pain nausea vomiting - doubt gastritis explains all of this. suspect motility / gastroparesis - gastric emptying study, re-exam for trigger points as pain allows, something neuropathic on the order FD vs gastroparesis most likely otherwise as above Subjective No acute events overnight. Reports a dull ache primarily in the epigastrium that worsens with direct palpation. + Nausea with breakfast. Denies vomiting. Review of Systems Review of Systems: All systems reviewed & are unremarkable except as noted in HPI & below Physical Exam Physical Exam: General: Well-appearing, alert, interactive, and in no acute distress. HEENT: Normocephalic, atraumatic. EOM intact. Good conjugate gaze. Nares patent. Moist mucosal membranes. Neck: Supple. No lymphadenopathy. Normal ROM. CV: Regular rate and rhythm. Normal S1 and S2. No murmurs gallops or rubs. Respiratory: Normal respiratory effort. Lungs clear to auscultation bilaterally. No crackles, rhonchi, or wheezes. Abdomen: Soft, nondistended abdomen. No bruits heard on auscultation. Profound exquisite tenderness to palpation with guarding. Extremities: Capillary refill <2 sec. 2+ dp equal bilaterally. No pedal edema. Neuro: Alert and oriented x3. Skin: Clean, dry, and intact. No rashes, bruises, or erythema. Results & Data Results & Data ([facility]) Vital Signs (Past 12 Hours) Vital Signs Temp Pulse Resp BP Pulse Ox O2 Del Method 02/26/22 23:03 36.8 C 60 16 129/84 96 Room Air Resident Activity Tracking Resident Involvement: Resident Care Provided Care Provided: Adult Hospital Medicine (1) CAD (coronary artery disease) Associated angina: angina presence unspecified Coronary Disease-Associated Artery/Lesion type: unspecified vessel or lesion type [place] vs. transplanted heart: unspecified whether [place] or transplanted heart Qualified Code(s): I25.10 - Atherosclerotic heart disease of [place] coronary artery without angina pectoris
[2022-02-27] MEDS: SENNA 8.6 MG TAB PO SCH (08:43)
[2022-02-27] MEDS: SUCRALFATE 1 GM/10 ML UDC PO SCH ×4 (08:48→21:53)
[2022-02-27] MEDS: PANTOprazole 40 MG TAB PO SCH ×2 (08:48→22:36)
[2022-02-27] MEDS: FAMOTIDINE 20 MG TAB PO SCH (08:48)
[2022-02-27] MEDS: CLOPIDOGREL BISULFATE 75 MG TAB PO SCH (08:48)
[2022-02-27] MEDS: POLYETHYLENE (MIRALAX) 17 GM PACK PO SCH ×3 (08:48→21:01)
[2022-02-27] MEDS: ONDANSETRON INJ 2 MG/ML 2 ML VIAL IV PRN ×2 (08:52→21:54)
[2022-02-27] MEDS: GI Cocktail Single dose PO PRN ×2 (09:13→20:57)
[2022-02-27] MEDS ORDERED: SIMETHICONE 80 MG CHEW PO PRN (10:32)
[2022-02-27] MEDS: PROMETHAZINE HCL 12.5 MG/10 ML UDP PO PRN (17:33)
--- NOTE | 2022-02-27 19:59 | Billing Data ---
Date of Service February 27, 2022 Coding Level of Care Code 57502 Subseq Hosp Care Lvl 3
[2022-02-27] MEDS: ESZOPICLONE 1 MG TAB PO PRN (22:08)
[2022-02-27] MEDS: BISOPROLOL FUMARATE 5 MG TAB PO SCH (22:36)
[2022-02-28] MEDS: PROMETHAZINE HCL 12.5 MG/10 ML UDP PO PRN (00:25)
[2022-02-28] MEDS: SENNA 8.6 MG TAB PO SCH (07:56)
[2022-02-28] MEDS: POLYETHYLENE (MIRALAX) 17 GM PACK PO SCH ×3 (07:56→21:29)
--- NOTE | 2022-02-28 08:04 | Hospitalist Progress Note ---
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 Hematemesis in the setting of PUD, resolved GERD, chronic - most recent EGD 2019 shallow gastric ulcers with gastritis and hiatal hernia - home regimen for GERD includes dexlansoprazole - GI consulted: gastritis evident on EGD, no duodenal abnormalities. No evidence of esophageal abnormality to explain dysphagia, dilation of esophagus performed and biopsies taken. Path results negative for H. pylori, malignancy. - GI discharge recs: * Protonix 40 mg twice daily. Stop Dexilant * Pepcid 20 mg nightly * MiraLAX up to 3 times daily dosing for constipation. * Outpatient follow-up in 1 to 2 weeks. - Still nauseous with clear liquid diet. Will continue for now. Advance as tolerated. -Based on symptoms, strongly suspect gastroparesis. Gastric emptying study ordered. * Clear liquid diet; advance as tolerated * Carafate qid * P.o. Protonix 40 mg twice daily, famotidine 20 mg every morning, Maalox as needed * Gastric emptying study scheduled for 02/28/2022 at 8 AM. Nausea and belching - sec to gastritis/constipation. Plan as above. * Continue Phenergan (first-line), Zofran as needed * Simethicone as needed Constipation, resolved - chronic h/o, has had several BMs - continue MiraLAX TID Dysphagia - Difficulty swallowing past week - No endoscopic abnormalities in esophagus - Esophagus dilated, monitor for improvement, plan as above. GI Bleed - +heme occult in ED - Hemodynamically stable, no concern of active bleed - Colonoscopy from 2019 with internal and external hemorrhoids. CAD (s/p 4 stents) - cont. home Plavix - based on endoscopy less likely GI bleed. Sinus Sick Syndrome - s/p pacemaker - on tele Hypokalemia, resolved DVT ppx: Plavix Code Status: Full Code. Would not want prolonged measures if efforts ongoing for a long time. Diet: clears, advance as tolerated Dispo: Med Surg (2) Abdominal pain: (3) GI bleed: (4) Nausea and vomiting: (5) SSS (sick sinus syndrome): (6) GERD (gastroesophageal reflux disease): (7) CAD (coronary artery disease): (8) Dysphagia: Admission and Anticipated Discharge Date Admission Date: February 23, 2022 Supervising Physician Co-Signing Physician Notes I personally examined the patient and verified all shukla points of history and exam, discussed case, and agree with decision making with Dr Hernandez No new complaints. Still awaiting gastric emptying study. vitals noted nad heent nc at mmm breathing unlabored no accessory muscle use good effort. Skin shows no rashes no pallor or icterus. Neuro without focal deficits epigastric pain nausea vomiting - doubt gastritis explains all of this. suspect motility / gastroparesis - gastric emptying study, re-exam for trigger points as pain allows, something neuropathic on the order FD vs gastroparesis most likely, trigger points possibly also an exacerbating factor, but suspect the epigastric neuropathic process being the primarygastric emptying study will probably be useful to distinguish a predominantly motility/gastroparesis issue from a predominantly sensory/functional dyspepsia issue. otherwise as above Subjective No acute events overnight. She reports worsening nausea and slight worsening of her still dull epigastric abdominal pain. Only able to tolerate 2-3 bites of her breakfast before feeling full. She also reports increased laryngeal hoarseness (which has been bothering her for months), and a light wheeze. Review of Systems Review of Systems: All systems reviewed & are unremarkable except as noted in HPI & below Physical Exam Physical Exam: General: Well-appearing, alert, interactive, and in no acute distress. HEENT: Normocephalic, atraumatic. EOM intact. Good conjugate gaze. Nares patent. Moist mucosal membranes. Neck: Supple. No lymphadenopathy. Normal ROM. CV: Regular rate and rhythm. Normal S1 and S2. No murmurs gallops or rubs. Respiratory: Normal respiratory effort. Lungs clear to auscultation bilaterally. No crackles, rhonchi, or wheezes. Abdomen: Soft, nondistended abdomen. No bruits heard on auscultation. Profound exquisite tenderness to palpation with guarding. Extremities: Capillary refill <2 sec. 2+ dp equal bilaterally. No pedal edema. Neuro: Alert and oriented x3. Skin: Clean, dry, and intact. No rashes, bruises, or erythema. Results & Data Results & Data ([place]) Vital Signs (Past 12 Hours) Vital Signs Temp Pulse Resp BP Pulse Ox O2 Del Method 02/27/22 23:00 36.3 C L 62 20 108/70 96 Room Air 02/27/22 22:03 63 126/78 Resident Activity Tracking Resident Involvement: Resident Care Provided Care Provided: Adult Hospital Medicine (1) CAD (coronary artery disease) Associated angina: angina presence unspecified Coronary Disease-Associated Artery/Lesion type: unspecified vessel or lesion type [place] vs. transplanted heart: unspecified whether [place] or transplanted heart Qualified Code(s): I25.10 - Atherosclerotic heart disease of [place] coronary artery without angina pectoris
[2022-02-28] MEDS: ONDANSETRON INJ 2 MG/ML 2 ML VIAL IV PRN ×2 (08:07→12:40)
[2022-02-28] MEDS: SUCRALFATE 1 GM/10 ML UDC PO SCH ×4 (08:09→21:28)
[2022-02-28] MEDS: PANTOprazole 40 MG TAB PO SCH ×2 (08:09→21:28)
[2022-02-28] MEDS: CLOPIDOGREL BISULFATE 75 MG TAB PO SCH (08:09)
[2022-02-28] MEDS: FAMOTIDINE 20 MG TAB PO SCH (08:09)
[2022-02-28] MEDS: GI Cocktail Single dose PO PRN ×2 (09:06→14:28)
[2022-02-28] MEDS ORDERED: PROMETHAZINE HCL 12.5 MG in SODIUM CHLORIDE 0.9% 50 ML IV ONE (09:30)
--- NOTE | 2022-02-28 18:34 | Billing Data ---
Date of Service February 28, 2022 Coding Level of Care Code 12441 Subseq Hosp Care Lvl 3
[2022-02-28] MEDS: PROMETHAZINE HCL 12.5 MG in SODIUM CHLORIDE 0.9% 50 ML IV PRN (19:51)
[2022-02-28] MEDS: ESZOPICLONE 1 MG TAB PO PRN (21:28)
[2022-02-28] MEDS: BISOPROLOL FUMARATE 5 MG TAB PO SCH (21:29)
[2022-02-28] MEDS: GI COCKTAIL PO PRN (21:37)
[2022-03-01] MEDS: SENNA 8.6 MG TAB PO SCH (10:23)
[2022-03-01] MEDS: SUCRALFATE 1 GM/10 ML UDC PO SCH ×3 (10:36→16:32)
[2022-03-01] MEDS: POLYETHYLENE (MIRALAX) 17 GM PACK PO SCH ×2 (10:36→12:22)
[2022-03-01] MEDS: PANTOprazole 40 MG TAB PO SCH (12:22)
[2022-03-01] MEDS: CLOPIDOGREL BISULFATE 75 MG TAB PO SCH (12:23)
[2022-03-01] MEDS: FAMOTIDINE 20 MG TAB PO SCH (12:23)
[2022-03-01] MEDS: GI COCKTAIL PO PRN (12:24)
[2022-03-01] MEDS: PROMETHAZINE HCL 12.5 MG in SODIUM CHLORIDE 0.9% 50 ML IV PRN (12:45)
--- NOTE | 2022-03-01 13:00 | Nuclear Medicine Report ---
NM gastric emptying study CLINICAL HISTORY: epigastric abdominal pain and nausea TECHNIQUE: The patient was given food with 1.08 mCi of Tc 99m labeled sulfur colloid. Sequential imag es centered on the stomach were obtained immediately following the meal, then at 1, 2, and 4 hours fo llowing the meal. All imaging was performed in the upright position. This is a solid phase study. COMPARISON: Prior CT abdomen pelvis 02/22/2022 FINDINGS: The geometric mean remaining tracer was 94%, 83, and 46 %at 1 hour, 2 hours, and 4 hours re spectively. The normal values for gastric retention are 30-90%, 30-60%, and 10% respectively. IMPRESSION: Findings compatible with delayed gastric emptying. ACT 112: Negative or not required by law. Electronically signed by: Storm Smith M.D. 03/01/2022 12:57 PM
[2022-03-01] MEDS: ONDANSETRON INJ 2 MG/ML 2 ML VIAL IV PRN (16:34)
--- NOTE | 2022-03-01 17:07 | Discharge Summary ---
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 She has had GERD for a number of years, takes Dexilant. Had an EGD a few years ago that showed an ulcer and gastritis. She has been having epigastric pain that has become constant, worse with laying down. She has been sleeping in a recliner. Has also been having belching and has had a persistent dry cough that is worse at night. She has also been having trouble swallowing pills/food for the past week. Over the past 2 weeks she has had 5-6 episodes of emesis. Noticed 1 occasion of hematemesis with streaking of bright red blood. Stools over past couple of days have been small, pellet like and black. Takes Plavix due to history of RI and stenting, no other anticoagulation.Denies NSAID use. ED Course significant for CBC within normal limits, hemoglobin=14.4. CT of abdomen showed no acute abnormalities to explain GI bleed. EKG without any significant changes from prior. + heme occult Admission Exam Per Admitting Provider Constitutional: well-appearing, no acute distress HEENT: NCAT, no conjunctival injection CV: regular rhythm, no murmur appreciated, extremities well-perfused, no LE edema Resp: CTABL, no wheezes/rales/rhonchi appreciated, no increased work of breathing GI: soft, nondistended, BS normoactive, epigastric tenderness without rebound or guarding MSK: no gross deformities appreciated Skin: warm, dry, no rash appreciated Neuro: alert, oriented, no focal neurologic deficit appreciated Principal Diagnosis GERD, gastroparesis Discharge Exam General: Well-appearing, alert, interactive, and in no acute distress. HEENT: Normocephalic, atraumatic. EOM intact. Good conjugate gaze. Nares patent. Moist mucosal membranes. Neck: Supple. No lymphadenopathy. Normal ROM. CV: Regular rate and rhythm. Normal S1 and S2. No murmurs gallops or rubs. Respiratory: Normal respiratory effort. Lungs clear to auscultation bilaterally. No crackles, rhonchi, or wheezes. Abdomen: Soft, nondistended abdomen. No bruits heard on auscultation. Epigastric tenderness to palpation with guarding but without rebound. Extremities: Capillary refill <2 sec. 2+ dp equal bilaterally. No pedal edema. Neuro: Alert and oriented x3. Skin: Clean, dry, and intact. No rashes, bruises, or erythema. Discharge Data Allergies Allergy/AdvReac Type Severity Reaction Status Date / Time ivabradine Allergy SV FACE SWELLS Verified 02/23/22 10:32 prochlorperazine Allergy Severe LOCK JAW Verified 02/23/22 10:32 [From Compazine] amlodipine Allergy Intermediate muscle pain Verified 02/23/22 10:32 verapamil Allergy Intermediate muscle pain Verified 02/23/22 10:32 levofloxacin [From Levaquin] AdvReac Severe Pain in Verified 02/23/22 10:32 Feet(muscles and ligaments) ranolazine AdvReac Mild Verified 02/23/22 10:32 Consultations 02/22/22 18:08 ED Decision to Admit Stat 02/22/22 20:21 Consult Gastroenterology Routine Procedures Performed Operation Date: 02/23/22 16:15 Actual Procedures p EGD Biopsy Dilatation - Mookie Allen MD Ordered Studies 02/22/22 13:52 CT abd pelvis IV con only Stat Hospital Course (1) Hematemesis: 62 yo female with a PMHx CAD s/p failed CABG x1 to RCA, 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 Hematemesis in the setting of PUD, resolved GERD, chronic - most recent EGD 2019 shallow gastric ulcers with gastritis and hiatal hernia - home regimen for GERD includes dexlansoprazole - GI consulted: gastritis evident on EGD, no duodenal abnormalities. No evidence of esophageal abnormality to explain dysphagia, dilation of esophagus performed and biopsies taken. Path results negative for H. pylori, malignancy. - GI discharge recs: * Protonix 40 mg twice daily. Stop Dexilant * Pepcid 20 mg nightly * MiraLAX up to 3 times daily dosing for constipation. * Outpatient follow-up in 1 to 2 weeks. - Still nauseous with clear liquid diet. Will continue for now. Advance as tolerated. -Based on symptoms, strongly suspect gastroparesis. Gastric emptying study ordered. Results showed clear delayed gastric emptying, indicative of gastroparesis. * Clear liquid diet; advance as tolerated * Carafate qid * P.o. Protonix 40 mg twice daily, famotidine 20 mg every morning, Maalox as needed Nausea and belching - sec to gastritis/constipation. Plan as above. * Continue Phenergan (first-line), Zofran as needed Constipation, resolved - chronic h/o, has had several BMs - continue MiraLAX TID Dysphagia - Difficulty swallowing past week - No endoscopic abnormalities in esophagus - Esophagus dilated, monitor for improvement, plan as above. GI Bleed - +heme occult in ED - Hemodynamically stable, no concern of active bleed - Colonoscopy from 2019 with internal and external hemorrhoids. CAD (s/p 4 stents) - cont. home Plavix - based on endoscopy less likely GI bleed. Sinus Sick Syndrome - s/p pacemaker - on tele Hypokalemia, resolved (2) Abdominal pain: (3) GI bleed: (4) Nausea and vomiting: (5) SSS (sick sinus syndrome): (6) GERD (gastroesophageal reflux disease): (7) CAD (coronary artery disease): (8) Dysphagia: Total Time Total Time Spent Total Time Spent (In Minutes): <30 Discharge Plan Discharge Items Patient Disposition: Home - Self-Care Reason For Visit: GI BLEED Discharge Diagnosis: Gastritis Activity: Per Instructions section Non-emergency contact: Primary Care Provider and Metal Drilling Machine Operator Call non-emergency contact if: your symptoms worsen, your pain is worsening and your temperature is above 101 Follow-up/Referrals: Esperanza Live MD [Primary Care Provider] - 03/09/22 11:00 am (Appt with Diana Rodas PA-C.) Diet: Regular Addtl Attending Provider Instructions: A discharge summary will be sent to your primary care physician to ensure continuity of care. You came into the hospital for difficulty swallowing, epigastric and upper abdominal pain that was unusually severe for you. You came in unable to eat or drink anything due to the pain and nausea/vomiting over the past week. During your hospital visit the grain shipper performed an endoscopy on you. He did not find any big abnormalities with your esophagus, but found evidence for gastritis at your stomach. No abnormalities were seen with the duodenum. Your esophagus was dilated during the endoscopy to help provide relief with your difficulty swallowing. Once you returned from the endoscopy you were given anti- nausea medications and restarted on a diet. You continued to have severe abdominal pain and belching, so we ordered a gastric emptying study, which confirmed our suspicion for gastroparesis, or disorder of slow or delayed e mptying of the stomach. With the conclusion of this study, we feel that you are stable enough to continue your recovery at home. Follow-up appointments: * You are scheduled with Dr. Teresa Live, your primary care physician on March 03, 2022, at 2 PM. * You should see your grain shipper within the next few weeks. If you have not heard from them within 3 days after your discharge to schedule an appointment, please call their office at [phone]. Medications: Your medication list has been reviewed and reconciled upon discharge to ensure accuracy and continuity of care. An updated list of all your medications is included with your hospital discharge paperwork. Please review this list closely, and make note of any changes. * We sent a prescription for a drug called Protonix, or pantoprazole, to your pharmacy. Please take Protonix 40 mg twice daily. * We sent a prescription for a drug called Pepcid, or famotidine, to your pharmacy. Please take Pepcid 20 mg daily at nighttime. * We sent a prescription for a drug called MiraLAX to your pharmacy. Please take MiraLAX up to 3 times daily as needed for constipation. * We sent a prescription for a drug called Carafate to your pharmacy. Please take Carafate four times daily as needed for reflux. * We stopped your prescription for Dexilant. Please stop taking Dexilant once you are discharged from the hospital. Take your medications as instructed; do not skip a dose of your medicines. Make sure all of your doctors know every medicine you are taking (including [id number] medicines, vitamins, and supplements). let your primary care provider know before taking any new medicines because some of these may interact with your current medications, or may make your symptoms worse. Lifestyle modifications: In addition to the prescribed medications, some lifestyle adjustments will be helpful in managing your symptoms moving forward. As we discussed earlier, certain changes like the ones mentioned below, can provide some relief in additi on to your medications: * Eating smaller meals, or grazing, throughout the day, taking care to chew your food well. * Abstaining from foods that are harder or take longer to digest like high fiber foods (raw/dried fruits, raw vegetables, whole grains, nuts, seeds), or foods high in fats, as these can slow gastric emptying. * Blending your meals (smoothies, high-fat drinks) * Staying hydrated CONTACT YOUR PRIMARY CARE PROVIDER if you experience any of the following: * Fevers or shaking chills * Shortness of breath not relieved by inhalers, fainting * Sudden abdominal distension not relieved by catheterization. * Difficulty following your treatment plan, or difficulty taking medications CALL 911 OR GO TO THE EMERGENCY DEPARTMENT if you experience any of the following: * Sudden, severe abdominal pain or nausea/vomiting * Severe chest pain, or chest pain that radiates (moves) to your jaw or arm * Sudden, severe shortness of breath or difficulty breathing It was was our pleasure taking care of you here at [facility] . Thank you for allowing us to participate in your care. Pending Studies at Discharge: No Stand-Alone Forms: My [facility] Medications and DC Order Prescriptions: New pantoprazole 40 mg Tablet,Delayed Release (Dr/Ec) 40 mg PO BID 30 Days Qty: 60 0RF polyethylene glycol 3350 [Miralax] 17 gram Powder In Packet 17 g PO TID 30 Days Qty: 30 0RF sucralfate 100 mg/mL Suspension 1 g PO QID Qty: 1000 0RF Continued nitroglycerin 400 mcg/spray aerosol,spray 1 spray SL Q5M PRN (Reason: chest pain) Qty: 12 3RF Rx Instructions: until response; do not exceed 3 doses per episode nitroglycerin 0.4 mg tablet, sublingual 0.4 mg Sublingual UD PRN (Reason: Chest Pain) Qty: 25 3RF nitroglycerin 0.2 mg/hr patch 24 hour 1 patch TD DAILY PRN (Reason: Angina) Qty: 90 3RF bisoprolol fumarate 5 mg tablet 5 mg PO PM Qty: 90 3RF furosemide 40 mg tablet 40 mg PO BID Qty: 180 3RF Repatha SureClick 140 mg/mL pen injector 140 mg subcut Q14D Rx Instructions: Tuesdays phenazopyridine 200 mg tablet 200 mg PO TID PRN (Reason: pain) 3 Days Qty: 9 11RF clopidogrel [Plavix] 75 mg tablet 75 mg PO QAM Rx Instructions: Takes 4x weekly cholecalciferol (vitamin D3) 50 mcg (2,000 unit) capsule 50 mcg PO DAILY ondansetron 4 mg tablet,disintegrating 4 mg PO Q8H PRN (Reason: nausea and vomiting) Qty: 30 0RF multivitamin Tablet 1 tab PO QAM calcium carbonate 500 mg calcium (1,250 mg) Tablet 500 mg PO BID estradiol [Yuvafem] 10 mcg tablet 10 mcg PV 2XWK Rx Instructions: SUNDAYS AND THURSDAYS. Changed famotidine 40 mg tablet 20 mg PO HS Qty: 30 2RF Discontinued dexlansoprazole 30 mg capsule,biphase delayed releas 30 mg PO QAM Discharge Orders: Discharge Order (Routine); Ordered 03/01/22 Ordered By: Lani Hernandez Admission Data Admit Date/Time: 02/23/22 15:22 Attending Provider: Anil Medrano Admit Provider: Harry Rome Primary Care Provider: Esperanza Live Other Providers: Harry Rome ; Deb Quintana ; Sloan Khan ; Joaquin Gama ; Chantale Matamoros ; Maya Nichole ; Jeannette Ramos ; Stacy Valdivia ; Mookie Allen ; Mendoza Nowak ; Jacklyn Hoffman ; Brandin Gutierrez ; Vish Daniels ; Micky Bailon ; Geeta Ceja ; Eliud Rubi ; Alec Wilkinson ; Diana Tillman ; Jessica Porras ; Zully Clayton ; Mariah Vallejo ; Lili Styles ; Melvin Hernández ; Nelson Baker ; Jose Angel Zapata ; Latricia Bailey Other Interventions: Discharge Summary Assessment (RN) Last Done: 03/01/22 16:17 Supervising Physician Co-Signing Physician Notes I personally examined the patient and verified all shukla points of history and exam, discussed case, and agree with decision making with Dr Hernandez feels about the same, discussed gastroparesis at length. vitals noted nad heent nc at mmm breathing unlabored no accessory muscle use good effort. Skin shows no rashes no pallor or icterus. Neuro without focal deficits gastroparesis - safe for home, multimodal management -GI filling/motility - smaller meals, low fat, low insoluable fiber; discussed risk/benefit of metoclopramide and erythromycin - for now will see how she does on diet modifications and then consider adding and/or alternating meds if diet changes don't help enough -serotoninergic / mind-body / stress management -- for now prayer and active stress management; low threshold to start remeron or SSRI -UGI symptom control - diet modification as above, acid suppression, anti- emetics *would also recommend ongoing upper abdominal wall evaluation for trigger points as at times these can end up potentiating a vicious cycle of UGI dysmotility pain creating viscerosomatic trigger points, and then trigger points in turn creating somatovisceral phantom UGI pain --> exam here was equivocal and certainly with clear gastroparesis did not seem warranted to move to injection right away (without first managing gastroparesis) -- but if symptoms persist/fail to improve/migrate in quality - then definitely re-eval for trigger points and consider injections otherwise as above Resident Activity Tracking Resident Involvement: Resident Care Provided Care Provided: Adult Hospital Medicine
--- NOTE | 2022-03-01 18:12 | Billing Data ---
Date of Service March 01, 2022 Coding Level of Care Code D/C DAY MANAGEMENT <30 MINS
--- NOTE | 2022-03-09 10:15 | Coding Query ---
CODING QUERY To promote full compliance with coding requirements relating to patient care, provider participation is requested in all cases of search and rescue officer uncertainty. Please assist us with the question(s) below: Coding Question(s): Patient admitted with hematemesis and dysphagia. History of Peptic ulcer disease. EGD during this Admission. Progress notes document hematemesis in the setting of Peptic Ulcer disease. Please document, if known or suspected, the etiology of the hematemesis. Thanks for your help! Raza Cifuentes [facility] Physician's Response(s): hematemesis in the setting of Peptic Ulcer disease Principal Diagnosis: "that condition established after study, to be chiefly responsible for occasioning the admission of the patient to the hospital for care." Co-Existing Principal Diagnosis: "when two or more diagnoses equally meet the criteria for principal diagnosis as determined by the circumstances of admission, diagnostic work up, and/or therapy provided, and the Alphabetic Index, Tabular List, or another coding guideline does not provide sequencing direction, any one of the diagnoses may be sequenced first." "When the physician has documented what appears to be a current diagnosis in the body of the record, but has not included the diagnosis in the final diagnostic statement, the physician should be asked whether the diagnosis should be added." (Source Coding Clinic 2 QTR90. p3-4) [facility]
== END 2022-03-01 18:06 | disposition home or self-care (01) | DRG 379 ==
LOC: ED 12:19 → 2N 12:19 → SUATTDRO 18:35 → 2N 21:30 → SUATTDRO 02-23 15:22 → 2W 02-23 18:09
DX: K21.9 Gastro-esophageal reflux disease without esophagitis; E87.6 Hypokalemia; Z96.643 Presence of artificial hip joint, bilateral; K29.70 Gastritis, unspecified, without bleeding; Z95.5 Presence of coronary angioplasty implant and graft; Z88.1 Allergy status to other antibiotic agents; I25.10 Atherosclerotic heart disease of native coronary artery without angina pectoris; K59.00 Constipation, unspecified; Z83.3 Family history of diabetes mellitus; K92.1 Melena; R11.2 Nausea with vomiting, unspecified; I49.5 Sick sinus syndrome; K27.4 Chronic or unspecified peptic ulcer, site unspecified, with hemorrhage; Z86.73 Personal history of transient ischemic attack (TIA), and cerebral infarction without residual deficits; Z95.0 Presence of cardiac pacemaker; R13.10 Dysphagia, unspecified; K31.84 Gastroparesis; Z95.1 Presence of aortocoronary bypass graft